=== PATIENT | male | born 1950 | race Caucasian/White ===

== ENCOUNTER 2016-11-29 14:26 | Observation (INO) ==
[2016-11-29 16:15] LABS: Basophils # 0.1 K/mcL (0.0-0.2); Basophils % 0.8 %; Eosinophils # 0.3 K/mcL (0.0-0.6); Eosinophils % 1.8 %; Hematocrit 46.4 % (37.5-50.1); Hemoglobin 14.6 g/dL (12.9-16.9); Lymphocytes # 0.8 K/mcL (0.6-4.6); Lymphocytes % 5.6 %; Mean Corpuscular HGB Conc 31.5 g/dL (31.6-35.5); Mean Corpuscular Hemoglobin 32.9 pg (28.0-33.3); Mean Corpuscular Volume 104.5 fL (83.0-100.0); Mean Platelet Volume 9.9 fL (9.4-12.4); Monocytes # 1.2 K/mcL (0.0-1.3); Monocytes % 8.9 %; Neutrophils # 10.8 K/mcL (1.6-8.9); Nucleated Red Blood Cells 1.4 /100 WBC (0); Platelet Count 222 K/mcL (140-400); Red Blood Count 4.44 M/mcL (4.19-5.50); Segmented Neutrophils % 77.9 %
[2016-11-29 16:29] LABS: Calcium 8.9 mg/dL (8.6-10.8); Potassium 4.1 mEq/L (3.5-4.5)
--- NOTE | 2016-11-29 16:35 | Emergency Department Note ---
Disposition Clinical Impression: CHF exacerbation Qualifiers: Congestive heart failure type: unspecified congestive heart failure type Qualified Code(s): I50.9 - Heart failure, unspecified Disposition: Admitted As Inpatient Condition: Fair Referrals: Lonny Davison MD [Primary Care Provider] - Forms: ED Satisfaction Letter Time of Disposition: 16:40 General Adult HPI - General Chief complaint: ED Shortness of Breath/Dyspnea Stated complaint: SOB Time Seen by Provider: 11/29/16 16:25 Source: patient Limitations: no limitations Nursing Notes Reviewed: Yes Vital Signs Reviewed: Yes - History of Present Illness HPI Narrative: 66-year-old male with a past medical history of congestive heart failure, atrial fibrillation, pacemaker, defibrillator, blood clots, factor V Leiden deficiency, IVC filter, ileostomy, presents to the emergency department with a weeklong history of worsening shortness of breath at nighttime. He states that he has had the increased the number of pillows he uses from 2-3. He states that this feels worse than his normal CHF exacerbation. Pain Scale: 0 - Related Data Home Medications Medication Instructions Recorded Confirmed Calcitriol [Rocaltrol] 0.25 mcg PO DAILY 10/09/14 03/23/16 Cholecalciferol (Vitamin D3) 2,000 unit PO QAM 10/09/14 03/23/16 [Vitamin D3] Dabigatran [Pradaxa] 75 mg PO BID 10/09/14 03/23/16 Pravastatin Sodium 40 mg PO HS 10/09/14 03/23/16 Cyanocobalamin (Vitamin B-12) 500 mcg PO DAILY 07/22/15 03/23/16 [Vitamin B-12] Folic Acid 0.8 mg PO DAILY 01/07/16 03/23/16 Sodium Bicarbonate 650 mg PO HS 01/07/16 03/23/16 Albuterol Sulfate [Proair Hfa] 2 puff IH Q4H PRN 11/29/16 11/29/16 Ascorbic Acid [Vitamin C] 500 mg PO DAILY 11/29/16 11/29/16 Ferrous Sulfate [Iron] 325 mg PO DAILY 11/29/16 11/29/16 Furosemide [Lasix] 20 mg PO DAILY 11/29/16 11/29/16 Levothyroxine [Synthroid] 75 mcg PO 0630 11/29/16 11/29/16 Previous Rx's Medication Instructions Recorded Carvedilol [Coreg] 25 mg PO BID #30 tablet 03/25/15 Digoxin [Lanoxin] 0.125 mg PO QOD #30 tablet 11/20/15 Allergies Allergy/AdvReac Type Severity Reaction Status Date / Time Penicillins [PCN] Allergy Rash Verified 01/07/16 10:54 codeine AdvReac Hallucinati Verified 01/07/16 10:54 ng lorazepam [From Ativan] AdvReac Hallucinati Verified 01/07/16 10:54 ng All systems ED: reviewed and negative except as stated. Review of Systems: As Per HPI Constitutional: Denies: fever, chills Cardiovascular: Reports: orthopnea, paroxysmal nocturnal dyspnea. Denies: chest pain, palpitations Respiratory: Reports: dyspnea. Denies: cough, wheezes Gastrointestinal: Denies: abdominal pain, nausea, vomiting Genitourinary: Denies: urgency, dysuria, frequency Musculoskeletal: Denies: back pain, neck pain Neurological: Denies: headache, weakness Past Medical History - Past Medical History Medical history: Reports: atrial fibrillation, CHF, COPD, DVT, hyperlipidemia, hypertension, pulmonary embolus, renal disease, thyroid disease, other Surgical history: Reports: colostomy, pacemaker/AICD, other Psychiatric history: Reports: no psych history - Social History Smoking Status: Never smoker Smokeless Tobacco Status: No Alcohol use: Reports: none Drug use: Reports: none Physical Exam - General Limitations: no limitations General appearance: alert, in no apparent distress - Head Head exam: atraumatic, normocephalic - Eye Eye exam: Absent: scleral icterus, conjunctival injection - ENT ENT exam: normal exam, normal oropharynx - Neck Neck exam: Present: trachea midline. Absent: tenderness, meningismus - Chest Chest inspection: Present: normal inspection, symmetric chest wall rise - Respiratory Respiratory exam: Present: normal lung sounds bilaterally. Absent: respiratory distress - Cardiovascular Cardiovascular exam: Present: regular rate, normal rhythm, normal heart sounds - Abdominal Exam Abdominal exam: Present: soft, Non-Tender, distention. Absent: guarding, rebound, rigidity - Extremities Exam Extremities exam: Present: normal capillary refill. Absent: tenderness, pedal edema - Back Exam Back exam: Present: normal inspection. Absent: tenderness, paraspinal tenderness - Neurological Exam Neurological exam: Present: alert, oriented X3 - Skin Skin exam: Present: warm, dry, intact, normal color Course Course Narrative: This is a 66-year-old male with a past medical history of CHF, atrial fibrillation who presents with orthopnea, dyspnea over the last week. He was sent by his machine cell tuber for evaluation. This gentleman has an elevated BNP, worsening of his chronic kidney disease with an elevated BUN of 87. At this time, I will give this patient 40 mg of Lasix. I called the hospitalist on this patient admitted. They accepted the admission. I discussed this with the patient and they agreed with the admission. Patient is currently hemodynamically stable at this time and not actively having any chest pain or dyspnea. Chest X-Ray 11/29/16 15:11 IMPRESSION: Cardiomegaly. No failure. D/ / Jamir Chen / Jamir Chen Interpreting Provider: Jamir Chen Vital Signs Temperature 0 F L 11/29/16 14:30 Pulse Rate 89 11/29/16 14:30 Respiratory Rate 11/29/16 14:30 Blood Pressure 116/82 11/29/16 14:30 O2 Sat by Pulse Oximetry 97 11/29/16 14:30 Temperature 97.4 F L 11/29/16 19:16 Pulse Rate 86 11/29/16 19:16 Respiratory Rate 16 11/29/16 19:16 Blood Pressure 120/82 11/29/16 19:16 O2 Sat by Pulse Oximetry 98 11/29/16 19:16 Oxygen Delivery Oxygen Delivery Room Air Vital Signs Temperature 0 F L 11/29/16 14:30 Pulse Rate 89 11/29/16 14:30 Respiratory Rate 11/29/16 14:30 Blood Pressure 116/82 11/29/16 14:30 O2 Sat by Pulse Oximetry 97 11/29/16 14:30 Temperature 0 F L 11/29/16 14:30 Pulse Rate 89 11/29/16 14:30 Respiratory Rate 20 11/29/16 14:30 Blood Pressure 116/82 11/29/16 14:30 O2 Sat by Pulse Oximetry 98 11/29/16 17:08 Oxygen Delivery Oxygen Delivery Room Air Medical Decision Making - Medical Records Medical records reviewed: Yes I reviewed the patient's medical records. - Lab Data Lab results reviewed: Yes I reviewed the patient's lab results. Result diagrams: 11/29/16 15:51 11/29/16 15:51 Lab Results 11/29/16 11/29/16 11/29/16 Range/Units 15:51 15:51 15:51 WBC 13.9 H (4.3-11.1) K/mcL RBC 4.44 (4.19-5.50) M/mcL Hgb 14.6 (12.9-16.9) g/dL Hct 46.4 (37.5-50.1) % MCV 104.5 H (83.0-100.0) fL MCH 32.9 (28.0-33.3) pg MCHC 31.5 L (31.6-35.5) g/dL RDW 19.0 H (11.5-14.5) % Plt Count 222 (140-400) K/mcL MPV 9.9 (9.4-12.4) fL Immature Gran % 5.0 H (0-4) % Seg Neutrophils % 77.9 % Lymphocytes % 5.6 % Monocytes % 8.9 % Eosinophils % 1.8 % Basophils % 0.8 % Neutrophils # 10.8 H (1.6-8.9) K/mcL Lymphocytes # 0.8 (0.6-4.6) K/mcL Monocytes # 1.2 (0.0-1.3) K/mcL Eosinophils # 0.3 (0.0-0.6) K/mcL Basophils # 0.1 (0.0-0.2) K/mcL Nucleated RBCs/100 WBC 1.4 H (0) /100 WBC Sodium 132 L (136-145) mEq/L Potassium 4.1 (3.5-4.5) mEq/L Chloride 100 (98-109) mEq/L Carbon Dioxide 19 (19-29) mEq/L BUN 87 H (8-26) mg/dL Creatinine 2.80 H (0.72-1.25) mg/dL Est GFR ( Amer) 28 L (> 60) Est GFR (Non-Af Amer) 23 L (> 60) BUN/Creatinine Ratio 31 H (6-26) Glucose 130 H (70-99) mg/dL Calculated Osmolality 302 H (280-300) Calcium 8.9 (8.6-10.8) mg/dL Total Bilirubin 1.0 (0.2-1.2) mg/dL Direct Bilirubin 0.6 H (0.0-0.5) mg/dL Indirect Bilirubin 0.4 (0.0-1.2) mg/dL AST 18 (5-34) Units/L ALT 16 (0-55) Units/L Alkaline Phosphatase 67 (38-126) Units/L Troponin I 0.07 H* (0-0.03) ng/mL B-Natriuretic Peptide (0-100) pg/mL Serum Total Protein 7.0 (6.0-8.3) g/dL Albumin 3.4 L (3.5-5.0) g/dL Globulin 3.6 H (2.4-3.5) g/dL Albumin/Globulin Ratio 0.9 L (1.1-2.2) 11/29/16 Range/Units 15:51 WBC (4.3-11.1) K/mcL RBC (4.19-5.50) M/mcL Hgb (12.9-16.9) g/dL Hct (37.5-50.1) % MCV (83.0-100.0) fL MCH (28.0-33.3) pg MCHC (31.6-35.5) g/dL RDW (11.5-14.5) % Plt Count (140-400) K/mcL MPV (9.4-12.4) fL Immature Gran % (0-4) % Seg Neutrophils % % Lymphocytes % % Monocytes % % Eosinophils % % Basophils % % Neutrophils # (1.6-8.9) K/mcL Lymphocytes # (0.6-4.6) K/mcL Monocytes # (0.0-1.3) K/mcL Eosinophils # (0.0-0.6) K/mcL Basophils # (0.0-0.2) K/mcL Nucleated RBCs/100 WBC (0) /100 WBC Sodium (136-145) mEq/L Potassium (3.5-4.5) mEq/L Chloride (98-109) mEq/L Carbon Dioxide (19-29) mEq/L BUN (8-26) mg/dL Creatinine (0.72-1.25) mg/dL Est GFR ( Amer) (> 60) Est GFR (Non-Af Amer) (> 60) BUN/Creatinine Ratio (6-26) Glucose (70-99) mg/dL Calculated Osmolality (280-300) Calcium (8.6-10.8) mg/dL Total Bilirubin (0.2-1.2) mg/dL Direct Bilirubin (0.0-0.5) mg/dL Indirect Bilirubin (0.0-1.2) mg/dL AST (5-34) Units/L ALT (0-55) Units/L Alkaline Phosphatase (38-126) Units/L Troponin I (0-0.03) ng/mL B-Natriuretic Peptide 4722 H (0-100) pg/mL Serum Total Protein (6.0-8.3) g/dL Albumin (3.5-5.0) g/dL Globulin (2.4-3.5) g/dL Albumin/Globulin Ratio (1.1-2.2) - Radiology Data Radiology results reviewed: Yes I reviewed the patient's radiology results. - EKG Data EKG #1 EKG attestation: Yes I reviewed and interpreted this EKG. EKG results narrative: 14:33 Ventricular rate 84 bpm, ID interval 172 ms, QRS duration 147 ms, QT 397 seconds , QTC 438 ms, left axis deviation. Sinus rhythm right bundle branch block. There are significant Q waves in leads 23 and aVF. This EKG is unchanged from the one performed on 11/18/2015. Attestation Statement - Attestation Attestation: I, Erik Valdez DO, examined this patient [id number] and my medical decision-making was reviewed with Dr. Marcus La, Resident Physician. I agree with the documented findings, disposition and treatment plan as described except to the extent set forth below. Please see my progress notes for details. 66-year-old male presents emergency room with increasing orthopnea, increasing fluid overload, increasing shortness of breath with exertion. He denies any chest pain nausea vomiting or diarrhea fevers or chills. Denies any headache or vision change. Patient does have a history of pulmonary congestion and fluid overload secondary to unknown etiology of heart failure. Patient also has a history remotely of ascites but does not know the source to it at this time. Stable ileostomy is in place. Vital signs on presentation show borderline tachycardia otherwise no signs of hypoxia or tachypnea. Patient is thin and frail but does have a distended abdomen with stable ostomy with normal output. Lungs are otherwise clear with no visible or audible crackles on exam. Heart is regular. Abdomen is soft nontender mildly distended with no guarding no rigidity. No peritoneal symptoms. He has pitting edema bilateral lower extremities are +3. Patient is concerning for congestive heart failure, intra-abdominal fluid accumulation, increased work of breathing secondary to fluid accumulation as well as acute on chronic kidney insufficiency. Detailed documentation of medical evaluation, physical exam, medical intervention, medical decision making process and most likely admission will be documented as a physician's note. Patient will require hospitalization for diuresis and stabilization of his respiratory status. First dose of IV Lasix given here in the emergency room.
[2016-11-29] MEDS ORDERED: Furosemide 40 MG/4 ML VIAL IVP ONE (16:39)
[2016-11-29] MEDS ORDERED: Aspirin 325 MG TABLET PO ONE (17:10)
[2016-11-29 17:22] LABS: Albumin 3.4 g/dL (3.5-5.0); Albumin/Globulin Ratio 0.9 (1.1-2.2); Bilirubin,Direct 0.6 mg/dL (0.0-0.5); Bilirubin,Indirect 0.4 mg/dL (0.0-1.2); Globulin 3.6 g/dL (2.4-3.5)
[2016-11-29] MEDS ORDERED: Ondansetron 4 MG/2 ML VIAL IVP PRN (20:41)
[2016-11-29] MEDS ORDERED: Naloxone 0.4 MG/ML INJ IVP PRN (20:41)
--- NOTE | 2016-11-29 21:01 | Internal Med History&Physical ---
Date of Encounter: 11/29/16 Time of Encounter: 20:20 Assessment and Plan (1) CHF exacerbation Current visit: Yes Status: Acute Acute respiratory distress secondary to CHF decompensation Pt reports of decreasing his lasix dose as per his rubbing bed operator will start Lasix 40mg IV qd last 2D echo (10/22/15): LVEF 10-15% f/u repeat echo fluid restriction diet (1.5L/day) O2 supplementation as needed monitor I/Os, daily weights tele monitoring consider cardiology evaluation depending on patient's clinical response to IV diuresis Qualifiers: Congestive heart failure type: unspecified congestive heart failure type Qualified Code(s): I50.9 - Heart failure, unspecified (2) Elevated troponin Current visit: No Status: Acute likely demand ischemia no chest pain reported will continue to monitor (3) COPD (chronic obstructive pulmonary disease) Current visit: No Status: Chronic not in acute exacerbation continue home bronchodilators Qualifiers: COPD type: unspecified COPD Qualified Code(s): J44.9 - Chronic obstructive pulmonary disease, unspecified (4) CKD (chronic kidney disease) Current visit: No Status: Chronic Renal function at baseline continue to monitor consider nephrology evaluation if renal function worsens given acute CHF exacerbation, pt will need IV diuresis pt's primary rubbing bed operator is Dr. Leavitt Qualifiers: Chronic kidney disease stage: stage 4 (severe) Qualified Code(s): N18.4 - Chronic kidney disease, stage 4 (severe) (5) Paroxysmal atrial fibrillation Current visit: No Status: Chronic rate controlled with Digoxin and BB, will continue anticoagulated with Pradaxa (6) CKD (chronic kidney disease) stage 4, GFR 15-29 ml/min Current visit: No Status: Chronic (7) DVT (deep venous thrombosis) Current visit: No Status: Chronic anticoagulated with Pradaxa Qualifiers: DVT location: lower extremity Affected thrombotic vein of extremity: unspecified vein of extremity Chronicity: chronic Laterality: unspecified laterality Qualified Code(s): I82.509 - Chronic embolism and thrombosis of unspecified deep veins of unspecified lower extremity (8) Pulmonary embolism Current visit: No Status: Chronic anticoagulated with Pradaxa Qualifiers: Pulmonary embolism type: other Chronicity: unspecified Acute cor pulmonale presence: without acute cor pulmonale Qualified Code(s): I26.99 - Other pulmonary embolism without acute cor pulmonale (9) Hypothyroidism Current visit: Yes Status: Resolved continue levothyroxine Qualifiers: Hypothyroidism type: unspecified Qualified Code(s): E03.9 - Hypothyroidism , unspecified (10) DVT prophylaxis Current visit: No Status: Acute anticoagulated with Pradaxa Internal Medicine - H&P: HPI Chief complaint: shortness of breath Admitted From: Home Plans for Post Hospital Care: Home History of present illness: Mr. Shultz is a 66 year old male with PMH of CHF, COPD, HTN, CKD, DVT, PE on Pradaxa, hypothyroidism, and s/p ileostomy who presents to the ER for evaluation of shortness of breath. Patient states he has been having difficulty sleeping and laying flat for the last few days due to shortness of breath. Also reports of worsening exertional dyspnea. States his primary rubbing bed operator decreased his lasix to 20mg once a day from 40mg once a day due to his renal function. He denies any chest pain, abd pain, n/v, fever, or chills. Code status: Full code Past Med Surg Social Fam HX - Past Medical History Medical history: atrial fibrillation, CHF, COPD, DVT, hyperlipidemia, hypertension, pulmonary embolus, renal disease, thyroid disease, other Psychiatric history: no psych history - Past Surgical History Surgical History: colostomy, pacemaker/AICD, other - Social History Smoking Status: Never smoker Smokeless Tobacco Status: No Alcohol use: none Drug use: none - Family History Father Adopted: No Family Member Ethnicity: Non- Living Status: Still Living Cause of : MRSA. septic Hx Family Cardiac Disorders: Yes (CHF) Hx Family Respiratory Disorders: Yes Hx Family Cancer: No Hx Family GI Disorders: No Hx Family Endocrine Disorder: No Hx Family Neuromuscular Disorders: No Hx Family Neurologic Disorders: No Hx Family HEENT Disorders: No Hx Family Autoimmune Disorders: No Mother Living Status: Cause of : Ovarian CA Internal Medicine - H&P: Meds Calcitriol [Rocaltrol] 0.25 mcg PO DAILY 10/09/14 [History] Cholecalciferol (Vitamin D3) [Vitamin D3] 2,000 unit PO QAM 10/09/14 [History] Dabigatran [Pradaxa] 75 mg PO BID 10/09/14 [History] Pravastatin Sodium 40 mg PO HS 10/09/14 [History] Carvedilol [Coreg] 25 mg PO BID #30 tablet 03/25/15 [Rx] Cyanocobalamin (Vitamin B-12) [Vitamin B-12] 500 mcg PO DAILY 07/22/15 [History] Digoxin [Lanoxin] 0.125 mg PO QOD #30 tablet 11/20/15 [Rx] Folic Acid 0.8 mg PO DAILY 01/07/16 [History] Sodium Bicarbonate 650 mg PO DAILY 01/07/16 [History] Albuterol Sulfate [Proair Hfa] 2 puff IH Q4H PRN 11/29/16 [History] Ascorbic Acid [Vitamin C] 500 mg PO DAILY 11/29/16 [History] Ferrous Sulfate [Iron] 325 mg PO DAILY 11/29/16 [History] Furosemide [Lasix] 20 mg PO DAILY 11/29/16 [History] Levothyroxine [Synthroid] 75 mcg PO 0630 11/29/16 [History] 3 Allergy/AdvReac Type Severity Reaction Status Date / Time Penicillins [PCN] Allergy Rash Verified 01/07/16 10:54 codeine AdvReac Hallucinati Verified 01/07/16 10:54 ng lorazepam [From Ativan] AdvReac Hallucinati Verified 01/07/16 10:54 ng All Systems PM: A 10-system review of systems was performed and is negative for pertinent findings except as documented above in the HPI. - Constitutional Constitutional: as per HPI - Constitutional Vitals: Temp Pulse Resp BP Pulse Ox 97.4 F L 86 16 120/82 98 11/29/16 19:16 11/29/16 19:16 11/29/16 19:16 11/29/16 19:16 11/29/16 19:16 General appearance: Present: cooperative, A&O X 3, pleasant, no acute distress, answers questions appropriately - Head Head exam: Present: atraumatic, normocephalic - Eye Eye exam: Present: conjuntiva pink, sclera anicteric - Respiratory Respiratory exam: Absent: respiratory distress, wheezes (bibasilar crackles) - Cardiovascular Cardiovascular exam: Present: RRR, +S1, +S2. Absent: diastolic murmur, gallop, rubs, systolic murmur - GI/Abdominal GI/Abdominal exam: Present: normal bowel sounds, soft, no peritoneal signs ( ileostomy intact, midline healed surgical scar). Absent: tenderness - Extremities Exam Extremities exam: Present: pedal edema (trace pitting edema in b/l LE extremities), warm, radial pulses palpable and symmetrical. Absent: calf tenderness - Neurological Exam Neurological exam: Present: alert, oriented X3 - Psychiatric Psychiatric exam: Present: normal affect, normal mood Internal Med - H&P Results - Labs CBC & Chem 7: 11/29/16 15:51 11/29/16 15:51
[2016-11-29] MEDS: *HR* Dabigatran 75 MG CAPSULE PO SCH (21:17)
[2016-11-29] MEDS: *HR* Digoxin 0.125 MG TABLET PO SCH (21:17)
[2016-11-30 03:43] LABS: Bilirubin,Urine Negative (Negative); Blood,Urine Negative (Negative); Clarity,Urine Clear (Clear); Color,Urine Yellow (Yellow); Glucose,Urine (UA) Normal (Normal); Ketones,Urine Negative (Negative); Leukocyte Esterase,Urine Negative (Negative); Nitrite,Urine Negative (Negative); Protein,Urine Negative (Neg-Trace); Specific Gravity,Urine 1.016 (1.010-1.025); Urobilinogen,Urine Normal (Normal)
[2016-11-30 04:49] LABS: INR 2.8; Prothrombin Time 30.4 Seconds (9.4-12.1)
[2016-11-30 04:59] LABS: Calcium 8.5 mg/dL (8.6-10.8); Magnesium 1.8 mg/dL (1.6-2.6); Phosphorous 4.5 mg/dL (2.3-4.7); Potassium 3.7 mEq/L (3.5-4.5)
[2016-11-30 05:05] LABS: Basophils # 0.1 K/mcL (0.0-0.2); Basophils % 0.7 %; Eosinophils # 0.3 K/mcL (0.0-0.6); Eosinophils % 2.6 %; Hematocrit 42.8 % (37.5-50.1); Hemoglobin 13.6 g/dL (12.9-16.9); Immature Granulocytes % 4.9 % (0-4); Lymphocytes # 0.8 K/mcL (0.6-4.6); Lymphocytes % 7.7 %; Mean Corpuscular HGB Conc 31.8 g/dL (31.6-35.5); Mean Corpuscular Hemoglobin 32.8 pg (28.0-33.3); Mean Corpuscular Volume 103.1 fL (83.0-100.0); Mean Platelet Volume 9.8 fL (9.4-12.4); Monocytes # 0.9 K/mcL (0.0-1.3); Monocytes % 8.8 %; Neutrophils # 7.7 K/mcL (1.6-8.9); Nucleated Red Blood Cells 0.9 /100 WBC (0); Platelet Count 193 K/mcL (140-400); Red Blood Count 4.15 M/mcL (4.19-5.50); Red Cell Distribution Width 18.9 % (11.5-14.5); Segmented Neutrophils % 75.3 %
[2016-11-30] MEDS ORDERED: NON-FORMULARY MEDICATION 1 EACH EACH (Cholecalciferol (Vitamin D3) [Vitamin D3] 1,000 UNIT PO SCH (09:00)
[2016-11-30] MEDS: Ascorbic Acid 500 MG TABLET PO SCH (10:01)
[2016-11-30] MEDS: Cyanocobalamin (B-12) 1,000 MCG TABLET PO SCH (10:02)
[2016-11-30] MEDS: Furosemide 40 MG/4 ML VIAL IVP SCH (10:02)
[2016-11-30] MEDS: Cholecalciferol (D-3) 1,000 UNIT TABLET PO SCH (10:02)
[2016-11-30] MEDS: *HR* Dabigatran 75 MG CAPSULE PO SCH ×2 (10:02→20:29)
[2016-11-30] MEDS: Folic Acid 1 MG TABLET PO SCH (10:02)
--- NOTE | 2016-11-30 11:21 | Internal Med Progress Note ---
Date of Encounter: 11/30/16 Time of Encounter: 11:19 - Assessment and plan (1) Systolic CHF, acute on chronic Current Visit: Yes Status: Acute (2) Paroxysmal atrial fibrillation Current Visit: Yes Status: Chronic (3) Pulmonary embolism Current Visit: Yes Status: Chronic Qualifiers: Pulmonary embolism type: other Chronicity: unspecified Acute cor pulmonale presence: without acute cor pulmonale Qualified Code(s): I26.99 - Other pulmonary embolism without acute cor pulmonale (4) CKD (chronic kidney disease) stage 4, GFR 15-29 ml/min Current Visit: Yes Status: Chronic (5) Presence of IVC filter Current Visit: No Status: Chronic (6) Cirrhosis Current Visit: Yes Status: Chronic Qualifiers: Hepatic cirrhosis type: unspecified hepatic cirrhosis Ascites presence: with ascites Qualified Code(s): K74.60 - Unspecified cirrhosis of liver (7) DVT (deep venous thrombosis) Current Visit: Yes Status: Chronic Qualifiers: DVT location: lower extremity Affected thrombotic vein of extremity: unspecified vein of extremity Chronicity: chronic Laterality: unspecified laterality Qualified Code(s): I82.509 - Chronic embolism and thrombosis of unspecified deep veins of unspecified lower extremity - Subjective Interval history: Hx: Mr. Shultz is a 66 year old male with PMH of CHF, COPD, HTN, CKD, DVT, PE on Pradaxa, hypothyroidism, and s/p ileostomy who presents to the ER for evaluation of shortness of breath. Patient states he has been having difficulty sleeping and laying flat for the last few days due to shortness of breath. Also reports of worsening exertional dyspnea. States his primary ward maid decreased his lasix to 20mg once a day from 40mg once a day due to his renal function. Patient was seen today and discuss and PCL beside checking the labs. 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 Known EF is only 10-15%. Recently Lasix was reduced due to worsening renal function. On Lasix 40 daily and will try to diurese him slowly but as a consequence will accept elevated renal function. Monitor her electrolyte CBC and CMP daily. #2 A. fib rate controlled on Pradaxa #3 ileostomy with ileostomy patient water and did need some much higher and probably that created some issue in management of his CHF. Labs ordered: CBC magnesium phosphate and CMP. - Constitutional Vitals: Temp Pulse Resp BP Pulse Ox 97.5 F L 83 20 107/75 97 11/30/16 11:11/30/16 11:11/30/16 11:09 11/30/16 11:11/30/16 11:09 General appearance: Present: cooperative, A&O X 3, pleasant, no acute distress, answers questions appropriately - Head Head exam: Present: atraumatic, normocephalic - Eye Eye exam: Present: PERRL, conjuntiva pink, sclera anicteric Pupils: Present: PERRL - Neck Neck exam general surgery: Present: supple, trachea midline. Absent: lymphadenopathy - Respiratory Respiratory exam: Present: rhonchi. Absent: accessory muscle use, rales, wheezes - Cardiovascular Cardiovascular exam: Present: RRR, +S1, +S2. Absent: diastolic murmur, gallop, rubs, systolic murmur - GI/Abdominal GI/Abdominal exam: Present: normal bowel sounds, soft, no peritoneal signs. Absent: distended, tenderness - Extremities Exam Extremities exam: Present: warm, radial pulses palpable and symmetrical. Absent : calf tenderness, cyanotic, pedal edema - Neurological Exam Neurological exam: Present: CN II-XII intact, oriented X3, no focal deficits. Absent: pronater drift, facial droop, speech deficit - Skin Skin exam: Present: dry, intact Internal Medicine: Result - Labs CBC & Chem 7: 11/30/16 04:25 11/30/16 04:25 Labs: Short CBC 11/30/16 Range/Units 04:25 WBC 10.2 (4.3-11.1) K/mcL Hgb 13.6 (12.9-16.9) g/dL Hct 42.8 (37.5-50.1) % Plt Count 193 (140-400) K/mcL Neutrophils # 7.7 (1.6-8.9) K/mcL BMP 11/30/16 04:25 Sodium 136 Potassium 3.7 Chloride 102 Carbon Dioxide 19 BUN 87 H Creatinine 2.68 H Glucose 141 H Calcium 8.5 L Cardiac Enzymes 11/29/16 11/30/16 Range/Units 22:04 04:25 Troponin I 0.07 H* 0.09 H* (0-0.03) ng/mL Urine 09/26/17 Range/Units 03:34 Urine Color Yellow (Yellow) Urine Clarity Clear (Clear) Urine pH 6.0 (5.0-8.0) pH Units Ur Specific [place] 1.016 (1.010-1.025) Urine Protein Negative (Neg-Trace) mg/dL Urine Glucose (UA) Normal (Normal) mg/dL - ABG Interpretation ABG results: PT/INR, D-dimer PT 30.4 Seconds (9.4-12.1) H 11/30/16 04:25 Consult Discharge Plan - Plan Referrals: Lonny Davison MD [Primary Care Provider] -
--- NOTE | 2016-11-30 19:11 | Electrocardiograph Report ---
[address] [place], [place] [address] Test Date: 2016-11-29 Pat Name: Rich Shultz Department: 104 Room: 2A Gender: M Heel Pricker: : 1950 Requested By: Rufino Phelps Order Number: [id number] Reading MD: Varsha Vazquez Measurements Intervals [place] Rate: 84 P: 59 SD: 172 QRS: -84 QRSD: 147 T: 77 QT: 397 QTc: 438 Interpretive Statements SINUS RHYTHM POSSIBLE LEFT ATRIAL ENLARGEMENT RIGHT BUNDLE BRANCH BLOCK POSSIBLE ANTERIOR MYOCARDIAL INFARCTION, OF INDETERMINATE AGE INFERIOR MYOCARDIAL INFARCTION, OF INDETERMINATE AGE Electronically Signed On 11-30-2016 19:09:18 EDT by Varsha Vazquez
[2016-12-01 06:18] LABS: Basophils % 0.4 %; Eosinophils # 0.3 K/mcL (0.0-0.6); Eosinophils % 2.6 %; Hematocrit 39.6 % (37.5-50.1); Hemoglobin 12.5 g/dL (12.9-16.9); Immature Granulocytes % 3.7 % (0-4); Lymphocytes # 0.7 K/mcL (0.6-4.6); Lymphocytes % 7.2 %; Mean Corpuscular HGB Conc 31.6 g/dL (31.6-35.5); Mean Corpuscular Hemoglobin 32.3 pg (28.0-33.3); Mean Corpuscular Volume 102.3 fL (83.0-100.0); Monocytes # 0.8 K/mcL (0.0-1.3); Monocytes % 8.6 %; Neutrophils # 7.5 K/mcL (1.6-8.9); Nucleated Red Blood Cells 0.3 /100 WBC (0); Platelet Count 183 K/mcL (140-400); Red Blood Count 3.87 M/mcL (4.19-5.50); Red Cell Distribution Width 18.9 % (11.5-14.5); Segmented Neutrophils % 77.5 %
[2016-12-01 06:31] LABS: Albumin 3.1 g/dL (3.5-5.0); Bilirubin,Total 1.2 mg/dL (0.2-1.2); Calcium 8.5 mg/dL (8.6-10.8); Globulin 3.2 g/dL (2.4-3.5); Magnesium 1.8 mg/dL (1.6-2.6); Potassium 2.9 mEq/L (3.5-4.5); Total Protein 6.3 g/dL (6.0-8.3)
[2016-12-01] MEDS: Folic Acid 1 MG TABLET PO SCH (08:10)
[2016-12-01] MEDS: Cholecalciferol (D-3) 1,000 UNIT TABLET PO SCH (08:10)
[2016-12-01] MEDS: Furosemide 40 MG/4 ML VIAL IVP SCH (08:10)
[2016-12-01] MEDS: *HR* Digoxin 0.125 MG TABLET PO SCH (08:10)
[2016-12-01] MEDS: Cyanocobalamin (B-12) 1,000 MCG TABLET PO SCH (08:10)
[2016-12-01] MEDS: *HR* Dabigatran 75 MG CAPSULE PO SCH ×2 (08:10→21:12)
[2016-12-01] MEDS: Ascorbic Acid 500 MG TABLET PO SCH (08:10)
--- NOTE | 2016-12-01 17:22 | Internal Med Progress Note ---
Date of Encounter: 12/01/16 Time of Encounter: 17:20 - Assessment and plan (1) Systolic CHF, acute on chronic Current Visit: Yes Status: Acute (2) Paroxysmal atrial fibrillation Current Visit: Yes Status: Chronic (3) Pulmonary embolism Current Visit: Yes Status: Chronic Qualifiers: Pulmonary embolism type: other Chronicity: unspecified Acute cor pulmonale presence: without acute cor pulmonale Qualified Code(s): I26.99 - Other pulmonary embolism without acute cor pulmonale (4) CKD (chronic kidney disease) stage 4, GFR 15-29 ml/min Current Visit: Yes Status: Chronic (5) Presence of IVC filter Current Visit: No Status: Chronic (6) Cirrhosis Current Visit: Yes Status: Chronic Qualifiers: Hepatic cirrhosis type: unspecified hepatic cirrhosis Ascites presence: with ascites Qualified Code(s): K74.60 - Unspecified cirrhosis of liver (7) DVT (deep venous thrombosis) Current Visit: Yes Status: Chronic Qualifiers: DVT location: lower extremity Affected thrombotic vein of extremity: unspecified vein of extremity Chronicity: chronic Laterality: unspecified laterality Qualified Code(s): I82.509 - Chronic embolism and thrombosis of unspecified deep veins of unspecified lower extremity - Subjective Interval history: Hx: Mr. Shultz is a 66 year old male with PMH of CHF, COPD, HTN, CKD, DVT, PE on Pradaxa, hypothyroidism, and s/p ileostomy who presents to the ER for evaluation of shortness of breath. Patient states he has been having difficulty sleeping and laying flat for the last few days due to shortness of breath. Also reports of worsening exertional dyspnea. States his primary barista decreased his lasix to 20mg once a day from 40mg once a day due to his renal function. Patient was seen today and discuss and PCL beside checking the labs. Asymptomatic now breathing much better ambulatory without oxygen. I do not think I's and O's reflect his true fluid balance. Since his blood pressure has started running low I will change his IV Lasix to 40 mg by mouth daily. Patient to creatinine has gradually come down. He is not too far from his baseline and can be discharged. Unfortunately potassium is running low therefore we will supplemented and weight proceed stabilized. 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 Known EF is only 10-15%. Recently Lasix was reduced due to worsening renal function. On Lasix 40 daily and will try to diurese him slowly but as a consequence will accept elevated renal function. Monitor her electrolyte CBC and CMP daily. #2 A. fib rate controlled on Pradaxa #3 ileostomy with ileostomy patient water and did need some much higher and probably that created some issue in management of his CHF. Labs ordered: CBC magnesium phosphate and CMP. - Constitutional Vitals: Temp Pulse Resp BP Pulse Ox 97.6 F 78 18 90/64 99 12/01/16 16:03 12/01/16 16:03 12/01/16 16:03 12/01/16 16:03 12/01/16 16:03 General appearance: Present: cooperative, A&O X 3, pleasant, no acute distress, answers questions appropriately - Head Head exam: Present: atraumatic, normocephalic - Eye Eye exam: Present: PERRL, conjuntiva pink, sclera anicteric Pupils: Present: PERRL - Neck Neck exam general surgery: Present: supple, trachea midline. Absent: lymphadenopathy - Respiratory Respiratory exam: Present: CTAB. Absent: accessory muscle use, rales, rhonchi, wheezes - Cardiovascular Cardiovascular exam: Present: RRR, +S1, +S2. Absent: diastolic murmur, gallop, rubs, systolic murmur - GI/Abdominal GI/Abdominal exam: Present: normal bowel sounds, soft, no peritoneal signs. Absent: distended, tenderness - Extremities Exam Extremities exam: Present: warm, radial pulses palpable and symmetrical. Absent : calf tenderness, cyanotic, pedal edema - Neurological Exam Neurological exam: Present: CN II-XII intact, oriented X3, no focal deficits. Absent: pronater drift, facial droop, speech deficit - Skin Skin exam: Present: dry, intact Internal Medicine: Result - Labs CBC & Chem 7: 12/01/16 05:26 12/01/16 05:26 Labs: Short CBC 12/01/16 Range/Units 05:26 WBC 9.7 (4.3-11.1) K/mcL Hgb 12.5 L (12.9-16.9) g/dL Hct 39.6 (37.5-50.1) % Plt Count 183 (140-400) K/mcL Neutrophils # 7.5 (1.6-8.9) K/mcL BMP 12/01/16 05:26 Sodium 137 Potassium 2.9 L Chloride 104 Carbon Dioxide 19 BUN 76 H Creatinine 2.33 H Glucose 119 H Calcium 8.5 L Liver Function 12/01/16 Range/Units 05:26 Total Bilirubin 1.2 (0.2-1.2) mg/dL AST 18 (5-34) Units/L ALT 18 (0-55) Units/L Alkaline Phosphatase 67 (38-126) Units/L Albumin 3.1 L (3.5-5.0) g/dL - ABG Interpretation ABG results: PT/INR, D-dimer PT 30.4 Seconds (9.4-12.1) H 11/30/16 04:25 Consult Discharge Plan - Plan Referrals: Lonny Davison MD [Primary Care Provider] - 12/06/16 9:00 am
[2016-12-01] MEDS: Furosemide 40 MG TABLET PO SCH (19:27)
[2016-12-02 04:05] LABS: Basophils % 0.2 %; Eosinophils # 0.3 K/mcL (0.0-0.6); Eosinophils % 3.6 %; Hematocrit 39.3 % (37.5-50.1); Hemoglobin 12.7 g/dL (12.9-16.9); Immature Granulocytes % 3.4 % (0-4); Lymphocytes # 0.7 K/mcL (0.6-4.6); Lymphocytes % 7.5 %; Mean Corpuscular HGB Conc 32.3 g/dL (31.6-35.5); Mean Corpuscular Hemoglobin 33.1 pg (28.0-33.3); Mean Corpuscular Volume 102.3 fL (83.0-100.0); Mean Platelet Volume 9.6 fL (9.4-12.4); Monocytes # 0.7 K/mcL (0.0-1.3); Monocytes % 8.3 %; Neutrophils # 6.8 K/mcL (1.6-8.9); Nucleated Red Blood Cells 0.2 /100 WBC (0); Platelet Count 163 K/mcL (140-400); Red Blood Count 3.84 M/mcL (4.19-5.50); Red Cell Distribution Width 18.6 % (11.5-14.5)
[2016-12-02 04:16] LABS: Albumin 3.3 g/dL (3.5-5.0); Bilirubin,Total 1.2 mg/dL (0.2-1.2); Calcium 8.5 mg/dL (8.6-10.8); Globulin 3.4 g/dL (2.4-3.5); Magnesium 1.7 mg/dL (1.6-2.6); Phosphorous 3.4 mg/dL (2.3-4.7); Potassium 3.1 mEq/L (3.5-4.5); Total Protein 6.7 g/dL (6.0-8.3)
[2016-12-02] MEDS: Cyanocobalamin (B-12) 1,000 MCG TABLET PO SCH (08:36)
[2016-12-02] MEDS: Ascorbic Acid 500 MG TABLET PO SCH (08:36)
[2016-12-02] MEDS: Cholecalciferol (D-3) 1,000 UNIT TABLET PO SCH (08:36)
[2016-12-02] MEDS: *HR* Dabigatran 75 MG CAPSULE PO SCH ×2 (08:36→21:53)
[2016-12-02] MEDS: Folic Acid 1 MG TABLET PO SCH (08:36)
[2016-12-02] MEDS: Furosemide 40 MG TABLET PO SCH (08:36)
--- NOTE | 2016-12-02 16:20 | Internal Med Progress Note ---
Date of Encounter: 12/02/16 Time of Encounter: 16:14 - Assessment and plan (1) Systolic CHF, acute on chronic Current Visit: Yes Status: Acute (2) Paroxysmal atrial fibrillation Current Visit: Yes Status: Chronic (3) Pulmonary embolism Current Visit: Yes Status: Chronic Qualifiers: Pulmonary embolism type: other Chronicity: unspecified Acute cor pulmonale presence: without acute cor pulmonale Qualified Code(s): I26.99 - Other pulmonary embolism without acute cor pulmonale (4) CKD (chronic kidney disease) stage 4, GFR 15-29 ml/min Current Visit: Yes Status: Chronic (5) Presence of IVC filter Current Visit: No Status: Chronic (6) Cirrhosis Current Visit: Yes Status: Chronic Qualifiers: Hepatic cirrhosis type: unspecified hepatic cirrhosis Ascites presence: with ascites Qualified Code(s): K74.60 - Unspecified cirrhosis of liver (7) DVT (deep venous thrombosis) Current Visit: Yes Status: Chronic Qualifiers: DVT location: lower extremity Affected thrombotic vein of extremity: unspecified vein of extremity Chronicity: chronic Laterality: unspecified laterality Qualified Code(s): I82.509 - Chronic embolism and thrombosis of unspecified deep veins of unspecified lower extremity (8) Hypokalemia Current Visit: Yes Status: Acute (9) Hypomagnesemia Current Visit: Yes Status: Acute - Subjective Interval history: Hx: Mr. Shultz is a 66 year old male with PMH of CHF, COPD, HTN, CKD, DVT, PE on Pradaxa, hypothyroidism, and s/p ileostomy who presents to the ER for evaluation of shortness of breath. Patient states he has been having difficulty sleeping and laying flat for the last few days due to shortness of breath. Also reports of worsening exertional dyspnea. States his primary public health epidemiologist decreased his lasix to 20mg once a day from 40mg once a day due to his renal function. Patient was seen today and discuss and PCL beside checking the labs. Asymptomatic now breathing much better ambulatory without oxygen. 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 Known EF is only 10-15%. I think patient has been diuresed very well and he is now without oxygen. Since his potassium is quite low and therefore I will hold on all Lasix at this time. #2 A. fib rate controlled on Pradaxa #3 Ileostomy obviously patient needs quite significant amount of fluid to maintain electrolyte balance with ileostomy therefore with CHF it will be an issue always. #4 hypokalemia continue supplementing potassium. We are giving him 80 mg daily. Recheck in the morning. Once potassium is okay he can leave. His magnesium has a stabilized. Labs ordered: CBC magnesium phosphate and CMP. - Constitutional Vitals: Temp Pulse Resp BP Pulse Ox 98.1 F 83 18 104/68 98 12/02/16 16:01 12/02/16 16:01 12/02/16 16:01 12/02/16 16:01 12/02/16 16:01 General appearance: Present: cooperative, A&O X 3, pleasant, no acute distress, answers questions appropriately Internal Medicine: Result - Labs CBC & Chem 7: 12/02/16 03:54 12/02/16 03:54 Labs: Short CBC 12/02/16 Range/Units 03:54 WBC 8.8 (4.3-11.1) K/mcL Hgb 12.7 L (12.9-16.9) g/dL Hct 39.3 (37.5-50.1) % Plt Count 163 (140-400) K/mcL Neutrophils # 6.8 (1.6-8.9) K/mcL BMP 12/02/16 03:54 Sodium 139 Potassium 3.1 L Chloride 105 Carbon Dioxide 19 BUN 62 H Creatinine 2.09 H Glucose 107 H Calcium 8.5 L Liver Function 12/02/16 Range/Units 03:54 Total Bilirubin 1.2 (0.2-1.2) mg/dL AST 23 (5-34) Units/L ALT 21 (0-55) Units/L Alkaline Phosphatase 76 (38-126) Units/L Albumin 3.3 L (3.5-5.0) g/dL - ABG Interpretation ABG results: PT/INR, D-dimer PT 30.4 Seconds (9.4-12.1) H 11/30/16 04:25 Consult Discharge Plan - Plan Referrals: Lonny Davison MD [Primary Care Provider] - 12/06/16 9:00 am
[2016-12-03 04:20] LABS: Basophils % 0.2 %; Eosinophils # 0.2 K/mcL (0.0-0.6); Eosinophils % 2.9 %; Hematocrit 38.8 % (37.5-50.1); Immature Granulocytes % 2.4 % (0-4); Lymphocytes # 0.8 K/mcL (0.6-4.6); Lymphocytes % 10.1 %; Mean Corpuscular HGB Conc 30.9 g/dL (31.6-35.5); Mean Corpuscular Hemoglobin 32.1 pg (28.0-33.3); Mean Corpuscular Volume 103.7 fL (83.0-100.0); Mean Platelet Volume 9.8 fL (9.4-12.4); Monocytes # 0.8 K/mcL (0.0-1.3); Monocytes % 9.7 %; Neutrophils # 6.1 K/mcL (1.6-8.9); Nucleated Red Blood Cells 0.2 /100 WBC (0); Platelet Count 151 K/mcL (140-400); Red Blood Count 3.74 M/mcL (4.19-5.50); Red Cell Distribution Width 18.6 % (11.5-14.5); Segmented Neutrophils % 74.7 %
[2016-12-03 04:34] LABS: Albumin 3.1 g/dL (3.5-5.0); Albumin/Globulin Ratio 0.9 (1.1-2.2); Calcium 8.6 mg/dL (8.6-10.8); Globulin 3.4 g/dL (2.4-3.5); Magnesium 1.6 mg/dL (1.6-2.6); Phosphorous 2.4 mg/dL (2.3-4.7); Potassium 3.6 mEq/L (3.5-4.5); Total Protein 6.5 g/dL (6.0-8.3)
[2016-12-03] MEDS: *HR* Dabigatran 75 MG CAPSULE PO SCH (09:05)
[2016-12-03] MEDS: Cyanocobalamin (B-12) 1,000 MCG TABLET PO SCH (09:05)
[2016-12-03] MEDS: Ascorbic Acid 500 MG TABLET PO SCH (09:06)
[2016-12-03] MEDS: Cholecalciferol (D-3) 1,000 UNIT TABLET PO SCH (09:06)
[2016-12-03] MEDS: Folic Acid 1 MG TABLET PO SCH (09:06)
[2016-12-03] MEDS: *HR* Digoxin 0.125 MG TABLET PO SCH (09:06)
[2016-12-03 10:53] VITALS: BP 108/68
--- NOTE | 2016-12-03 14:16 | Discharge Summary ---
Date of Encounter: 12/03/16 Time of Encounter: 14:13 - Discharge Diagnosis (1) Systolic CHF, acute on chronic Priority: Primary Status: Acute (2) Paroxysmal atrial fibrillation Priority: Secondary Status: Chronic (3) Pulmonary embolism Priority: Secondary Status: Chronic Qualifiers: Pulmonary embolism type: other Chronicity: unspecified Acute cor pulmonale presence: without acute cor pulmonale Qualified Code(s): I26.99 - Other pulmonary embolism without acute cor pulmonale (4) CKD (chronic kidney disease) stage 4, GFR 15-29 ml/min Priority: Secondary Status: Chronic (5) Presence of IVC filter Priority: Secondary Status: Chronic (6) Cirrhosis Priority: Secondary Status: Chronic Qualifiers: Hepatic cirrhosis type: unspecified hepatic cirrhosis Ascites presence: with ascites Qualified Code(s): K74.60 - Unspecified cirrhosis of liver (7) DVT (deep venous thrombosis) Priority: Secondary Status: Chronic Qualifiers: DVT location: lower extremity Affected thrombotic vein of extremity: unspecified vein of extremity Chronicity: chronic Laterality: unspecified laterality Qualified Code(s): I82.509 - Chronic embolism and thrombosis of unspecified deep veins of unspecified lower extremity (8) Hypokalemia Priority: Secondary Status: Acute (9) Hypomagnesemia Priority: Secondary Status: Acute - Discharge Medications Prescriptions: Furosemide [Lasix] 40 mg PO DAILY #30 tab Magnesium Oxide [Magnesium] 400 mg PO BID #60 capsule Potassium Chloride 20 meq PO BIDWM #60 tab.er.prt Spironolactone [Aldactone] 100 mg PO DAILY #30 tablet Home Medications: Calcitriol [Rocaltrol] 0.25 mcg PO DAILY 10/09/14 [History] Cholecalciferol (Vitamin D3) [Vitamin D3] 2,000 unit PO QAM 10/09/14 [History] Dabigatran [Pradaxa] 75 mg PO BID 10/09/14 [History] Pravastatin Sodium 40 mg PO HS 10/09/14 [History] Carvedilol [Coreg] 25 mg PO BID #30 tablet 03/25/15 [Rx] Cyanocobalamin (Vitamin B-12) [Vitamin B-12] 500 mcg PO DAILY 07/22/15 [History] Digoxin [Lanoxin] 0.125 mg PO QOD #30 tablet 11/20/15 [Rx] Folic Acid 0.8 mg PO DAILY 01/07/16 [History] Sodium Bicarbonate 650 mg PO DAILY 01/07/16 [History] Albuterol Sulfate [Proair Hfa] 2 puff IH Q4H PRN 11/29/16 [History] Ascorbic Acid [Vitamin C] 500 mg PO DAILY 11/29/16 [History] Ferrous Sulfate [Iron] 325 mg PO DAILY 11/29/16 [History] Furosemide [Lasix] 20 mg PO DAILY 11/29/16 [History] Levothyroxine [Synthroid] 75 mcg PO 0630 11/29/16 [History] Furosemide [Lasix] 40 mg PO DAILY #30 tab 12/03/16 [Rx] Magnesium Oxide [Magnesium] 400 mg PO BID #60 capsule 12/03/16 [Rx] Potassium Chloride 20 meq PO BIDWM #60 tab.er.prt 12/03/16 [Rx] Spironolactone [Aldactone] 100 mg PO DAILY #30 tablet 12/03/16 [Rx] Allergies/Adverse Reactions: 3 Allergy/AdvReac Type Severity Reaction Status Date / Time Penicillins [PCN] Allergy Rash Verified 01/07/16 10:54 codeine AdvReac Hallucinati Verified 01/07/16 10:54 ng lorazepam [From Ativan] AdvReac Hallucinati Verified 01/07/16 10:54 ng Date of admission: 11/29/16 18:37 Primary care physician: Lonny Davison MD Discharging clinician: Ananth Schaeffer Anticipated date of discharge: 12/03/16 - Patient Status Disposition: Home, Self-Care Condition: Fair Functional capacity at discharge: independent ambulation Overall status at discharge: patient is progressing back to baseline - Discharge Instructions Follow Up With: Lonny Davison MD [Primary Care Provider] - 12/06/16 9:00 am - Diet and Activity Activity: resume usual activities as tolerated Diet: advance to your usual diet, diabetic diet, low fat, low cholesterol, low salt diet Hospital course: Hx: Mr. Shultz is a 66 year old male with PMH of CHF, COPD, HTN, CKD, DVT, PE on Pradaxa, hypothyroidism, and s/p ileostomy who presents to the ER for evaluation of shortness of breath. Patient states he has been having difficulty sleeping and laying flat for the last few days due to shortness of breath. Also reports of worsening exertional dyspnea. States his primary licensed certified orthotist decreased his lasix to 20mg once a day from 40mg once a day due to his renal function. Patient was seen today and discuss and PCL beside checking the labs. Asymptomatic now breathing much better ambulatory without oxygen. 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 Known EF is only 10-15%. I think patient has been diuresed very well and he is now without oxygen. His potassium has been corrected. We will keep him on by mouth Lasix magnesium and potassium. #2 A. fib, history of DVT PE rate controlled on Pradaxa #3 Ileostomy obviously patient needs quite significant amount of fluid to maintain electrolyte balance with ileostomy therefore with CHF it will be an issue always. #4 hypokalemia continue supplementing potassium. Potassium has improved. He is offered to stay for another day or 2 to see if they remained stable but he really wants to leave and does not want to stay any more. He is informed about possible risk and complication. He has agreed to get his BMP and magnesium checked twice weekly and follow the results with his family doctor. He is advised to return if symptoms develop or worsen. - Time Spent with Patient Total time spent providing and/or coordinating discharge services: Greater than 30 minutes - Constitutional Vitals: Temp Pulse Resp BP Pulse Ox 97.7 F 84 18 108/68 95 12/03/16 10:46 12/03/16 10:46 12/03/16 10:46 12/03/16 10:46 12/03/16 10:46 General appearance: Present: cooperative, A&O X 3, pleasant, no acute distress, answers questions appropriately - Head Head exam: Present: atraumatic, normocephalic - Eye Eye exam: Present: PERRL, conjuntiva pink, sclera anicteric Pupils: Present: PERRL - Neck Neck exam general surgery: Present: supple, trachea midline. Absent: lymphadenopathy - Respiratory Respiratory exam: Present: CTAB. Absent: accessory muscle use, rales, rhonchi, wheezes - Cardiovascular Cardiovascular exam: Present: RRR, +S1, +S2. Absent: diastolic murmur, gallop, rubs, systolic murmur - GI/Abdominal GI/Abdominal exam: Present: normal bowel sounds, soft, no peritoneal signs. Absent: distended, tenderness - Extremities Exam Extremities exam: Present: warm, radial pulses palpable and symmetrical. Absent : calf tenderness, cyanotic, pedal edema - Neurological Exam Neurological exam: Present: CN II-XII intact, oriented X3, no focal deficits. Absent: pronater drift, facial droop, speech deficit - Skin Skin exam: Present: dry, intact
== END 2016-12-03 15:25 | disposition home or self-care (01) ==
LOC: 2ANU 14:26 → EMEROO 14:26 → 2ANU 19:12
PROVIDERS: ADMIT Family Medicine; ATTEND Internal Medicine

== ENCOUNTER 2017-02-25 08:33 | Inpatient (IN) ==
[2017-02-25] MEDS ORDERED: 0.9 % Sodium Chloride 1,000 ML IVC ONE ×2 (09:06→12:21)
--- NOTE | 2017-02-25 09:25 | Emergency Department Note ---
Disposition Clinical Impression: Elevated INR ARF (acute renal failure) Qualifiers: Acute renal failure type: unspecified Qualified Code(s): N17.9 - Acute kidney failure, unspecified Disposition: Admitted As Inpatient Condition: Serious Referrals: NONE,PCP [Primary Care Provider] - Forms: ED Satisfaction Letter General Adult HPI - General Chief complaint: ED Shortness of Breath/Dyspnea Stated complaint: CITLALI Time Seen by Provider: 02/25/17 08:45 Source: patient Mode of arrival: private vehicle Limitations: no limitations Nursing Notes Reviewed: Yes Vital Signs Reviewed: Yes - History of Present Illness Pt Subjective Complaint: Recent 20lb weight loss, fatigue, JETER. Onset (ago): week(s) Location: other (No pain) Radiation: non-radiation Pain Scale: 0 Consistency: intermittent (Fatigue, bilateral lower extremity weakness, dyspnea on exertion - all are intermittent) Improves with: nothing Worsens with: other (Seems to be worse at night) Associated symptoms: Reports: weakness (Bilateral lower extremity weakness at night when getting up to walk to the bathroom - the last two nights). Denies: confusion, chest pain, cough, diaphoresis, malaise, nausea/vomiting Treatments Prior to Arrival: none - Related Data Home Medications Medication Instructions Recorded Confirmed Calcitriol [Rocaltrol] 0.25 mcg PO DAILY 10/09/14 02/25/17 Cholecalciferol (Vitamin D3) 2,000 unit PO QAM 10/09/14 02/25/17 [Vitamin D3] Dabigatran [Pradaxa] 75 mg PO BID 10/09/14 02/25/17 Pravastatin Sodium 40 mg PO HS 10/09/14 02/25/17 Cyanocobalamin (Vitamin B-12) 500 mcg PO DAILY 07/22/15 02/25/17 [Vitamin B-12] Folic Acid 0.8 mg PO DAILY 01/07/16 02/25/17 Sodium Bicarbonate 650 mg PO DAILY 01/07/16 02/25/17 Albuterol Sulfate [Proair Hfa] 2 puff IH Q4H PRN 11/29/16 02/25/17 Ascorbic Acid [Vitamin C] 500 mg PO DAILY 11/29/16 02/25/17 Ferrous Sulfate [Iron] 325 mg PO DAILY 11/29/16 02/25/17 Furosemide [Lasix] 20 mg PO Q48H 11/29/16 02/25/17 Levothyroxine [Synthroid] 75 mcg PO 0630 11/29/16 02/25/17 Furosemide [Lasix] 40 mg PO Q48H 02/25/17 02/25/17 Isosorbide MONOnitrate (24 HR) 30 mg PO DAILY 02/25/17 02/25/17 [Imdur] metOLazone [Zaroxolyn] 2.5 mg PO QWEEK PRN 02/25/17 02/25/17 Previous Rx's Medication Instructions Recorded Carvedilol [Coreg] 25 mg PO BID #30 tablet 03/25/15 Digoxin [Lanoxin] 0.125 mg PO QOD #30 tablet 11/20/15 Magnesium Oxide [Magnesium] 400 mg PO BID #60 capsule 12/03/16 Potassium Chloride 20 meq PO BIDWM #60 tab.er.prt 12/03/16 Allergies Allergy/AdvReac Type Severity Reaction Status Date / Time Penicillins [PCN] Allergy Rash Verified 02/25/17 08:36 codeine AdvReac Hallucinati Verified 02/25/17 08:36 ng lorazepam [From Ativan] AdvReac Hallucinati Verified 02/25/17 08:36 ng All systems ED: reviewed and negative except as stated. Review of Systems: As Per HPI Constitutional: Reports: as per HPI, weakness, weight change ("No appetite and decreased eating for a week" Weight loss ). Denies: fever, chills, night sweats Eyes: Denies: eye pain, eye discharge, vision change ENT ED: Denies: ear pain, throat pain, congestion, dysphagia Cardiovascular: Reports: dyspnea on exertion. Denies: chest pain, palpitations , orthopnea, edema, syncope Respiratory: Reports: dyspnea ("Always"). Denies: cough, wheezes, hemoptysis, stridor, sputum production Gastrointestinal: Denies: abdominal pain, nausea, vomiting, diarrhea, constipation Genitourinary: Denies: urgency, dysuria, frequency, hematuria Musculoskeletal: Denies: joint swelling, arthralgia Integumentary: Denies: rash Neurological: Denies: headache, weakness, numbness, paresthesias, confusion, vertigo Hematological/Lymphatic: Denies: easy bleeding, easy bruising Past Medical History - Past Medical History Attestation: Yes The following information was validated with the patient. Source: patient Medical history: Reports: atrial fibrillation, CHF, COPD, DVT, hyperlipidemia, hypertension, pulmonary embolus, renal disease, thyroid disease, other Surgical history: Reports: colostomy, pacemaker/AICD, other Psychiatric history: Reports: no psych history - Social History Smoking Status: Former smoker Smokeless Tobacco Status: No Alcohol use: Reports: none Drug use: Reports: none Physical Exam - General Limitations: no limitations General appearance: alert, in no apparent distress - Head Head exam: atraumatic, normocephalic, normal inspection - Eye Eye exam: Present: normal appearance, PERRL. Absent: scleral icterus, conjunctival injection, periorbital swelling - ENT ENT exam: mucous membranes dry - Neck Neck exam: Present: normal inspection, full ROM, trachea midline, tenderness. Absent: meningismus - Chest Chest inspection: Present: normal inspection - Respiratory Respiratory exam: Present: normal lung sounds bilaterally. Absent: respiratory distress, wheezes, stridor, accessory muscle use, prolonged expiratory phase - Cardiovascular Cardiovascular exam: Present: regular rate, normal rhythm, normal heart sounds - Abdominal Exam Abdominal exam: Present: soft, Non-Tender, distention (mild), normal bowel sounds, other (iliostomy Right abdomen with moderate amount of watery brown stool ("Normal" per patient)). Absent: tenderness, guarding, rebound, rigidity , mass - Extremities Exam Extremities exam: Present: normal inspection, full ROM, normal capillary refill. Absent: tenderness, pedal edema, joint swelling, calf tenderness - Back Exam Back exam: Present: normal inspection, full ROM. Absent: tenderness - Neurological Exam Neurological exam: Present: alert, oriented X3, CN II-XII intact - Psychiatric Psychiatric exam: Present: normal affect, normal mood - Skin Skin exam: Present: warm, dry, intact, normal color Course Course Narrative: Patient with cardiomyopathy (EF 15%), inflammatory bowel disease - status post bowel resection, and chronic kidney disease presents from home with his for evaluation of fatigue, slightly increased dyspnea with exertion, weight loss , anorexia, no appetite. This has been going on for about a week. He denies fever, chills, nausea, vomiting. He has had no change in stool output in the ileostomy bag. He denies melena or hematochezia. He also denies any recent changes in medications. Despite his comorbidities and current fatigue, he is very pleasant, jovial and well appearing. Labs, EKG, chest x-ray and IV access ordered. - Reevaluation(s) Reevaluation #1: PAtient resting comfortably with no complaints. BP a little lower than arrival, but stable compared with his previous vitals. Time: 11:00 Reevaluation #2: Pt has no complaints. He has been seen by DrMahendra's Hussein Juarez, and Adrienne. Fluids, insulin and D50 ordered as per [employer]'s elo's. Lungs clear, sats normal, pulse and BP normal. Time: 13:00 - Consultations Consultation #1: The case was discussed with Dr. Savage - field associate. He has reviewed the patient's labs, EKG, and has examined the patient. He feels that the patient is brought him depleted. He recommends fluid rehydration and admission to the hospitalist. Case was discussed with Dr. Gutierrez, the hospitalist. He is concerned about the patient's lab results. He recommends that the patient be admitted to the ICU. The processing lead has been paged. Time: 11:00 Consultation #2: Case was discussed with the Intensivst, Adrienne. He will come to the ER to see the patient. Time: 12:00 Consultation #3: Dr. Deleon has examined the patient reviewed the lab results, CXR, EKG, and Dr. Savage's consult note. He agrees that the patient is dry. He recommends that we go ahead with fluid hydration but increase the rate and amount such that the patient receives 1L of NS bolus. He also recommends treating the K+ with Insulin and glucose. He is aware of the patient's Echo results from 11/2016 which showed an EF of 15% and the BNP >3000 from today's labs. Patient's lungs are clear, no murmur, no peripheral edema, no dyspnea at rest, and no failure on cxr. He will see the patient again at 2pm. He also requests that we place a tillman to [facility] I's&O's. This new plan was discussed with Dr. Juarez as well. He is in agreement. Time: 12:17 Vital Signs Temperature 97.5 F L 02/25/17 08:36 Pulse Rate 74 02/25/17 08:36 Respiratory Rate 26 02/25/17 08:36 Blood Pressure 103/68 02/25/17 08:36 O2 Sat by Pulse Oximetry 100 02/25/17 08:36 Temperature 97.5 F L 02/25/17 08:36 Pulse Rate 86 02/25/17 11:51 Respiratory Rate 18 02/25/17 11:51 Blood Pressure 102/72 02/25/17 11:51 O2 Sat by Pulse Oximetry 96 02/25/17 11:51 Oxygen Delivery Oxygen Delivery Room Air Medical Decision Making - Medical Records Medical records reviewed: Yes I reviewed the patient's medical records. - Lab Data Lab results reviewed: Yes I reviewed the patient's lab results. Lab results narrative: Laboratory Last Values WBC 5.3 K/mcL (4.3-11.1) 02/25/17 09:46 RBC 4.18 M/mcL (4.19-5.50) L 02/25/17 09:46 Hgb 13.3 g/dL (12.9-16.9) 02/25/17 09:46 Hct 41.4 % (37.5-50.1) 02/25/17 09:46 MCV 99.0 fL (83.0-100.0) 02/25/17 09:46 MCH 31.8 pg (28.0-33.3) 02/25/17 09:46 MCHC 32.1 g/dL (31.6-35.5) 02/25/17 09:46 RDW 18.4 % (11.5-14.5) H 02/25/17 09:46 Plt Count 159 K/mcL (140-400) 02/25/17 09:46 MPV 10.0 fL (9.4-12.4) 02/25/17 09:46 Immature Gran % 0.9 % (0-4) 02/25/17 09:46 Seg Neutrophils % 69.6 % 02/25/17 09:46 Lymphocytes % 16.7 % 02/25/17 09:46 Monocytes % 9.8 % 02/25/17 09:46 Eosinophils % 2.8 % 02/25/17 09:46 Basophils % 0.2 % 02/25/17 09:46 Neutrophils # 3.7 K/mcL (1.6-8.9) 02/25/17 09:46 Lymphocytes # 0.9 K/mcL (0.6-4.6) 02/25/17 09:46 Monocytes # 0.5 K/mcL (0.0-1.3) 02/25/17 09:46 Eosinophils # 0.2 K/mcL (0.0-0.6) 02/25/17 09:46 Basophils # 0.0 K/mcL (0.0-0.2) 02/25/17 09:46 PT 70.0 Seconds (9.4-12.1) H* 02/25/17 09:46 INR 6.2 H* 02/25/17 09:46 APTT 118.3 Seconds (26.0-36.0) H* 02/25/17 09:46 Heparin Anti-Xa, Unfract 0.11 IU/mL (0.30-0.70) L 02/25/17 09:46 Sodium 135 mEq/L (136-145) L 02/25/17 09:46 Potassium 5.9 mEq/L (3.5-5.1) H 02/25/17 09:46 Chloride 101 mEq/L (98-107) 02/25/17 09:46 Carbon Dioxide 20 mEq/L (23-29) L 02/25/17 09:46 BUN 111 mg/dL (8-23) H 02/25/17 09:46 Creatinine 6.64 mg/dL (0.70-1.30) H 02/25/17 09:46 Est GFR ( Amer) 10 (> 60) L 02/25/17 09:46 Est GFR (Non-Af Amer) 8 (> 60) L 02/25/17 09:46 BUN/Creatinine Ratio 17 (6-26) 02/25/17 09:46 Glucose 100 mg/dL (70-105) 02/25/17 09:46 Calculated Osmolality 315 (280-300) H 02/25/17 09:46 Lactic Acid 1.6 mmol/L (0.5-2.2) 02/25/17 11:42 Calcium 9.3 mg/dL (8.6-10.3) 02/25/17 09:46 Total Bilirubin 1.2 mg/dL (0.3-1.0) H 02/25/17 09:46 Direct Bilirubin 0.7 mg/dL (0.0-0.2) H 02/25/17 09:46 Indirect Bilirubin 0.5 mg/dL (0.0-1.2) 02/25/17 09:46 AST 9 Units/L (13-39) L 02/25/17 09:46 ALT 9 Units/L (7-52) 02/25/17 09:46 Alkaline Phosphatase 70 Units/L (34-104) 02/25/17 09:46 Troponin I 0.06 ng/mL (< 0.04) H* 02/25/17 09:46 B-Natriuretic Peptide 3241 pg/mL (Less than 100) H 02/25/17 09:46 Serum Total Protein 7.1 g/dL (6.4-8.9) 02/25/17 09:46 Albumin 3.7 g/dL (3.5-5.7) 02/25/17 09:46 Globulin 3.4 g/dL (2.4-3.5) 02/25/17 09:46 Albumin/Globulin Ratio 1.1 (1.1-2.2) 02/25/17 09:46 Urine Color Yellow (Yellow) 02/25/17 09:27 Urine Clarity Clear (Clear) 02/25/17 09:27 Urine pH 6.0 pH Units (5.0-8.0) 02/25/17 09:27 Ur Specific [place] 1.025 (1.010-1.025) 02/25/17 09:27 Urine Protein 100 mg/dL (Neg-Trace) H 02/25/17 09:27 Urine Glucose (UA) Normal mg/dL (Normal) 02/25/17 09:27 Urine Ketones Negative mg/dL (Negative) 02/25/17 09:27 Urine Blood Trace-lysed (Negative) H 02/25/17 09:27 Urine Nitrite Negative (Negative) 02/25/17 09:27 Urine Bilirubin Negative (Negative) 02/25/17 09:27 Urine Urobilinogen Normal mg/dL (Normal) 02/25/17 09:27 Ur Leukocyte Esterase Trace (Negative) H 02/25/17 09:27 Urine Microscopic RBC 0-3 per hpf (0-3) 02/25/17 09:27 Urine Microscopic WBC 5-15 per hpf (0-3) H 02/25/17 09:27 Ur Squamous Epith Cells Moderate per lpf (None-Few) H 02/25/17 09:27 Calcium Oxalate Crystal Present 02/25/17 09:27 Urine Bacteria None Seen per hpf (None-Few) 02/25/17 09:27 Hyaline Casts None Seen per lpf (None-Few) 02/25/17 09:27 Urine Yeast Test Not Performed 02/25/17 09:27 Ur Culture Indicated? YES (NO) A 02/25/17 09:27 Result diagrams: 02/25/17 09:46 02/25/17 09:46 Lab Results 02/25/17 02/25/17 02/25/17 Range/Units 09:27 09:46 09:46 WBC 5.3 (4.3-11.1) K/mcL RBC 4.18 L (4.19-5.50) M/mcL Hgb 13.3 (12.9-16.9) g/dL Hct 41.4 (37.5-50.1) % MCV 99.0 (83.0-100.0) fL MCH 31.8 (28.0-33.3) pg MCHC 32.1 (31.6-35.5) g/dL RDW 18.4 H (11.5-14.5) % Plt Count 159 (140-400) K/mcL MPV 10.0 (9.4-12.4) fL Immature Gran % 0.9 (0-4) % Seg Neutrophils % 69.6 % Lymphocytes % 16.7 % Monocytes % 9.8 % Eosinophils % 2.8 % Basophils % 0.2 % Neutrophils # 3.7 (1.6-8.9) K/mcL Lymphocytes # 0.9 (0.6-4.6) K/mcL Monocytes # 0.5 (0.0-1.3) K/mcL Eosinophils # 0.2 (0.0-0.6) K/mcL Basophils # 0.0 (0.0-0.2) K/mcL PT 70.0 H* (9.4-12.1) Seconds INR 6.2 H* APTT 118.3 H* (26.0-36.0) Seconds Heparin Anti-Xa, Unfract 0.11 L (0.30-0.70) IU/mL Sodium (136-145) mEq/L Potassium (3.5-5.1) mEq/L Chloride (98-107) mEq/L Carbon Dioxide (23-29) mEq/L BUN (8-23) mg/dL Creatinine (0.70-1.30) mg/dL Est GFR ( Amer) (> 60) Est GFR (Non-Af Amer) (> 60) BUN/Creatinine Ratio (6-26) Glucose (70-105) mg/dL Calculated Osmolality (280-300) Lactic Acid (0.5-2.2) mmol/L Calcium (8.6-10.3) mg/dL Total Bilirubin (0.3-1.0) mg/dL Direct Bilirubin (0.0-0.2) mg/dL Indirect Bilirubin (0.0-1.2) mg/dL AST (13-39) Units/L ALT (7-52) Units/L Alkaline Phosphatase (34-104) Units/L Troponin I (< 0.04) ng/mL B-Natriuretic Peptide (Less than 100) pg/mL Serum Total Protein (6.4-8.9) g/dL Albumin (3.5-5.7) g/dL Globulin (2.4-3.5) g/dL Albumin/Globulin Ratio (1.1-2.2) Urine Color Yellow (Yellow) Urine Clarity Clear (Clear) Urine pH 6.0 (5.0-8.0) pH Units Ur Specific [place] 1.025 (1.010-1.025) Urine Protein 100 H (Neg-Trace) mg/dL Urine Glucose (UA) Normal (Normal) mg/dL Urine Ketones Negative (Negative) mg/dL Urine Blood Trace-lysed H (Negative) Urine Nitrite Negative (Negative) Urine Bilirubin Negative (Negative) Urine Urobilinogen Normal (Normal) mg/dL Ur Leukocyte Esterase Trace H (Negative) Urine Microscopic RBC 0-3 (0-3) per hpf Urine Microscopic WBC 5-15 H (0-3) per hpf Ur Squamous Epith Cells Moderate H (None-Few) per lpf Calcium Oxalate Crystal Present Urine Bacteria None Seen (None-Few) per hpf Hyaline Casts None Seen (None-Few) per lpf Urine Yeast Test Not Performed Ur Culture Indicated? YES A (NO) 02/25/17 02/25/17 02/25/17 Range/Units 09:46 09:46 09:46 WBC (4.3-11.1) K/mcL RBC (4.19-5.50) M/mcL Hgb (12.9-16.9) g/dL Hct (37.5-50.1) % MCV (83.0-100.0) fL MCH (28.0-33.3) pg MCHC (31.6-35.5) g/dL RDW (11.5-14.5) % Plt Count (140-400) K/mcL MPV (9.4-12.4) fL Immature Gran % (0-4) % Seg Neutrophils % % Lymphocytes % % Monocytes % % Eosinophils % % Basophils % % Neutrophils # (1.6-8.9) K/mcL Lymphocytes # (0.6-4.6) K/mcL Monocytes # (0.0-1.3) K/mcL Eosinophils # (0.0-0.6) K/mcL Basophils # (0.0-0.2) K/mcL PT (9.4-12.1) Seconds INR APTT (26.0-36.0) Seconds Heparin Anti-Xa, Unfract (0.30-0.70) IU/mL Sodium 135 L (136-145) mEq/L Potassium 5.9 H (3.5-5.1) mEq/L Chloride 101 (98-107) mEq/L Carbon Dioxide 20 L (23-29) mEq/L BUN 111 H (8-23) mg/dL Creatinine 6.64 H (0.70-1.30) mg/dL Est GFR ( Amer) 10 L (> 60) Est GFR (Non-Af Amer) 8 L (> 60) BUN/Creatinine Ratio 17 (6-26) Glucose 100 (70-105) mg/dL Calculated Osmolality 315 H (280-300) Lactic Acid 2.7 H (0.5-2.2) mmol/L Calcium 9.3 (8.6-10.3) mg/dL Total Bilirubin 1.2 H (0.3-1.0) mg/dL Direct Bilirubin 0.7 H (0.0-0.2) mg/dL Indirect Bilirubin 0.5 (0.0-1.2) mg/dL AST 9 L (13-39) Units/L ALT 9 (7-52) Units/L Alkaline Phosphatase 70 (34-104) Units/L Troponin I 0.06 H* (< 0.04) ng/mL B-Natriuretic Peptide (Less than 100) pg/mL Serum Total Protein 7.1 (6.4-8.9) g/dL Albumin 3.7 (3.5-5.7) g/dL Globulin 3.4 (2.4-3.5) g/dL Albumin/Globulin Ratio 1.1 (1.1-2.2) Urine Color (Yellow) Urine Clarity (Clear) Urine pH (5.0-8.0) pH Units Ur Specific [place] (1.010-1.025) Urine Protein (Neg-Trace) mg/dL Urine Glucose (UA) (Normal) mg/dL Urine Ketones (Negative) mg/dL Urine Blood (Negative) Urine Nitrite (Negative) Urine Bilirubin (Negative) Urine Urobilinogen (Normal) mg/dL Ur Leukocyte Esterase (Negative) Urine Microscopic RBC (0-3) per hpf Urine Microscopic WBC (0-3) per hpf Ur Squamous Epith Cells (None-Few) per lpf Calcium Oxalate Crystal Urine Bacteria (None-Few) per hpf Hyaline Casts (None-Few) per lpf Urine Yeast Ur Culture Indicated? (NO) 02/25/17 02/25/17 Range/Units 09:46 11:42 WBC (4.3-11.1) K/mcL RBC (4.19-5.50) M/mcL Hgb (12.9-16.9) g/dL Hct (37.5-50.1) % MCV (83.0-100.0) fL MCH (28.0-33.3) pg MCHC (31.6-35.5) g/dL RDW (11.5-14.5) % Plt Count (140-400) K/mcL MPV (9.4-12.4) fL Immature Gran % (0-4) % Seg Neutrophils % % Lymphocytes % % Monocytes % % Eosinophils % % Basophils % % Neutrophils # (1.6-8.9) K/mcL Lymphocytes # (0.6-4.6) K/mcL Monocytes # (0.0-1.3) K/mcL Eosinophils # (0.0-0.6) K/mcL Basophils # (0.0-0.2) K/mcL PT (9.4-12.1) Seconds INR APTT (26.0-36.0) Seconds Heparin Anti-Xa, Unfract (0.30-0.70) IU/mL Sodium (136-145) mEq/L Potassium (3.5-5.1) mEq/L Chloride (98-107) mEq/L Carbon Dioxide (23-29) mEq/L BUN (8-23) mg/dL Creatinine (0.70-1.30) mg/dL Est GFR ( Amer) (> 60) Est GFR (Non-Af Amer) (> 60) BUN/Creatinine Ratio (6-26) Glucose (70-105) mg/dL Calculated Osmolality (280-300) Lactic Acid 1.6 (0.5-2.2) mmol/L Calcium (8.6-10.3) mg/dL Total Bilirubin (0.3-1.0) mg/dL Direct Bilirubin (0.0-0.2) mg/dL Indirect Bilirubin (0.0-1.2) mg/dL AST (13-39) Units/L ALT (7-52) Units/L Alkaline Phosphatase (34-104) Units/L Troponin I (< 0.04) ng/mL B-Natriuretic Peptide 3241 H (Less than 100) pg/mL Serum Total Protein (6.4-8.9) g/dL Albumin (3.5-5.7) g/dL Globulin (2.4-3.5) g/dL Albumin/Globulin Ratio (1.1-2.2) Urine Color (Yellow) Urine Clarity (Clear) Urine pH (5.0-8.0) pH Units Ur Specific [place] (1.010-1.025) Urine Protein (Neg-Trace) mg/dL Urine Glucose (UA) (Normal) mg/dL Urine Ketones (Negative) mg/dL Urine Blood (Negative) Urine Nitrite (Negative) Urine Bilirubin (Negative) Urine Urobilinogen (Normal) mg/dL Ur Leukocyte Esterase (Negative) Urine Microscopic RBC (0-3) per hpf Urine Microscopic WBC (0-3) per hpf Ur Squamous Epith Cells (None-Few) per lpf Calcium Oxalate Crystal Urine Bacteria (None-Few) per hpf Hyaline Casts (None-Few) per lpf Urine Yeast Ur Culture Indicated? (NO) - Radiology Data Radiology results reviewed: Yes I reviewed the patient's radiology results. Chest X-Ray 02/25/17 09:07 IMPRESSION: 1. No active pulmonary disease. 2. Cardiomegaly without overt failure. D/ / Vlad Roe MD / Vlad Roe MD Interpreting Provider: Vlad Roe MD - EKG Data EKG #1 EKG attestation: Yes I reviewed and interpreted this EKG. EKG shows normal: sinus rhythm Rate: normal Rhythm: NSR Williamson/QRS: RBBB Q waves: II, III, aVF When compared to previous EKG there are: no significant changes Interpretation: unchanged when compared to prior tracing (date) (12/2016)
[2017-02-25 09:38] LABS: Bilirubin,Urine Negative (Negative); Blood,Urine Trace-lysed (Negative); Clarity,Urine Clear (Clear); Color,Urine Yellow (Yellow); Glucose,Urine (UA) Normal (Normal); Ketones,Urine Negative (Negative); Leukocyte Esterase,Urine Trace (Negative); Nitrite,Urine Negative (Negative); Protein,Urine 100 mg/dL (Neg-Trace); Specific Gravity,Urine 1.025 (1.010-1.025); Urobilinogen,Urine Normal (Normal)
[2017-02-25 09:39] LABS: Bacteria,Urine None Seen per hpf (None-Few); Hyaline Casts,Urine None Seen per lpf (None-Few); RBC,Urine 0-3 per hpf (0-3); Squamous Epithelial Cell,Urine Moderate per lpf (None-Few)
[2017-02-25 09:46] LABS: Calcium Oxalate Crystals,Urine Present
[2017-02-25 10:00] LABS: Basophils % 0.2 %; Eosinophils # 0.2 K/mcL (0.0-0.6); Eosinophils % 2.8 %; Hematocrit 41.4 % (37.5-50.1); Hemoglobin 13.3 g/dL (12.9-16.9); Immature Granulocytes % 0.9 % (0-4); Lymphocytes # 0.9 K/mcL (0.6-4.6); Lymphocytes % 16.7 %; Mean Corpuscular HGB Conc 32.1 g/dL (31.6-35.5); Mean Corpuscular Hemoglobin 31.8 pg (28.0-33.3); Monocytes # 0.5 K/mcL (0.0-1.3); Monocytes % 9.8 %; Neutrophils # 3.7 K/mcL (1.6-8.9); Platelet Count 159 K/mcL (140-400); Red Blood Count 4.18 M/mcL (4.19-5.50); Red Cell Distribution Width 18.4 % (11.5-14.5); Segmented Neutrophils % 69.6 %
[2017-02-25] MEDS ORDERED: Aspirin 325 MG TABLET PO ONE (10:18)
--- NOTE | 2017-02-25 10:19 | Emergency Department Note ---
Disposition Clinical Impression: ARF (acute renal failure), Elevated INR Disposition: Admitted As Inpatient Condition: Serious General Adult HPI - General Chief complaint: ED Shortness of Breath/Dyspnea Stated complaint: CITLALI Time Seen by Provider: 02/25/17 08:45 Source: patient Limitations: no limitations - History of Present Illness Pain Scale: 0 - Related Data Home Medications Medication Instructions Recorded Confirmed Calcitriol [Rocaltrol] 0.25 mcg PO DAILY 10/09/14 02/25/17 Cholecalciferol (Vitamin D3) 2,000 unit PO QAM 10/09/14 02/25/17 [Vitamin D3] Dabigatran [Pradaxa] 75 mg PO BID 10/09/14 02/25/17 Pravastatin Sodium 40 mg PO HS 10/09/14 02/25/17 Cyanocobalamin (Vitamin B-12) 500 mcg PO DAILY 07/22/15 02/25/17 [Vitamin B-12] Folic Acid 0.8 mg PO DAILY 01/07/16 02/25/17 Sodium Bicarbonate 650 mg PO DAILY 01/07/16 02/25/17 Albuterol Sulfate [Proair Hfa] 2 puff IH Q4H PRN 11/29/16 02/25/17 Ascorbic Acid [Vitamin C] 500 mg PO DAILY 11/29/16 02/25/17 Ferrous Sulfate [Iron] 325 mg PO DAILY 11/29/16 02/25/17 Furosemide [Lasix] 20 mg PO Q48H 11/29/16 02/25/17 Levothyroxine [Synthroid] 75 mcg PO 0630 11/29/16 02/25/17 Furosemide [Lasix] 40 mg PO Q48H 02/25/17 02/25/17 Isosorbide MONOnitrate (24 HR) 30 mg PO DAILY 02/25/17 02/25/17 [Imdur] metOLazone [Zaroxolyn] 2.5 mg PO QWEEK PRN 02/25/17 02/25/17 Previous Rx's Medication Instructions Recorded Carvedilol [Coreg] 25 mg PO BID #30 tablet 03/25/15 Digoxin [Lanoxin] 0.125 mg PO QOD #30 tablet 11/20/15 Magnesium Oxide [Magnesium] 400 mg PO BID #60 capsule 12/03/16 Potassium Chloride 20 meq PO BIDWM #60 tab.er.prt 12/03/16 Allergies Allergy/AdvReac Type Severity Reaction Status Date / Time Penicillins [PCN] Allergy Rash Verified 02/25/17 08:36 codeine AdvReac Hallucinati Verified 02/25/17 08:36 ng lorazepam [From Ativan] AdvReac Hallucinati Verified 02/25/17 08:36 ng Past Medical History - Past Medical History Medical history: Reports: atrial fibrillation, CHF, COPD, DVT, hyperlipidemia, hypertension, pulmonary embolus, renal disease, thyroid disease, other Surgical history: Reports: colostomy, pacemaker/AICD, other Psychiatric history: Reports: no psych history - Social History Smoking Status: Former smoker Smokeless Tobacco Status: No Alcohol use: Reports: none Drug use: Reports: none Physical Exam - General Limitations: no limitations General appearance: alert Course Vital Signs Temperature 97.5 F L 02/25/17 08:36 Pulse Rate 74 02/25/17 08:36 Respiratory Rate 26 02/25/17 08:36 Blood Pressure 103/68 02/25/17 08:36 O2 Sat by Pulse Oximetry 100 02/25/17 08:36 Temperature 95.9 F L 02/25/17 15:18 Pulse Rate 76 02/25/17 15:18 Respiratory Rate 20 02/25/17 15:18 Blood Pressure 94/73 02/25/17 15:18 O2 Sat by Pulse Oximetry 99 02/25/17 15:18 Oxygen Delivery Oxygen Delivery Room Air Medical Decision Making - Lab Data Result diagrams: 02/25/17 09:46 02/25/17 09:46 Lab Results 02/25/17 02/25/17 02/25/17 Range/Units 09:27 09:46 09:46 WBC 5.3 (4.3-11.1) K/mcL RBC 4.18 L (4.19-5.50) M/mcL Hgb 13.3 (12.9-16.9) g/dL Hct 41.4 (37.5-50.1) % MCV 99.0 (83.0-100.0) fL MCH 31.8 (28.0-33.3) pg MCHC 32.1 (31.6-35.5) g/dL RDW 18.4 H (11.5-14.5) % Plt Count 159 (140-400) K/mcL MPV 10.0 (9.4-12.4) fL Immature Gran % 0.9 (0-4) % Seg Neutrophils % 69.6 % Lymphocytes % 16.7 % Monocytes % 9.8 % Eosinophils % 2.8 % Basophils % 0.2 % Neutrophils # 3.7 (1.6-8.9) K/mcL Lymphocytes # 0.9 (0.6-4.6) K/mcL Monocytes # 0.5 (0.0-1.3) K/mcL Eosinophils # 0.2 (0.0-0.6) K/mcL Basophils # 0.0 (0.0-0.2) K/mcL PT 70.0 H* (9.4-12.1) Seconds INR 6.2 H* APTT 118.3 H* (26.0-36.0) Seconds Heparin Anti-Xa, Unfract 0.11 L (0.30-0.70) IU/mL Sodium (136-145) mEq/L Potassium (3.5-5.1) mEq/L Chloride (98-107) mEq/L Carbon Dioxide (23-29) mEq/L BUN (8-23) mg/dL Creatinine (0.70-1.30) mg/dL Est GFR ( Amer) (> 60) Est GFR (Non-Af Amer) (> 60) BUN/Creatinine Ratio (6-26) Glucose (70-105) mg/dL Calculated Osmolality (280-300) Lactic Acid (0.5-2.2) mmol/L Calcium (8.6-10.3) mg/dL Total Bilirubin (0.3-1.0) mg/dL Direct Bilirubin (0.0-0.2) mg/dL Indirect Bilirubin (0.0-1.2) mg/dL AST (13-39) Units/L ALT (7-52) Units/L Alkaline Phosphatase (34-104) Units/L Troponin I (< 0.04) ng/mL B-Natriuretic Peptide (Less than 100) pg/mL Serum Total Protein (6.4-8.9) g/dL Albumin (3.5-5.7) g/dL Globulin (2.4-3.5) g/dL Albumin/Globulin Ratio (1.1-2.2) Urine Color Yellow (Yellow) Urine Clarity Clear (Clear) Urine pH 6.0 (5.0-8.0) pH Units Ur Specific University 1.025 (1.010-1.025) Urine Protein 100 H (Neg-Trace) mg/dL Urine Glucose (UA) Normal (Normal) mg/dL Urine Ketones Negative (Negative) mg/dL Urine Blood Trace-lysed H (Negative) Urine Nitrite Negative (Negative) Urine Bilirubin Negative (Negative) Urine Urobilinogen Normal (Normal) mg/dL Ur Leukocyte Esterase Trace H (Negative) Urine Microscopic RBC 0-3 (0-3) per hpf Urine Microscopic WBC 5-15 H (0-3) per hpf Ur Squamous Epith Cells Moderate H (None-Few) per lpf Calcium Oxalate Crystal Present Urine Bacteria None Seen (None-Few) per hpf Hyaline Casts None Seen (None-Few) per lpf Urine Yeast Test Not Performed Ur Culture Indicated? YES A (NO) 02/25/17 02/25/17 02/25/17 Range/Units 09:46 09:46 09:46 WBC (4.3-11.1) K/mcL RBC (4.19-5.50) M/mcL Hgb (12.9-16.9) g/dL Hct (37.5-50.1) % MCV (83.0-100.0) fL MCH (28.0-33.3) pg MCHC (31.6-35.5) g/dL RDW (11.5-14.5) % Plt Count (140-400) K/mcL MPV (9.4-12.4) fL Immature Gran % (0-4) % Seg Neutrophils % % Lymphocytes % % Monocytes % % Eosinophils % % Basophils % % Neutrophils # (1.6-8.9) K/mcL Lymphocytes # (0.6-4.6) K/mcL Monocytes # (0.0-1.3) K/mcL Eosinophils # (0.0-0.6) K/mcL Basophils # (0.0-0.2) K/mcL PT (9.4-12.1) Seconds INR APTT (26.0-36.0) Seconds Heparin Anti-Xa, Unfract (0.30-0.70) IU/mL Sodium 135 L (136-145) mEq/L Potassium 5.9 H (3.5-5.1) mEq/L Chloride 101 (98-107) mEq/L Carbon Dioxide 20 L (23-29) mEq/L BUN 111 H (8-23) mg/dL Creatinine 6.64 H (0.70-1.30) mg/dL Est GFR ( Amer) 10 L (> 60) Est GFR (Non-Af Amer) 8 L (> 60) BUN/Creatinine Ratio 17 (6-26) Glucose 100 (70-105) mg/dL Calculated Osmolality 315 H (280-300) Lactic Acid 2.7 H (0.5-2.2) mmol/L Calcium 9.3 (8.6-10.3) mg/dL Total Bilirubin 1.2 H (0.3-1.0) mg/dL Direct Bilirubin 0.7 H (0.0-0.2) mg/dL Indirect Bilirubin 0.5 (0.0-1.2) mg/dL AST 9 L (13-39) Units/L ALT 9 (7-52) Units/L Alkaline Phosphatase 70 (34-104) Units/L Troponin I 0.06 H* (< 0.04) ng/mL B-Natriuretic Peptide (Less than 100) pg/mL Serum Total Protein 7.1 (6.4-8.9) g/dL Albumin 3.7 (3.5-5.7) g/dL Globulin 3.4 (2.4-3.5) g/dL Albumin/Globulin Ratio 1.1 (1.1-2.2) Urine Color (Yellow) Urine Clarity (Clear) Urine pH (5.0-8.0) pH Units Ur Specific University (1.010-1.025) Urine Protein (Neg-Trace) mg/dL Urine Glucose (UA) (Normal) mg/dL Urine Ketones (Negative) mg/dL Urine Blood (Negative) Urine Nitrite (Negative) Urine Bilirubin (Negative) Urine Urobilinogen (Normal) mg/dL Ur Leukocyte Esterase (Negative) Urine Microscopic RBC (0-3) per hpf Urine Microscopic WBC (0-3) per hpf Ur Squamous Epith Cells (None-Few) per lpf Calcium Oxalate Crystal Urine Bacteria (None-Few) per hpf Hyaline Casts (None-Few) per lpf Urine Yeast Ur Culture Indicated? (NO) 02/25/17 02/25/17 Range/Units 09:46 11:42 WBC (4.3-11.1) K/mcL RBC (4.19-5.50) M/mcL Hgb (12.9-16.9) g/dL Hct (37.5-50.1) % MCV (83.0-100.0) fL MCH (28.0-33.3) pg MCHC (31.6-35.5) g/dL RDW (11.5-14.5) % Plt Count (140-400) K/mcL MPV (9.4-12.4) fL Immature Gran % (0-4) % Seg Neutrophils % % Lymphocytes % % Monocytes % % Eosinophils % % Basophils % % Neutrophils # (1.6-8.9) K/mcL Lymphocytes # (0.6-4.6) K/mcL Monocytes # (0.0-1.3) K/mcL Eosinophils # (0.0-0.6) K/mcL Basophils # (0.0-0.2) K/mcL PT (9.4-12.1) Seconds INR APTT (26.0-36.0) Seconds Heparin Anti-Xa, Unfract (0.30-0.70) IU/mL Sodium (136-145) mEq/L Potassium (3.5-5.1) mEq/L Chloride (98-107) mEq/L Carbon Dioxide (23-29) mEq/L BUN (8-23) mg/dL Creatinine (0.70-1.30) mg/dL Est GFR ( Amer) (> 60) Est GFR (Non-Af Amer) (> 60) BUN/Creatinine Ratio (6-26) Glucose (70-105) mg/dL Calculated Osmolality (280-300) Lactic Acid 1.6 (0.5-2.2) mmol/L Calcium (8.6-10.3) mg/dL Total Bilirubin (0.3-1.0) mg/dL Direct Bilirubin (0.0-0.2) mg/dL Indirect Bilirubin (0.0-1.2) mg/dL AST (13-39) Units/L ALT (7-52) Units/L Alkaline Phosphatase (34-104) Units/L Troponin I (< 0.04) ng/mL B-Natriuretic Peptide 3241 H (Less than 100) pg/mL Serum Total Protein (6.4-8.9) g/dL Albumin (3.5-5.7) g/dL Globulin (2.4-3.5) g/dL Albumin/Globulin Ratio (1.1-2.2) Urine Color (Yellow) Urine Clarity (Clear) Urine pH (5.0-8.0) pH Units Ur Specific University (1.010-1.025) Urine Protein (Neg-Trace) mg/dL Urine Glucose (UA) (Normal) mg/dL Urine Ketones (Negative) mg/dL Urine Blood (Negative) Urine Nitrite (Negative) Urine Bilirubin (Negative) Urine Urobilinogen (Normal) mg/dL Ur Leukocyte Esterase (Negative) Urine Microscopic RBC (0-3) per hpf Urine Microscopic WBC (0-3) per hpf Ur Squamous Epith Cells (None-Few) per lpf Calcium Oxalate Crystal Urine Bacteria (None-Few) per hpf Hyaline Casts (None-Few) per lpf Urine Yeast Ur Culture Indicated? (NO) Attestation Statement - Attestation Attestation: For this encounter, I have reviewed the BUSINESS RULES DEVELOPER or PA documentation, treatment plan, and medical decision making; and I have had face to face time with this patient. [id number] time provided Patient with leg weakness when he stands up at night. History of advanced congestive heart failure. Appears in no acute distress on exam. Transcribed chest x-ray report reviewed by me. ECG reviewed by me.
[2017-02-25 10:20] LABS: Albumin 3.7 g/dL (3.5-5.7); Albumin/Globulin Ratio 1.1 (1.1-2.2); Bilirubin,Direct 0.7 mg/dL (0.0-0.2); Bilirubin,Indirect 0.5 mg/dL (0.0-1.2); Bilirubin,Total 1.2 mg/dL (0.3-1.0); Calcium 9.3 mg/dL (8.6-10.3); Globulin 3.4 g/dL (2.4-3.5); Potassium 5.9 mEq/L (3.5-5.1); Total Protein 7.1 g/dL (6.4-8.9)
[2017-02-25 10:30] LABS: Activated Partial Thrombo Time 118.3 Seconds (26.0-36.0); INR 6.2
[2017-02-25 10:36] LABS: Heparin anti-factor XA UFH 0.11 IU/mL (0.30-0.70)
--- NOTE | 2017-02-25 11:19 | Nephrology Consult Note ---
Date of Encounter: 02/25/17 Time of Encounter: 11:15 Assessment and Plan (1) Acute kidney injury superimposed on chronic kidney disease Current Visit: No Status: Acute Patient with JENNIFER on Stage 3 CKD. The etiology seems to be volume depletion secondary to decreased oral intake. Will check urinalysis and urine sodium Hold nephrotoxins. Adjust medications for renal function. Agree with cautious hydration secondary to his cardiomyopathy. (2) Cardiomyopathy Current Visit: Yes Status: Acute Severe cardiomyopathy. Gentle hydration. Qualifiers: Qualified Code(s): I42.9 - Cardiomyopathy, unspecified (3) A-fib Current Visit: No Status: Chronic Rate controlled. Qualifiers: Atrial fibrillation type: paroxysmal Qualified Code(s): I48.0 - Paroxysmal atrial fibrillation (4) Cirrhosis Current Visit: No Status: Chronic Per primary team. Qualifiers: Hepatic cirrhosis type: unspecified hepatic cirrhosis Ascites presence: with ascites Qualified Code(s): K74.60 - Unspecified cirrhosis of liver (5) JOSE (iron deficiency anemia) Current Visit: No Status: Acute Continue iron. Qualifiers: Qualified Code(s): D50.9 - Iron deficiency anemia, unspecified (6) Pulmonary embolism Current Visit: No Status: Chronic Per history. On anticoagulation. Qualifiers: Pulmonary embolism type: other Chronicity: unspecified Acute cor pulmonale presence: without acute cor pulmonale Qualified Code(s): I26.99 - Other pulmonary embolism without acute cor pulmonale (7) Warfarin-induced coagulopathy Current Visit: Yes Status: Acute Hold coumadin. Management per primary team. No active bleeding identified. History of Present Illness - Reason for Consult Consult date: 02/25/17 Acute Kidney Injury, Chronic Kidney Disease, hyperkalemia - Chief Complaint JENNIFER on CKD - History of Present Illness Mr. Shultz is a 66 yo man with a history of chronic kidney disease followed by Dr. Hodges of [facility]. He presents with weakness and generalized malaise and decreased oral intake. His is at his bedside. He has had decreased oral intake with concomitant 18 pound weight loss over the last 4-6 weeks. He has had some slight nausea over the last 2-3 weeks with no emesis and no abdominal pain. He has an ostomy with no change in output. He denies chest pain and has stable mild dyspnea. Past Med Surg Social Fam HX - Past Medical History Medical history: atrial fibrillation, CHF, COPD, DVT, hyperlipidemia, hypertension, pulmonary embolus, renal disease, thyroid disease, other Psychiatric history: no psych history - Past Surgical History Surgical History: colostomy, pacemaker/AICD, other - Social History Smoking Status: Former smoker Smokeless Tobacco Status: No Alcohol use: none Drug use: none - Family History Father Adopted: No Family Member Ethnicity: Non- Living Status: Still Living Hx Family Cardiac Disorders: Yes (CHF) Hx Family Respiratory Disorders: Yes Hx Family Cancer: No Hx Family GI Disorders: No Hx Family Endocrine Disorder: No Hx Family Neuromuscular Disorders: No Hx Family Neurologic Disorders: No Hx Family HEENT Disorders: No Hx Family Autoimmune Disorders: No Mother Living Status: Medications and Allergies Calcitriol [Rocaltrol] 0.25 mcg PO DAILY 10/09/14 [History] Cholecalciferol (Vitamin D3) [Vitamin D3] 2,000 unit PO QAM 10/09/14 [History] Dabigatran [Pradaxa] 75 mg PO BID 10/09/14 [History] Pravastatin Sodium 40 mg PO HS 10/09/14 [History] Carvedilol [Coreg] 25 mg PO BID #30 tablet 03/25/15 [Rx] Cyanocobalamin (Vitamin B-12) [Vitamin B-12] 500 mcg PO DAILY 07/22/15 [History] Digoxin [Lanoxin] 0.125 mg PO QOD #30 tablet 11/20/15 [Rx] Folic Acid 0.8 mg PO DAILY 01/07/16 [History] Sodium Bicarbonate 650 mg PO DAILY 01/07/16 [History] Albuterol Sulfate [Proair Hfa] 2 puff IH Q4H PRN 11/29/16 [History] Ascorbic Acid [Vitamin C] 500 mg PO DAILY 11/29/16 [History] Ferrous Sulfate [Iron] 325 mg PO DAILY 11/29/16 [History] Furosemide [Lasix] 20 mg PO Q48H 11/29/16 [History] Levothyroxine [Synthroid] 75 mcg PO 0630 11/29/16 [History] Magnesium Oxide [Magnesium] 400 mg PO BID #60 capsule 12/03/16 [Rx] Potassium Chloride 20 meq PO BIDWM #60 tab.er.prt 12/03/16 [Rx] Furosemide [Lasix] 40 mg PO Q48H 02/25/17 [History] Isosorbide MONOnitrate (24 HR) [Imdur] 30 mg PO DAILY 02/25/17 [History] metOLazone [Zaroxolyn] 2.5 mg PO QWEEK PRN 02/25/17 [History] 3 Allergy/AdvReac Type Severity Reaction Status Date / Time Penicillins [PCN] Allergy Rash Verified 02/25/17 08:36 codeine AdvReac Hallucinati Verified 02/25/17 08:36 ng lorazepam [From Ativan] AdvReac Hallucinati Verified 02/25/17 08:36 ng Review of Systems All Systems: reviewed and no additional remarkable complaints except as stated ( as per his HPI.) Exam - Vital Signs Vital signs: Initial Vital Signs Temp Pulse Resp BP Pulse Ox 97.5 F L 74 26 103/68 100 02/25/17 08:36 02/25/17 08:36 02/25/17 08:36 02/25/17 08:36 02/25/17 08:36 Vital Signs - Last 8 Hours Temp Pulse Resp BP Pulse Ox 02/25/17 09:56 73 20 93/72 99 02/25/17 08:36 97.5 F L 74 26 103/68 100 Intake and Output 02/24/17 02/25/17 02/25/17 23:59 07:59 15:59 Other: Weight 69.4 kg Patient Weight 02/25/17 23:59 Weight 69.4 kg - General Appearance General appearance: well-developed, chronically ill, frail EENT: ATNC Neck: supple Respiratory: clear Cardiology: no edema Gastrointestinal: no tenderness Additional Comments: ileostOstomy bag in the RLQ with liquid stool. stoma is pink and appears healthy. Integumentary: warm and dry Neurologic: alert and oriented x3 Musculoskeletal: no cyanosis Psychiatric: mood/affect appropriate Results - Lab Results 02/25/17 09:46 02/25/17 20:34 Most recent lab results Calcium 9.3 mg/dL (8.6-10.3) 02/25/17 09:46 Consult Discharge Plan - Plan Referrals: Lonny Davison MD [Non-Partnered Physician] - 03/04/17 11:40 am
[2017-02-25] MEDS ORDERED: *HR* Dextrose 25% in Water (Syg) 10 ML SYRINGE IVP ONE (12:23)
[2017-02-25] MEDS ORDERED: Insulin Human Regular 10 UNIT in 0.9 % Sodium Chloride 10 ML IV ONE (12:23)
[2017-02-25] MEDS ORDERED: *HR* Dextrose 50 % in Water (Syg) 50 ML SYRINGE IVP ONE ×2 (12:38→12:54)
[2017-02-25] MEDS ORDERED: Calcium Gluconate 1,000 MG in D5% in Water 100 ML IVPB ONE (16:16)
--- NOTE | 2017-02-25 16:36 | Event Note ---
Date of Encounter: 02/25/17 Time of Encounter: 16:32 Patient care examined with nurse practitioner. Patients with history of non- ischemic dilated cardiomyopathy, chrons disease status post ileostomy presents with symptoms of Malaise,decreasing appetite, and about 20 pound weight loss in the past 5 weeks. He denies any hematemesis melena or hematochezia. No change in the output of his ileostomy bag or abdominal pain. He denies any fevers chills. He continued to take Lasix during this period of decreased fuel intake. He was found to be an acute renal failure and coagulopathic. patient is hypovolemic on exam. He is hypotensive systolic in the 90s but usually runs in that range. Patient has small amount of urine in the fully bag about 20 mL. Patients had received 2 L of normal saline. Will continue hydration with normal saline 5 miles an hour. I expect that the patient will start improving and kidney functions will start responding.
[2017-02-25] MEDS ORDERED: Acetaminophen 325 MG TABLET PO PRN (16:47)
[2017-02-25] MEDS ORDERED: Naloxone 0.4 MG/ML INJ IVP PRN (16:47)
[2017-02-25] MEDS ORDERED: 0.9 % Sodium Chloride 1,000 ML IVC SCH (17:00)
[2017-02-25] MEDS ORDERED: *HR* Digoxin 0.125 MG TABLET PO SCH (17:00)
--- NOTE | 2017-02-25 17:05 | Internal Med History&Physical ---
Date of Encounter: 02/25/17 Time of Encounter: 17:00 Assessment and Plan (1) ARF (acute renal failure) Current visit: Yes Status: Acute Patient has a history of CK D stage III he has had poor oral intake as well as taking diuretics in the past few days. He has had increase in creatinine up to 6.6. We will give IV fluids gently overnight and continue to monitor creatinine and electrolytes Nephrology has been consultative and is following along Monitor intake and output and daily weights Avoid nephrotoxins Renal diet Qualifiers: Acute renal failure type: unspecified Qualified Code(s): N17.9 - Acute kidney failure, unspecified (2) Hyperkalemia Current visit: Yes Status: Acute Patient has potassium of 5.9 -secondary to acute renal failure as well as patient has been taking potassium supplements. No tenting T wave noted on EKG We will give gentle IV hydration overnight patient does have a EF of 15%. And monitor electrolytes Continuous cardiac monitoring He was given sodium bicarbonate bicarbonate and calcium gluconate IV (3) Dehydration Current visit: Yes Status: Acute Patient has been experiencing general malaise taking diuretics poor appetite and nausea.-He is in acute renal failure. We will check a digoxin level which may be contributing to his symptoms. We will give gentle IV fluids overnight Monitor intake and output daily weights Monitor electrolytes Hold diuretics (4) Elevated INR Current visit: Yes Status: Acute 1 patient has AK I and has been taking Pradaxa we will hold for now and give IV fluids overnight and recheck coag's (5) Elevated troponin Current visit: No Status: Acute 1 troponin has been chronically elevated -no chest pain at this time we will continue to trend (6) COPD (chronic obstructive pulmonary disease) Current visit: No Status: Chronic We will call with bronchodilators as needed and oxygen as needed Qualifiers: COPD type: unspecified COPD Qualified Code(s): J44.9 - Chronic obstructive pulmonary disease, unspecified Internal Medicine - H&P: HPI Chief complaint: weakness Admitted From: Emergency Dept Plans for Post Hospital Care: Home History of present illness: Mr. Shultz is a 66 year old male past medical history of nonischemic dilated cardiomyopathy Crohn's disease status post ileostomy COPD hyperlipidemia hypertension previous chronic DVTs CK D3 factor V Leiden thyroid disease atrial fibrillation AICD pacemaker. Patient has been experiencing fatigue and general malaise and decreased appetite and approximate 20 pound weight loss in the past 5 weeks. He has been on diuretics as well as potassium supplements. He is also taking Predaxa for factor V Leiden mutation. He denies any hematemesis melena or hematochezia no change in the amount of output from his ileostomy. She denies any fevers chills abdominal pain chest pain or shortness of breath. He presented to the ER with the above complaints. Lab work was obtained and revealed acute renal failure, hyperkalemia and coagulopathic . He was hypotensive with systolic in the 90s. He was given 2 L of normal saline in the ER and nephrology was consulted. He has been admitted for further workup and evaluation. Chepe patient denies any chest pain at the present he is not. He is hemodynamically stable at this time. I did review his case with Dr. Gutierrez he does agree with plan. Past Med Surg Social Fam HX - Past Medical History Medical history: atrial fibrillation, CHF, COPD, DVT, hyperlipidemia, hypertension, pulmonary embolus, renal disease, thyroid disease, other Psychiatric history: no psych history - Past Surgical History Surgical History: colostomy, pacemaker/AICD, other - Social History Smoking Status: Former smoker Smokeless Tobacco Status: No Alcohol use: none Drug use: none - Family History Father Adopted: No Family Member Ethnicity: Non- Living Status: Still Living Hx Family Cardiac Disorders: Yes (CHF) Hx Family Respiratory Disorders: Yes Hx Family Cancer: No Hx Family GI Disorders: No Hx Family Endocrine Disorder: No Hx Family Neuromuscular Disorders: No Hx Family Neurologic Disorders: No Hx Family HEENT Disorders: No Hx Family Autoimmune Disorders: No Mother Living Status: Internal Medicine - H&P: Meds Calcitriol [Rocaltrol] 0.25 mcg PO DAILY 10/09/14 [History] Cholecalciferol (Vitamin D3) [Vitamin D3] 2,000 unit PO QAM 10/09/14 [History] Dabigatran [Pradaxa] 75 mg PO BID 10/09/14 [History] Pravastatin Sodium 40 mg PO HS 10/09/14 [History] Carvedilol [Coreg] 25 mg PO BID #30 tablet 03/25/15 [Rx] Cyanocobalamin (Vitamin B-12) [Vitamin B-12] 500 mcg PO DAILY 07/22/15 [History] Digoxin [Lanoxin] 0.125 mg PO QOD #30 tablet 11/20/15 [Rx] Folic Acid 0.8 mg PO DAILY 01/07/16 [History] Sodium Bicarbonate 650 mg PO DAILY 01/07/16 [History] Albuterol Sulfate [Proair Hfa] 2 puff IH Q4H PRN 11/29/16 [History] Ascorbic Acid [Vitamin C] 500 mg PO DAILY 11/29/16 [History] Ferrous Sulfate [Iron] 325 mg PO DAILY 11/29/16 [History] Furosemide [Lasix] 20 mg PO Q48H 11/29/16 [History] Levothyroxine [Synthroid] 75 mcg PO 0630 11/29/16 [History] Magnesium Oxide [Magnesium] 400 mg PO BID #60 capsule 12/03/16 [Rx] Potassium Chloride 20 meq PO BIDWM #60 tab.er.prt 12/03/16 [Rx] Furosemide [Lasix] 40 mg PO Q48H 02/25/17 [History] Isosorbide MONOnitrate (24 HR) [Imdur] 30 mg PO DAILY 02/25/17 [History] metOLazone [Zaroxolyn] 2.5 mg PO QWEEK PRN 02/25/17 [History] 3 Allergy/AdvReac Type Severity Reaction Status Date / Time Penicillins [PCN] Allergy Rash Verified 02/25/17 08:36 codeine AdvReac Hallucinati Verified 02/25/17 08:36 ng lorazepam [From Ativan] AdvReac Hallucinati Verified 02/25/17 08:36 ng All Systems PM: A 10-system review of systems was performed and is negative for pertinent findings except as documented above in the HPI. - Constitutional Constitutional: anorexia, fatigue, weakness, no chills, no fever(s), no night sweats - EENT Nose, mouth and throat: no dysphagia, no nasal discharge, no neck pain, no sore throat - Cardiovascular Cardiovascular ROS IM: no chest pain, no diaphoresis, no dyspnea, no lightheadedness, no palpitations, no syncope - Respiratory Respiratory: no cough, no dyspnea, no wheezing, no excessive phlegm production - Gastrointestinal Gastrointestinal: nausea, no abdominal pain, no diarrhea, no hematemesis, no hematochezia, no melena, no vomiting - Musculoskeletal Musculoskeletal ROS IM: no numbness, no tingling - Integumentary Integumentary IM: no rash, no unusual bruising - Neurological Neurological ROS: no confusion, no convulsions, no focal weakness, no numbness, no tingling, no tremor(s) - Hematologic/Lymphatic Hematologic/Lymphatic: no easy bruising - Constitutional Vitals: Temp Pulse Resp BP Pulse Ox 95.9 F L 76 20 94/73 99 02/25/17 15:18 02/25/17 15:18 02/25/17 15:18 02/25/17 15:18 02/25/17 15:18 General appearance: Present: A&O X 3, answers questions appropriately - Head Head exam: Present: atraumatic, normocephalic - Eye Eye exam: Present: PERRL, conjuntiva pink, sclera anicteric Pupils: Present: PERRL - Neck Neck exam general surgery: Present: supple, trachea midline. Absent: lymphadenopathy - Respiratory Respiratory exam: Present: CTAB. Absent: accessory muscle use, rales, rhonchi, wheezes - Cardiovascular Cardiovascular exam: Present: RRR, +S1, +S2. Absent: diastolic murmur, gallop, rubs, systolic murmur - GI/Abdominal GI/Abdominal exam: Present: normal bowel sounds, soft, no peritoneal signs. Absent: distended, tenderness Additional comments: R lower quadrant colostomy intact and draining - Extremities Exam Extremities exam: Present: warm, radial pulses palpable and symmetrical. Absent : calf tenderness, cyanotic, pedal edema - Neurological Exam Neurological exam: Present: CN II-XII intact, oriented X3, no focal deficits. Absent: pronater drift, facial droop, speech deficit - Skin Skin exam: Present: dry, intact Internal Med - H&P Results - Labs CBC & Chem 7: 02/25/17 09:46 02/25/17 09:46 - EKG Data EKG shows normal: sinus rhythm - Diagnostic Studies Other Images Additional comments: Chest X-Ray 02/25/17 09:07 IMPRESSION: 1. No active pulmonary disease. 2. Cardiomegaly without overt failure. D/ / Vlad Roe MD / Vlad Roe MD Interpreting Provider: Vlad Roe MD
[2017-02-25 21:02] LABS: Calcium 10.3 mg/dL (8.6-10.3); Potassium 6.5 mEq/L (3.5-5.1)
[2017-02-26 00:30] LABS: Bilirubin,Urine Negative (Negative); Blood,Urine Large (Negative); Clarity,Urine Clear (Clear); Color,Urine Yellow (Yellow); Glucose,Urine (UA) Normal (Normal); Ketones,Urine Negative (Negative); Leukocyte Esterase,Urine Trace (Negative); Nitrite,Urine Negative (Negative); Protein,Urine 100 mg/dL (Neg-Trace); Specific Gravity,Urine 1.015 (1.010-1.025); Urobilinogen,Urine Normal (Normal)
[2017-02-26 00:36] LABS: Hyaline Casts,Urine None Seen per lpf (None-Few); Squamous Epithelial Cell,Urine Few per lpf (None-Few)
[2017-02-26 00:37] LABS: Bacteria,Urine None Seen per hpf (None-Few); RBC,Urine 30-50 per hpf (0-3)
[2017-02-26 05:13] LABS: Basophils % 0.4 %; Eosinophils # 0.2 K/mcL (0.0-0.6); Hematocrit 37.3 % (37.5-50.1); Hemoglobin 11.9 g/dL (12.9-16.9); Immature Granulocytes % 0.7 % (0-4); Lymphocytes # 0.6 K/mcL (0.6-4.6); Lymphocytes % 10.8 %; Mean Corpuscular HGB Conc 31.9 g/dL (31.6-35.5); Mean Corpuscular Hemoglobin 31.2 pg (28.0-33.3); Mean Corpuscular Volume 97.9 fL (83.0-100.0); Mean Platelet Volume 9.8 fL (9.4-12.4); Monocytes # 0.6 K/mcL (0.0-1.3); Monocytes % 10.4 %; Platelet Count 144 K/mcL (140-400); Red Blood Count 3.81 M/mcL (4.19-5.50); Red Cell Distribution Width 18.3 % (11.5-14.5); Segmented Neutrophils % 73.7 %
[2017-02-26 05:23] LABS: Activated Partial Thrombo Time 104.4 Seconds (26.0-36.0)
[2017-02-26 05:25] LABS: INR 5.5
[2017-02-26 05:29] LABS: Magnesium 1.5 mg/dL (1.6-2.6); Phosphorous 7.4 mg/dL (2.7-4.5); Potassium 5.4 mEq/L (3.5-5.1)
--- NOTE | 2017-02-26 07:39 | Electrocardiograph Report ---
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
[2017-02-26] MEDS: Cyanocobalamin (B-12) 1,000 MCG TABLET PO SCH (08:10)
[2017-02-26] MEDS: Ascorbic Acid 500 MG TABLET PO SCH (08:11)
[2017-02-26] MEDS: Folic Acid 1 MG TABLET PO SCH (08:11)
[2017-02-26] MEDS ORDERED: Magnesium Sulfate 1 GM in D5% in Water 100 ML IVPB ONE (13:22)
[2017-02-26] MEDS: 0.9 % Sodium Chloride 1,000 ML IVC SCH ×2 (14:11→23:56)
--- NOTE | 2017-02-26 14:26 | Nephrology Progress Note ---
Date of Encounter: 02/26/17 Time of Encounter: 14:24 - Assessment and Plan (1) Acute kidney injury superimposed on chronic kidney disease Current Visit: No Status: Acute Patient with JENNIFER likely from volume depletion. Agree with gentle fluid since his creatinine has not significantly improved. Unable to aggressively hydrate secondary to cardiomyopathy. (2) Cardiomyopathy Current Visit: Yes Status: Acute Patient seems to have volume depletion. Gentle fluid replacement. Qualifiers: Qualified Code(s): I42.9 - Cardiomyopathy, unspecified (3) A-fib Current Visit: No Status: Chronic Rate controlled. Per primary team. Qualifiers: Atrial fibrillation type: paroxysmal Qualified Code(s): I48.0 - Paroxysmal atrial fibrillation (4) Cirrhosis Current Visit: No Status: Chronic Monitor. No encephalopathy. Qualifiers: Hepatic cirrhosis type: unspecified hepatic cirrhosis Ascites presence: with ascites Qualified Code(s): K74.60 - Unspecified cirrhosis of liver (5) JOSE (iron deficiency anemia) Current Visit: No Status: Acute Monitor hemoglobin. No sign of bleeding. Qualifiers: Qualified Code(s): D50.9 - Iron deficiency anemia, unspecified (6) Pulmonary embolism Current Visit: No Status: Chronic on anticoagulation. Supertherapeutic INR. Qualifiers: Pulmonary embolism type: other Chronicity: unspecified Acute cor pulmonale presence: without acute cor pulmonale Qualified Code(s): I26.99 - Other pulmonary embolism without acute cor pulmonale (7) Warfarin-induced coagulopathy Current Visit: Yes Status: Acute Per primary team. Improving. Subjective Principal diagnosis: JENNIFER Interval history: Patient is seen. He feels better. His appetite is improved. Objective - Vital Signs Vital signs: Vital Signs Temp Pulse Resp BP Pulse Ox 02/26/17 12:47 99 02/26/17 08:05 98.0 F 95 15 101/76 99 02/26/17 03:10 97.7 F 89 16 108/71 97 02/25/17 23:02 98 F 92 16 100/73 99 02/25/17 20:53 96.4 F L 87 20 105/79 100 02/25/17 15:18 95.9 F L 76 20 94/73 99 02/25/17 15:08 18 97/70 Intake and Output 02/25/17 02/26/17 02/26/17 23:59 07:59 15:59 Intake Total 320 / 320 1410 / 1410 Output Total 350 / 350 280 / 280 Balance -30 / -30 -280 / -280 1410 / 1410 Intake: Oral 320 / 320 1410 / 1410 Output: Urine 350 / 350 280 / 280 Other: Meal Dinner Breakfast Percent of Meal Consumed 55% 100% Weight 71.5 kg Patient Weight 02/26/17 23:59 Weight 71.5 kg - General Appearance General appearance: Present: well-developed, chronically ill, frail EENT: Present: ATNC Neck: Present: supple Cardiology: Present: regular rate Integumentary: Present: warm and dry Neurologic: Present: alert and oriented x3 Psychiatric: Present: mood/affect appropriate - Lab 02/26/17 04:47 02/26/17 04:47 Most recent lab results Calcium 10.0 mg/dL (8.6-10.3) 02/26/17 04:47 Phosphorus 7.4 mg/dL (2.7-4.5) H 02/26/17 04:47 Magnesium 1.5 mg/dL (1.6-2.6) L 02/26/17 04:47 Consult Discharge Plan - Plan Referrals: Lonny Davison MD [Non-Partnered Physician] - 03/04/17 11:40 am
--- NOTE | 2017-02-26 16:19 | Internal Med Progress Note ---
Date of Encounter: 02/26/17 Time of Encounter: 16:17 - Assessment and plan (1) Acute renal failure Current Visit: Yes Status: Acute Assessment and plan: Patient has acute renal failure due to decrease PO intake. He has not been drinking for the past 3 weeks and in fact he has lost 20 pounds. Patient has been hydrated since arrival yesterday however no significant improvement in creatinine. Will continue hydration. Patient has approximately 400 mls of urine output since arrival yesterday about 24 hours ago. Will continue fluid resuscitation. Patient shows no signs of clinical overload. Qualifiers: Qualified Code(s): N17.9 - Acute kidney failure, unspecified (2) Elevated INR Current Visit: Yes Status: Acute Assessment and plan: Patient is on pradaxa because of history of prior venous thromboembolism due to factor 5 Leiden mutation. INR remains elevated in the supratherapeutic range probably due to dehydration and decrease renal clearance. No evidence of bleeding. Continue holding anticoagulants (3) Ischemic cardiomyopathy Current Visit: No Status: Acute Assessment and plan: Non-ischemic cardiomyopathy with ejection fraction 10%. Watch for signs of overload during hydration. Patient does not show any clinical signs of overload (4) Elevated troponin Current Visit: Yes Status: Acute Assessment and plan: Due to demand ischemia. He mentioned that he has no history of occlusive coronary artery disease on prior angiograms - Constitutional Vitals: Temp Pulse Resp BP Pulse Ox 97.4 F L 95 16 103/73 99 02/26/17 11:45 02/26/17 08:05 02/26/17 11:45 02/26/17 11:45 02/26/17 12:47 General appearance: Present: A&O X 3, answers questions appropriately Exam: Gen.: patient is alert oriented times 3 not in distress. Cardiac: normal S1 S2 no additional sounds chest: clear auscultation abdomen: soft nontender nondistended normal bowel sounds Neuro: no focal deficits LE: no swelling Internal Medicine: Result - Labs CBC & Chem 7: 02/26/17 04:47 02/26/17 04:47 Labs: Short CBC 02/26/17 Range/Units 04:47 WBC 5.5 (4.3-11.1) K/mcL Hgb 11.9 L (12.9-16.9) g/dL Hct 37.3 L (37.5-50.1) % Plt Count 144 (140-400) K/mcL Neutrophils # 4.0 (1.6-8.9) K/mcL BMP 02/25/17 02/26/17 20:34 04:47 Sodium 131 L 132 L Potassium 6.5 H* 5.4 H Chloride 97 L 97 L Carbon Dioxide 20 L 21 L BUN 117 H 110 H Creatinine 7.19 H 7.08 H Glucose 109 H 96 Calcium 10.3 10.0 Cardiac Enzymes 02/25/17 02/25/17 02/26/17 Range/Units 17:12 23:05 04:47 Troponin I 0.05 H* 0.05 H* 0.06 H* (< 0.04) ng/mL Urine 02/25/17 Range/Units 23:48 Urine Color Yellow (Yellow) Urine Clarity Clear (Clear) Urine pH 6.0 (5.0-8.0) pH Units Ur Specific [place] 1.015 (1.010-1.025) Urine Protein 100 H (Neg-Trace) mg/dL Urine Glucose (UA) Normal (Normal) mg/dL - ABG Interpretation ABG results: PT/INR, D-dimer PT 62.0 Seconds (9.4-12.1) H* 02/26/17 04:47 Consult Discharge Plan - Plan Referrals: Lonny Davison MD [Non-Partnered Physician] - 03/04/17 11:40 am
[2017-02-26 19:43] LABS: Protein/Creatinine Ratio,Urine 1.31 mg/mg (0.00-0.20); Sodium, Urine 10.5 mEq/L
[2017-02-27 03:02] LABS: Basophils % 0.4 %; Eosinophils # 0.2 K/mcL (0.0-0.6); Eosinophils % 3.2 %; Hematocrit 35.1 % (37.5-50.1); Hemoglobin 11.2 g/dL (12.9-16.9); Immature Granulocytes % 0.4 % (0-4); Lymphocytes # 0.9 K/mcL (0.6-4.6); Lymphocytes % 17.1 %; Mean Corpuscular HGB Conc 31.9 g/dL (31.6-35.5); Mean Corpuscular Hemoglobin 31.5 pg (28.0-33.3); Mean Corpuscular Volume 98.6 fL (83.0-100.0); Mean Platelet Volume 10.2 fL (9.4-12.4); Monocytes # 0.7 K/mcL (0.0-1.3); Monocytes % 12.9 %; Neutrophils # 3.3 K/mcL (1.6-8.9); Platelet Count 135 K/mcL (140-400); Red Blood Count 3.56 M/mcL (4.19-5.50); Red Cell Distribution Width 18.5 % (11.5-14.5)
[2017-02-27 03:18] LABS: Calcium 9.6 mg/dL (8.6-10.3); Magnesium 1.8 mg/dL (1.6-2.6)
[2017-02-27] MEDS: Folic Acid 1 MG TABLET PO SCH (08:50)
[2017-02-27] MEDS: Ascorbic Acid 500 MG TABLET PO SCH (08:50)
[2017-02-27] MEDS: Cyanocobalamin (B-12) 1,000 MCG TABLET PO SCH (08:50)
[2017-02-27] MEDS: 0.9 % Sodium Chloride 1,000 ML IVC SCH ×2 (10:00→23:20)
--- NOTE | 2017-02-27 10:52 | Nephrology Progress Note ---
Date of Encounter: 02/27/17 Time of Encounter: 10:50 - Assessment and Plan (1) Acute kidney injury superimposed on chronic kidney disease Current Visit: No Status: Acute Patient with JENNIFER secondary to non-oliguirc ATN likely from volume depletion. Creatinine improving with gentle fluid. Unable to aggressively hydrate secondary to cardiomyopathy. (2) Cardiomyopathy Current Visit: Yes Status: Acute Patient seems to have volume depletion. Gentle fluid replacement. Qualifiers: Qualified Code(s): I42.9 - Cardiomyopathy, unspecified (3) A-fib Current Visit: No Status: Chronic Rate controlled. Per primary team. Qualifiers: Atrial fibrillation type: paroxysmal Qualified Code(s): I48.0 - Paroxysmal atrial fibrillation (4) Cirrhosis Current Visit: No Status: Chronic Monitor. No encephalopathy. Qualifiers: Hepatic cirrhosis type: unspecified hepatic cirrhosis Ascites presence: with ascites Qualified Code(s): K74.60 - Unspecified cirrhosis of liver (5) JOSE (iron deficiency anemia) Current Visit: No Status: Acute Monitor hemoglobin. No sign of bleeding. Qualifiers: Qualified Code(s): D50.9 - Iron deficiency anemia, unspecified (6) Pulmonary embolism Current Visit: No Status: Chronic on anticoagulation. Supertherapeutic INR. Qualifiers: Pulmonary embolism type: other Chronicity: unspecified Acute cor pulmonale presence: without acute cor pulmonale Qualified Code(s): I26.99 - Other pulmonary embolism without acute cor pulmonale (7) Warfarin-induced coagulopathy Current Visit: Yes Status: Acute Per primary team. Improving. (8) Metabolic acidosis Current Visit: Yes Status: Acute Agree with adding supplemental sodium bicarbonate. (9) Hypomagnesemia Current Visit: No Status: Acute Replace as needed. Subjective Principal diagnosis: JENNIFER Interval history: Patient is seen. He feels better. His appetite is improved. No new complaint. Objective - Vital Signs Vital signs: Vital Signs Temp Pulse Resp BP Pulse Ox 02/27/17 04:00 102 02/27/17 03:37 97.7 F 105 18 105/82 96 02/26/17 23:55 101 02/26/17 23:22 97.5 F L 103 16 108/79 96 02/26/17 20:31 103 02/26/17 19:37 97.5 F L 101 16 104/78 96 02/26/17 16:37 98.0 F 101 14 102/86 97 02/26/17 12:47 99 02/26/17 11:45 97.4 F L 16 103/73 Intake and Output 02/26/17 02/27/17 02/27/17 23:59 07:59 15:59 Intake Total 1480 / 1480 1000 / 1000 Output Total 925 / 925 750 / 750 Balance 555 / 555 -750 / -750 1000 / 1000 Intake: IV Fluids 1000 / 1000 1000 / 1000 0.9 % Sodium Chloride 1,000 ML 1000 / 1000 1000 / 1000 @ 100 mls/hr IVC .Q10H LYLE Rx#: [id number] Oral 480 / 480 Output: Stool 675 / 675 350 / 350 Catheter 250 / 250 400 / 400 Other: Meal Dinner Percent of Meal Consumed 75% Stool Consistency liquid Stool Color Brown Green Weight 71.8 kg Patient Weight 02/27/17 23:59 Weight 71.8 kg - General Appearance General appearance: Present: well-developed, chronically ill, frail EENT: Present: ATNC Neck: Present: supple Additional Comments: tachycardic on telemetry. Integumentary: Present: warm and dry Neurologic: Present: alert and oriented x3 Psychiatric: Present: mood/affect appropriate - Lab 02/27/17 02:44 02/27/17 02:44 Most recent lab results Calcium 9.6 mg/dL (8.6-10.3) 02/27/17 02:44 Phosphorus 7.4 mg/dL (2.7-4.5) H 02/26/17 04:47 Magnesium 1.8 mg/dL (1.6-2.6) 02/27/17 02:44 Urine Creatinine 117 mg/dL 02/26/17 14:26 Urine Sodium 10.5 mEq/L 02/26/17 14:26 Urine Total Protein 153 mg/dL 02/26/17 14:26 Consult Discharge Plan - Plan Referrals: Lonny Davison MD [Non-Partnered Physician] - 03/04/17 11:40 am
--- NOTE | 2017-02-27 14:19 | Internal Med Progress Note ---
Date of Encounter: 02/27/17 Time of Encounter: 14:16 - Assessment and plan (1) Acute renal failure Current Visit: Yes Status: Acute Assessment and plan: Patient has acute renal failure due to decrease PO intake. He has not been drinking for the past 3 weeks and in fact he has lost 20 pounds. Patient has been hydrated since arrival yesterday however no significant improvement in creatinine. Will continue hydration. Patient has approximately 1.6 L of urine output since yesterday about 24 hours ago. Will continue fluid resuscitation. Patient shows no signs of clinical overload. Qualifiers: Qualified Code(s): N17.9 - Acute kidney failure, unspecified (2) Elevated INR Current Visit: Yes Status: Acute Assessment and plan: No signs of active bleeding. Will monitor coagulation profile (3) Ischemic cardiomyopathy Current Visit: No Status: Acute Assessment and plan: Non-ischemic cardiomyopathy with ejection fraction 10%. Watch for signs of overload during hydration. Patient does not show any clinical signs of overload (4) Elevated troponin Current Visit: Yes Status: Acute Assessment and plan: Due to demand ischemia. He mentioned that he has no history of occlusive coronary artery disease on prior angiograms - Subjective Interval history: Patient seen and examined at bedside. Patient had 1.6 L urine output past 24 hours. Denies any shortness of breath. No otherwise complain - Constitutional Vitals: Temp Pulse Resp BP Pulse Ox 97.3 F L 100 18 102/83 96 02/27/17 11:34 02/27/17 11:34 02/27/17 11:34 02/27/17 11:34 02/27/17 11:34 General appearance: Present: A&O X 3, answers questions appropriately Exam: Gen.: patient is alert oriented times 3 not in distress. Cardiac: normal S1 S2 no additional sounds or murmurs. Chest: clear to auscultation Abdomen: soft nontender nondistended normal bowel sounds lower extremity: lax calf muscles no swelling neuro: no focal deficit Internal Medicine: Result - Labs CBC & Chem 7: 02/27/17 02:44 02/27/17 02:44 Labs: Short CBC 02/27/17 Range/Units 02:44 WBC 5.0 (4.3-11.1) K/mcL Hgb 11.2 L (12.9-16.9) g/dL Hct 35.1 L (37.5-50.1) % Plt Count 135 L (140-400) K/mcL Neutrophils # 3.3 (1.6-8.9) K/mcL BMP 02/27/17 02:44 Sodium 133 L Potassium 5.0 Chloride 98 Carbon Dioxide 20 L BUN 104 H Creatinine 6.93 H Glucose 97 Calcium 9.6 - ABG Interpretation ABG results: PT/INR, D-dimer PT 62.0 Seconds (9.4-12.1) H* 02/26/17 04:47 Consult Discharge Plan - Plan Referrals: Lonny Davison MD [Non-Partnered Physician] - 03/04/17 11:40 am
[2017-02-28 03:30] LABS: Basophils % 0.2 %; Eosinophils # 0.2 K/mcL (0.0-0.6); Eosinophils % 4.1 %; Hematocrit 35.6 % (37.5-50.1); Hemoglobin 11.4 g/dL (12.9-16.9); Immature Granulocytes % 0.4 % (0-4); Lymphocytes # 0.7 K/mcL (0.6-4.6); Lymphocytes % 16.2 %; Mean Corpuscular Hemoglobin 31.6 pg (28.0-33.3); Mean Corpuscular Volume 98.6 fL (83.0-100.0); Mean Platelet Volume 10.7 fL (9.4-12.4); Monocytes # 0.6 K/mcL (0.0-1.3); Monocytes % 13.1 %; Nucleated Red Blood Cells 0.4 /100 WBC (0); Platelet Count 133 K/mcL (140-400); Red Blood Count 3.61 M/mcL (4.19-5.50); Red Cell Distribution Width 18.8 % (11.5-14.5)
[2017-02-28 03:39] LABS: INR 3.9; Prothrombin Time 42.8 Seconds (9.4-12.1)
[2017-02-28 03:41] LABS: Activated Partial Thrombo Time 80.7 Seconds (26.0-36.0)
[2017-02-28 03:52] LABS: Calcium 9.4 mg/dL (8.6-10.3); Magnesium 1.7 mg/dL (1.6-2.6); Potassium 4.6 mEq/L (3.5-5.1)
[2017-02-28 07:21] VITALS: BP 109/79
[2017-02-28] MEDS: Cyanocobalamin (B-12) 1,000 MCG TABLET PO SCH (07:32)
[2017-02-28] MEDS: Folic Acid 1 MG TABLET PO SCH (07:32)
[2017-02-28] MEDS: Ascorbic Acid 500 MG TABLET PO SCH (07:32)
[2017-02-28] MEDS ORDERED: 0.9 % Sodium Chloride 1,000 ML IVC SCH (08:15)
--- NOTE | 2017-02-28 09:18 | Nephrology Progress Note ---
Date of Encounter: 02/28/17 Time of Encounter: 09:15 - Assessment and Plan (1) Acute kidney injury superimposed on chronic kidney disease Current Visit: No Status: Acute Patient with JENNIFER secondary to non-oliguirc ATN likely from volume depletion. Creatinine improving with gentle fluid. Unable to aggressively hydrate secondary to cardiomyopathy. If patient is discharged he should have a BMP obtained Tuesday and Tuesday with results to PCP, and [facility] attn:Dr. Hodges and Dr. Savage. He needs to continue oral rehydration with 1-1.5 liters daily. His renal function has improved for the last 2 days. (2) Cardiomyopathy Current Visit: Yes Status: Acute Patient seems to have volume depletion. Gentle fluid replacement. Qualifiers: Qualified Code(s): I42.9 - Cardiomyopathy, unspecified (3) A-fib Current Visit: No Status: Chronic Rate controlled. Per primary team. Qualifiers: Atrial fibrillation type: paroxysmal Qualified Code(s): I48.0 - Paroxysmal atrial fibrillation (4) Cirrhosis Current Visit: No Status: Chronic Monitor. No encephalopathy. Qualifiers: Hepatic cirrhosis type: unspecified hepatic cirrhosis Ascites presence: with ascites Qualified Code(s): K74.60 - Unspecified cirrhosis of liver (5) JOSE (iron deficiency anemia) Current Visit: No Status: Acute Monitor hemoglobin. No sign of bleeding. Qualifiers: Qualified Code(s): D50.9 - Iron deficiency anemia, unspecified (6) Pulmonary embolism Current Visit: No Status: Chronic on anticoagulation. Supertherapeutic INR. Qualifiers: Pulmonary embolism type: other Chronicity: unspecified Acute cor pulmonale presence: without acute cor pulmonale Qualified Code(s): I26.99 - Other pulmonary embolism without acute cor pulmonale (7) Warfarin-induced coagulopathy Current Visit: Yes Status: Acute Per primary team. Improving. (8) Metabolic acidosis Current Visit: Yes Status: Acute Agree with adding supplemental sodium bicarbonate. (9) Hypomagnesemia Current Visit: No Status: Acute Replace as needed. Subjective Principal diagnosis: JENNIFER Interval history: Patient is seen. He feels better. His appetite is improved. No new complaint. He would like to go home. Objective - Vital Signs Vital signs: Vital Signs Temp Pulse Resp BP Pulse Ox 02/28/17 07:35 105 02/28/17 07:15 97.4 F L 103 15 109/79 97 02/28/17 06:00 106 16 104/84 98 02/28/17 04:41 97.4 F L 108 18 106/78 98 02/28/17 03:00 113 02/28/17 00:05 97.8 F 110 20 105/78 99 02/27/17 23:53 115 02/27/17 19:46 98 F 100 18 112/80 100 02/27/17 16:30 97.9 F 99 16 109/83 100 02/27/17 15:26 97.9 F 99 16 109/83 100 02/27/17 11:34 97.3 F L 100 18 102/83 96 Intake and Output 02/27/17 02/28/17 02/28/17 23:59 07:59 15:59 Intake Total 1120 / 1120 1039 / 1039 240 / 240 Output Total 840 / 840 550 / 550 Balance 280 / 280 489 / 489 240 / 240 Intake: IV Fluids 1000 / 1000 579 / 579 0.9 % Sodium Chloride 1,000 ML 1000 / 1000 579 / 579 @ 100 mls/hr IVC .Q10H [facility] Rx#: [id number] Oral 120 / 120 460 / 460 240 / 240 Output: Stool 440 / 440 200 / 200 Catheter 400 / 400 350 / 350 Other: Meal Dinner Breakfast Percent of Meal Consumed 100% 100% Stool Consistency liquid Stool Characteristics Mucoid Stool Color Green Weight 73.1 kg Patient Weight 02/28/17 23:59 Weight 73.1 kg - General Appearance General appearance: Present: well-developed, well-nourished EENT: Present: ATNC Neck: Present: supple Cardiology: Present: no edema, regular rate Integumentary: Present: warm and dry Neurologic: Present: alert and oriented x3 Psychiatric: Present: mood/affect appropriate - Lab 02/28/17 02:37 02/28/17 02:37 Most recent lab results Calcium 9.4 mg/dL (8.6-10.3) 02/28/17 02:37 Phosphorus 7.4 mg/dL (2.7-4.5) H 02/26/17 04:47 Magnesium 1.7 mg/dL (1.6-2.6) 02/28/17 02:37 Urine Creatinine 117 mg/dL 02/26/17 14:26 Urine Sodium 10.5 mEq/L 02/26/17 14:26 Urine Total Protein 153 mg/dL 02/26/17 14:26 Consult Discharge Plan - Plan Referrals: Lonny Davison MD [Non-Partnered Physician] - 03/04/17 11:40 am
--- NOTE | 2017-02-28 09:51 | Discharge Summary ---
Date of Encounter: 02/28/17 Time of Encounter: 09:49 - Discharge Diagnosis (1) Acute renal failure Priority: Primary Status: Acute Qualifiers: Qualified Code(s): N17.9 - Acute kidney failure, unspecified (2) Elevated INR Priority: Primary Status: Acute (3) Ischemic cardiomyopathy Priority: Secondary Status: Acute (4) Elevated troponin Priority: Secondary Status: Acute - Discharge Medications Prescriptions: Carvedilol [Coreg] 12.5 mg PO BID #30 tablet Home Medications: Calcitriol [Rocaltrol] 0.25 mcg PO DAILY 10/09/14 [History] Cholecalciferol (Vitamin D3) [Vitamin D3] 2,000 unit PO QAM 10/09/14 [History] Pravastatin Sodium 40 mg PO HS 10/09/14 [History] Cyanocobalamin (Vitamin B-12) [Vitamin B-12] 500 mcg PO DAILY 07/22/15 [History] Folic Acid 0.8 mg PO DAILY 01/07/16 [History] Sodium Bicarbonate 650 mg PO DAILY 01/07/16 [History] Albuterol Sulfate [Proair Hfa] 2 puff IH Q4H PRN 11/29/16 [History] Ascorbic Acid [Vitamin C] 500 mg PO DAILY 11/29/16 [History] Ferrous Sulfate [Iron] 325 mg PO DAILY 11/29/16 [History] Levothyroxine [Synthroid] 75 mcg PO 0630 11/29/16 [History] Magnesium Oxide [Magnesium] 400 mg PO BID #60 capsule 12/03/16 [Rx] Carvedilol [Coreg] 12.5 mg PO BID #30 tablet 02/28/17 [Rx] Allergies/Adverse Reactions: 3 Allergy/AdvReac Type Severity Reaction Status Date / Time Penicillins [PCN] Allergy Rash Verified 02/25/17 08:36 codeine AdvReac Hallucinati Verified 02/25/17 08:36 ng lorazepam [From Ativan] AdvReac Hallucinati Verified 02/25/17 08:36 ng Procedures/tests Complete & Pending: Procedures Performed prior 72 hours Category Date Time Status EKG [ECG 12 lead ECG] [ECG] Routine Y 02/25/17 21:27 Ordered Date of admission: 02/25/17 13:59 Primary care physician: PCP NONE Consults: 02/25/17 17:20 Consult to Occupational Therapy [CONS] Routine Comment: Evaluate, develop and implement POC Reason for Consult: Debility Consult to Physical Therapy [CONS] Routine Comment: Evaluate, develop and implement POC Reason for Consult: Debility Consult to Final Finisher [CONS] Routine Reason for SW Consult: Discharge planning - Patient Status Disposition: Home, Self-Care Condition: Serious - Discharge Instructions Instructions: Acute Kidney Injury (DC) Follow Up With: Lonny Davison MD [Non-Partnered Physician] - 03/04/17 11:40 am Additional Instructions: Follow-up appointments: If there is not an appointment listed below, please call your physician and schedule a follow-up appointment. If you have congestive heart failure and your symptoms return, make an appointment with your physician. Medication List: Carry an up to date list of medications you are taking at all time. We have given you an updated medication list including any new medications that you have been prescribed. Please provide that list to your primary provider Interval History: Patient is a 66-year-old male with nonischemic dilated cardiomyopathy presented to the hospital with generalized weakness decrease PO intake. Patient has not been eating or drinking well for the past 3 weeks he had lost approximately 20 pounds in the month prior to admission. Patient was found to have acute chronic renal failure it was hydrated in the hospital over the past 3 days and received a total of approximately 67 L of fluid with slight improvement of his kidney functions. Who would make approximately 1 L of urine in 24 hours. Patient has evidence of non-oligarchic renal failure he probably had developed ETN during the period of severe dehydration probably hypotension. Nephrology has been comanaging the patient and K was discharging the patient today. Recommend checking kidney functions daily for the next 2 days and sending results to primary care physician as well as nephrologists. Patient was advised to drink .1 .5 L of fluid daily. Avoid nephrotoxic medications. Discuss the case with assistant store manager sales. Will continue holding Lasix for 3 to 4 days till further improvement in kidney functions. Will discontinue digoxin. I will reduce dose of beta blockers as the patient was relatively hypotensive in hospital. Patient expressed understanding of the above plan. Hospital course: Mr. Shultz is a 66 year old male - Time Spent with Patient Total time spent providing and/or coordinating discharge services: - Constitutional Vitals: Temp Pulse Resp BP Pulse Ox 97.4 F L 105 15 109/79 97 02/28/17 07:15 02/28/17 07:35 02/28/17 07:15 02/28/17 07:15 02/28/17 07:15 General appearance: Present: A&O X 3, answers questions appropriately Exam: Gen.: patient is alert oriented times 3 not in distress. Cardiac: normal S1 S2 no additional sounds chest: clear auscultation abdomen: soft nontender nondistended normal bowel sounds Neuro: no focal deficits LE: trace swelling
--- NOTE | 2017-03-02 19:24 | Electrocardiograph Report ---
[address] [place] [address] Test Date: 2017-02-25 Pat Name: Rich Shultz Department: 110 Room: 2N13 Gender: M Physical Therapy Asst: SHIVANI : 1950 Requested By: Aiden Verma Order Number: [id number] Reading MD: Jose J Donald MD Measurements Intervals [place] Rate: 90 P: 68 MO: 214 QRS: -76 QRSD: 157 T: 83 QT: 389 QTc: 437 Interpretive Statements SINUS RHYTHM WITH FIRST DEGREE AV BLOCK RIGHT BUNDLE BRANCH BLOCK INFERIOR MYOCARDIAL INFARCTION, age undetermined ANTEROSEPTAL MYOCARDIAL INFARCTION, OF INDETERMINATE AGE Electronically Signed On 03-02-2017 19:23:23 EST by Jose J Donald MD
== END 2017-02-28 11:45 | disposition home or self-care (01) | DRG 683 ==
LOC: EMEROO 08:33 → 2NNU 13:59
PROVIDERS: ADMIT Hospitalist; ATTEND Internal Medicine

== ENCOUNTER 2017-03-19 15:40 | Inpatient (IN) ==
[2017-03-19 16:23] LABS: Basophils % 0.6 %; Eosinophils # 0.1 K/mcL (0.0-0.6); Eosinophils % 1.8 %; Hematocrit 40.9 % (37.5-50.1); Hemoglobin 13.3 g/dL (12.9-16.9); Immature Granulocytes % 0.6 % (0-4); Lymphocytes # 1.5 K/mcL (0.6-4.6); Lymphocytes % 22.4 %; Mean Corpuscular HGB Conc 32.5 g/dL (31.6-35.5); Mean Corpuscular Hemoglobin 32.7 pg (28.0-33.3); Mean Corpuscular Volume 100.5 fL (83.0-100.0); Mean Platelet Volume 10.4 fL (9.4-12.4); Monocytes # 0.7 K/mcL (0.0-1.3); Monocytes % 11.3 %; Neutrophils # 4.2 K/mcL (1.6-8.9); Nucleated Red Blood Cells 2.3 /100 WBC (0); Platelet Count 172 K/mcL (140-400); Red Blood Count 4.07 M/mcL (4.19-5.50); Red Cell Distribution Width 21.9 % (11.5-14.5); Segmented Neutrophils % 63.3 %
--- NOTE | 2017-03-19 16:28 | Emergency Department Note ---
Disposition Clinical Impression: Systolic CHF, acute on chronic, Paroxysmal atrial fibrillation, JENNIFER (acute kidney injury) CKD (chronic kidney disease) Qualifiers: Chronic kidney disease stage: stage 5, not on chronic dialysis Qualified Code(s ): N18.5 - Chronic kidney disease, stage 5 Disposition: Admitted As Inpatient Condition: Fair Referrals: Lonny Davison MD [Primary Care Provider] - Forms: ED Satisfaction Letter Time of Disposition: 19:52 SOB HPI - General Chief Complaint: ED Shortness of Breath/Dyspnea Stated Complaint: cough/celso hx CHF and Stg 5 CRF Time Seen by Provider: 03/19/17 15:53 Source: patient Mode of arrival: ambulatory Limitations: no limitations Nursing Notes Reviewed: Yes Vital Signs Reviewed: Yes - History of Present Illness Mr. Shultz is a 66-year-old man with a history of CHF status post AICD, ESRD, on dialysis yet, A. fib, status post ileostomy who presents to the ED with 2 day history of increased dyspnea on exertion. The patient does have a history of CHF with an ejection fraction of 10% and was recently told that he has stage V chronic kidney disease, but has not yet had a chance to see his ironworker machine operator for long-term management of this condition. Over the past 2 days he developed worsening shortness of breath primarily with exertion. He said that generally he is able to walk around his house without concern, however in the past 2 days he has not been able to walk across the room without getting extremely short of breath and needing to rest. There is no associated chest pain. He does admit to orthopnea and PND. He said that he has tried to limit his fluid intake to approximately 2000 mL per day, however he remains very thirsty all the time. He also says that he has had decreased urine output that he is aware of. He does admit to some nausea, and some pruritus however there is no vomiting or diarrhea. No other acute complaints. - Related Data Home Medications Medication Instructions Recorded Confirmed Calcitriol [Rocaltrol] 0.25 mcg PO DAILY 10/09/14 02/25/17 Cholecalciferol (Vitamin D3) 2,000 unit PO QAM 10/09/14 02/25/17 [Vitamin D3] Pravastatin Sodium 40 mg PO HS 10/09/14 02/25/17 Cyanocobalamin (Vitamin B-12) 500 mcg PO DAILY 07/22/15 02/25/17 [Vitamin B-12] Folic Acid 0.8 mg PO DAILY 01/07/16 02/25/17 Sodium Bicarbonate 650 mg PO DAILY 01/07/16 02/25/17 Albuterol Sulfate [Proair Hfa] 2 puff IH Q4H PRN 11/29/16 02/25/17 Ascorbic Acid [Vitamin C] 500 mg PO DAILY 11/29/16 02/25/17 Ferrous Sulfate [Iron] 325 mg PO DAILY 11/29/16 02/25/17 Levothyroxine [Synthroid] 75 mcg PO 0630 11/29/16 02/25/17 Previous Rx's Medication Instructions Recorded Magnesium Oxide [Magnesium] 400 mg PO BID #60 capsule 12/03/16 Carvedilol [Coreg] 12.5 mg PO BID #30 tablet 02/28/17 Allergies Allergy/AdvReac Type Severity Reaction Status Date / Time Penicillins [PCN] Allergy Rash Verified 03/19/17 15:48 codeine AdvReac Hallucinati Verified 03/19/17 15:48 ng lorazepam [From Ativan] AdvReac Hallucinati Verified 03/19/17 15:48 ng Constitutional: Reports: weakness. Denies: fever, chills Eyes: Denies: vision change Cardiovascular: Reports: dyspnea on exertion, orthopnea, edema, paroxysmal nocturnal dyspnea. Denies: chest pain, palpitations, syncope Respiratory: Reports: cough, dyspnea. Denies: wheezes, hemoptysis, sputum production Gastrointestinal: Reports: nausea. Denies: abdominal pain, vomiting Genitourinary: Reports: other (Decreased urine output). Denies: urgency, dysuria, frequency Musculoskeletal: Denies: back pain, neck pain Integumentary: Denies: rash Neurological: Denies: headache Endocrine: Reports: fatigue Past Medical History - Past Medical History Medical history: Reports: atrial fibrillation, CHF, COPD, DVT, hyperlipidemia, hypertension, pulmonary embolus, renal disease, thyroid disease, other Surgical history: Reports: colostomy, pacemaker/AICD, other Psychiatric history: Reports: no psych history - Social History Smoking Status: Former smoker Smokeless Tobacco Status: No Alcohol use: Reports: none Drug use: Reports: none Physical Exam Gen.: Vitals noted. No acute distress. AAOx3 HEENT: oropharynx clear, Normocephalic, atraumatic Neck: Supple. No adenopathy. Cardiac: RRR, no murmur, +S1/S2 faintly Pulmonary: Crackles in lung bases b/l with minimally diminished lung sounds Abdomen: soft, nontender, BS noted, no guarding Extremities: +2 pitting edema in b/l LEs, nontender calf, no cyanosis or clubbing Neuro: A&Ox3, moves all extremities, no focal deficits Psych: Appropriate mood and behavior - General Limitations: no limitations General appearance: alert Course - Reevaluation(s) Reevaluation #1: Spoke with Dr. Savage about patient, he said he would see him in the morning after admission. Spoke with Dr. Watts who says he will not accept the patient before seeing CT Abdomen/Pelvis wo contrast. I put an order in. Time: 17:33 Vital Signs Temperature 0 F L 03/19/17 15:48 Pulse Rate 87 03/19/17 15:48 Respiratory Rate 28 03/19/17 15:48 Blood Pressure 82/59 03/19/17 15:48 O2 Sat by Pulse Oximetry 98 03/19/17 15:48 Temperature 0 F L 03/19/17 15:48 Pulse Rate 95 03/19/17 19:14 Respiratory Rate 16 03/19/17 19:14 Blood Pressure 101/80 03/19/17 19:14 O2 Sat by Pulse Oximetry 99 03/19/17 19:14 Oxygen Delivery Oxygen Delivery Room Air Shortness of Breath/Dyspnea - MDM Narrative Medical decision making narrative: I reviewed the patient's labs and imaging. On presentation, the patient was mildly dyspneic. He did have crackles throughout the bases of his lungs. I did evaluate and EKG early on which was consistent with previous studies. His labs did demonstrate a worsened kidney injury compared to previous, with a creatinine of 9.12 up from high sixes previously. The patient is apparently being treated by Dr. Leavitt and he was supposed to see later this week to discuss options including hemodialysis. In addition of this, the patient does have a troponin that elevated but apparently baseline, and a BNP was greater than 5000. There is some concern regarding the patient's blood pressure which is relatively low, however it appears to be at baseline from previous. The patient does say that his dairy feed mixing operator has advised him that his blood pressure will likely stay around the area of 90/70, which is reasonable considering the patient does have a reported ejection fraction of 10%. I spoke with Dr. Savage who is the on-call ironworker machine operator and he said that emergent dialysis was not necessary, however he will see the patient in the morning to discuss acute dialysis. I spoke with the hospitalist Dr. Watts, who expressed concern about the patient's cardiovascular status and whether or not he was eligible for diuresis at this time. I did speak with Dr. Savage again who advised that the patient is fine to recieve a central line if necessary for pressors and that it would not be a detriment to nephrology, however he said the utility of doing so is for the medicine team to decide. At this time, he would not benefit. I spoke with the night time hospitalist who accepted this patient to an ICU bed. - Medical Records Medical records reviewed: Yes I reviewed the patient's medical records. - Lab Data Lab results reviewed: Yes I reviewed the patient's lab results. Result diagrams: 03/19/17 16:06 03/19/17 16:06 Lab Results 03/19/17 03/19/17 03/19/17 Range/Units 16:06 16:06 16:06 WBC 6.6 (4.3-11.1) K/mcL RBC 4.07 L (4.19-5.50) M/mcL Hgb 13.3 (12.9-16.9) g/dL Hct 40.9 (37.5-50.1) % MCV 100.5 H (83.0-100.0) fL MCH 32.7 (28.0-33.3) pg MCHC 32.5 (31.6-35.5) g/dL RDW 21.9 H (11.5-14.5) % Plt Count 172 (140-400) K/mcL MPV 10.4 (9.4-12.4) fL Immature Gran % 0.6 (0-4) % Seg Neutrophils % 63.3 % Lymphocytes % 22.4 % Monocytes % 11.3 % Eosinophils % 1.8 % Basophils % 0.6 % Neutrophils # 4.2 (1.6-8.9) K/mcL Lymphocytes # 1.5 (0.6-4.6) K/mcL Monocytes # 0.7 (0.0-1.3) K/mcL Eosinophils # 0.1 (0.0-0.6) K/mcL Basophils # 0.0 (0.0-0.2) K/mcL Nucleated RBCs/100 WBC 2.3 H (0) /100 WBC Sodium 130 L (136-145) mEq/L Potassium 4.6 (3.5-5.1) mEq/L Chloride 91 L (98-107) mEq/L Carbon Dioxide 19 L (23-29) mEq/L BUN 119 H (8-23) mg/dL Creatinine 9.12 H (0.70-1.30) mg/dL Est GFR ( Amer) 7 L (> 60) Est GFR (Non-Af Amer) 6 L (> 60) BUN/Creatinine Ratio 13 (6-26) Glucose 101 (70-105) mg/dL Calculated Osmolality 308 H (280-300) Calcium 9.9 (8.6-10.3) mg/dL Total Bilirubin 1.5 H (0.3-1.0) mg/dL Direct Bilirubin 0.6 H (0.0-0.2) mg/dL Indirect Bilirubin 0.9 (0.0-1.2) mg/dL AST 12 L (13-39) Units/L ALT 11 (7-52) Units/L Alkaline Phosphatase 85 (34-104) Units/L Troponin I 0.06 H* (< 0.04) ng/mL B-Natriuretic Peptide (Less than 100) pg/mL Serum Total Protein 7.9 (6.4-8.9) g/dL Albumin 3.9 (3.5-5.7) g/dL Globulin 4.0 H (2.4-3.5) g/dL Albumin/Globulin Ratio 1.0 L (1.1-2.2) 03/19/17 Range/Units 16:06 WBC (4.3-11.1) K/mcL RBC (4.19-5.50) M/mcL Hgb (12.9-16.9) g/dL Hct (37.5-50.1) % MCV (83.0-100.0) fL MCH (28.0-33.3) pg MCHC (31.6-35.5) g/dL RDW (11.5-14.5) % Plt Count (140-400) K/mcL MPV (9.4-12.4) fL Immature Gran % (0-4) % Seg Neutrophils % % Lymphocytes % % Monocytes % % Eosinophils % % Basophils % % Neutrophils # (1.6-8.9) K/mcL Lymphocytes # (0.6-4.6) K/mcL Monocytes # (0.0-1.3) K/mcL Eosinophils # (0.0-0.6) K/mcL Basophils # (0.0-0.2) K/mcL Nucleated RBCs/100 WBC (0) /100 WBC Sodium (136-145) mEq/L Potassium (3.5-5.1) mEq/L Chloride (98-107) mEq/L Carbon Dioxide (23-29) mEq/L BUN (8-23) mg/dL Creatinine (0.70-1.30) mg/dL Est GFR ( Amer) (> 60) Est GFR (Non-Af Amer) (> 60) BUN/Creatinine Ratio (6-26) Glucose (70-105) mg/dL Calculated Osmolality (280-300) Calcium (8.6-10.3) mg/dL Total Bilirubin (0.3-1.0) mg/dL Direct Bilirubin (0.0-0.2) mg/dL Indirect Bilirubin (0.0-1.2) mg/dL AST (13-39) Units/L ALT (7-52) Units/L Alkaline Phosphatase (34-104) Units/L Troponin I (< 0.04) ng/mL B-Natriuretic Peptide > 5000 H (Less than 100) pg/mL Serum Total Protein (6.4-8.9) g/dL Albumin (3.5-5.7) g/dL Globulin (2.4-3.5) g/dL Albumin/Globulin Ratio (1.1-2.2) - Radiology Data Radiology results reviewed: Yes I reviewed the patient's radiology results. - EKG Data EKG attestation: Yes I reviewed and interpreted this EKG. EKG results narrative: EKG demonstrated sinus rhythm with a right bundle branch block and a ventricular rate of 88 when necessary 193 QRS duration 166 QTC 477 with no obvious changes or ischemia compared to previous EKG
[2017-03-19 16:36] LABS: Calcium 9.9 mg/dL (8.6-10.3); Potassium 4.6 mEq/L (3.5-5.1)
--- NOTE | 2017-03-19 17:07 | Emergency Department Note ---
START Narrative - START START: I examined this patient and my medical decision-making was reviewed with the Resident Physician. I agree with the documented findings, disposition and treatment plan as described except to the extent set forth below. 66 year old male with HX of CHF and CRF and recetly has been experincing chest pain with increased shortness of breath and states that her GRF/crn has been worsening and is currently is not on dialysis. on 03/09 his crn was 6.14 and today it is 9.0, troponin is at baseline. He does not apperar fluid overloaded although he has a EF of 10% and his target goal of blood pressure is 90/60s, which he currently is. does not appear toxic, and denies PE/DVTs. We will consult nephrology and admit to medicine for likely need of dialysis
[2017-03-19] MEDS ORDERED: Furosemide 40 MG/4 ML VIAL IVP ONE (17:31)
[2017-03-19 17:43] LABS: Albumin 3.9 g/dL (3.5-5.7); Bilirubin,Direct 0.6 mg/dL (0.0-0.2); Bilirubin,Indirect 0.9 mg/dL (0.0-1.2); Bilirubin,Total 1.5 mg/dL (0.3-1.0); Total Protein 7.9 g/dL (6.4-8.9)
[2017-03-19] MEDS ORDERED: Naloxone 0.4 MG/ML INJ IVP PRN (20:58)
--- NOTE | 2017-03-19 21:06 | Internal Med History&Physical ---
Date of Encounter: 03/19/17 Time of Encounter: 21:03 Assessment and Plan (1) Volume overload Current visit: Yes Status: Acute 2/2 to ESRD and cardiomyopathy consult cards and renal IV lasix 80mg IV hold toprol 100mg QD overnight to avoid lowering BP (he tells me that his baseline BP is in the low side 90-100 sbp) check TTE in the a.m for lVEF and r/o pericardial effusion (bedside TTE in the ED w/o acute findings) Qualifiers: Hypervolemia type: other Qualified Code(s): E87.79 - Other fluid overload (2) Acute kidney injury superimposed on chronic kidney disease Current visit: No Status: Acute progressive CKD with likely ESRD now renal asssisting (3) Anticoagulant long-term use Current visit: Yes Status: Acute hx of AFib, VTE , cardiomyopathy on xarelto hold for now. Anticipate will need vascath placement and HD in the morning pending renal eval (4) Cardiomyopathy Current visit: No Status: Acute Qualifiers: Qualified Code(s): I42.9 - Cardiomyopathy, unspecified (5) Cirrhosis Current visit: No Status: Chronic cardiac cirrhosis Qualifiers: Hepatic cirrhosis type: unspecified hepatic cirrhosis Ascites presence: with ascites Qualified Code(s): K74.60 - Unspecified cirrhosis of liver Internal Medicine - H&P: HPI Chief complaint: SOB History of present illness: Mr. Shultz is a 66 year old male with hx of cardiomyopathy with LVEF 10% reported visits with Dr Donald and stage 4 CKD not on HD and is seeing Dr Leavitt who presents with acute onset volume overload. Reported a few days hx of SOB, worse on exertion. Winded walking across the room in his house. Denies over belly or LE swelling per patient. Hx significant for partial colectomy 2011 with end ileostomy for crohns disease. In regards to cardiomyopathy, he reports hx of LHC that appears clear w/o need for stents. EKG revealed rate 88, RBBB CT/CT abd pelvis wo no iv no oral IMPRESSION: 1. Cirrhotic appearance of the liver. A moderate amount of ascites is present. 2. Postoperative changes of colectomy with a right lower quadrant ileostomy. 3. IVC filter in place. 4. Mild ground-glass nodularity at the lung bases, which could be related to a subtle infectious process versus atelectasis. 5. Cholelithiasis without evidence of cholecystitis. 6. Nonobstructive right-sided renal calculi measuring up to 4 mm, with asymmetric atrophy of the right kidney. XR/XR chest 1V portable IMPRESSION: Pulmonary vascular congestion. Past Med Surg Social Fam HX - Past Medical History Medical history: atrial fibrillation, CHF, COPD, DVT, hyperlipidemia, hypertension, pulmonary embolus, renal disease, thyroid disease, other Psychiatric history: no psych history - Past Surgical History Surgical History: colostomy, pacemaker/AICD, other - Social History Smoking Status: Former smoker Smokeless Tobacco Status: No Alcohol use: none Drug use: none - Family History Father Adopted: No Family Member Ethnicity: Non- Living Status: Still Living Hx Family Cardiac Disorders: Yes (CHF) Hx Family Respiratory Disorders: Yes Hx Family Cancer: No Hx Family GI Disorders: No Hx Family Endocrine Disorder: No Hx Family Neuromuscular Disorders: No Hx Family Neurologic Disorders: No Hx Family HEENT Disorders: No Hx Family Autoimmune Disorders: No Mother Living Status: Internal Medicine - H&P: Meds Calcitriol [Rocaltrol] 0.25 mcg PO DAILY 10/09/14 [History] Cholecalciferol (Vitamin D3) [Vitamin D3] 2,000 unit PO QAM 10/09/14 [History] Pravastatin Sodium 40 mg PO HS 10/09/14 [History] Cyanocobalamin (Vitamin B-12) [Vitamin B-12] 500 mcg PO DAILY 07/22/15 [History] Folic Acid 0.8 mg PO DAILY 01/07/16 [History] Sodium Bicarbonate 650 mg PO DAILY 01/07/16 [History] Albuterol Sulfate [Proair Hfa] 2 puff IH Q4H PRN 11/29/16 [History] Ascorbic Acid [Vitamin C] 500 mg PO DAILY 11/29/16 [History] Ferrous Sulfate [Iron] 325 mg PO DAILY 11/29/16 [History] Levothyroxine [Synthroid] 75 mcg PO 0630 11/29/16 [History] Magnesium Oxide [Magnesium] 400 mg PO BID #60 capsule 12/03/16 [Rx] Carvedilol [Coreg] 12.5 mg PO BID #30 tablet 02/28/17 [Rx] 3 Allergy/AdvReac Type Severity Reaction Status Date / Time Penicillins [PCN] Allergy Rash Verified 03/19/17 15:48 codeine AdvReac Hallucinati Verified 03/19/17 15:48 ng lorazepam [From Ativan] AdvReac Hallucinati Verified 03/19/17 15:48 ng All Systems PM: A 10-system review of systems was performed and is negative for pertinent findings except as documented above in the HPI. Review of systems: ROS 14 point review of systems reviewed as best as possible given presentation. Pertinent positive or negative as per HPI or otherwise reviewed as negative - Constitutional Vitals: Temp Pulse Resp BP Pulse Ox 0 F L 98 16 98/77 98 03/19/17 15:48 03/19/17 20:39 03/19/17 20:39 03/19/17 20:39 03/19/17 20:39 Exam: General - AAO x 3 Psych - Appropriate affect/speech. No agitation Eyes - PINEDA. Eye lids intact. No scleral icterus Heart - Sinus. RRR. S1 and S2 present. No added HS/murmurs appreciated. No elevated JVD appreciated. Lung - Adequate air entry b/l, Crackles. No wheezes appreciated GI - Soft, non-tender. No hepatosplenomegaly/ascites. BS+ - No CVA/suprapubic tenderness or palpable bladder distension Skin - Intact. No rash/petechiae/ecchymosis. Warm extremities MSK - Joints with normal ROM. No joint swellings. + 1 b/l LE edema Internal Med - H&P Results - Labs CBC & Chem 7: 03/19/17 16:06 03/19/17 16:06
[2017-03-20] MEDS ORDERED: Furosemide 40 MG/4 ML VIAL IVP ONE (01:00)
[2017-03-20 05:24] LABS: Basophils % 0.6 %; Eosinophils # 0.1 K/mcL (0.0-0.6); Eosinophils % 1.2 %; Hematocrit 41.4 % (37.5-50.1); Hemoglobin 13.4 g/dL (12.9-16.9); Immature Granulocytes % 0.9 % (0-4); Lymphocytes # 1.1 K/mcL (0.6-4.6); Lymphocytes % 16.1 %; Mean Corpuscular HGB Conc 32.4 g/dL (31.6-35.5); Mean Corpuscular Hemoglobin 32.6 pg (28.0-33.3); Mean Corpuscular Volume 100.7 fL (83.0-100.0); Mean Platelet Volume 11.1 fL (9.4-12.4); Monocytes # 0.6 K/mcL (0.0-1.3); Monocytes % 8.6 %; Neutrophils # 4.8 K/mcL (1.6-8.9); Nucleated Red Blood Cells 1.8 /100 WBC (0); Platelet Count 164 K/mcL (140-400); Red Blood Count 4.11 M/mcL (4.19-5.50); Red Cell Distribution Width 21.7 % (11.5-14.5); Segmented Neutrophils % 72.6 %
[2017-03-20 05:29] LABS: Calcium 9.9 mg/dL (8.6-10.3); Magnesium 1.9 mg/dL (1.6-2.6); Phosphorous 11.9 mg/dL (2.7-4.5)
[2017-03-20] MEDS: *HR* Heparin 5,000 UNIT/ML VIAL SQ SCH ×2 (06:06→18:00)
--- NOTE | 2017-03-20 09:18 | Nephrology Consult Note ---
Date of Encounter: 03/20/17 Time of Encounter: 09:15 Assessment and Plan (1) Acute kidney injury superimposed on chronic kidney disease Current Visit: No Status: Acute Patient with JENNIFER on CKD. Patient did not fully recover from his JENNIFER in February. His renal function has worsened to an eGFR of 6. With his cardiomyopathy and cirrhosis his intravascular state is difficult to assess. His clinical history suggests possible intravascular depletion given his low blood pressure, decreased edema and lack of rales on exam. Will give a trial of fluids and assess for clinical change. If no improvement he will likely need renal replacement therapy. At this time I recommend holding diuretics and other nephrotoxins. (2) Hyperphosphatemia Current Visit: Yes Status: Acute Phosphate binder added. (3) Metabolic acidosis Current Visit: No Status: Acute Will hydrate with IV sodium bicarbonate. (4) Systolic CHF, acute on chronic Current Visit: Yes Status: Acute Await cardiology input. See JENNIFER on CKD. (5) Hyponatremia Current Visit: Yes Status: Acute Mild. Infuse with sodium bicarbonate. Monitor for improvement. (6) Volume overload Current Visit: Yes Status: Acute Patient with less edema than upon discharge from the last visit and no rales on exam. See JENNIFER on CKD. Qualifiers: Hypervolemia type: other Qualified Code(s): E87.79 - Other fluid overload History of Present Illness - Reason for Consult Consult date: 03/20/17 Acute Kidney Injury, Chronic Kidney Disease - Chief Complaint JENNIFER - History of Present Illness Mr. Shultz is a 66 yo man followed by Dr. Hodges for CKD Stage 4. He was recently in the hospital with CHF exacerbation and acute kidney injury and was discharged at the end of February. For the last few days he has had decreased oral intake and was instructed by his PCP to increase his fluid intake to 2liters daily. He denies nausea or a change in taste of food. He is accompanied by his who is at his bedside. He states he feels bad, but finds it difficult to describe. He denies chest pain or pressure. He has mild dyspnea on exertion. He has not gained weight. He denies fever or chills. Past Med Surg Social Fam HX - Past Medical History Medical history: atrial fibrillation, CHF, COPD, DVT, hyperlipidemia, hypertension, pulmonary embolus, renal disease, thyroid disease, other Psychiatric history: no psych history - Past Surgical History Surgical History: colectomy, colostomy, IVC Filter, LE vascular intervention, pacemaker/AICD, vascular surgery, other - Social History Smoking Status: Former smoker Smokeless Tobacco Status: No Alcohol use: none Drug use: none - Family History Father Adopted: No Family Member Ethnicity: Non- Living Status: Still Living Hx Family Cardiac Disorders: Yes (CHF) Hx Family Respiratory Disorders: Yes Hx Family Cancer: No Hx Family GI Disorders: No Hx Family Endocrine Disorder: No Hx Family Neuromuscular Disorders: No Hx Family Neurologic Disorders: No Hx Family HEENT Disorders: No Hx Family Autoimmune Disorders: No Mother Living Status: Medications and Allergies Calcitriol [Rocaltrol] 0.25 mcg PO DAILY 10/09/14 [History] Cholecalciferol (Vitamin D3) [Vitamin D3] 2,000 unit PO QAM 10/09/14 [History] Pravastatin Sodium 40 mg PO HS 10/09/14 [History] Cyanocobalamin (Vitamin B-12) [Vitamin B-12] 500 mcg PO DAILY 07/22/15 [History] Folic Acid 0.8 mg PO DAILY 01/07/16 [History] Sodium Bicarbonate 650 mg PO DAILY 01/07/16 [History] Albuterol Sulfate [Proair Hfa] 2 puff IH Q4H PRN 11/29/16 [History] Ascorbic Acid [Vitamin C] 500 mg PO DAILY 11/29/16 [History] Ferrous Sulfate [Iron] 325 mg PO DAILY 11/29/16 [History] Levothyroxine [Synthroid] 75 mcg PO 0630 11/29/16 [History] Magnesium Oxide [Magnesium] 400 mg PO BID #60 capsule 12/03/16 [Rx] Carvedilol [Coreg] 12.5 mg PO BID #30 tablet 02/28/17 [Rx] 3 Allergy/AdvReac Type Severity Reaction Status Date / Time Penicillins [PCN] Allergy Rash Verified 03/19/17 15:48 codeine AdvReac Hallucinati Verified 03/19/17 15:48 ng lorazepam [From Ativan] AdvReac Hallucinati Verified 03/19/17 15:48 ng Review of Systems All Systems: reviewed and no additional remarkable complaints except as stated ( as per hpi) Exam - Vital Signs Vital signs: Initial Vital Signs Temp Pulse Resp BP Pulse Ox 0 F L 87 28 82/59 98 03/19/17 15:48 03/19/17 15:48 03/19/17 15:48 03/19/17 15:48 03/19/17 15:48 Vital Signs - Last 8 Hours Temp Pulse Resp BP Pulse Ox 03/20/17 07:20 97.4 F L 105 16 93/63 97 03/20/17 03:31 97.6 F 102 16 92/69 98 03/20/17 02:02 97.3 F L 103 16 107/72 97 Intake and Output 03/19/17 03/20/17 03/20/17 23:59 07:59 15:59 Intake Total 235 / 235 Output Total 0 / 0 0 / 0 Balance 235 / 235 0 / 0 Intake: Oral 235 / 235 Output: Urine 0 / 0 0 / 0 Other: Stool Consistency liquid Stool Characteristics Normal for Patient Stool Color Brown Yellow # Bowel Movements 1 Weight 72.8 kg 73 kg Blood Glucose* 115 Patient Weight 03/20/17 23:59 Weight 73 kg - General Appearance General appearance: well-developed, well-nourished, chronically ill EENT: ATNC Neck: supple Respiratory: course breath sounds (but overall clear. No rales appreciated. ) Cardiology: edema (Trace edema bilateral lower extremities. ) Additional Comments: tachycardic. Gastrointestinal: normoactive bowel sounds, obese Additional Comments: soft. Ostomy bag in place Integumentary: warm and dry Neurologic: alert and oriented x3 Musculoskeletal: no cyanosis Psychiatric: agitated, cooperative Results - Lab Results 03/20/17 03:57 03/20/17 03:57 Most recent lab results Calcium 9.9 mg/dL (8.6-10.3) 03/20/17 03:57 Phosphorus 11.9 mg/dL (2.7-4.5) H 03/20/17 03:57 Magnesium 1.9 mg/dL (1.6-2.6) 03/20/17 03:57 Consult Discharge Plan - Plan Referrals: Lonny Davison MD [Primary Care Provider] -
[2017-03-20] MEDS ORDERED: Sodium Bicarbonate 150 MEQ in D5% in Water 1,000 ML IVC SCH (09:45)
[2017-03-20] MEDS ORDERED: WATER IVC SCH (11:07)
[2017-03-20] MEDS ORDERED: D5 IVC SCH (11:07)
[2017-03-20] MEDS ORDERED: SODIUM BICARBONATE IVC SCH (11:07)
[2017-03-20] MEDS: SODIUM BICARBONATE IVC SCH ×2 (11:15→21:25)
[2017-03-20] MEDS: WATER IVC SCH ×2 (11:15→21:25)
[2017-03-20] MEDS: D5 IVC SCH ×2 (11:15→21:25)
[2017-03-20] MEDS ORDERED: WATER IVC STA (11:23)
[2017-03-20] MEDS ORDERED: SODIUM BICARBONATE IVC STA (11:23)
[2017-03-20] MEDS ORDERED: D5 IVC STA (11:23)
--- NOTE | 2017-03-20 12:41 | Cardiology Consult Note ---
<Cynthia Wahsburn - Last Filed: 03/20/17 13:03> Date of Encounter: 03/20/17 Time of Encounter: 11:30 Assessment and Plan (1) JENNIFER (acute kidney injury) Current Visit: Yes Status: Acute Per cardiology: -JENNIFER on CKD. -Creatinine 9.55. -Nephrology consulted and recommended IVF, possible need for dialysis. -Management per primary and nephrology services. (2) CHF (congestive heart failure) Current Visit: No Status: Acute Per cardiology: -Known history of systolic CHF. -BNP >5000, typically carries elevated BNP. -Chest x-ray with pulmonary vascular congestion, no pulmonary edema. -Currently net positive 355ml. -Euvolemic on exam. -Creatinine 9.55. Nephrology is giving fluids and recommends holding any diuretics at this time. -TTE pending. -Will continue to monitor. Qualifiers: Congestive heart failure type: systolic Congestive heart failure chronicity : chronic Qualified Code(s): I50.22 - Chronic systolic (congestive) heart failure (3) Elevated troponin Current Visit: No Status: Acute Per cardiology: -Troponin 0.06, 0.06, 0.05 in the setting of JENNIFER on CKD, Chronic CHF. -Denies chest pain. -ECG with no acute changes. -TTE pending. -Previous TTE 11/2016 with LVEF 15% (known), global hypokinesis. -DO not suspect NSTEMI, suspect demand ischemia related to above. NO cardiac rehab consult warranted. -Further recommendations pending TTE. (4) Cardiomyopathy Current Visit: No Status: Chronic Per cardiology: -Known non-ischemic cardiomyopathy, last known LVEF 15% 11/2016. -NOt on bulmaro inhibitor due to renal function. -CUrrenly off beta alex due to hypotension. -Has ICD. -Euvolemic on exam. -Recommend restarted beta alex when BP will tolerate. Qualifiers: Cardiomyopathy type: unspecified Qualified Code(s): I42.9 - Cardiomyopathy , unspecified (5) Paroxysmal atrial fibrillation Current Visit: Yes Status: Chronic Per cardiology: -Known PAF. -Average HR previous 12 hours 104, sinus tachycardia. -Patient is currently off his beta alex due to hypotension. -CHads 2 vasc score 5 (HTN, CHF, vascular disease, Thromboembolism history). Had been on pradaxa in outpatient setting. Currently being held per primary service due to possible need for HD catheter. -Would recommend restarting anticoagulation when able. 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 -Of note, patient was previous on coumadin. -Management per primary servive. -Consider hematology consult due to history of DVT while therpeutic on coumadin. Now with JENNIFER and creatinine 9.55. Discussion w patient/family: The assessment and plan as outlined above was discussed with the patient and/or family members who expressed understanding and agreement. All questions were answered. Thank you for involving us in the care of your patient. Please call with any questions. Discussed and reviewed with . History of Present Illness Consult date: 03/19/17 Requesting physician: Jn Robles Consult reason: CHF, cardiomyopathy Chief complaint: shortness of breath, decreased urine output History of present illness: Mr. Shultz is a 66 year old male with a relevant past medical history of CKD, non-ischmemic cardiomyopathy, HTN, hyperlipidemia, Factor V, IVC filter, CHF, S/ p ICD, PVD, atrial fibrillation on pradaxa for AC at home. Patient presented to [facility] with complaints of increased shortness of breath and decreased urine output. Patient denies chest pain. Patient states breathing has imrpoved today. Patient denies ICD shocks. Past Med Surg Social Fam HX - Past Medical History Attestation: Yes The following information was validated with the patient. Source: patient, old records reviewed Medical history: atrial fibrillation, CHF, COPD, DVT, hyperlipidemia, hypertension, pulmonary embolus, renal disease, thyroid disease, other Psychiatric history: no psych history - Past Surgical History Surgical History: colectomy, colostomy, IVC Filter, LE vascular intervention, pacemaker/AICD, vascular surgery, other - Social History Smoking Status: Former smoker Smokeless Tobacco Status: No Alcohol use: none Drug use: none - Family History Father Adopted: No Family Member Ethnicity: Non- Living Status: Still Living Hx Family Cardiac Disorders: Yes (CHF) Hx Family Respiratory Disorders: Yes Hx Family Cancer: No Hx Family GI Disorders: No Hx Family Endocrine Disorder: No Hx Family Neuromuscular Disorders: No Hx Family Neurologic Disorders: No Hx Family HEENT Disorders: No Hx Family Autoimmune Disorders: No Mother Living Status: Medications and Allergies Calcitriol [Rocaltrol] 0.25 mcg PO DAILY 10/09/14 [History] Cholecalciferol (Vitamin D3) [Vitamin D3] 2,000 unit PO QAM 10/09/14 [History] Pravastatin Sodium 40 mg PO HS 10/09/14 [History] Cyanocobalamin (Vitamin B-12) [Vitamin B-12] 500 mcg PO DAILY 07/22/15 [History] Folic Acid 0.8 mg PO DAILY 01/07/16 [History] Sodium Bicarbonate 650 mg PO DAILY 01/07/16 [History] Albuterol Sulfate [Proair Hfa] 2 puff IH Q4H PRN 11/29/16 [History] Ascorbic Acid [Vitamin C] 500 mg PO DAILY 11/29/16 [History] Ferrous Sulfate [Iron] 325 mg PO DAILY 11/29/16 [History] Levothyroxine [Synthroid] 75 mcg PO 0630 11/29/16 [History] Furosemide [Lasix] 40 mg PO DAILY 03/21/17 [History] Isosorbide MONOnitrate (24 HR) [Imdur] 30 mg PO DAILY 03/21/17 [History] Metoprolol Succinate 100 mg PO DAILY 03/21/17 [History] Rivaroxaban [Xarelto] 10 mg PO DAILY 03/21/17 [History] 3 Allergy/AdvReac Type Severity Reaction Status Date / Time Penicillins [PCN] Allergy Rash Verified 03/21/17 09:14 codeine AdvReac Hallucinati Verified 03/21/17 09:14 ng lorazepam [From Ativan] AdvReac Hallucinati Verified 03/21/17 09:14 ng All Systems Review: A 10-system review of systems was performed and is negative for pertinent findings except as documented above in the HPI. - Cardiovascular Cardiovascular: as per HPI, dyspnea on exertion - Genitourinary Genitourinary: other (decreased urine output) Physical Examination Impressions Chest X-Ray 03/19/17 16:04 IMPRESSION: Pulmonary vascular congestion. D/ / Jn Prasad MD / Jn Prasad MD Interpreting Provider: Jn Prasad MD Abdomen/Pelvis CT 03/19/17 17:33 IMPRESSION: 1. Cirrhotic appearance of the liver. A moderate amount of ascites is present. 2. Postoperative changes of colectomy with a right lower quadrant ileostomy. 3. IVC filter in place. 4. Mild ground-glass nodularity at the lung bases, which could be related to a subtle infectious process versus atelectasis. 5. Cholelithiasis without evidence of cholecystitis. 6. Nonobstructive right-sided renal calculi measuring up to 4 mm, with asymmetric atrophy of the right kidney. D/ / 03/19/2017 18:55:30 [facility] MD [facility] Inter[facility]ting Provider: Trevor Baker MD General: Conversant, No Apparent Distress HEENT: Atraumatic, Normocephaly, Mucus Membranes Moist Neck: No JVD, Normal carotid pulses Cardiac: Reg Rate and Rhythm, Normal S1 and S2, Other (Systolic murmur noted. ) Lungs: Normal Breath Sounds, No Wheeze, Rales, Rhonchi Neuro: Alert and responsive, No focal deficits noted Abdomen: Soft, Non-Tender Skin: No rashes noted on visualized skin Musculoskeletal: No Chest Wall Tenderness Extremities: No Clubbing, No Cyanosis, No Edema, Normal Pulses Results 03/20/17 03:57 03/20/17 03:57 Lab Results Impressions Chest X-Ray 03/19/17 16:04 IMPRESSION: Pulmonary vascular congestion. D/ / Jn Prasad MD / Jn Prasad MD Interpreting Provider: Jn Prasad MD Abdomen/Pelvis CT 03/19/17 17:33 IMPRESSION: 1. Cirrhotic appearance of the liver. A moderate amount of ascites is present. 2. Postoperative changes of colectomy with a right lower quadrant ileostomy. 3. IVC filter in place. 4. Mild ground-glass nodularity at the lung bases, which could be related to a subtle infectious process versus atelectasis. 5. Cholelithiasis without evidence of cholecystitis. 6. Nonobstructive right-sided renal calculi measuring up to 4 mm, with asymmetric atrophy of the right kidney. D/ / 03/19/2017 18:55:30 Trevor Baker MD / [facility] Interpreting Provider: Trevor Baker MD Active Medications Albuterol/Ipratropium (Duoneb) 3 ml IH [id number] PRN PRN Reason: Shortness Of Breath/Wheezing Stop: 09/18/17 20:59 Calcitriol (Rocaltrol) 0.25 mcg PO DAILY LYLE Stop: 09/19/17 09:01 Last Admin: 03/20/17 08:42 Dose: 0.25 mcg Heparin Sodium (Porcine) (Heparin) 5,000 unit SQ Q12HCO LYLE Stop: 09/19/17 06:01 Last Admin: 03/20/17 06:06 Dose: Not Given Sodium Bicarbonate 150 meq/ (Dextrose) 1,150 mls @ 100 mls/hr IVC .[id number] LYLE Stop: 09/19/17 11:08 Last Admin: 03/20/17 11:15 Dose: 100 mls/hr Sodium Bicarbonate 150 meq/ (Dextrose) 1,150 mls @ 100 mls/hr IVC .[id number] STA Stop: 03/20/17 22:52 Last Admin: 03/20/17 12:10 Dose: Not Given Naloxone HCl (Narcan) 0.4 mg IVP Q2MIN PRN PRN Reason: Opioid Reversal Stop: 09/18/17 20:59 Sevelamer HCl (Renvela) 800 mg PO TIDWM LYLE Stop: 09/19/17 12:01 Last Admin: 03/20/17 12:17 Dose: 800 mg Simvastatin (Zocor) 20 mg PO HS LYLE Stop: 09/18/17 21:01 Last Admin: 03/20/17 00:01 Dose: 20 mg Sodium Bicarbonate (Sodium Bicarbonate) 650 mg PO DAILY LYLE Stop: 09/19/17 09:01 Last Admin: 03/20/17 08:43 Dose: 650 mg Laboratory Tests 11/18/15 11/19/15 11/29/16 01:49 17:31 15:51 Hgb Creatinine Troponin I B-Natriuretic Peptide > 5000 H 2831 H 4722 H 01/05/17 02/25/17 03/09/17 09:19 09:46 12:18 Hgb Creatinine 2.48 H 6.13 H Troponin I B-Natriuretic Peptide 3241 H 03/19/17 03/19/17 03/19/17 16:06 16:06 22:04 Hgb Creatinine Troponin I 0.06 H* 0.06 H* B-Natriuretic Peptide > 5000 H 03/20/17 03/20/17 03/20/17 03:57 03:57 03:57 Hgb 13.4 Creatinine 9.55 H Troponin I 0.05 H* B-Natriuretic Peptide - Imaging and Cardiology Chest Xray: report reviewed Echo: pending, report reviewed - EKG Interpretation EKG results cardiology: personally reviewed (ECG with Sr, HR 88, RBBB noted.), other (Telemetry reviewed with average HR previous 12 hours noted to be 104, sinus tachycardia. PVCs noted.) Consult Discharge Plan - Plan Referrals: Lonny Davison MD [Primary Care Provider] - <Bethany Tong - Last Filed: 03/22/17 13:19> Date of Encounter: 03/22/17 - Attending Attestation I have personally performed a face to face evaluation on this patient. I have reviewed and agree with the care plan. History and Exam by me shows: 66 YOM with known hx of NICM, s/p ICD and EF 15% presents with volume overload likely secondary to worsening renal function and Cr at 9.0 now. Previous evaluations for transplant failed. Likely would benefit from Nephrology consult and HD for fluid removal. Assessment and Plan Discussion w patient/family: The assessment and plan as outlined above was discussed with the patient and/or family members who expressed understanding and agreement. All questions were answered. Thank you for involving us in the care of your patient. Please call with any questions. History of Present Illness History of present illness: Mr. Shultz is a 66 year old male All Systems Review: A 10-system review of systems was performed and is negative for pertinent findings except as documented above in the HPI. Physical Examination Vital Signs, Last 4 Hours Temp Pulse Resp BP Pulse Ox 03/22/17 12:51 97.1 F L 18 110/45 03/22/17 12:16 105 18 101/67 96 03/22/17 11:52 120 20 99/69 97 03/22/17 11:30 139 03/22/17 10:55 93/56 03/22/17 10:40 92/67 03/22/17 10:25 94/62 03/22/17 10:10 97/65 03/22/17 09:55 96/57 03/22/17 09:40 101/74 03/22/17 09:25 78/62 Results 03/22/17 03:35 03/22/17 03:35 Lab Results 03/22/17 03/22/17 03/22/17 03:35 03:35 03:35 WBC 5.5 Hgb 10.2 L D Hct 30.7 L Plt Count 103 L INR 2.0 Sodium 133 L Potassium 3.6 Chloride 87 L Carbon Dioxide 32 H BUN 88 H Creatinine 7.32 H Glucose 115 H Calcium 8.7 Magnesium 1.6
--- NOTE | 2017-03-20 12:56 | Internal Med Progress Note ---
Date of Encounter: 03/20/17 Time of Encounter: 12:55 - Assessment and plan (1) Acute kidney injury superimposed on chronic kidney disease Current Visit: Yes Status: Acute Assessment and plan: baseline serum creatinine has been around 2.5-3 until last month, when he was admitted with JENNIFER, probably did not recover; it is currently worse at 9.5; he was discharged 2-3 weeks ago; now he likely has prerenal component due to dehydration and poor oral intake; Nephrology consult appreciated, gentle IV hydration today and monitor serum creatinine closely; monitor urine output; (2) History of thromboembolism Current Visit: Yes Status: Chronic Assessment and plan: on Xarelto; 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[employer]; (3) Cardiomyopathy Current Visit: Yes Status: Chronic Assessment and plan: Echo from 11/2016 showed significantly reduced EF at 15%, moderate RV dilatation , moderate-severe MR, moderate pulmonary HTN; non-ischemic cardiomyopathy; plan to hold diuretics for now due to JENNIFER and dehydration; continue Telemetry monitoring and beta alex; Cardiology consulted; f/up TTE; Qualifiers: Cardiomyopathy type: unspecified Qualified Code(s): I42.9 - Cardiomyopathy , unspecified (4) Atrial fibrillation Current Visit: Yes Status: Chronic Assessment and plan: continue Telemetry monitoring; rate-controlled; anticoagulation on hold; Qualifiers: Atrial fibrillation type: chronic Qualified Code(s): I48.2 - Chronic atrial fibrillation (5) Metabolic acidosis Current Visit: Yes Status: Acute Assessment and plan: due to worsening renal failure; Nephrology consult appreciated, started bicarbonate drip; (6) Hyperphosphatemia Current Visit: Yes Status: Chronic Assessment and plan: due to secondary hyperparathyroidism due to CKD; started phosphate binders; (7) COPD (chronic obstructive pulmonary disease) Current Visit: Yes Status: Chronic Qualifiers: COPD type: unspecified COPD Qualified Code(s): J44.9 - Chronic obstructive pulmonary disease, unspecified (8) Hypothyroidism Current Visit: Yes Status: Chronic Qualifiers: Hypothyroidism type: unspecified Qualified Code(s): E03.9 - Hypothyroidism , unspecified - Subjective Interval history: Feels better; improved shortness of breath; denies chest pain, abdominal distension, high output from ileostomy, vomiting; has some leg swelling at baseline that is not any worse; - Constitutional Vitals: Temp Pulse Resp BP Pulse Ox 97.4 F L 105 16 93/63 97 01/14/18 07:20 03/20/17 07:20 03/20/17 07:20 03/20/17 07:20 03/20/17 07:20 General appearance: Present: A&O X 3, answers questions appropriately - Respiratory Respiratory exam: Present: CTAB. Absent: accessory muscle use, rales, rhonchi, wheezes - Cardiovascular Cardiovascular exam: Present: RRR, +S1, +S2, systolic murmur. Absent: diastolic murmur, gallop, rubs - GI/Abdominal GI/Abdominal exam: Present: firm, normal bowel sounds, soft (ileostomy in place) , no peritoneal signs. Absent: distended, tenderness - Extremities Exam Extremities exam: Present: full ROM, warm, radial pulses palpable and symmetrical. Absent: calf tenderness, cyanotic, pedal edema - Neurological Exam Neurological exam: Present: CN II-XII intact, oriented X3, no focal deficits. Absent: pronater drift, facial droop, speech deficit Internal Medicine: Result - Labs CBC & Chem 7: 03/20/17 03:57 03/20/17 03:57 Labs: Short CBC 03/20/17 Range/Units 03:57 WBC 6.6 (4.3-11.1) K/mcL Hgb 13.4 (12.9-16.9) g/dL Hct 41.4 (37.5-50.1) % Plt Count 164 (140-400) K/mcL Neutrophils # 4.8 (1.6-8.9) K/mcL BMP 03/20/17 03:57 Sodium 131 L Potassium 5.0 Chloride 89 L Carbon Dioxide 13 L BUN 126 H Creatinine 9.55 H Glucose 56 L Calcium 9.9 Cardiac Enzymes 03/19/17 03/20/17 Range/Units 22:04 03:57 Troponin I 0.06 H* 0.05 H* (< 0.04) ng/mL Consult Discharge Plan - Plan Referrals: Lonny Davison MD [Primary Care Provider] -
[2017-03-20 16:13] LABS: Bilirubin,Urine Negative (Negative); Blood,Urine Negative (Negative); Clarity,Urine Clear (Clear); Color,Urine Yellow (Yellow); Glucose,Urine (UA) Normal (Normal); Ketones,Urine Negative (Negative); Leukocyte Esterase,Urine Moderate (Negative); Nitrite,Urine Negative (Negative); Protein,Urine 30 mg/dL (Neg-Trace); Specific Gravity,Urine 1.023 (1.010-1.025); Urobilinogen,Urine Normal (Normal)
[2017-03-20 16:15] LABS: Hyaline Casts,Urine Few per lpf (None-Few); Squamous Epithelial Cell,Urine Many per lpf (None-Few); WBC,Urine 15-30 per hpf (0-3)
[2017-03-20 16:27] LABS: Bacteria,Urine Few per hpf (None-Few); Creatinine,Urine 202 mg/dL; Protein/Creatinine Ratio,Urine 0.26 mg/mg (0.00-0.20); Sodium, Urine < 10.0 mEq/L
[2017-03-21 05:34] LABS: Basophils % 0.3 %; Eosinophils # 0.1 K/mcL (0.0-0.6); Eosinophils % 1.7 %; Hematocrit 34.9 % (37.5-50.1); Immature Granulocytes % 0.8 % (0-4); Lymphocytes # 0.8 K/mcL (0.6-4.6); Lymphocytes % 13.3 %; Mean Corpuscular HGB Conc 33.8 g/dL (31.6-35.5); Mean Corpuscular Hemoglobin 32.9 pg (28.0-33.3); Mean Corpuscular Volume 97.2 fL (83.0-100.0); Monocytes # 0.6 K/mcL (0.0-1.3); Monocytes % 9.6 %; Neutrophils # 4.5 K/mcL (1.6-8.9); Platelet Count 142 K/mcL (140-400); Red Blood Count 3.59 M/mcL (4.19-5.50); Red Cell Distribution Width 21.3 % (11.5-14.5); Segmented Neutrophils % 74.3 %
[2017-03-21 05:36] LABS: Hemoglobin 11.8 g/dL (12.9-16.9)
[2017-03-21] MEDS: *HR* Heparin 5,000 UNIT/ML VIAL SQ SCH ×2 (05:57→18:15)
[2017-03-21 06:22] LABS: Blood Urea Nitrogen > 130 mg/dL (8-23); Calcium 9.4 mg/dL (8.6-10.3); Carbon Dioxide 22 mEq/L (23-29); Chloride 83 mEq/L (98-107); Glucose 112 mg/dL (70-105); Magnesium 1.7 mg/dL (1.6-2.6); Phosphorous 10.5 mg/dL (2.7-4.5); Potassium 4.2 mEq/L (3.5-5.1); Sodium 130 mEq/L (136-145); eGFR For African Americans 7 (> 60); eGFR For Non-African Americans 5 (> 60)
--- NOTE | 2017-03-21 09:35 | Cardiology Progress Note ---
Date of Encounter: 03/21/17 Time of Encounter: 09:00 Assessment and Plan (1) JENNIFER (acute kidney injury) Current Visit: Yes Status: Acute Per cardiology: -JENNIFER on CKD. -Creatinine 9.72. -Nephrology consulted and recommended IVF, possible need for dialysis. -Management per primary and nephrology services. (2) CHF (congestive heart failure) Current Visit: No Status: Acute Per cardiology: -Known history of systolic CHF. Of note, patient had previously been referred to [facility] for advanced heart failure therapy and was deemed not a candidate for transplant or LVAD. -BNP >5000, typically carries elevated BNP. -Chest x-ray with pulmonary vascular congestion, no pulmonary edema. -Currently net positive 1400ml. -Mild pedal edema noted, states is more short of breath today. -Creatinine 9.72. Nephrology is giving fluids and recommends holding any diuretics at this time. -TTE with LVEF 10%, previous 15%. -Can consider inotropic therapy. Qualifiers: Congestive heart failure type: systolic Congestive heart failure chronicity : chronic Qualified Code(s): I50.22 - Chronic systolic (congestive) heart failure (3) Elevated troponin Current Visit: No Status: Acute Per cardiology: -Troponin 0.06, 0.06, 0.05 in the setting of JENNIFER on CKD, Chronic CHF. -Denies chest pain. -ECG with no acute changes. -TTE with LVEF 10% (previous 15), global hypokinesis. -Previous TTE 11/2016 with LVEF 15% (known), global hypokinesis. -DO not suspect NSTEMI, suspect demand ischemia related to above. NO cardiac rehab consult warranted. (4) Cardiomyopathy Current Visit: Yes Status: Chronic Per cardiology: -Known non-ischemic cardiomyopathy, last known LVEF 15% 11/2016. -Of note, has been seen by [facility] and deemed not a candidate for advanced heart failure therapies. -NOt on bulmaro inhibitor due to renal function. -CUrrenly holding beta alex due to hypotension. -Has ICD. -will continue to monitor. Qualifiers: Cardiomyopathy type: unspecified Qualified Code(s): I42.9 - Cardiomyopathy , unspecified (5) Paroxysmal atrial fibrillation Current Visit: Yes Status: Chronic Per cardiology: -Known PAF. -Average HR previous 12 hours 103, sinus tachycardia. -Patient is currently off his beta alex due to hypotension. -CHads 2 vasc score 5 (HTN, CHF, vascular disease, Thromboembolism history). Had been on pradaxa in outpatient setting. Currently being held per primary service due to possible need for HD catheter. -Would recommend restarting anticoagulation when able, with renal function would need to be on coumadin. 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 -Of note, patient was previous on coumadin. -Management per primary servive. -Consider hematology consult due to history of acute embolic event while therpeutic on coumadin. Now with JENNIFER and creatinine 9.72. Discussion w patient/family: The assessment and plan as outlined above was discussed with the patient who expressed understanding and agreement. All questions were answered. Thank you for involving us in the care of your patient. Please call with any questions. Discussed and reviewed with . Subjective Principal diagnosis: Cardiomyopathy, JENNIFER Interval history: Patient states he feels more short of breath today. Denies chest pain. Denies edema. Objective Vital Signs, Last 4 Hours Temp Pulse Resp BP Pulse Ox 03/21/17 07:09 97.2 F L 109 20 98/67 99 General: Conversant, No Apparent Distress HEENT: Atraumatic, Normocephaly, Mucus Membranes Moist Neck: No JVD, Normal carotid pulses Cardiac: Reg Rate and Rhythm, Normal S1 and S2, No Murmur Lungs: Normal Breath Sounds, No Wheeze, Rales, Rhonchi Neuro: Alert and responsive, No focal deficits noted Abdomen: Soft, Non-Tender Skin: No rashes noted on visualized skin Musculoskeletal: No Chest Wall Tenderness Extremities: No Clubbing, No Cyanosis, Normal Pulses, Other (Mild bilateral pedal edema noted, non-pitting. ) Results 03/21/17 04:55 03/21/17 04:55 Lab Results Impressions Echocardiogram 03/20/17 21:02 Impressions: Findings: ADDENDUM: 03/20/17 [id number] Impressions: LVEF 10%. Indeterminate diastolic function. Moderately dilated left ventricle. Severe global left ventricular systolic dysfunction. Moderately dilated right ventricle. Moderate right ventricular hypokinesis. Moderately dilated left atrium. Moderately dilated right atrium. Moderate mitral regurgitation. Moderate pulmonary hypertension. Left Ventricular Wall Motion: Rest Echo Findings The apex, apical inferior, mid inferior, basal inferior, apical anterior, mid anterior, basal anterior, apical septal, mid inferior septal, basal inferior septal, apical lateral, mid anterior lateral, basal anterior lateral, mid anterior septal, mid inferior lateral, basal anterior septal and basal inferior lateral segal were hypokinetic. Findings: Study Quality * Technically adequate exam. Left Ventricle * LVEF 10%. * Indeterminate diastolic function. * Moderately dilated left ventricle. * Severe global left ventricular systolic dysfunction. Right Ventricle * Moderately dilated right ventricle. * Moderate right ventricular hypokinesis. Left Atrium * Moderately dilated left atrium. Right Atrium * Moderately dilated right atrium. Aortic Valve * Trace aortic regurgitation. Mitral Valve * Moderate mitral regurgitation. Tricuspid Valve * Moderate pulmonary hypertension. Pulmonic Valve * Pulmonic valve not well visualized. Aorta * Normally sized aortic root. Pericardium * The pericardium appears normal. IVC * The IVC is dilated. * IVC plethora is noted Active Medications Albuterol/Ipratropium (Duoneb) 3 ml IH [id number] PRN PRN Reason: Shortness Of Breath/Wheezing Stop: 09/18/17 20:59 Calcitriol (Rocaltrol) 0.25 mcg PO DAILY [facility] Stop: 09/19/17 09:01 Last Admin: 03/21/17 08:41 Dose: 0.25 mcg Carvedilol (Coreg) 12.5 mg PO BID [facility] PRN Reason: Protocol Stop: 09/19/17 21:01 Last Admin: 03/21/17 08:41 Dose: Not Given Cyclobenzaprine HCl (Flexeril) 10 mg PO TID PRN PRN Reason: Spasms Stop: 09/19/17 14:11 Last Admin: 03/20/17 17:57 Dose: 10 mg Heparin Sodium (Porcine) (Heparin) 5,000 unit SQ Q12HCO [facility] Stop: 09/19/17 06:01 Last Admin: 03/21/17 05:57 Dose: Not Given Sodium Bicarbonate 150 meq/ (Dextrose) 1,150 mls @ 100 mls/hr IVC .[id number] [facility] Stop: 09/19/17 11:08 Last Admin: 03/21/17 09:50 Dose: 100 mls/hr Naloxone HCl (Narcan) 0.4 mg IVP Q2MIN PRN PRN Reason: Opioid Reversal Stop: 09/18/17 20:59 Sevelamer HCl (Renvela) 800 mg PO TIDWM [facility] Stop: 09/19/17 12:01 Last Admin: 03/21/17 08:41 Dose: 800 mg Simvastatin (Zocor) 20 mg PO HS [facility] Stop: 09/18/17 21:01 Last Admin: 03/20/17 21:25 Dose: 20 mg Sodium Bicarbonate (Sodium Bicarbonate) 650 mg PO DAILY [facility] Stop: 09/19/17 09:01 Last Admin: 03/21/17 08:41 Dose: 650 mg - Imaging and Cardiology Chest Xray: report reviewed Echo: report reviewed - EKG Interpretation EKG results cardiology: other (Telemetry reviewed with average HR previous 12 hours noted to be 103, sinus tachycardia. BBB. PVCs noted.) Consult Discharge Plan - Plan Referrals: Lonny Davison MD [Primary Care Provider] -
[2017-03-21] MEDS: Sodium Bicarbonate 150 MEQ in D5% in Water 1,000 ML IVC SCH (09:50)
[2017-03-21] MEDS ORDERED: 0.9 % Sodium Chloride 250 ML IVC PRN (10:58)
[2017-03-21] MEDS ORDERED: 0.9 % Sodium Chloride 1,000 ML PRIME SCH (11:00)
[2017-03-21 11:14] LABS: INR 2.8; Prothrombin Time 30.4 Seconds (9.4-12.1)
--- NOTE | 2017-03-21 11:17 | Nephrology Progress Note ---
Date of Encounter: 03/21/17 Time of Encounter: 11:14 - Assessment and Plan (1) Acute kidney injury superimposed on chronic kidney disease Current Visit: Yes Status: Acute Worsening renal function despite overnight hydration. Assessing Intravascular status is difficult given his cardiomyopathy and cirrhosis. Will decrease hydration and initiate HD today. IR consulted for temp HD line. Patient has had some increased renal output. (2) Hyperphosphatemia Current Visit: Yes Status: Chronic Phosphate binders ordered. Renal diet. (3) Metabolic acidosis Current Visit: Yes Status: Acute Should correct with dialysis. (4) Systolic CHF, acute on chronic Current Visit: Yes Status: Acute Intravascular volume status difficult to ascertain. Cardiology following. May need inotrope. (5) Hyponatremia Current Visit: Yes Status: Acute Should improve with dialysis. Subjective Principal diagnosis: Cardiomyopathy, JENNIFER Interval history: Patient seen and evaluated. He feels more dyspneic this am. No major improvement overnight. Objective - Vital Signs Vital signs: Vital Signs Temp Pulse Resp BP Pulse Ox 03/21/17 07:09 97.2 F L 109 20 98/67 99 03/21/17 04:31 97.4 F L 108 17 112/67 96 03/20/17 22:57 97.4 F L 106 16 94/66 95 03/20/17 21:00 97.7 F 113 16 91/58 99 03/20/17 15:54 97.2 F L 102 16 98/70 97 Intake and Output 03/20/17 03/21/17 03/21/17 23:59 07:59 15:59 Intake Total 1350 / 1350 260 / 260 Output Total 0 / 0 500 / 500 0 / 0 Balance 1350 / 1350 -500 / -500 260 / 260 Intake: IV Fluids 1150 / 1150 Sodium Bicarbonate 150 MEQ In 1150 / 1150 Dextrose 5% 1,150 ML @ 100 mls/ hr IVC .[id number] [facility] Rx#: [id number] Oral 200 / 200 260 / 260 Output: Urine 0 / 0 500 / 500 0 / 0 Other: Meal Breakfast Percent of Meal Consumed 100% Blood Glucose* 182 - General Appearance General appearance: Present: well-developed, well-nourished, chronically ill, frail EENT: Present: ATNC Neck: Present: supple Respiratory: Present: course breath sounds Cardiology: Present: edema (slight increase in lower extremity edema overnight. ), regular rate Gastrointestinal: Present: normoactive bowel sounds, no tenderness, obese Integumentary: Present: warm and dry Neurologic: Present: alert and oriented x3 Musculoskeletal: Present: no cyanosis Psychiatric: Present: mood/affect appropriate - Lab 03/21/17 04:55 03/21/17 04:55 Most recent lab results Calcium 9.4 mg/dL (8.6-10.3) 03/21/17 04:55 Phosphorus 10.5 mg/dL (2.7-4.5) H 03/21/17 04:55 Magnesium 1.7 mg/dL (1.6-2.6) 03/21/17 04:55 Urine Creatinine 202 mg/dL 03/20/17 15:57 Urine Sodium < 10.0 mEq/L 03/20/17 15:57 Urine Total Protein 53 mg/dL 03/20/17 15:57 Consult Discharge Plan - Plan Referrals: Lonny Davison MD [Primary Care Provider] -
--- NOTE | 2017-03-21 11:58 | IR Procedure Note ---
Date of procedure: 03/21/17 Consent Obtained: Written consent Timeout: Correct patient and procedure verified, Correct site verified, Time out performed, Skin prep completed Indications: renal failure Procedure Performed: temp HD Was there an dietetic assistant present: No Site/Technique: rt IJ to RA Results/Findings: adequate placement Estimated blood loss (cc): 0 Complications: None; Tolerated procedure well Post Procedure Treatment Plan: CXR then use Specimen: none
[2017-03-21 12:50] LABS: Hepatitis B Surface Antigen Nonreactive (Nonreactive)
[2017-03-21 13:02] LABS: Hepatitis B Surface Antibody 77.75 mIU/mL
--- NOTE | 2017-03-21 13:30 | Internal Med Progress Note ---
Date of Encounter: 03/21/17 Time of Encounter: 13:28 - Assessment and plan (1) Acute kidney injury superimposed on chronic kidney disease Current Visit: Yes Status: Acute Assessment and plan: baseline serum creatinine has been around 2.5-3 until last month, when he was admitted with JENNIFER, probably did not recover; nephrology has been consulted and patient received IV hydration with no significant improvement in serum creatinine and with worsening BUN to greater than 130. Urine output has been inaccurately charted but he likely is oliguric. Renal replacement therapy is being planned. Patient received temporary hemodialysis catheter today, to receive first hemodialysis session. 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 Current echocardiogram shows significantly reduced ejection fraction around 10%, moderate biventricular and biatrial dilation, severe global left ventricular systolic dysfunction, moderate mitral regurgitation and moderate pulmonary hypertension. Cardiology consult appreciated. Patient has been referred to advanced heart failure clinic at [facility], however deemed not a candidate for cardiac transplantation or LVAD support. Beta alex and diuretics are currently on hold due to hypotension and worsening renal failure. Continue supportive care, telemetry monitoring. Mild troponin leak due to volume overload road and underlying renal failure. Patient understands his grave prognosis. Wishes to be DNR comfort care arrest/ DNI. He will think about having his ICD removed. Qualifiers: Cardiomyopathy type: unspecified Qualified Code(s): I42.9 - Cardiomyopathy , unspecified (4) Atrial fibrillation Current Visit: Yes Status: Chronic Assessment and plan: continue Telemetry monitoring; rate-controlled; anticoagulation with Coumadin. Qualifiers: Atrial fibrillation type: chronic Qualified Code(s): I48.2 - Chronic atrial fibrillation (5) Metabolic acidosis Current Visit: Yes Status: Acute Assessment and plan: due to worsening renal failure; Nephrology consult appreciated, started bicarbonate drip along with oral sodium bicarbonate supplements; (6) Hyperphosphatemia Current Visit: Yes Status: Chronic Assessment and plan: Continue phosphate binders; (7) COPD (chronic obstructive pulmonary disease) Current Visit: Yes Status: Chronic Qualifiers: COPD type: unspecified COPD Qualified Code(s): J44.9 - Chronic obstructive pulmonary disease, unspecified (8) Hypothyroidism Current Visit: Yes Status: Chronic Assessment and plan: continue Levothyroxine; Qualifiers: Hypothyroidism type: unspecified Qualified Code(s): E03.9 - Hypothyroidism , unspecified - Subjective Interval history: Feels better today; no chest pain, shortness of breath, palpitations; received temporary HD catheter today; continues to have oliguria, leg swelling; Seen by Cardiology, decided to be DNR-CCA/DNI, due to poor prognosis; - Constitutional Vitals: Temp Pulse Resp BP Pulse Ox 98.9 F 99 16 114/70 98 03/21/17 11:58 03/21/17 11:58 03/21/17 11:58 03/21/17 11:58 03/21/17 11:58 General appearance: Present: A&O X 3, answers questions appropriately - Respiratory Respiratory exam: Present: CTAB. Absent: accessory muscle use, rales, rhonchi, wheezes - Cardiovascular Cardiovascular exam: Present: RRR, +S1, +S2, tachycardia. Absent: diastolic murmur, gallop, rubs, systolic murmur - GI/Abdominal GI/Abdominal exam: Present: distended, normal bowel sounds, soft (ileostomy in place), no peritoneal signs. Absent: tenderness - Extremities Exam Extremities exam: Present: full ROM, pedal edema, warm, radial pulses palpable and symmetrical. Absent: calf tenderness, cyanotic - Neurological Exam Neurological exam: Present: CN II-XII intact, oriented X3, no focal deficits. Absent: pronater drift, facial droop, speech deficit Internal Medicine: Result - Labs CBC & Chem 7: 03/21/17 04:55 03/21/17 04:55 Labs: Short CBC 03/21/17 Range/Units 04:55 WBC 6.0 (4.3-11.1) K/mcL Hgb 11.8 L D (12.9-16.9) g/dL Hct 34.9 L (37.5-50.1) % Plt Count 142 (140-400) K/mcL Neutrophils # 4.5 (1.6-8.9) K/mcL BMP 03/21/17 04:55 Sodium 130 L Potassium 4.2 Chloride 83 L Carbon Dioxide 22 L BUN > 130 H Creatinine 9.72 H Glucose 112 H Calcium 9.4 Urine 03/20/17 Range/Units 15:57 Urine Color Yellow (Yellow) Urine Clarity Clear (Clear) Urine pH 6.0 (5.0-8.0) pH Units Ur Specific [place] 1.023 (1.010-1.025) Urine Protein 30 H (Neg-Trace) mg/dL Urine Glucose (UA) Normal (Normal) mg/dL - ABG Interpretation ABG results: PT/INR, D-dimer PT 30.4 Seconds (9.4-12.1) H 03/21/17 10:49 - Impressions Impressions Echocardiogram 03/20/17 21:02 Impressions: Findings: ADDENDUM: 03/20/17 1603 Impressions: LVEF 10%. Indeterminate diastolic function. Moderately dilated left ventricle. Severe global left ventricular systolic dysfunction. Moderately dilated right ventricle. Moderate right ventricular hypokinesis. Moderately dilated left atrium. Moderately dilated right atrium. Moderate mitral regurgitation. Moderate pulmonary hypertension. Left Ventricular Wall Motion: Rest Echo Findings The apex, apical inferior, mid inferior, basal inferior, apical anterior, mid anterior, basal anterior, apical septal, mid inferior septal, basal inferior septal, apical lateral, mid anterior lateral, basal anterior lateral, mid anterior septal, mid inferior lateral, basal anterior septal and basal inferior lateral segal were hypokinetic. Findings: Study Quality * Technically adequate exam. Left Ventricle * LVEF 10%. * Indeterminate diastolic function. * Moderately dilated left ventricle. * Severe global left ventricular systolic dysfunction. Right Ventricle * Moderately dilated right ventricle. * Moderate right ventricular hypokinesis. Left Atrium * Moderately dilated left atrium. Right Atrium * Moderately dilated right atrium. Aortic Valve * Trace aortic regurgitation. Mitral Valve * Moderate mitral regurgitation. Tricuspid Valve * Moderate pulmonary hypertension. Pulmonic Valve * Pulmonic valve not well visualized. Aorta * Normally sized aortic root. Pericardium * The pericardium appears normal. IVC * The IVC is dilated. * IVC plethora is noted Guidance Ultrasound 03/21/17 00:00 IMPRESSION: Successful ultrasound guided non-tunneled temporary hemodialysis catheter placement. D/ / 03/21/2017 12:25:44 Wanda Maria MD / Keri Metz Interpreting Provider: Wanda Maria MD Insertion Non-Tunneled Catheter 03/21/17 00:00 IMPRESSION: Successful ultrasound guided non-tunneled temporary hemodialysis catheter placement. D/ / 03/21/2017 12:25:44 Wanda Marai MD / Keri Metz Interpreting Provider: Wanda Maria MD Chest X-Ray 03/21/17 11:53 IMPRESSION: Interval placement of right IJ catheter with the tip at the cavoatrial junction. Otherwise, stable chest. D/ / Violetta Monroe MD / Violetta Monroe MD Interpreting Provider: Violetta Monroe MD Consult Discharge Plan - Plan Referrals: Lonny Davison MD [Primary Care Provider] -
--- NOTE | 2017-03-21 14:12 | Electrocardiograph Report ---
[place] [id number] Test Date: 2017-03-19 Pat Name: Rich Shultz Department: 102 Room: 2A Gender: M Delivery Rn: Micah : 1950 Requested By: Tsering Phelps Order Number: [id number] Reading MD: Kassidy Nichole Measurements Intervals [place] Rate: 88 P: 73 NM: 193 QRS: -76 QRSD: 166 T: 83 QT: 432 QTc: 477 Interpretive Statements SINUS RHYTHM POSSIBLE LEFT ATRIAL ENLARGEMENT [-0.1mV P WAVE IN V1/V2] RIGHT BUNDLE BRANCH BLOCK [120+ ms QRS DURATION, UPRIGHT V1, 40+ ms S IN I/aVL/V4/V5/V6] LEFT ANTERIOR FASCICULAR BLOCK INFERIOR MYOCARDIAL INFARCTION [40+ ms Q WAVE AND/OR ST/T ABNORMALITY IN II/aVF], OF INDETERMINATE AGE Electronically Signed On 03-21-2017 14:10:39 EST by Kassidy Nichole
[2017-03-21] MEDS ORDERED: Warfarin perPT PO PRN (18:00)
[2017-03-21] MEDS ORDERED: *HR* Warfarin 2 MG TABLET PO ONE (18:00)
[2017-03-21] MEDS ORDERED: 0.9 % Sodium Chloride 1,000 ML ONE (18:11)
[2017-03-22] MEDS: Sodium Bicarbonate 150 MEQ in D5% in Water 1,000 ML IVC SCH (00:18)
[2017-03-22] MEDS: Acetaminophen 325 MG TABLET PO PRN ×2 (00:19→20:01)
[2017-03-22 04:08] LABS: Basophils % 0.2 %; Eosinophils # 0.1 K/mcL (0.0-0.6); Eosinophils % 1.1 %; Hematocrit 30.7 % (37.5-50.1); Hemoglobin 10.2 g/dL (12.9-16.9); Immature Granulocytes % 0.5 % (0-4); Lymphocytes # 0.5 K/mcL (0.6-4.6); Lymphocytes % 9.5 %; Mean Corpuscular HGB Conc 33.2 g/dL (31.6-35.5); Mean Corpuscular Hemoglobin 33.4 pg (28.0-33.3); Mean Corpuscular Volume 100.7 fL (83.0-100.0); Mean Platelet Volume 10.8 fL (9.4-12.4); Monocytes # 0.6 K/mcL (0.0-1.3); Monocytes % 10.4 %; Neutrophils # 4.3 K/mcL (1.6-8.9); Nucleated Red Blood Cells 1.3 /100 WBC (0); Platelet Count 103 K/mcL (140-400); Red Blood Count 3.05 M/mcL (4.19-5.50); Red Cell Distribution Width 21.9 % (11.5-14.5); Segmented Neutrophils % 78.3 %
[2017-03-22 04:21] LABS: Calcium 8.7 mg/dL (8.6-10.3); Magnesium 1.6 mg/dL (1.6-2.6); Phosphorous 6.6 mg/dL (2.7-4.5); Potassium 3.6 mEq/L (3.5-5.1)
[2017-03-22] MEDS: *HR* Heparin 5,000 UNIT/ML VIAL SQ SCH (05:23)
[2017-03-22] MEDS ORDERED: 0.9 % Sodium Chloride 250 ML IVC PRN (08:09)
[2017-03-22] MEDS ORDERED: *HR* Heparin 10,000 UNIT/10 ML VIAL IV PRN (08:09)
[2017-03-22] MEDS ORDERED: 0.9 % Sodium Chloride 2,000 ML ONE (10:54)
[2017-03-22] MEDS ORDERED: *HR* Metoprolol 5 MG/5 ML VIAL IVP ONE ×2 (11:19→17:01)
[2017-03-22] MEDS ORDERED: 0.9 % Sodium Chloride 250 ML IVC ONE (12:43)
--- NOTE | 2017-03-22 13:09 | Internal Med Progress Note ---
Date of Encounter: 03/22/17 Time of Encounter: 13:04 - Assessment and plan (1) Acute kidney injury superimposed on chronic kidney disease Current Visit: Yes Status: Acute Assessment and plan: baseline serum creatinine has been around 2.5-3 until last month, when he was admitted with JENNIFER, probably did not recover; nephrology has been consulted and patient did not respond appropriately to IV hydration. Decision has been made to begin hemodialysis. Patient received temporary hemodialysis catheter, underwent second dialysis session today. Continue IV bicarbonate drip per nephrology. oral bicarbonate, Calcitriol and phosphorus binders per nephrology; (2) History of thromboembolism Current Visit: Yes Status: Chronic Assessment and plan: on Xarelto as an outpatient; plan to initiate Coumadin, which patient initially refused due to difficulty in maintaining therapeutic INR. However, currently agreeable after explaining that Coumadin is a safer option now that he is on hemodialysis. Continue to monitor INR closely, which is elevated due to underlying cirrhosis. (3) Cardiomyopathy Current Visit: Yes Status: Chronic Assessment and plan: Known history of nonischemic cardiomyopathy. Current echocardiogram shows significantly reduced ejection fraction around 10%, moderate biventricular and biatrial dilation, severe global left ventricular systolic dysfunction, moderate mitral regurgitation and moderate pulmonary hypertension. Cardiology consult appreciated. Patient has been referred to advanced heart failure clinic at [facility], however deemed not a candidate for cardiac transplantation or LVAD support. Beta alex and diuretics have been on hold due to hypotension. Discussed with cardiology, patient continues to be tachycardic with ultrafiltration and volume removal; will give a small bolus of normal saline along with by mouth metoprolol and PRN IV Metoprolol if BP tolerates. Continue supportive care, telemetry monitoring. Patient understands his grave prognosis. Wishes to be DNR comfort care arrest/ DNI. He will think about having his ICD removed. Qualifiers: Cardiomyopathy type: unspecified Qualified Code(s): I42.9 - Cardiomyopathy , unspecified (4) Atrial fibrillation Current Visit: Yes Status: Chronic Assessment and plan: continue Telemetry monitoring; tachycardic; plan as above; anticoagulation with Coumadin. Qualifiers: Atrial fibrillation type: chronic Qualified Code(s): I48.2 - Chronic atrial fibrillation (5) Metabolic acidosis Current Visit: Yes Status: Acute Assessment and plan: due to worsening renal failure; Nephrology on board, on bicarbonate drip along with oral sodium bicarbonate supplements; (6) Hyperphosphatemia Current Visit: Yes Status: Chronic (7) COPD (chronic obstructive pulmonary disease) Current Visit: Yes Status: Chronic Qualifiers: COPD type: unspecified COPD Qualified Code(s): J44.9 - Chronic obstructive pulmonary disease, unspecified (8) Hypothyroidism Current Visit: Yes Status: Chronic Qualifiers: Hypothyroidism type: unspecified Qualified Code(s): E03.9 - Hypothyroidism , unspecified - Subjective Interval history: Had palpitations and chest discomfort while in HD, noted to have a.fib with RVR , responded somewhat to 5mg IV Lopressor; Currently back from HD, denies ongoing chest pain, shortness of breath, palpitations, headache, nausea, vomiting; discussed about anticoagulation, agreeable to try Coumadin for now; - Constitutional Vitals: Temp Pulse Resp BP Pulse Ox 97.1 F L 105 18 110/45 96 03/22/17 12:51 03/22/17 12:16 03/22/17 12:51 03/22/17 12:51 03/22/17 12:16 General appearance: Present: A&O X 3, answers questions appropriately - Respiratory Respiratory exam: Present: CTAB. Absent: accessory muscle use, rales, rhonchi, wheezes - Cardiovascular Cardiovascular exam: Present: irregular rhythm, +S1, +S2, tachycardia. Absent: diastolic murmur, gallop, rubs, systolic murmur - GI/Abdominal GI/Abdominal exam: Present: distended, normal bowel sounds, soft (ileostomy in place), no peritoneal signs. Absent: tenderness - Extremities Exam Extremities exam: Present: full ROM, pedal edema, warm, radial pulses palpable and symmetrical. Absent: calf tenderness, cyanotic Internal Medicine: Result - Labs CBC & Chem 7: 03/22/17 03:35 03/22/17 03:35 Labs: Short CBC 03/22/17 Range/Units 03:35 WBC 5.5 (4.3-11.1) K/mcL Hgb 10.2 L D (12.9-16.9) g/dL Hct 30.7 L (37.5-50.1) % Plt Count 103 L (140-400) K/mcL Neutrophils # 4.3 (1.6-8.9) K/mcL BMP 03/22/17 03:35 Sodium 133 L Potassium 3.6 Chloride 87 L Carbon Dioxide 32 H BUN 88 H Creatinine 7.32 H Glucose 115 H Calcium 8.7 - ABG Interpretation ABG results: PT/INR, D-dimer PT 22.0 Seconds (9.4-12.1) H 03/22/17 03:35 - Impressions Impressions Guidance Ultrasound 03/21/17 00:00 IMPRESSION: Successful ultrasound guided non-tunneled temporary hemodialysis catheter placement. D/ / 03/21/2017 12:25:44 Wanda Maria MD / Keri Metz Interpreting Provider: Wanda Maria MD Insertion Non-Tunneled Catheter 03/21/17 00:00 IMPRESSION: Successful ultrasound guided non-tunneled temporary hemodialysis catheter placement. D/ / 03/21/2017 12:25:44 Wanda Maria MD / Keri Metz Interpreting Provider: Wanda Maria MD Consult Discharge Plan - Plan Referrals: Lonny Davison MD [Primary Care Provider] - 03/29/17 10:00 am (Please follow up as schedule...)
--- NOTE | 2017-03-22 13:25 | Cardiology Progress Note ---
Date of Encounter: 03/22/17 Time of Encounter: 12:30 Assessment and Plan (1) JENNIFER (acute kidney injury) Current Visit: Yes Status: Acute Per cardiology: -JENNIFER on CKD. -Nephrology consulted and has started HD. -Management per primary and nephrology services. (2) CHF (congestive heart failure) Current Visit: No Status: Acute Per cardiology: -Known history of systolic CHF. Of note, patient had previously been referred to [facility] for advanced heart failure therapy and was deemed not a candidate for transplant or LVAD. -Currently net positive 2800ml. -Mild pedal edema noted. States is about baseline. -States breathing improved today. -Now on hemodialysis. -TTE with LVEF 10%, previous 15%. -Patient with poor prognosis due to advanced heart failure and not a candidate for advanced heart failure therapies. -Of note, patient's code status is now DNR-CCA/DNI. -Cardiology will sign off and will follow in outpatient setting. Qualifiers: Congestive heart failure type: systolic Congestive heart failure chronicity : chronic Qualified Code(s): I50.22 - Chronic systolic (congestive) heart failure (3) Elevated troponin Current Visit: No Status: Acute Per cardiology: -Troponin 0.06, 0.06, 0.05 in the setting of JENNIFER on CKD, Chronic CHF. -Denies chest pain. -ECG with no acute changes. -TTE with LVEF 10% (previous 15), global hypokinesis. -Previous TTE 11/2016 with LVEF 15% (known), global hypokinesis. -DO not suspect NSTEMI, suspect demand ischemia related to above. NO cardiac rehab consult warranted. (4) Cardiomyopathy Current Visit: Yes Status: Chronic Per cardiology: -Known non-ischemic cardiomyopathy, last known LVEF 15% 11/2016. -Of note, has been seen by [facility] and deemed not a candidate for advanced heart failure therapies. -NOt on bulmaro inhibitor due to renal function. -CUrrenly holding beta alex due to hypotension.Of note, patient is tachycardic with average HR previous 12 hours 114, sinus tachycardia. -Has ICD. -will stop coreg, will start toprol for tachycardia. Qualifiers: Cardiomyopathy type: unspecified Qualified Code(s): I42.9 - Cardiomyopathy , unspecified (5) Paroxysmal atrial fibrillation Current Visit: Yes Status: Chronic Per cardiology: -Known PAF. -Average HR previous 12 hours 103, sinus tachycardia. -Patient is currently off his beta alex due to hypotension. -CHads 2 vasc score 5 (HTN, CHF, vascular disease, Thromboembolism history). Had been on pradaxa in outpatient setting. Currently being held per primary service due to possible need for HD catheter. Now on coumadin. 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 -Of note, patient was previous on coumadin. -Management per primary servive. Discussion w patient/family: The assessment and plan as outlined above was discussed with the patient who expressed understanding and agreement. All questions were answered. Thank you for involving us in the care of your patient. Please call with any questions. Discussed and reviewed with . Subjective Principal diagnosis: Cardiomyopathy, JENNIFER Interval history: Patient states he feels better today. States shortness of breath has imrpoved. Deneis chest pain. Objective Vital Signs, Last 4 Hours Temp Pulse Resp BP Pulse Ox 03/22/17 12:51 97.1 F L 18 110/45 03/22/17 12:16 105 18 101/67 96 03/22/17 11:52 120 20 99/69 97 03/22/17 11:30 139 03/22/17 10:55 93/56 03/22/17 10:40 92/67 03/22/17 10:25 94/62 03/22/17 10:10 97/65 03/22/17 09:55 96/57 03/22/17 09:40 101/74 03/22/17 09:25 78/62 General: Conversant, No Apparent Distress HEENT: Atraumatic, Normocephaly, Mucus Membranes Moist Neck: No JVD, Normal carotid pulses Cardiac: Reg Rate and Rhythm, Normal S1 and S2, No Murmur Lungs: Normal Breath Sounds, No Wheeze, Rales, Rhonchi Neuro: Alert and responsive, No focal deficits noted Abdomen: Soft, Non-Tender Skin: No rashes noted on visualized skin Musculoskeletal: No Chest Wall Tenderness Extremities: No Clubbing, No Cyanosis, Normal Pulses, Other (Mild bilateral pedal edema noted, non-pitting. ) Results 03/22/17 03:35 03/22/17 03:35 Lab Results Impressions Abdomen/Pelvis CT 03/19/17 17:33 IMPRESSION: 1. Cirrhotic appearance of the liver. A moderate amount of ascites is present. 2. Postoperative changes of colectomy with a right lower quadrant ileostomy. 3. IVC filter in place. 4. Mild ground-glass nodularity at the lung bases, which could be related to a subtle infectious process versus atelectasis. 5. Cholelithiasis without evidence of cholecystitis. 6. Nonobstructive right-sided renal calculi measuring up to 4 mm, with asymmetric atrophy of the right kidney. D/ / 03/19/2017 18:55:30 Trevor Baker MD / [facility] Interpreting Provider: Trevor Baker MD Active Medications Acetaminophen (Tylenol) 650 mg PO Q6HR PRN PRN Reason: Mild Pain Stop: 09/20/17 23:51 Last Admin: 03/22/17 00:19 Dose: 650 mg Albuterol/Ipratropium (Duoneb) 3 ml IH [id number] PRN PRN Reason: Shortness Of Breath/Wheezing Stop: 09/18/17 20:59 Calcitriol (Rocaltrol) 0.25 mcg PO DAILY LYLE Stop: 09/19/17 09:01 Last Admin: 03/22/17 08:02 Dose: 0.25 mcg Carvedilol (Coreg) 12.5 mg PO BIDWM LYLE PRN Reason: Protocol Stop: 09/20/17 17:01 Last Admin: 03/22/17 07:53 Dose: Not Given Cyclobenzaprine HCl (Flexeril) 10 mg PO TID PRN PRN Reason: Spasms Stop: 09/19/17 14:11 Last Admin: 03/20/17 17:57 Dose: 10 mg Diphenhydramine HCl (Benadryl) 25 mg PO Q6HR PRN PRN Reason: Itching Stop: 09/21/17 03:41 Last Admin: 03/22/17 05:08 Dose: 25 mg Heparin Sodium (Porcine) (Heparin) 0 unit IV ONCE PRN PRN Reason: Hemodialysis Catheter Packing Sodium Bicarbonate 150 meq/ (Dextrose) 1,150 mls @ 100 mls/hr IVC .[id number] LYLE Stop: 09/19/17 11:08 Last Admin: 03/22/17 00:18 Dose: 100 mls/hr Sodium Chloride (0.9 % Sodium Chloride) 1,000 mls @ 0 mls/hr PRIME .Q0M LYLE PRN Reason: As Directed Stop: 09/20/17 11:01 Sodium Chloride (0.9 % Sodium Chloride) 250 mls @ 937.5 mls/hr IVC .Q16M PRN PRN Reason: Hypotension Stop: 09/21/17 08:10 Loperamide HCl (Imodium) 2 mg PO Q4HR PRN PRN Reason: Diarrhea Stop: 09/21/17 03:41 Naloxone HCl (Narcan) 0.4 mg IVP Q2MIN PRN PRN Reason: Opioid Reversal Stop: 09/18/17 20:59 Sevelamer HCl (Renvela) 800 mg PO TIDWM LYLE Stop: 09/19/17 12:01 Last Admin: 03/22/17 13:23 Dose: 800 mg Simvastatin (Zocor) 20 mg PO HS [facility] Stop: 09/18/17 21:01 Last Admin: 03/21/17 20:02 Dose: 20 mg Sodium Bicarbonate (Sodium Bicarbonate) 650 mg PO DAILY [facility] Stop: 09/19/17 09:01 Last Admin: 03/22/17 08:02 Dose: 650 mg Warfarin Sodium (Coumadin Perpt) 1 each PO DAILY@1800 PRN PRN Reason: SEE COMMENTS Stop: 09/20/17 18:01 Warfarin Sodium (Coumadin) 2 mg PO ONCE ONE Stop: 03/22/17 18:01 Laboratory Tests 03/22/17 03/22/17 03:35 03:35 Hgb 10.2 L D Plt Count 103 L Creatinine 7.32 H - Imaging and Cardiology Chest Xray: report reviewed Echo: report reviewed - EKG Interpretation EKG results cardiology: other (Telemetry reviewed with average HR previous 12 hours noted to be 114, ST.) Consult Discharge Plan - Plan Referrals: Lonny Davison MD [Primary Care Provider] -
--- NOTE | 2017-03-22 14:29 | Nephrology Progress Note ---
Date of Encounter: 03/22/17 Time of Encounter: 14:25 - Assessment and Plan (1) Acute kidney injury superimposed on chronic kidney disease Current Visit: Yes Status: Acute Patient started on HD for progressive worsening of his renal function. He has tolerated this well and seems to have improved. With his worsening cardiomyopathy and preexisting CKD I'm not optimistic about renal recovery. Patient seen on dialysis today. . Need accurate Is and Os. (2) Hyperphosphatemia Current Visit: Yes Status: Chronic Phosphate binders ordered. Renal diet. (3) Metabolic acidosis Current Visit: Yes Status: Acute Resolved with dialysis. (4) Systolic CHF, acute on chronic Current Visit: Yes Status: Acute Intravascular volume status difficult to ascertain. Cardiology following. Will discontinue MIV and monitor. (5) Hyponatremia Current Visit: Yes Status: Acute Improving. Subjective Principal diagnosis: Cardiomyopathy, JENNIFER Interval history: Patient seen and evaluated. He tolerated his first session of dialysis without any major problems. He feels well today. Objective - Vital Signs Vital signs: Vital Signs Temp Pulse Resp BP Pulse Ox 03/22/17 12:51 97.1 F L 18 110/45 03/22/17 12:16 105 18 101/67 96 03/22/17 11:52 120 20 99/69 97 03/22/17 11:30 139 03/22/17 10:55 93/56 03/22/17 10:40 92/67 03/22/17 10:25 94/62 03/22/17 10:10 97/65 03/22/17 09:55 96/57 03/22/17 09:40 101/74 03/22/17 09:25 78/62 03/22/17 09:00 97.5 F L 22 91/68 03/22/17 07:36 97.5 F L 92 21 96/68 97 03/22/17 05:53 98 F 104 16 90/61 97 03/22/17 00:58 97.6 F 76 16 88/64 96 03/21/17 23:27 97.5 F L 110 16 96/54 96 03/21/17 17:50 97.0 F L 18 99/62 03/21/17 17:40 96/72 03/21/17 17:25 99/67 03/21/17 17:10 99/63 03/21/17 16:55 95/69 03/21/17 16:40 97/54 03/21/17 16:25 100/49 03/21/17 16:10 99/67 03/21/17 15:55 95/68 03/21/17 15:40 96.8 F L 18 101/72 Intake and Output 03/21/17 03/22/17 03/22/17 23:59 07:59 15:59 Intake Total 0 / 0 600 / 600 360 / 360 Output Total 600 / 600 0 / 0 Balance -600 / -600 600 / 600 360 / 360 Intake: IV Fluids 0 / 0 600 / 600 Sodium Bicarbonate 150 MEQ In 0 / 0 600 / 600 Dextrose 5% 1,000 ML @ 100 mls/ hr IVC .[id number] LYLE Rx#: [id number] Oral 0 / 0 360 / 360 Output: Urine 0 / 0 0 / 0 Total Dialysis (HD) Output 600 / 600 0 / 0 Other: Meal Lunch Percent of Meal Consumed 100% Stool Size Moderate Stool Consistency liquid Stool Characteristics Normal for Patient Weight 73 kg 73 kg Hemodialysis Net Fluid Removed 0 0 (mL) Patient Weight 03/22/17 23:59 Weight 73 kg - General Appearance General appearance: Present: well-developed EENT: Present: ATNC Neck: Present: supple Cardiology: Present: edema Additional Comments: tachycardic Dialysis Vascular Access: Venous Catheter Integumentary: Present: warm and dry Neurologic: Present: alert and oriented x3 Psychiatric: Present: mood/affect appropriate - Lab 03/22/17 03:35 03/22/17 03:35 Most recent lab results Calcium 8.7 mg/dL (8.6-10.3) 03/22/17 03:35 Phosphorus 6.6 mg/dL (2.7-4.5) H 03/22/17 03:35 Magnesium 1.6 mg/dL (1.6-2.6) 03/22/17 03:35 Urine Creatinine 202 mg/dL 03/20/17 15:57 Urine Sodium < 10.0 mEq/L 03/20/17 15:57 Urine Total Protein 53 mg/dL 03/20/17 15:57 Consult Discharge Plan - Plan Referrals: Lonny Davison MD [Primary Care Provider] -
[2017-03-22] MEDS: Metoprolol XL (24 HR) Succ 50 MG TAB.ER.24H PO SCH (15:46)
[2017-03-22] MEDS ORDERED: Lidocaine Jelly 6ml 1 APPL/6 ML JEL.PF.APP TP ONE (16:03)
[2017-03-22] MEDS: *HR* Metoprolol 5 MG/5 ML VIAL IVP PRN (17:40)
[2017-03-22] MEDS ORDERED: *HR* Warfarin 2 MG TABLET PO ONE (18:00)
--- NOTE | 2017-03-22 19:53 | Urology - Consult Note ---
Date of Encounter: 03/22/17 Time of Encounter: 19:50 - Assessment and Plan (1) Urinary retention Current Visit: Yes Status: Acute Assessment and plan: Patient was prepped and draped in normal sterile fashion. I then inserted a 16- Albanian coude catheter with some resistance around the prostate but with clear minimal urine returned at the end of the procedure. Okay for patient to have catheter removed per primary team. I believe the patient is just having decreasing urine output and the bladder scan could be picking up peritoneal ascites. Urology CN:HPI Consult date: 03/22/17 Reason for consult Urology: Difficult [place] Requesting physician: Sharron Martell History of present illness: Rich is a 66-year-old male admitted to the hospital secondary to ESRD patient has received 2 doses of dialysis. He has had some difficulty with decreasing urine output and concern for urinary retention. Patient with PVR of 400 mL's with bladder scan. Patient is of a history of similar bladder scan with minimal urine found on catheter placement. Patient states his overall urine output has decreased over the past couple of months. Past Med Surg Social Fam HX - Past Medical History Medical history: atrial fibrillation, CHF, COPD, DVT, hyperlipidemia, hypertension, pulmonary embolus, renal disease, thyroid disease, other Psychiatric history: no psych history - Past Surgical History Surgical History: colectomy, colostomy, IVC Filter, LE vascular intervention, pacemaker/AICD, vascular surgery, other - Social History Smoking Status: Former smoker Smokeless Tobacco Status: No Alcohol use: none Drug use: none - Family History Father Adopted: No Family Member Ethnicity: Non- Living Status: Still Living Hx Family Cardiac Disorders: Yes (CHF) Hx Family Respiratory Disorders: Yes Hx Family Cancer: No Hx Family GI Disorders: No Hx Family Endocrine Disorder: No Hx Family Neuromuscular Disorders: No Hx Family Neurologic Disorders: No Hx Family HEENT Disorders: No Hx Family Autoimmune Disorders: No Mother Living Status: Medications and Allergies Calcitriol [Rocaltrol] 0.25 mcg PO DAILY 10/09/14 [History] Cholecalciferol (Vitamin D3) [Vitamin D3] 2,000 unit PO QAM 10/09/14 [History] Pravastatin Sodium 40 mg PO HS 10/09/14 [History] Cyanocobalamin (Vitamin B-12) [Vitamin B-12] 500 mcg PO DAILY 07/22/15 [History] Folic Acid 0.8 mg PO DAILY 01/07/16 [History] Sodium Bicarbonate 650 mg PO DAILY 01/07/16 [History] Albuterol Sulfate [Proair Hfa] 2 puff IH Q4H PRN 11/29/16 [History] Ascorbic Acid [Vitamin C] 500 mg PO DAILY 11/29/16 [History] Ferrous Sulfate [Iron] 325 mg PO DAILY 11/29/16 [History] Levothyroxine [Synthroid] 75 mcg PO 0630 11/29/16 [History] Furosemide [Lasix] 40 mg PO DAILY 03/21/17 [History] Isosorbide MONOnitrate (24 HR) [Imdur] 30 mg PO DAILY 03/21/17 [History] Metoprolol Succinate 100 mg PO DAILY 03/21/17 [History] Rivaroxaban [Xarelto] 10 mg PO DAILY 03/21/17 [History] 3 Allergy/AdvReac Type Severity Reaction Status Date / Time Penicillins [PCN] Allergy Rash Verified 03/21/17 09:14 codeine AdvReac Hallucinati Verified 03/21/17 09:14 ng lorazepam [From Ativan] AdvReac Hallucinati Verified 03/21/17 09:14 ng Review of Systems - Constitutional no chills, no fever(s) - EENT Nose, mouth and throat: no dizziness, no sore throat - Cardiovascular no chest pain, no diaphoresis - Respiratory no cough - Gastrointestinal no abdominal pain - Genitourinary as per HPI - Musculoskeletal no back pain - Integumentary no erythema - Neurological no confusion - Psychiatric no anxiety Exam Initial Vital Signs Temp Pulse Resp BP Pulse Ox 0 F L 87 28 82/59 98 03/19/17 15:48 03/19/17 15:48 03/19/17 15:48 03/19/17 15:48 03/19/17 15:48 - General physical appearance Present: well developed, well nourished, no distress - Eyes Absent: icteric - Neck Present: no masses, no lymphadenopathy - Respiratory Present: normal respiratory effort - Cardiovascular Cardiovascular exam IM: RRR - Abdomen Abdomen: Present: soft. Absent: suprapubic tenderness - Genitourinary normal penis with no external lesions - Integumentary Present: no rash - Neurologic Present: normal coordination - Musculoskeletal Present: normal gait Urology Results - Labs 03/22/17 03:35 03/22/17 03:35 Abnormal lab results RBC 3.05 M/mcL (4.19-5.50) L 03/22/17 03:35 Hgb 10.2 g/dL (12.9-16.9) L D 03/22/17 03:35 Hct 30.7 % (37.5-50.1) L 03/22/17 03:35 MCV 100.7 fL (83.0-100.0) H 03/22/17 03:35 MCH 33.4 pg (28.0-33.3) H 03/22/17 03:35 RDW 21.9 % (11.5-14.5) H 03/22/17 03:35 Plt Count 103 K/mcL (140-400) L 03/22/17 03:35 Lymphocytes # 0.5 K/mcL (0.6-4.6) L 03/22/17 03:35 Nucleated RBCs/100 WBC 1.3 /100 WBC (0) H 03/22/17 03:35 PT 22.0 Seconds (9.4-12.1) H 03/22/17 03:35 Sodium 133 mEq/L (136-145) L 03/22/17 03:35 Chloride 87 mEq/L (98-107) L 03/22/17 03:35 Carbon Dioxide 32 mEq/L (23-29) H 03/22/17 03:35 BUN 88 mg/dL (8-23) H 03/22/17 03:35 Creatinine 7.32 mg/dL (0.70-1.30) H 03/22/17 03:35 Est GFR ( Amer) 9 (> 60) L 03/22/17 03:35 Est GFR (Non-Af Amer) 8 (> 60) L 03/22/17 03:35 Glucose 115 mg/dL (70-105) H 03/22/17 03:35 POC Glucose 182 (58-89) H 03/20/17 16:57 Calculated Osmolality 304 (280-300) H 03/22/17 03:35 Phosphorus 6.6 mg/dL (2.7-4.5) H 03/22/17 03:35 Total Bilirubin 1.5 mg/dL (0.3-1.0) H 03/19/17 16:06 Direct Bilirubin 0.6 mg/dL (0.0-0.2) H 03/19/17 16:06 AST 12 Units/L (13-39) L 03/19/17 16:06 Troponin I 0.05 ng/mL (< 0.04) H* 03/20/17 03:57 B-Natriuretic Peptide > 5000 pg/mL (Less than 100) H 03/19/17 16:06 Globulin 4.0 g/dL (2.4-3.5) H 03/19/17 16:06 Albumin/Globulin Ratio 1.0 (1.1-2.2) L 03/19/17 16:06 Urine Protein 30 mg/dL (Neg-Trace) H 03/20/17 15:57 Ur Leukocyte Esterase Moderate (Negative) H 03/20/17 15:57 Urine Microscopic RBC 3-5 per hpf (0-3) H 03/20/17 15:57 Urine Microscopic WBC 15-30 per hpf (0-3) H 03/20/17 15:57 Ur Squamous Epith Cells Many per lpf (None-Few) H 03/20/17 15:57 Protein/Creatinin Ratio 0.26 mg/mg (0.00-0.20) H 03/20/17 15:57 Diabetes panel 03/22/17 Range/Units 03:35 Sodium 133 L (136-145) mEq/L Potassium 3.6 (3.5-5.1) mEq/L Chloride 87 L (98-107) mEq/L Carbon Dioxide 32 H (23-29) mEq/L BUN 88 H (8-23) mg/dL Creatinine 7.32 H (0.70-1.30) mg/dL Glucose 115 H (70-105) mg/dL Calcium 8.7 (8.6-10.3) mg/dL Calcium panel 03/22/17 Range/Units 03:35 Calcium 8.7 (8.6-10.3) mg/dL Phosphorus 6.6 H (2.7-4.5) mg/dL Pituitary panel 03/22/17 Range/Units 03:35 Sodium 133 L (136-145) mEq/L Potassium 3.6 (3.5-5.1) mEq/L Chloride 87 L (98-107) mEq/L Carbon Dioxide 32 H (23-29) mEq/L BUN 88 H (8-23) mg/dL Creatinine 7.32 H (0.70-1.30) mg/dL Glucose 115 H (70-105) mg/dL Calcium 8.7 (8.6-10.3) mg/dL Adrenal panel 03/22/17 Range/Units 03:35 Sodium 133 L (136-145) mEq/L Potassium 3.6 (3.5-5.1) mEq/L Chloride 87 L (98-107) mEq/L Carbon Dioxide 32 H (23-29) mEq/L BUN 88 H (8-23) mg/dL Creatinine 7.32 H (0.70-1.30) mg/dL Glucose 115 H (70-105) mg/dL Calcium 8.7 (8.6-10.3) mg/dL All other labs normal. Consult Discharge Plan - Plan Referrals: Lonny Davison MD [Primary Care Provider] - 03/29/17 10:00 am (Please follow up as schedule...)
[2017-03-23 05:06] LABS: Calcium 8.4 mg/dL (8.6-10.3); Potassium 3.5 mEq/L (3.5-5.1)
[2017-03-23 05:18] LABS: INR 1.7; Prothrombin Time 18.1 Seconds (9.4-12.1)
[2017-03-23] MEDS ORDERED: Metoprolol XL (24 HR) Succ 50 MG TAB.ER.24H PO SCH (09:00)
--- NOTE | 2017-03-23 10:47 | Internal Med Progress Note ---
<Nina Oswald - Last Filed: 03/23/17 14:16> Date of Encounter: 03/23/17 Time of Encounter: 10:44 - Assessment and plan (1) Acute kidney injury superimposed on chronic kidney disease Current Visit: Yes Status: Acute Assessment and plan: JENNIFER with CKD. 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 Plan: Continue Coumadin Monitor INR (3) Cardiomyopathy Current Visit: Yes Status: Chronic Assessment and plan: Known history of nonischemic cardiomyopathy. Patient has been referred to advanced heart failure clinic at [facility], however deemed not a candidate for cardiac transplantation or LVAD support. Patient understands his grave prognosis, changed code status to DNR comfort care arrest/DNI. He will think about having his ICD removed. Echo 03/20/2017 showed LVEF 10%, moderate biventricular and biatrial dilation, severe global left ventricular systolic dysfunction, moderate mitral regurgitation and moderate pulmonary hypertension. Echo 11/2016 showed LVEF 15% Plan: Cardiology consulted and will follow up with the patient out patient. continue Metoprolol per cardiology: stop coreg due to hypotension Continue supportive care telemetry monitoring Qualifiers: Cardiomyopathy type: unspecified Qualified Code(s): I42.9 - Cardiomyopathy , unspecified (4) Atrial fibrillation Current Visit: Yes Status: Chronic Assessment and plan: History of a A.fib controlled with metoprolol and anticoagulation with xarelto tachycardic HR 103 Plan: metoprolol 50qd anticoagulation with Coumadin continue Telemetry monitoring Qualifiers: Atrial fibrillation type: chronic Qualified Code(s): I48.2 - Chronic atrial fibrillation (5) Metabolic acidosis Current Visit: Yes Status: Acute Assessment and plan: Resolved with dialysis due to worsening renal failure (6) Hyperphosphatemia Current Visit: Yes Status: Chronic Assessment and plan: Continue phosphate binders per nephrology (7) COPD (chronic obstructive pulmonary disease) Current Visit: Yes Status: Chronic Assessment and plan: History COPD. Controlled oxygen saturation 95% room air continue duoneb PRN Qualifiers: COPD type: unspecified COPD Qualified Code(s): J44.9 - Chronic obstructive pulmonary disease, unspecified (8) Hypothyroidism Current Visit: Yes Status: Chronic Assessment and plan: History of hypothyroidism continue home Levothyroxine Qualifiers: Hypothyroidism type: unspecified Qualified Code(s): E03.9 - Hypothyroidism , unspecified - Subjective Interval history: He has no complaints at this time. Reports that nephrology has already seated and the plan is for him to have a permanent dialysis catheter placed on Tuesday. The night fever, chills, shortness of breath, chest pain. He reports decreased urination - Constitutional Vitals: Temp Pulse Resp BP Pulse Ox 98.0 F 103 18 100/65 97 03/23/17 06:44 03/23/17 06:44 03/23/17 06:44 03/23/17 06:44 03/23/17 06:44 General appearance: Present: A&O X 3, answers questions appropriately Exam: Gen.: Vitals noted. No acute distress. AAOx3 HEENT: oropharynx clear, Normocephalic, atraumatic Neck: Supple. No adenopathy. Cardiac: RRR, no murmur, +S1/S2 Pulmonary: CTA bilaterally, no wheezes, rales or rhonchi, equal chest expansion Abdomen: soft, nontender, Bowel sounds noted, no guarding noted Extremities: left leg minimal edema, nontender calf, no cyanosis or clubbing Neuro: A&Ox3 Psych: Appropriate mood and behavior Internal Medicine: Result - Labs CBC & Chem 7: 03/22/17 03:35 03/23/17 04:24 Labs: BMP 03/23/17 04:24 Sodium 133 L Potassium 3.5 Chloride 89 L Carbon Dioxide 32 H BUN 55 H Creatinine 5.87 H Glucose 154 H Calcium 8.4 L - ABG Interpretation ABG results: PT/INR, D-dimer PT 18.1 Seconds (9.4-12.1) H 03/23/17 04:24 Consult Discharge Plan - Plan Referrals: Lonny Davison MD [Primary Care Provider] - 03/29/17 10:00 am (Please follow up as schedule...) <Aiden Verma - Last Filed: 03/23/17 17:38> Date of Encounter: 03/23/17 - Constitutional Vitals: Temp Pulse Resp BP Pulse Ox 97.5 F L 113 17 96/68 100 03/23/17 17:02 03/23/17 17:02 03/23/17 17:02 03/23/17 17:02 03/23/17 17:02 Internal Medicine: Result - Labs CBC & Chem 7: 03/22/17 03:35 03/23/17 04:24 Labs: BMP 03/23/17 04:24 Sodium 133 L Potassium 3.5 Chloride 89 L Carbon Dioxide 32 H BUN 55 H Creatinine 5.87 H Glucose 154 H Calcium 8.4 L - ABG Interpretation ABG results: PT/INR, D-dimer PT 18.1 Seconds (9.4-12.1) H 03/23/17 04:24 - Attending Attestation I conducted a face to face diagnostic evaluation of this patient and my medical decision-making was reviewed with the Resident Physician, Dr Nina Oswald. I agree with the documented findings, disposition and treatment plan as described except to the extent set forth below: He denies chest pain and shortness of breath at rest. He has minimal exercise tolerance. On exam he is in no acute distress speaking full sentences. Abdomen is obese soft nontender nondistended. There is an ileostomy bag present. Plan: Tunneled hemodialysis catheter placement on Tuesday. Aiden Verma MD
[2017-03-23] MEDS: Sodium Bicarbonate 150 MEQ in D5% in Water 1,000 ML IVC SCH ×2 (12:29)
[2017-03-23] MEDS: Metoprolol XL (24 HR) Succ 50 MG TAB.ER.24H PO SCH (12:30)
--- NOTE | 2017-03-23 16:18 | Nephrology Progress Note ---
Date of Encounter: 03/23/17 Time of Encounter: 16:15 - Assessment and Plan (1) Acute kidney injury superimposed on chronic kidney disease Current Visit: Yes Status: Acute Patient started on HD for progressive worsening of his renal function. He has tolerated this well and seems to have improved. With his worsening cardiomyopathy and preexisting CKD I'm not optimistic about renal recovery. Patient had initial increase in UOP with fluid, but this decreased on subsequent days and even after placement of tillman he has severe oliguria. After discussion with him today will proceed to consulting IR to place a tunneled catheter. He wishes to do dialysis in [place], [place] and would like to transition to home hemodialysis. Will declare him ESRD as I do not anticipate recovery of his kidney function given his comorbidities and lack of improvement since his last renal insult. (2) Hyperphosphatemia Current Visit: Yes Status: Chronic Phosphate binders ordered. Renal diet. (3) Metabolic acidosis Current Visit: Yes Status: Acute Resolved with dialysis. (4) Systolic CHF, acute on chronic Current Visit: Yes Status: Acute Intravascular volume status difficult to ascertain , but I think he is euvolemic. (5) Hyponatremia Current Visit: Yes Status: Acute Improving. Subjective Principal diagnosis: Cardiomyopathy, JENNIFER Interval history: Patient seen and evaluated. He tolerated his first two sessions of dialysis without any major problems. He feels well today. Objective - Vital Signs Vital signs: Vital Signs Temp Pulse Resp BP Pulse Ox 03/23/17 11:46 97.4 F L 108 17 107/70 95 03/23/17 06:44 98.0 F 103 18 100/65 97 03/23/17 06:05 97.6 F 104 22 103/76 100 03/23/17 01:10 98.4 F 104 20 117/75 97 03/22/17 22:15 98.3 F 110 20 87/51 95 03/22/17 16:20 97.5 F L 129 20 100/67 98 Intake and Output 03/23/17 03/23/17 03/23/17 07:59 15:59 23:59 Intake Total 240 / 240 Output Total 50 / 50 Balance 190 / 190 Intake: Oral 240 / 240 Output: Catheter 50 / 50 Other: Meal Lunch Percent of Meal Consumed 100% Weight 78.381 kg Patient Weight 03/23/17 23:59 Weight 78.381 kg - General Appearance General appearance: Present: well-developed, chronically ill, frail EENT: Present: ATNC Neck: Present: supple Respiratory: Present: course breath sounds Cardiology: Present: edema Additional Comments: tachycardic Gastrointestinal: Present: no tenderness Integumentary: Present: warm and dry Neurologic: Present: alert and oriented x3 Psychiatric: Present: mood/affect appropriate - Lab 03/22/17 03:35 03/23/17 04:24 Most recent lab results Calcium 8.4 mg/dL (8.6-10.3) L 03/23/17 04:24 Phosphorus 6.6 mg/dL (2.7-4.5) H 03/22/17 03:35 Magnesium 1.6 mg/dL (1.6-2.6) 03/22/17 03:35 Urine Creatinine 202 mg/dL 03/20/17 15:57 Urine Sodium < 10.0 mEq/L 03/20/17 15:57 Urine Total Protein 53 mg/dL 03/20/17 15:57 Consult Discharge Plan - Plan Referrals: Lonny Davison MD [Primary Care Provider] - 03/29/17 10:00 am (Please follow up as schedule...)
[2017-03-23] MEDS ORDERED: *HR* Warfarin 4 MG TABLET PO ONE (18:00)
[2017-03-24] MEDS: Sodium Bicarbonate 150 MEQ in D5% in Water 1,000 ML IVC SCH ×2 (00:42→13:03)
[2017-03-24 06:32] LABS: Hematocrit 31.7 % (37.5-50.1); Immature Platelets 5.5 % (1.1-6.1); Mean Corpuscular HGB Conc 31.5 g/dL (31.6-35.5); Mean Corpuscular Volume 104.6 fL (83.0-100.0); Mean Platelet Volume 10.9 fL (9.4-12.4); Nucleated Red Blood Cells 0.5 /100 WBC (0); Red Blood Count 3.03 M/mcL (4.19-5.50); Red Cell Distribution Width 22.6 % (11.5-14.5)
[2017-03-24 06:51] LABS: INR 1.7; Prothrombin Time 18.2 Seconds (9.4-12.1)
--- NOTE | 2017-03-24 07:39 | Nephrology Progress Note ---
Date of Encounter: 03/24/17 Time of Encounter: 07:39 - Assessment and Plan (1) ESRD (end stage renal disease) on dialysis Current Visit: Yes Status: Acute ESRD, unlikely recovery of his kidney function given his comorbidities and lack of improvement since his last renal insult. IR to place a tunneled catheter. Patient wishes to do dialysis in [place], [place] and would like to transition to home hemodialysis. (2) Acute kidney injury superimposed on chronic kidney disease Current Visit: Yes Status: Acute Patient on HD for progressive worsening of his renal function. He has tolerated this well. Patient had initial increase in UOP with fluid, but this decreased on subsequent days to severe oliguria. With his worsening cardiomyopathy and preexisting CKD, I'm not optimistic about renal recovery. Will declare him ESRD as I do not anticipate recovery of his kidney function given his comorbidities and lack of improvement since his last renal insult. (3) Hyperphosphatemia Current Visit: Yes Status: Chronic Continue Phosphate binders Renal diet. (4) Hyponatremia Current Visit: Yes Status: Acute Improving Continue to monitor (5) Metabolic acidosis Current Visit: Yes Status: Acute Resolved with dialysis (6) Systolic CHF, acute on chronic Current Visit: Yes Status: Acute Intravascular volume status difficult to ascertain, patient appears euvolemic. Subjective Principal diagnosis: Cardiomyopathy, JENNIFER Interval history: Patient seen and examined during dialysis. Patient denies any new complaints and reports he is scheduled to get a tunnelled dialyses catheter insertion tomorrow. Objective - Vital Signs Vital signs: Vital Signs Temp Pulse Resp BP Pulse Ox 03/24/17 04:23 98.0 F 103 16 84/48 97 03/23/17 23:34 98.4 F 100 16 89/63 97 03/23/17 19:18 97.7 F 109 16 85/57 97 03/23/17 17:02 97.5 F L 113 17 96/68 100 03/23/17 11:46 97.4 F L 108 17 107/70 95 Intake and Output 03/23/17 03/23/17 03/24/17 15:59 23:59 07:59 Intake Total 240 / 240 1150 / 1150 Output Total 50 / 50 Balance 190 / 190 1150 / 1150 Intake: IV Fluids 1150 / 1150 Sodium Bicarbonate 150 MEQ In 1150 / 1150 Dextrose 5% 1,000 ML @ 100 mls/ hr IVC .[id number] [facility] Rx#: [id number] Oral 240 / 240 Output: Catheter 50 / 50 Other: Meal Lunch Percent of Meal Consumed 100% Weight 79.6 kg Patient Weight 03/24/17 23:59 Weight 79.6 kg - General Appearance General appearance: Present: well-developed, appears started age, chronically ill EENT: Present: ATNC, mucous membranes moist Neck: Present: no JVD, supple Respiratory: Present: course breath sounds Cardiology: Present: no murmurs, regular rate, regular rhythm Dialysis Vascular Access: Venous Catheter Gastrointestinal: Present: normoactive bowel sounds, no tenderness, no guarding , no organomegaly Integumentary: Present: no rash, warm and dry Additional Comments: temporary HD catheter right upper chest Neurologic: Present: no focal deficit, alert and oriented x3 Musculoskeletal: Present: no deformities, no erythema Psychiatric: Present: mood/affect appropriate, cooperative - Lab 03/24/17 05:55 03/24/17 05:55 Most recent lab results Calcium 8.4 mg/dL (8.6-10.3) L 03/23/17 04:24 Phosphorus 6.6 mg/dL (2.7-4.5) H 03/22/17 03:35 Magnesium 1.6 mg/dL (1.6-2.6) 03/22/17 03:35 Urine Creatinine 202 mg/dL 03/20/17 15:57 Urine Sodium < 10.0 mEq/L 03/20/17 15:57 Urine Total Protein 53 mg/dL 03/20/17 15:57 Consult Discharge Plan - Plan Referrals: Lonny Davison MD [Primary Care Provider] - 03/29/17 10:00 am (Please follow up as schedule...)
--- NOTE | 2017-03-24 07:53 | Internal Med Progress Note ---
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 Plan: Continue Coumadin because safer with permacath placement Monitor INR (3) Cardiomyopathy Current Visit: Yes Status: Chronic Assessment and plan: Known history of nonischemic cardiomyopathy. Patient has been referred to advanced heart failure clinic at [facility], however deemed not a candidate for cardiac transplantation or LVAD support. Patient understands his grave prognosis, changed code status to DNR comfort care arrest/DNI. He will think about having his ICD removed. Echo 03/20/2017 showed LVEF 10%, moderate biventricular and biatrial dilation, severe global left ventricular systolic dysfunction, moderate mitral regurgitation and moderate pulmonary hypertension. Echo 11/2016 showed LVEF 15% Plan: Cardiology consulted and will follow up with the patient out patient. continue Metoprolol per cardiology: stop coreg due to hypotension Continue supportive care telemetry monitoring Qualifiers: Cardiomyopathy type: unspecified Qualified Code(s): I42.9 - Cardiomyopathy , unspecified (4) Goals of care, counseling/discussion Current Visit: Yes Status: Acute Assessment and plan: Patient change code status to DNR-CCA-DNI Patient has been referred to advanced heart failure clinic at [facility], however deemed not a candidate for cardiac transplantation or LVAD support. Patient understands his grave prognosis, changed code status to DNR comfort care arrest/DNI. He will think about having his ICD removed. Echo 03/20/2017 showed LVEF 10% now and was 11/2016 showed LVEF 15% Consulted palliative care, appreciate recommendations please discuss with patient about possibility of hospice care (5) Atrial fibrillation Current Visit: Yes Status: Chronic Assessment and plan: History of a A.fib controlled with metoprolol and anticoagulation with xarelto tachycardic HR 96 Plan: metoprolol 50qd anticoagulation with Coumadin with pharmacy to dose continue Telemetry monitoring Qualifiers: Atrial fibrillation type: chronic Qualified Code(s): I48.2 - Chronic atrial fibrillation (6) Metabolic acidosis Current Visit: Yes Status: Acute Assessment and plan: Resolved with dialysis due to worsening renal failure (7) Hyperphosphatemia Current Visit: Yes Status: Chronic Assessment and plan: Continue phosphate binders per nephrology (8) COPD (chronic obstructive pulmonary disease) Current Visit: Yes Status: Chronic Assessment and plan: History COPD. Controlled on room air continue duoneb PRN Qualifiers: COPD type: unspecified COPD Qualified Code(s): J44.9 - Chronic obstructive pulmonary disease, unspecified (9) Hypothyroidism Current Visit: Yes Status: Chronic Assessment and plan: History of hypothyroidism continue home Levothyroxine Qualifiers: Hypothyroidism type: unspecified Qualified Code(s): E03.9 - Hypothyroidism , unspecified - Subjective Interval history: He has no complaints at this time. He denies fever, chills, shortness of breath , chest pain, nausea, vomiting. - Constitutional Vitals: Temp Pulse Resp BP Pulse Ox 98.0 F 96 17 108/65 96 03/24/17 04:23 03/24/17 07:40 03/24/17 07:40 03/24/17 07:40 03/24/17 07:40 General appearance: Present: A&O X 3, answers questions appropriately Exam: Gen.: Vitals noted. No acute distress. AAOx3 HEENT: oropharynx clear, Normocephalic, atraumatic Neck: Supple. No adenopathy. Cardiac: RRR, no murmur, +S1/S2 Pulmonary: CTA bilaterally, no wheezes, rales or rhonchi, equal chest expansion Abdomen: soft, nontender, Bowel sounds noted, no guarding, ileostomy bag Extremities: +BLE non pitting edema, nontender calf, no cyanosis or clubbing Neuro: A&Ox3, moves all extremities Psych: Appropriate mood and behavior Internal Medicine: Result - Labs CBC & Chem 7: 03/24/17 05:55 03/24/17 05:55 - ABG Interpretation ABG results: PT/INR, D-dimer PT 18.2 Seconds (9.4-12.1) H 03/24/17 05:55 Consult Discharge Plan - Plan Referrals: Lonny Davison MD [Primary Care Provider] - 03/29/17 10:00 am (Please follow up as schedule...) <Aiden Verma - Last Filed: 03/24/17 18:41> Date of Encounter: 03/24/17 - Constitutional Vitals: Temp Pulse Resp BP Pulse Ox 98.4 F 120 16 110/53 100 03/24/17 16:50 03/24/17 16:50 03/24/17 16:50 03/24/17 16:50 03/24/17 16:50 Internal Medicine: Result - Labs CBC & Chem 7: 03/24/17 05:55 03/24/17 05:55 Labs: Short CBC 03/24/17 Range/Units 05:55 WBC 5.5 (4.3-11.1) K/mcL Hgb 10.0 L (12.9-16.9) g/dL Hct 31.7 L (37.5-50.1) % Plt Count 87 L (140-400) K/mcL Neutrophils # 4.3 (1.6-8.9) K/mcL BMP 03/24/17 05:55 Sodium 134 L Potassium 3.5 Chloride 85 L Carbon Dioxide 37 H BUN 60 H Creatinine 6.47 H Glucose 172 H Calcium 8.4 L - ABG Interpretation ABG results: PT/INR, D-dimer PT 18.2 Seconds (9.4-12.1) H 03/24/17 05:55 - Attending Attestation I conducted a face to face diagnostic evaluation of this patient and my medical decision-making was reviewed with the Resident Physician. I agree with the documented findings, disposition and treatment plan as described except to the extent set forth below: On examination he is in no acute distress. Lungs are clear to auscultation bilaterally. Heart is regular. He complains of dyspnea. His oxygen saturation is in the mid 90s. Increased oxygen by nasal cannula to 2.5 L/m for comfort. Aiden Verma MD
[2017-03-24 07:59] LABS: Calcium 8.4 mg/dL (8.6-10.3); Potassium 3.5 mEq/L (3.5-5.1)
[2017-03-24 08:17] LABS: Platelet Count 87 K/mcL (140-400)
[2017-03-24 08:19] LABS: Basophils # 0.1 K/mcL (0.0-0.2); Eosinophils # 0.1 K/mcL (0.0-0.6); Lymphocytes # 0.7 K/mcL (0.6-4.6); Monocytes # 0.3 K/mcL (0.0-1.3); Neutrophils # 4.3 K/mcL (1.6-8.9)
[2017-03-24 08:20] LABS: Anisocytosis 2+ (Not Present); Macrocytosis Present (Not Present); Platelet Estimate Decreased (Normal); Poikilocytosis 1+ (Not Present); Polychromasia 1+ (Not Present)
[2017-03-24] MEDS ORDERED: 0.9 % Sodium Chloride 250 ML IVC PRN (08:21)
[2017-03-24] MEDS ORDERED: *HR* Heparin 10,000 UNIT/10 ML VIAL IV PRN (08:21)
[2017-03-24] MEDS ORDERED: 0.9 % Sodium Chloride 1,000 ML PRIME SCH (08:30)
--- NOTE | 2017-03-24 10:46 | Nephrology Progress Note ---
Date of Encounter: 03/24/17 Time of Encounter: 10:44 - Assessment and Plan (1) ESRD (end stage renal disease) on dialysis Current Visit: Yes Status: Acute HD day #3 today Plan for HD tomorrow Make patient NPO (ordered) tonight in hope of having permacath placed tomorrow INR 1.7; IR requires INR <1.5 If patient's INR is low enough for permacath to be place, patient requests procedure to be done as early in the day as possible due to he has a colostomy which "dries him out" and when he is made NPO for very long he is quite uncomfortable INR first thing in the morning-ordered; lab to call manager linux if INR greater than 1.5 in the am Avoid nephrotoxins if possible. Patient going to [facility] for HD; waiting on chair time If patient gets permacath tomorrow and chair time he can be discharged from a nephrology standpoint. (2) Hyperphosphatemia Current Visit: Yes Status: Chronic Phos level 6.6, much better-was 11.9 Continue Renvela Continue renal diet (3) Systolic CHF, acute on chronic Current Visit: Yes Status: Acute per cardiology/primary team Subjective Principal diagnosis: Cardiomyopathy, JENNIFER Interval history: Patient seen and examined while in dialysis. States he is feeling better. Objective - Vital Signs Vital signs: Vital Signs Temp Pulse Resp BP Pulse Ox 03/24/17 07:40 96 17 108/65 96 03/24/17 04:23 98.0 F 103 16 84/48 97 03/23/17 23:34 98.4 F 100 16 89/63 97 03/23/17 19:18 97.7 F 109 16 85/57 97 03/23/17 17:02 97.5 F L 113 17 96/68 100 03/23/17 11:46 97.4 F L 108 17 107/70 95 Intake and Output 03/23/17 03/24/17 03/24/17 23:59 07:59 15:59 Intake Total 1150 / 1150 Balance 1150 / 1150 Intake: IV Fluids 1150 / 1150 Sodium Bicarbonate 150 MEQ In 1150 / 1150 Dextrose 5% 1,000 ML @ 100 mls/ hr IVC .[id number] [facility] Rx#: [id number] Other: Weight 79.6 kg Patient Weight 03/24/17 23:59 Weight 79.6 kg - General Appearance General appearance: Present: well-developed, well-nourished EENT: Present: ATNC, mucous membranes moist, hearing intact, vision intact Neck: Present: supple Respiratory: Present: clear Cardiology: Present: no edema, normal S1, normal S2 Dialysis Vascular Access: Venous Catheter Gastrointestinal: Present: no tenderness, no guarding Integumentary: Present: warm and dry Neurologic: Present: alert and oriented x3 Psychiatric: Present: mood/affect appropriate, cooperative - Lab 03/24/17 05:55 03/24/17 05:55 Most recent lab results Calcium 8.4 mg/dL (8.6-10.3) L 03/24/17 05:55 Phosphorus 6.6 mg/dL (2.7-4.5) H 03/22/17 03:35 Magnesium 1.6 mg/dL (1.6-2.6) 03/22/17 03:35 Urine Creatinine 202 mg/dL 03/20/17 15:57 Urine Sodium < 10.0 mEq/L 03/20/17 15:57 Urine Total Protein 53 mg/dL 03/20/17 15:57 Consult Discharge Plan - Plan Referrals: Lonny Davison MD [Primary Care Provider] - 03/29/17 10:00 am (Please follow up as schedule...)
[2017-03-24] MEDS ORDERED: 0.9 % Sodium Chloride 1,000 ML ONE (16:10)
[2017-03-24] MEDS: Acetaminophen 325 MG TABLET PO PRN (16:34)
--- NOTE | 2017-03-24 16:40 | Palliative - Consult Note ---
Date of Encounter: 03/24/17 Time of Encounter: 16:40 - Assessment and Plan (1) Generalized pain Current Visit: Yes Status: Acute Assessment and plan: C/o headache and back pain, states Acetaminophen has been helpful. Continue and monitor (2) Dyspnea Current Visit: Yes Status: Acute Assessment and plan: States improved since dialysis began, but still becomes very dyspneic with activity. HD cath to be placed tomorrow. O2 at 2L has been helpful this afternoon. MOnitor Qualifiers: Dyspnea type: unspecified Qualified Code(s): R06.00 - Dyspnea, unspecified (3) Goals of care, counseling/discussion Current Visit: Yes Status: Acute Assessment and plan: Spoke with pt/ re: ongoing goals of care. He is well informed and can articulate his medical conditions. He has spoke with social media developer earlier - discussed hospice - and he does not feel he is ready for hospice at this time. Discussed that if he decides to pursue, that some hospice agencies would not admit if he were to continue on dialysis, while others may admit with another end stage diagnosis, such as his cardiomyopathy/CHF. He verbalized understanding. Discussed AICD - he desires to leave this on for now - we did discuss the process of deactivation, when/if he would want this and how this is accomplished. Discussed code status, which is already DNR/DNI - and he desires to remain at this level. State form completed and copies given to as well as place in medical record. He is hoping to be discharged later this weekend once permacath in place. Will f/u in am and see if he has further questions. Declines need for homecare. (4) CHF exacerbation Current Visit: No Status: Acute Qualifiers: Congestive heart failure type: unspecified congestive heart failure type Qualified Code(s): I50.9 - Heart failure, unspecified (5) Cardiomyopathy Current Visit: Yes Status: Chronic Qualifiers: Cardiomyopathy type: unspecified Qualified Code(s): I42.9 - Cardiomyopathy , unspecified (6) ESRD (end stage renal disease) on dialysis Current Visit: Yes Status: Acute (7) Cirrhosis Current Visit: No Status: Chronic Qualifiers: Hepatic cirrhosis type: unspecified hepatic cirrhosis Ascites presence: with ascites Qualified Code(s): K74.60 - Unspecified cirrhosis of liver Palliative-CN HPI - Data of Consult Consult date: 03/24/17 Requesting Physician: Aiden Verma MD Primary Care Provider: Lonny Davison MD - Consult Narrative History of present illness: Mr. Shultz is a 66 year old male with hx of cardiomyopathy with LVEF 10%, who presented with 2-3 day history of increasing shortness of breath. He was admitted and treated aggressively for CHF/ JENNIFER on CKD. Hx significant for partial colectomy 2011 with end ileostomy for crohns disease. Other medical history includes: HTN, hyperlipidemia, Factor V, IVC filter, CHF, S/p ICD/pacer , PVD, atrial fibrillation on pradaxa for AC at home. He has been switched to Warfarin during this admission. Nephrology following closely - he sees Dr. Hodges as outpatient. Hemodialysis was began this admission, and states has had 3 times this week. Patient has been seen by advanced heart failure clinic at [facility], and is not a candidate for transplant or LVAD. Cardiology has followed here as well. Palliative was consulted to assist with goals of care discussion - he is currently on schedule to receive permanent HD cath tomorrow, however, does have questions regarding his AICD and hospice care. . CC: Aiden Verma MD Past Med Surg Social Fam HX - Past Medical History Medical history: atrial fibrillation, CHF, COPD, DVT, hyperlipidemia, hypertension, pulmonary embolus, renal disease, thyroid disease, other Psychiatric history: no psych history - Past Surgical History Surgical History: colectomy, colostomy, IVC Filter, LE vascular intervention, pacemaker/AICD, vascular surgery, other - Social History Smoking Status: Former smoker Smokeless Tobacco Status: No Alcohol use: none Drug use: none - Family History Father Adopted: No Family Member Ethnicity: Non- Living Status: Still Living Hx Family Cardiac Disorders: Yes (CHF) Hx Family Respiratory Disorders: Yes Hx Family Cancer: No Hx Family GI Disorders: No Hx Family Endocrine Disorder: No Hx Family Neuromuscular Disorders: No Hx Family Neurologic Disorders: No Hx Family HEENT Disorders: No Hx Family Autoimmune Disorders: No Mother Living Status: Medications and Allergies Calcitriol [Rocaltrol] 0.25 mcg PO DAILY 10/09/14 [History] Cholecalciferol (Vitamin D3) [Vitamin D3] 2,000 unit PO QAM 10/09/14 [History] Pravastatin Sodium 40 mg PO HS 10/09/14 [History] Cyanocobalamin (Vitamin B-12) [Vitamin B-12] 500 mcg PO DAILY 07/22/15 [History] Folic Acid 0.8 mg PO DAILY 01/07/16 [History] Sodium Bicarbonate 650 mg PO DAILY 01/07/16 [History] Albuterol Sulfate [Proair Hfa] 2 puff IH Q4H PRN 11/29/16 [History] Ascorbic Acid [Vitamin C] 500 mg PO DAILY 11/29/16 [History] Ferrous Sulfate [Iron] 325 mg PO DAILY 11/29/16 [History] Levothyroxine [Synthroid] 75 mcg PO 0630 11/29/16 [History] Furosemide [Lasix] 40 mg PO DAILY 03/21/17 [History] Isosorbide MONOnitrate (24 HR) [Imdur] 30 mg PO DAILY 03/21/17 [History] Metoprolol Succinate 100 mg PO DAILY 03/21/17 [History] Rivaroxaban [Xarelto] 10 mg PO DAILY 03/21/17 [History] 3 Allergy/AdvReac Type Severity Reaction Status Date / Time Penicillins [PCN] Allergy Rash Verified 03/21/17 09:14 codeine AdvReac Hallucinati Verified 03/21/17 09:14 ng lorazepam [From Ativan] AdvReac Hallucinati Verified 03/21/17 09:14 ng All systems: reviewed and no additional remarkable complaints except as stated ( Shortness of breath with exertion, generalized weakness) Palliative Care-Exam - Constitutional Vitals: Temp Pulse Resp BP Pulse Ox 97.4 F L 96 18 107/76 96 03/24/17 12:45 03/24/17 07:40 03/24/17 09:15 03/24/17 12:45 03/24/17 07:40 General appearance: Present: mild distress - Head Head Exam: Present: normal inspection, normocephalic - Eye Eye exam: Present: normal appearance, PERRL - Respiratory Respiratory exam: Present: CTAB - Cardiovascular Cardiovascular exam: Present: +S1, +S2 - GI/Abdominal Exam GI/Abdominal exam: Present: normal bowel sounds, soft - Extremities Exam Additional comments: 1+ edema bilateral lower extremities - Neurological Exam Neurological exam: Present: alert, oriented X3, strengths equal and symetr throughout - Psychiatric Psychiatric exam: Present: normal affect, normal mood - Skin Skin exam: Present: dry, warm Internal Medicine - CN: Reslt - Labs CBC & Chem 7: 03/24/17 05:55 03/24/17 05:55 Labs: Short CBC 03/24/17 Range/Units 05:55 WBC 5.5 (4.3-11.1) K/mcL Hgb 10.0 L (12.9-16.9) g/dL Hct 31.7 L (37.5-50.1) % Plt Count 87 L (140-400) K/mcL Neutrophils # 4.3 (1.6-8.9) K/mcL BMP 03/24/17 05:55 Sodium 134 L Potassium 3.5 Chloride 85 L Carbon Dioxide 37 H BUN 60 H Creatinine 6.47 H Glucose 172 H Calcium 8.4 L - ABG Interpretation ABG results: PT/INR, D-dimer PT 18.2 Seconds (9.4-12.1) H 03/24/17 05:55 Consult Discharge Plan - Plan Referrals: Lonny Davison MD [Primary Care Provider] - 03/29/17 10:00 am (Please follow up as schedule...) Palliative Quality Palliative Quality: Screen for Code Status: Yes, Screen for Goals of Care: Yes, Screen for Pain: Yes, If Pain Regimen Started, Initiate Bowel Regimen: NA, Screen for Nausea/Vomitting: Yes Code Status: 03/19/17 20:58 Resuscitation Status: Active [RES] Routine Comment: Resuscitation Status: Full Code 03/21/17 13:27 Resuscitation Status: Active [RES] Routine Comment: Resuscitation Status: [id number]
[2017-03-24] MEDS ORDERED: Melatonin 3 MG TABLET PO ONE (17:27)
[2017-03-25] MEDS: Sodium Bicarbonate 150 MEQ in D5% in Water 1,000 ML IVC SCH (00:08)
[2017-03-25] MEDS: *HR* Metoprolol 5 MG/5 ML VIAL IVP PRN (03:57)
[2017-03-25 04:16] LABS: Hematocrit 32.9 % (37.5-50.1); Hemoglobin 10.3 g/dL (12.9-16.9); Immature Platelets 6.6 % (1.1-6.1); Mean Corpuscular HGB Conc 31.3 g/dL (31.6-35.5); Mean Corpuscular Hemoglobin 33.1 pg (28.0-33.3); Mean Corpuscular Volume 105.8 fL (83.0-100.0); Mean Platelet Volume 10.6 fL (9.4-12.4); Red Blood Count 3.11 M/mcL (4.19-5.50); Red Cell Distribution Width 22.6 % (11.5-14.5)
[2017-03-25 04:27] LABS: INR 1.7; Prothrombin Time 18.1 Seconds (9.4-12.1)
[2017-03-25 04:47] LABS: Calcium 8.6 mg/dL (8.6-10.3); Magnesium 1.5 mg/dL (1.6-2.6); Phosphorous 4.1 mg/dL (2.7-4.5); Potassium 3.8 mEq/L (3.5-5.1)
[2017-03-25] MEDS: Acetaminophen 325 MG TABLET PO PRN (05:51)
[2017-03-25] MEDS ORDERED: *HR* Heparin 10,000 UNIT/10 ML VIAL IV PRN (08:11)
[2017-03-25] MEDS ORDERED: 0.9 % Sodium Chloride 250 ML IVC PRN (08:11)
--- NOTE | 2017-03-25 11:02 | Internal Med Progress Note ---
<Nina Oswald - Last Filed: 03/25/17 14:43> Date of Encounter: 03/25/17 Time of Encounter: 11:00 - Assessment and plan (1) Acute kidney injury superimposed on chronic kidney disease Current Visit: Yes Status: Acute Assessment and plan: INR was 1.7 today and goal is 1.5 so permacath placement by IR is rescheduled for Tuesday. Also the patient has been hypotensive so Midodrine was started per nephrology. JENNIFER with CKD. Distribution Agent is Creatinine improving now 4.47 was 6.47 yesterday baseline serum creatinine 2.5- 3 temporary hemodialysis catheter placed HD total 3 rounds thus far HD for MWF but not today due to hypotension Plan: permanent dialysis catheter placement Tuesday Midodrine was started per nephrology NPO on Tuesday nephrology following, recommendations are appreciated monitor Cr, elecrolytes avoid nephrotoxins (2) Hypotension Current Visit: Yes Status: Acute Assessment and plan: Most likely due to intra-dialytic hypotension this morning BP 79/58 and now 94/67 Midodrine was started per nephrology Qualifiers: Qualified Code(s): I95.3 - Hypotension of hemodialysis (3) History of thromboembolism Current Visit: Yes Status: Chronic Assessment and plan: History of thromboembolism taking Xarelto. INR 1.7. goal is 1.5 for permacath procedure Plan: Continue Coumadin because safer with permacath placement Monitor INR (4) Cardiomyopathy Current Visit: Yes Status: Chronic Assessment and plan: Known history of nonischemic cardiomyopathy. Patient has been referred to advanced heart failure clinic at [facility], however deemed not a candidate for cardiac transplantation or LVAD support. Patient understands his grave prognosis, changed code status to DNR comfort care arrest/DNI. He will think about having his ICD removed. Echo 03/20/2017 showed LVEF 10%, moderate biventricular and biatrial dilation, severe global left ventricular systolic dysfunction, moderate mitral regurgitation and moderate pulmonary hypertension. Echo 11/2016 showed LVEF 15% Plan: Cardiology consulted and will follow up with the patient out patient. continue Metoprolol per cardiology: stop coreg due to hypotension Continue supportive care telemetry monitoring Qualifiers: Cardiomyopathy type: unspecified Qualified Code(s): I42.9 - Cardiomyopathy , unspecified (5) Goals of care, counseling/discussion Current Visit: Yes Status: Acute Assessment and plan: Patient change code status to DNR-CCA-DNI Patient has been referred to advanced heart failure clinic at [facility], however deemed not a candidate for cardiac transplantation or LVAD support. Patient understands his grave prognosis, changed code status to DNR comfort care arrest/DNI. He will think about having his ICD removed. Echo 03/20/2017 showed LVEF 10% now and was 11/2016 showed LVEF 15% Consulted palliative care, appreciate recommendations palliative discussed with patient and he declined hospice at this time (6) Atrial fibrillation Current Visit: Yes Status: Chronic Assessment and plan: History of a A.fib controlled with metoprolol and anticoagulation with xarelto tachycardic HR 111 Plan: metoprolol 50qd anticoagulation with Coumadin with pharmacy to dose continue Telemetry monitoring Qualifiers: Atrial fibrillation type: chronic Qualified Code(s): I48.2 - Chronic atrial fibrillation (7) Metabolic acidosis Current Visit: Yes Status: Acute Assessment and plan: Resolved with dialysis due to worsening renal failure (8) Hyperphosphatemia Current Visit: Yes Status: Chronic Assessment and plan: Improved Continue phosphate binders per nephrology (9) COPD (chronic obstructive pulmonary disease) Current Visit: Yes Status: Chronic Assessment and plan: History COPD. Controlled on 2L at 96% continue duoneb PRN Qualifiers: COPD type: unspecified COPD Qualified Code(s): J44.9 - Chronic obstructive pulmonary disease, unspecified (10) Hypothyroidism Current Visit: Yes Status: Chronic Assessment and plan: History of hypothyroidism continue home Levothyroxine Qualifiers: Hypothyroidism type: unspecified Qualified Code(s): E03.9 - Hypothyroidism , unspecified - Subjective Interval history: He reported that he is been informed by nephrology that he will have the permacath placed hopefully on Tuesday because his INR is still too high for IR to place it. And also his blood pressure has been very low so nephrology will be adding Midodrine to help increases the pressure. He has no complaints at this time. He denies fever, chills, shortness of breath, chest pain, nausea, vomiting. - Constitutional Vitals: Temp Pulse Resp BP Pulse Ox 98.1 F 112 18 79/58 96 03/25/17 08:09 03/25/17 08:09 03/25/17 08:09 03/25/17 08:09 03/25/17 08:09 General appearance: Present: A&O X 3, answers questions appropriately Exam: Gen.: Vitals noted. No acute distress. AAOx3 HEENT: oropharynx clear, Normocephalic, atraumatic Cardiac: RRR, no murmur, +S1/S2 Pulmonary: CTA bilaterally, no wheezes, rales or rhonchi, equal chest expansion Abdomen: soft, nontender, Bowel sounds noted, no guarding MSK: ROM intact, no joint swelling noted Extremities: + non pitting BLE edema, nontender calf, no cyanosis or clubbing Neuro: A&Ox3, moves all extremities, no focal deficits Psych: Appropriate mood and behavior Internal Medicine: Result - Labs CBC & Chem 7: 03/25/17 04:08 03/25/17 04:08 Labs: Short CBC 03/25/17 Range/Units 04:08 WBC 6.1 (4.3-11.1) K/mcL Hgb 10.3 L (12.9-16.9) g/dL Hct 32.9 L (37.5-50.1) % Plt Count 83 L (140-400) K/mcL BMP 03/25/17 04:08 Sodium 133 L Potassium 3.8 Chloride 89 L Carbon Dioxide 37 H BUN 34 H Creatinine 4.47 H Glucose 130 H Calcium 8.6 - ABG Interpretation ABG results: PT/INR, D-dimer PT 18.1 Seconds (9.4-12.1) H 03/25/17 04:08 Consult Discharge Plan - Plan Referrals: Lonny Davison MD [Primary Care Provider] - 03/29/17 10:00 am (Please follow up as schedule...) <Aiden Verma - Last Filed: 03/25/17 17:59> Date of Encounter: 03/25/17 - Constitutional Vitals: Temp Pulse Resp BP Pulse Ox 97.4 F L 116 16 90/59 99 03/25/17 17:25 03/25/17 17:25 03/25/17 17:25 03/25/17 17:25 03/25/17 17:25 Internal Medicine: Result - Labs CBC & Chem 7: 03/25/17 04:08 03/25/17 04:08 Labs: Short CBC 03/25/17 Range/Units 04:08 WBC 6.1 (4.3-11.1) K/mcL Hgb 10.3 L (12.9-16.9) g/dL Hct 32.9 L (37.5-50.1) % Plt Count 83 L (140-400) K/mcL BMP 03/25/17 04:08 Sodium 133 L Potassium 3.8 Chloride 89 L Carbon Dioxide 37 H BUN 34 H Creatinine 4.47 H Glucose 130 H Calcium 8.6 - ABG Interpretation ABG results: PT/INR, D-dimer PT 18.1 Seconds (9.4-12.1) H 03/25/17 04:08 - Attending Attestation I conducted a face to face diagnostic evaluation of this patient and my medical decision-making was reviewed with the Resident Physician. I agree with the documented findings, disposition and treatment plan as described except to the extent set forth below: Patient reports no shortness of breath at rest. He says that he was severely dyspneic last night. On exam heart is regular, lungs are clear. There is lower extremity edema. There is distended abdomen with ileostomy present. Plan: Appreciate nephrology recommendations. I discussed the plan with nephrology and discussed the plan with [facility] care service. We will plan to start midodrine for blood pressure support and continued hemodialysis. Plan for permacath placement on Tuesday for outpatient hemodialysis. Aiden Verma MD
--- NOTE | 2017-03-25 11:08 | Nephrology Progress Note ---
Date of Encounter: 03/25/17 Time of Encounter: 09:00 - Assessment and Plan (1) Intra-dialytic hypotension Current Visit: Yes Status: Acute Will hold off on HD today. R/B/I and SE profile discussed about Midodrine to help raise BPs. Will reassess for HD on Tuesday. NPO on Tuesday and then reattempt Permacath placement on Tuesday: hold warfarin. Long discussion with him and his regarding the risks vs benefits of chronic dialysis in his situation (both CMP and cirrhosis of the liver) will be more challenging. (2) ESRD (end stage renal disease) on dialysis Current Visit: Yes Status: Acute New to dialysis. Has temporary HD catheter in place. Will reassess for HD tomorrow if BPs would allow. (3) Goals of care, counseling/discussion Current Visit: Yes Status: Acute See above documentation regarding goals of care with regard to chronic dialysis. I spent >50% of the 20-25 min encounter counseling him about the Pros/ Cons of chronic dialysis. Ultimately he said that he wants to push forward with arranging for chronic dialysis. (4) Volume overload Current Visit: Yes Status: Acute Edema noted. Will reassess for HD vs UF tomorrow. Qualifiers: Hypervolemia type: other Qualified Code(s): E87.79 - Other fluid overload (5) Atrial fibrillation Current Visit: Yes Status: Chronic As per primary. Sometimes the hemodynamics of AF may impact HD and UF. Qualifiers: Atrial fibrillation type: chronic Qualified Code(s): I48.2 - Chronic atrial fibrillation (6) Cirrhosis Current Visit: No Status: Chronic As per primary. This is also likely contributing to his asymptomatic hypotension. Qualifiers: Hepatic cirrhosis type: unspecified hepatic cirrhosis Ascites presence: with ascites Qualified Code(s): K74.60 - Unspecified cirrhosis of liver Subjective Principal diagnosis: Cardiomyopathy, JENNIFER Interval history: Pt was s/e in his 2A room. His was present. He denied having symptoms of dizzines, N/V/D, lightheadedness or visual changes. He said that despite his lower BPs noted today, he was able to walk around feeling fine. We had a long conversation about chronic dialysis including the Pros/Cons, risks of lowering the BP and the real chance that his low BPs would likely limit the effectiveness of dialysis (especially fluid removal). He and his voiced that he wants to continue trying for dialysis and he voiced wanting the Permacath when able. Objective - Vital Signs Vital signs: Vital Signs Temp Pulse Resp BP Pulse Ox 03/25/17 08:09 98.1 F 112 18 79/58 96 03/25/17 04:53 97.3 F L 104 20 90/46 95 03/25/17 04:30 107 24 89/64 99 03/25/17 03:48 97.5 F L 121 16 115/80 96 03/24/17 23:15 97.6 F 113 20 85/54 95 03/24/17 16:50 98.4 F 120 16 110/53 100 03/24/17 12:45 97.4 F L 107/76 03/24/17 12:15 99/21 03/24/17 12:00 104/74 03/24/17 11:45 103/58 03/24/17 11:30 121/73 03/24/17 11:15 101/46 Intake and Output 03/24/17 03/25/17 03/25/17 23:59 07:59 15:59 Intake Total 1150 / 1150 1002 / 1002 Balance 1150 / 1150 1002 / 1002 Intake: IV Fluids 1150 / 1150 1002 / 1002 Sodium Bicarbonate 150 MEQ In 1150 / 1150 1002 / 1002 Dextrose 5% 1,000 ML @ 100 mls/ hr IVC .[id number] [facility] Rx#: [id number] Other: Blood Glucose* 127 - General Appearance General appearance: Present: well-developed, appears started age, cachectic EENT: Present: ATNC, PERRL, mucous membranes moist Neck: Present: supple Respiratory: Present: clear Cardiology: Present: edema, irregular rhythm, normal S1, normal S2 Dialysis Vascular Access: Venous Catheter (RIJ temporary HD catheter without surrounding erythema of the exit site.) Gastrointestinal: Present: normoactive bowel sounds, no tenderness Integumentary: Present: no rash, warm and dry, ecchymotic Neurologic: Present: no focal deficit, no asterixis, alert and oriented x3 Musculoskeletal: Present: no deformities, no erythema, no cyanosis Psychiatric: Present: mood/affect appropriate, cooperative - Lab 03/25/17 04:08 03/25/17 04:08 Most recent lab results Calcium 8.6 mg/dL (8.6-10.3) 03/25/17 04:08 Phosphorus 4.1 mg/dL (2.7-4.5) 03/25/17 04:08 Magnesium 1.5 mg/dL (1.6-2.6) L 03/25/17 04:08 Urine Creatinine 202 mg/dL 03/20/17 15:57 Urine Sodium < 10.0 mEq/L 03/20/17 15:57 Urine Total Protein 53 mg/dL 03/20/17 15:57 Consult Discharge Plan - Plan Referrals: Lonny Davison MD [Primary Care Provider] - 03/29/17 10:00 am (Please follow up as schedule...)
--- NOTE | 2017-03-25 13:16 | Event Note ---
Date of Encounter: 03/25/17 Time of Encounter: 13:15 Patient with hypotension this am, INR 1.7. Reviewed and discussed with Dr. Verma and Dr. Whaley. Patient permacath cancelled for today - no dialysis today. Nephrology beginning Midodrine for hypotension and will be re-assessed. Patient still desires to pursue dialysis. Will continue to follow clinical coarse. Code status remains DNR/DNI.
[2017-03-25] MEDS ORDERED: traZODone 50 MG TABLET PO PRN (21:53)
[2017-03-26 03:48] LABS: Basophils % 0.3 %; Eosinophils % 2.2 %; Immature Granulocytes % 0.5 % (0-4); Mean Platelet Volume 11.1 fL (9.4-12.4)
[2017-03-26 03:50] LABS: Eosinophils # 0.1 K/mcL (0.0-0.6); Hematocrit 33.7 % (37.5-50.1); Hemoglobin 10.6 g/dL (12.9-16.9); Immature Platelets 7.2 % (1.1-6.1); Lymphocytes # 0.9 K/mcL (0.6-4.6); Lymphocytes % 14.4 %; Mean Corpuscular HGB Conc 31.5 g/dL (31.6-35.5); Mean Corpuscular Hemoglobin 33.1 pg (28.0-33.3); Mean Corpuscular Volume 105.3 fL (83.0-100.0); Monocytes # 0.6 K/mcL (0.0-1.3); Monocytes % 10.1 %; Neutrophils # 4.5 K/mcL (1.6-8.9); Nucleated Red Blood Cells 0.5 /100 WBC (0); Red Cell Distribution Width 22.5 % (11.5-14.5); Segmented Neutrophils % 72.5 %
[2017-03-26 04:01] LABS: INR 1.7; Platelet Count 87 K/mcL (140-400); Prothrombin Time 18.9 Seconds (9.4-12.1)
[2017-03-26 04:13] LABS: Calcium 9.2 mg/dL (8.6-10.3); Potassium 4.1 mEq/L (3.5-5.1)
[2017-03-26 04:15] LABS: Macrocytosis Present (Not Present); Microcytosis Present (Not Present); Polychromasia 1+ (Not Present)
[2017-03-26 04:16] LABS: Anisocytosis 2+ (Not Present); Large Platelets Present (Not Present); Platelet Estimate Decreased (Normal)
--- NOTE | 2017-03-26 08:15 | Internal Med Progress Note ---
Addendum entered and electronically signed by Nina Oswald DO 03/26/17 12:21: Phytonadione (vit K) 1.25mg one time dose so to have INR 1.5 so that he may get perma cath on Tuesday. I spoke with nurse and she confirmed that coumadin has been held and the patient has not been receiving doses. Addendum entered and electronically signed by Nina Oswald DO 03/26/17 08:21: Gen.: Vitals noted. No acute distress. AAOx3 HEENT: oropharynx clear, Normocephalic, atraumatic Cardiac: RRR, no murmur, +S1/S2 Pulmonary: CTA bilaterally, no wheezes, rales or rhonchi, equal chest expansion Abdomen: soft, nontender, Bowel sounds noted, no guarding MSK: ROM intact, no joint swelling noted Extremities: + BLE non pitting edema, nontender calf, no cyanosis or clubbing Neuro: A&Ox3, moves all extremities, no focal deficits Psych: Appropriate mood and behavior Original Note: <Nina Oswald - Last Filed: 03/26/17 08:12> Date of Encounter: 03/26/17 Time of Encounter: 08:12 - Assessment and plan (1) Acute kidney injury superimposed on chronic kidney disease Current Visit: Yes Status: Acute Assessment and plan: INR was 1.7 today and goal is 1.5 so permacath placement by IR is rescheduled for Tuesday. Also the patient has been hypotensive so Midodrine was started per nephrology. JENNIFER with CKD. Telecommunicator is Creatinine 5.29 baseline serum creatinine 2.5- 3 temporary hemodialysis catheter placed HD total 3 rounds thus far HD for MWF Plan: permanent dialysis catheter placement Tuesday Midodrine was started per nephrology due to hypotension NPO on Tuesday nephrology following, recommendations are appreciated monitor Cr, elecrolytes avoid nephrotoxins (2) Hypotension Current Visit: Yes Status: Acute Assessment and plan: Most likely due to intra-dialytic hypotension this morning BP 97/58 Midodrine was started per nephrology Qualifiers: Qualified Code(s): I95.3 - Hypotension of hemodialysis (3) History of thromboembolism Current Visit: Yes Status: Chronic Assessment and plan: History of thromboembolism taking Xarelto. INR 1.7. goal is 1.5 for permacath procedure Plan: holding coumadin Monitor INR (4) Cardiomyopathy Current Visit: Yes Status: Chronic Assessment and plan: Known history of nonischemic cardiomyopathy. Patient has been referred to advanced heart failure clinic at [facility], however deemed not a candidate for cardiac transplantation or LVAD support. Patient understands his grave prognosis, changed code status to DNR comfort care arrest/DNI. He will think about having his ICD removed. Echo 03/20/2017 showed LVEF 10%, moderate biventricular and biatrial dilation, severe global left ventricular systolic dysfunction, moderate mitral regurgitation and moderate pulmonary hypertension. Echo 11/2016 showed LVEF 15% Plan: Cardiology consulted and will follow up with the patient out patient. continue Metoprolol per cardiology: stop coreg due to hypotension Continue supportive care telemetry monitoring Qualifiers: Cardiomyopathy type: unspecified Qualified Code(s): I42.9 - Cardiomyopathy , unspecified (5) Goals of care, counseling/discussion Current Visit: Yes Status: Acute Assessment and plan: Patient change code status to DNR-CCA-DNI Patient has been referred to advanced heart failure clinic at [facility], however deemed not a candidate for cardiac transplantation or LVAD support. Patient understands his grave prognosis, changed code status to DNR comfort care arrest/DNI. He will think about having his ICD removed. Echo 03/20/2017 showed LVEF 10% now and was 11/2016 showed LVEF 15% Consulted palliative care, appreciate recommendations palliative discussed with patient and he declined hospice at this time (6) Atrial fibrillation Current Visit: Yes Status: Chronic Assessment and plan: History of a A.fib controlled with metoprolol and anticoagulation with xarelto tachycardic HR 117 Plan: metoprolol 50qd anticoagulation with Coumadin with pharmacy to dose continue Telemetry monitoring Qualifiers: Atrial fibrillation type: chronic Qualified Code(s): I48.2 - Chronic atrial fibrillation (7) Metabolic acidosis Current Visit: Yes Status: Acute Assessment and plan: Resolved with dialysis due to worsening renal failure (8) Hyperphosphatemia Current Visit: Yes Status: Chronic Assessment and plan: Improved Continue phosphate binders per nephrology (9) COPD (chronic obstructive pulmonary disease) Current Visit: Yes Status: Chronic Assessment and plan: History COPD. Controlled room air 96% continue duoneb PRN Qualifiers: COPD type: unspecified COPD Qualified Code(s): J44.9 - Chronic obstructive pulmonary disease, unspecified (10) Hypothyroidism Current Visit: Yes Status: Chronic Assessment and plan: History of hypothyroidism continue home Levothyroxine Qualifiers: Hypothyroidism type: unspecified Qualified Code(s): E03.9 - Hypothyroidism , unspecified (11) DVT prophylaxis Current Visit: No Status: Acute Assessment and plan: EPCD ambulate - Subjective Interval history: His is at the bedside and teary eyed. He has no complaints at this time. He denies fever, chills, shortness of breath, chest pain, nausea, vomiting. - Constitutional Vitals: Temp Pulse Resp BP Pulse Ox 98.0 F 117 17 97/58 96 03/26/17 08:05 03/26/17 08:05 03/26/17 08:05 03/26/17 08:05 03/26/17 08:05 General appearance: Present: A&O X 3, answers questions appropriately Internal Medicine: Result - Labs CBC & Chem 7: 03/26/17 03:35 03/26/17 03:35 Labs: Short CBC 03/26/17 Range/Units 03:35 WBC 6.2 (4.3-11.1) K/mcL Hgb 10.6 L (12.9-16.9) g/dL Hct 33.7 L (37.5-50.1) % Plt Count 87 L (140-400) K/mcL Neutrophils # 4.5 (1.6-8.9) K/mcL BMP 03/26/17 03:35 Sodium 133 L Potassium 4.1 Chloride 87 L Carbon Dioxide 35 H BUN 40 H Creatinine 5.29 H Glucose 99 Calcium 9.2 - ABG Interpretation ABG results: PT/INR, D-dimer PT 18.9 Seconds (9.4-12.1) H 03/26/17 03:35 Consult Discharge Plan - Plan Referrals: Lonny Davison MD [Primary Care Provider] - 03/29/17 10:00 am (Please follow up as schedule...) <Aiden Verma - Last Filed: 03/26/17 16:50> Date of Encounter: 03/26/17 - Constitutional Vitals: Temp Pulse Resp BP Pulse Ox 99.1 F 119 19 116/71 95 03/26/17 14:00 03/26/17 12:33 03/26/17 14:00 03/26/17 16:30 03/26/17 12:33 Internal Medicine: Result - Labs CBC & Chem 7: 03/26/17 03:35 03/26/17 03:35 Labs: Short CBC 03/26/17 Range/Units 03:35 WBC 6.2 (4.3-11.1) K/mcL Hgb 10.6 L (12.9-16.9) g/dL Hct 33.7 L (37.5-50.1) % Plt Count 87 L (140-400) K/mcL Neutrophils # 4.5 (1.6-8.9) K/mcL BMP 03/26/17 03:35 Sodium 133 L Potassium 4.1 Chloride 87 L Carbon Dioxide 35 H BUN 40 H Creatinine 5.29 H Glucose 99 Calcium 9.2 - ABG Interpretation ABG results: PT/INR, D-dimer PT 18.9 Seconds (9.4-12.1) H 03/26/17 03:35 - Attending Attestation I conducted a face to face diagnostic evaluation of this patient and my medical decision-making was reviewed with the Resident Physician. I agree with the documented findings, disposition and treatment plan as described except to the extent set forth below: Patient reports shortness of breath mostly at night with lying down. Denies any associated chest pain. On exam heart is irregular, lungs sounds are clear, abdomen is distended with dullness to percussion and flanks and ileostomy bag present. There is some median postsurgical scar. Plan: Continue with midodrine. Continue with dialysis, patient having hemodialysis while I am examining him. Tolerating well. Blood pressure is marginal between high 80s to low 100s systolic. Plan for permacath placement and paracentesis on Tuesday. Aiden Verma MD
[2017-03-26] MEDS ORDERED: *HR* Phytonadione 5 MG TABLET PO ONE (09:16)
--- NOTE | 2017-03-26 10:01 | Nephrology Progress Note ---
Date of Encounter: 03/26/17 Time of Encounter: 09:15 - Assessment and Plan (1) Intra-dialytic hypotension Current Visit: Yes Status: Acute BPs slightly improved today and the pt remains asymptomatic since adding routinely scheduled Midodrine 2.5mg po tid. Worse dyspnea today and would recommend HD for iHD of clearance and fluid removal as tolerated. Continue to hold coumadin such that he may (ideally) be a candidate for a Permacath on Tuesday (to be NPO on Tuesday night), and will plan for HD on Tuesday as well. I see that Warfarin was still active and he may have received a dose last night, so I went ahead and discontinued it to help ensure that it's given tonight (INR was at 1.7). Still awaiting dialysis chair time arrangement. The pt has followed with Dr. Leavitt in the clinic in the past. (2) ESRD (end stage renal disease) on dialysis Current Visit: Yes Status: Acute New to dialysis. Has temporary HD catheter in place. Will reassess for HD tomorrow if BPs would allow. (3) Goals of care, counseling/discussion Current Visit: Yes Status: Acute See above documentation regarding goals of care with regard to chronic dialysis. I spent >50% of the 20-25 min encounter counseling him about the Pros/ Cons of chronic dialysis. Ultimately he said that he wants to push forward with arranging for chronic dialysis. (4) Volume overload Current Visit: Yes Status: Acute Edema noted. Will reassess for HD vs UF tomorrow. Qualifiers: Qualified Code(s): E87.79 - Other fluid overload (5) Atrial fibrillation Current Visit: Yes Status: Chronic As per primary. Sometimes the hemodynamics of AF may impact HD and UF. Qualifiers: Qualified Code(s): I48.2 - Chronic atrial fibrillation (6) Cirrhosis Current Visit: No Status: Chronic As per primary. This is also likely contributing to his asymptomatic hypotension. Qualifiers: Qualified Code(s): K74.60 - Unspecified cirrhosis of liver Subjective Principal diagnosis: Cardiomyopathy, JENNIFER Interval history: Pt was s/e in the ICU where he transferred overnight from a tachyarrhythmia and hypotension. He reported feeling tire and more short of breath. He did not affirm chest pain. His was at the bedside. He voiced that he may be interested in palliative care after all. Objective - Vital Signs Vital signs: Vital Signs Temp Pulse Resp BP Pulse Ox 03/26/17 08:05 98.0 F 117 17 97/58 96 03/26/17 03:01 98.0 F 76 17 109/66 97 03/25/17 22:35 98.2 F 119 15 105/66 95 03/25/17 17:25 97.4 F L 116 16 90/59 99 03/25/17 11:39 97.4 F L 111 18 94/67 96 Intake and Output 03/25/17 03/26/17 03/26/17 23:59 07:59 15:59 Intake Total 480 / 480 Output Total 0 / 0 Balance 480 / 480 Intake: Oral 480 / 480 Output: Urine 0 / 0 Other: Meal Breakfast Percent of Meal Consumed 90% # Voids 1 1 - General Appearance Exam: General appearance: Present: well-developed, appears started age, cachectic EENT: Present: ATNC, PERRL, mucous membranes moist Neck: Present: supple Respiratory: Present: clear Cardiology: Present: edema, irregular rhythm, normal S1, normal S2 Dialysis Vascular Access: Venous Catheter (RIJ temporary HD catheter without surrounding erythema of the exit site.) Gastrointestinal: Present: normoactive bowel sounds, no tenderness Integumentary: Present: no rash, warm and dry, ecchymotic Neurologic: Present: no focal deficit, no asterixis, alert and oriented x3 Musculoskeletal: Present: no deformities, no erythema, no cyanosis Psychiatric: Present: mood/affect appropriate, cooperative - Lab 03/29/17 03:20 03/29/17 03:20 Most recent lab results Calcium 9.2 mg/dL (8.6-10.3) 03/26/17 03:35 Phosphorus 4.1 mg/dL (2.7-4.5) 03/25/17 04:08 Magnesium 1.5 mg/dL (1.6-2.6) L 03/25/17 04:08 Urine Creatinine 202 mg/dL 03/20/17 15:57 Urine Sodium < 10.0 mEq/L 03/20/17 15:57 Urine Total Protein 53 mg/dL 03/20/17 15:57 Consult Discharge Plan - Plan Referrals: Lonny Davison MD [Primary Care Provider] - 03/29/17 10:00 am (Please follow up as schedule...)
[2017-03-26] MEDS ORDERED: Albumin 25% 12.5gm/50mL 12.5 GM/50 ML IV.SOLN IVPB PRN (10:02)
[2017-03-26] MEDS ORDERED: 0.9 % Sodium Chloride 250 ML IVC PRN (10:02)
[2017-03-26] MEDS ORDERED: 0.9 % Sodium Chloride 2,000 ML ONE (13:00)
[2017-03-26] MEDS: Acetaminophen 325 MG TABLET PO PRN (17:44)
[2017-03-27] MEDS: Ipratropium/Albuterol Neb 3 ML IH PRN (00:10)
[2017-03-27] MEDS ORDERED: Amiodarone Premix 360 MG/200 ML BAG IVC ONE (04:08)
[2017-03-27 04:52] LABS: INR 1.8; Prothrombin Time 19.5 Seconds (9.4-12.1)
[2017-03-27 05:01] LABS: Calcium 8.9 mg/dL (8.6-10.3); Magnesium 1.8 mg/dL (1.6-2.6); Potassium 3.9 mEq/L (3.5-5.1)
--- NOTE | 2017-03-27 05:32 | Event Note ---
<Jn Robles - Last Filed: 03/27/17 05:22> Date of Encounter: 03/27/17 Time of Encounter: 04:50 Patient was experiencing some shortness of breath while lying earlier in the night. I saw the patient who had diffuse wheezes in his lungs b/l, and gave him a breathing treatment which improved symptoms. Later, I recieved notification from the floor nurse that the patient was experiencing V-Tach. I immediately presented to the patient's room who was sitting on the edge of his bed, and he was acutely dyspneic. I got a stat EKG and BMP/Mag which did not indicate any acute ischemia. I did give the patient a dose of magnesium. The patient did not complain of any chest pain, and the SOB did resolve spontaneously. I initiated the transfer of the patient to the ICU for amiodarone drip. Patient and family agreed to this plan, all questions were answered. The patient was moved without incident, and remains on the monitor. <Haroldo Blum - Last Filed: 03/27/17 06:31> Date of Encounter: 03/27/17 I discussed patient case and then evaluated patient with Dr. Robles. I agree with his plan.
--- NOTE | 2017-03-27 09:16 | Internal Med Progress Note ---
<Nina Oswald - Last Filed: 03/27/17 14:28> Date of Encounter: 03/27/17 Time of Encounter: 08:50 - Assessment and plan (1) Acute kidney injury superimposed on chronic kidney disease Current Visit: Yes Status: Acute Assessment and plan: INR increased 1.8 today and goal is 1.5 so permacath placement by IR is rescheduled for Tuesday. 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 Director Of Donor Relations is Creatinine 4.48 baseline serum creatinine 2.5- 3 temporary hemodialysis catheter placed HD total 4 rounds thus far. HD for MWF He may have dialysis today or tomorrow Phytonadione given yesterday Plan: permanent dialysis catheter placement Tuesday continue Midodrine per nephrology for hypotension NPO on Tuesday nephrology following, recommendations are appreciated monitor Cr, elecrolytes avoid nephrotoxins fluid restriction 2L per day renal diet (2) Cardiomyopathy Current Visit: Yes Status: Chronic Assessment and plan: Last night he had a round of V-tach and was started on amioderone. He is now is sinus tach. HR 118 Known history of nonischemic cardiomyopathy. Patient has been referred to advanced heart failure clinic at [facility], however deemed not a candidate for cardiac transplantation or LVAD support. Patient understands his grave prognosis, changed code status to DNR CCA /DNI. He will think about having his ICD removed. Echo 03/20/2017 showed LVEF 10%, moderate biventricular and biatrial dilation, severe global left ventricular systolic dysfunction, moderate mitral regurgitation and moderate pulmonary hypertension. Echo 11/2016 showed LVEF 15% Plan: Cardio consulted again for recommendations and will come see patient: they added Toprol XL to 12.5mg PO BID continue Metoprolol 5mg IV PRN per cardiology: stop coreg due to hypotension Continue supportive care telemetry monitoring Cardiology consulted and will follow up with the patient out patient. Qualifiers: Cardiomyopathy type: unspecified Qualified Code(s): I42.9 - Cardiomyopathy , unspecified (3) History of thromboembolism Current Visit: Yes Status: Chronic Assessment and plan: Patient is complaining of increased shortness of breathe. tachycardia 118, 100% saturation on 2L oxygen, tachypnea. Concern for PE since INR is subtherapeutic. History of thromboembolism taking Xarelto. INR 1.8 goal is 1.5 for permacath procedure He has an IVC filter in place Plan: SAT VQ and lower extremity doppler U/S ordered holding coumadin Monitor INR (4) Hypotension Current Visit: Yes Status: Acute Assessment and plan: Most likely due to intra-dialytic hypotension BP 105/83 Midodrine was started per nephrology Qualifiers: Qualified Code(s): I95.3 - Hypotension of hemodialysis (5) Goals of care, counseling/discussion Current Visit: Yes Status: Acute Assessment and plan: The patient reports that he would like to speak will palliative again about hospice Patient change code status to DNR-CCA-DNI Patient has been referred to advanced heart failure clinic at [facility], however deemed not a candidate for cardiac transplantation or LVAD support. Patient understands his grave prognosis, changed code status to DNR comfort care arrest/DNI. He will think about having his ICD removed. Echo 03/20/2017 showed LVEF 10% now and was 11/2016 showed LVEF 15% Consulted palliative care, appreciate recommendations palliative discussed with patient and he declined hospice at this time (6) Cirrhosis Current Visit: No Status: Chronic Assessment and plan: CT ab/pelvis showed cirrhotic liver. moderate amount of ascites. Patient reports this is the first time he has heard he has liver cirrhosis Qualifiers: Hepatic cirrhosis type: unspecified hepatic cirrhosis Ascites presence: with ascites Qualified Code(s): K74.60 - Unspecified cirrhosis of liver (7) Atrial fibrillation Current Visit: Yes Status: Chronic Assessment and plan: History of a A.fib controlled with metoprolol and anticoagulation with xarelto tachycardic HR 118 Plan: metoprolol 5mg IV PRN holding Coumadin due to need for perma cath placement Tuesday continue Telemetry monitoring Qualifiers: Atrial fibrillation type: chronic Qualified Code(s): I48.2 - Chronic atrial fibrillation (8) Metabolic acidosis Current Visit: Yes Status: Acute Assessment and plan: Resolved with dialysis due to worsening renal failure (9) Hyperphosphatemia Current Visit: Yes Status: Chronic Assessment and plan: Improved Continue phosphate binders per nephrology (10) COPD (chronic obstructive pulmonary disease) Current Visit: Yes Status: Chronic Assessment and plan: History COPD. Controlled 100% oxygen on 2L continue duoneb PRN Qualifiers: COPD type: unspecified COPD Qualified Code(s): J44.9 - Chronic obstructive pulmonary disease, unspecified (11) Hypothyroidism Current Visit: Yes Status: Chronic Assessment and plan: History of hypothyroidism continue home Levothyroxine Qualifiers: Hypothyroidism type: unspecified Qualified Code(s): E03.9 - Hypothyroidism , unspecified (12) DVT prophylaxis Current Visit: No Status: Acute Assessment and plan: EPCD ambulate - Subjective Interval history: He complains of increased shortness of breathe and insomnia. He denies fever, chills, chest pain, nausea, vomiting. - Constitutional Vitals: Temp Pulse Resp BP Pulse Ox 98.3 F 127 16 105/83 100 03/27/17 04:16 03/27/17 08:00 03/27/17 07:00 03/27/17 07:00 03/27/17 07:00 General appearance: Present: A&O X 3, answers questions appropriately Exam: Gen.: Vitals noted. No acute distress. AAOx3 HEENT: oropharynx clear, Normocephalic, atraumatic Neck: Supple. No adenopathy. Cardiac: tachycardic, no murmur, +S1/S2 Pulmonary: CTA bilaterally, no wheezes, rales or rhonchi, equal chest expansion Abdomen: soft, nontender, Bowel sounds noted, no guarding, right-sided ileostomy Extremities: positive BLE +1 hitting edema, nontender calf, no cyanosis or clubbing Neuro: A&Ox3, moves all extremities, no focal deficits Psych: Appropriate mood and behavior Internal Medicine: Result - Labs CBC & Chem 7: 03/26/17 03:35 03/27/17 04:36 Labs: BMP 03/27/17 04:36 Sodium 136 Potassium 3.9 Chloride 92 L Carbon Dioxide 31 H BUN 30 H Creatinine 4.48 H Glucose 123 H Calcium 8.9 - ABG Interpretation ABG results: PT/INR, D-dimer PT 19.5 Seconds (9.4-12.1) H 03/27/17 04:36 Consult Discharge Plan - Plan Referrals: Lonny Davison MD [Primary Care Provider] - 03/29/17 10:00 am (Please follow up as schedule...) <Aiden Verma - Last Filed: 03/28/17 23:09> Date of Encounter: 03/27/17 - Constitutional Vitals: Temp Pulse Resp BP Pulse Ox 97.5 F L 105 20 96/69 94 03/28/17 20:55 03/28/17 23:00 03/28/17 22:00 03/28/17 22:00 03/28/17 22:00 Internal Medicine: Result - Labs CBC & Chem 7: 03/28/17 03:45 03/28/17 03:45 Labs: Short CBC 03/28/17 Range/Units 03:45 WBC 7.1 (4.3-11.1) K/mcL Hgb 11.3 L (12.9-16.9) g/dL Hct 36.6 L (37.5-50.1) % Plt Count 118 L (140-400) K/mcL Neutrophils # 4.9 (1.6-8.9) K/mcL BMP 03/28/17 03:45 Sodium 132 L Potassium 5.6 H D Chloride 89 L Carbon Dioxide 23 BUN 43 H Creatinine 5.54 H Glucose 64 L Calcium 9.7 - ABG Interpretation ABG results: PT/INR, D-dimer PT 27.0 Seconds (9.4-12.1) H 03/28/17 03:45 - Attending Attestation I conducted a face to face diagnostic evaluation of this patient and my medical decision-making was reviewed with the Resident Physician. I agree with the documented findings, disposition and treatment plan as described except to the extent set forth below: Continue with hemodialysis per nephrology. Plan for paracentesis tomorrow. We will give an additional dose of vitamin K. Aiden Verma MD
[2017-03-27] MEDS ORDERED: Furosemide 40 MG/4 ML VIAL ONE (10:27)
[2017-03-27] MEDS ORDERED: Melatonin 3 MG TABLET PO PRN (10:35)
[2017-03-27] MEDS ORDERED: Furosemide 80 MG in 0.9 % Sodium Chloride 50 ML IVPB ONE (10:39)
--- NOTE | 2017-03-27 10:44 | Nephrology Progress Note ---
Date of Encounter: 03/27/17 Time of Encounter: 10:15 - Assessment and Plan (1) Intra-dialytic hypotension Current Visit: Yes Status: Acute Tachyarrhythmia overnight now in ICU on Amio gtt. Agree with cardio consult. Dyspneic today and will rec Lasix 80mg IV x1 and should have I/Os and BPs and HR monitored to help titrate the next dose of diuretics. Had HD yesterday with net of 1kg UF. Pt is asking for more sleeping aides, but will defer to primary. Discussed with Hospitalist resident and considering the risks for VTE, consider VQ scan plus LE dopplers first, but if CTA chest is necessary, then it would be okay (not ideal in terms of protecting his residual renal function). Next HD is tentatively set for Tuesday and hoping that he diureses with lasix today. I counseled him that he remains very ill and his chcf even short term prognosis is relatively poor. He said that he was interested in talking more with Palliative Care. His and the SUPERVISORY EXAMINER was present. (2) ESRD (end stage renal disease) on dialysis Current Visit: Yes Status: Acute New to dialysis. Has temporary HD catheter in place. (3) Goals of care, counseling/discussion Current Visit: Yes Status: Acute (4) Volume overload Current Visit: Yes Status: Acute Edema noted so will reattempt HD with fluid removal today. Qualifiers: Qualified Code(s): E87.79 - Other fluid overload (5) Atrial fibrillation Current Visit: Yes Status: Chronic As per primary. Sometimes the hemodynamics of AF may impact HD and UF. Qualifiers: Qualified Code(s): I48.2 - Chronic atrial fibrillation (6) Cirrhosis Current Visit: No Status: Chronic As per primary. This is also likely contributing to his asymptomatic hypotension. Qualifiers: Qualified Code(s): K74.60 - Unspecified cirrhosis of liver Subjective Principal diagnosis: Cardiomyopathy, JENNIFER Interval history: Pt was s/e and he reported ongoing fatigue, shortness of breath and swelling. Discussed with the ICU team including RN and resident team. Objective - Vital Signs Vital signs: Vital Signs Temp Pulse Resp BP Pulse Ox 03/27/17 09:00 116 48 107/83 94 03/27/17 08:20 96.8 F L 03/27/17 08:00 127 03/27/17 07:00 125 16 105/83 100 03/27/17 06:30 118 24 96/72 100 03/27/17 05:00 112 24 99/60 100 03/27/17 04:50 120 22 112/80 97 03/27/17 04:16 98.3 F 127 18 104/69 99 03/27/17 01:40 98.4 F 126 15 109/65 96 03/27/17 00:10 23 87 03/26/17 22:03 97.4 F L 112 19 149/88 97 03/26/17 17:20 97.4 F L 21 105/69 03/26/17 17:00 123/69 03/26/17 16:45 115/58 03/26/17 16:30 116/71 03/26/17 16:15 104/69 03/26/17 16:00 113/57 03/26/17 15:45 102/74 03/26/17 15:30 105/71 03/26/17 15:15 111/71 03/26/17 15:00 106/78 03/26/17 14:45 104/76 03/26/17 14:30 99/76 03/26/17 14:15 105/72 03/26/17 14:00 99.1 F 19 104/72 03/26/17 12:33 97.3 F L 119 17 112/76 95 Intake and Output 03/26/17 03/27/17 03/27/17 23:59 07:59 15:59 Output Total 1600 / 1600 Balance -1600 / -1600 Output: Urine 0 / 0 Total Dialysis (HD) Output 1600 / 1600 Other: # Voids 0 Weight 84.9 kg Blood Glucose* 111 Hemodialysis Net Fluid Removed 1000 (mL) Patient Weight 03/27/17 23:59 Weight 84.9 kg - General Appearance Exam: General appearance: Present: well-developed, appears started age, cachectic EENT: Present: ATNC, PERRL, mucous membranes moist Neck: Present: supple Respiratory: Present: clear Cardiology: Present: edema, irregular rhythm, normal S1, normal S2, +2+ pitting edema bilaterally Dialysis Vascular Access: Venous Catheter (RIJ temporary HD catheter without surrounding erythema of the exit site.) Gastrointestinal: Present: normoactive bowel sounds, no tenderness Integumentary: Present: no rash, warm and dry, ecchymotic Neurologic: Present: no focal deficit, no asterixis, alert and oriented x3 Musculoskeletal: Present: no deformities, no erythema, no cyanosis Psychiatric: Present: mood/affect appropriate, cooperative - Lab 03/29/17 03:20 03/29/17 03:20 Most recent lab results Calcium 8.9 mg/dL (8.6-10.3) 03/27/17 04:36 Phosphorus 4.1 mg/dL (2.7-4.5) 03/25/17 04:08 Magnesium 1.8 mg/dL (1.6-2.6) 03/27/17 04:36 Urine Creatinine 202 mg/dL 03/20/17 15:57 Urine Sodium < 10.0 mEq/L 03/20/17 15:57 Urine Total Protein 53 mg/dL 03/20/17 15:57 Consult Discharge Plan - Plan Referrals: Lonny Davison MD [Primary Care Provider] - 03/29/17 10:00 am (Please follow up as schedule...)
[2017-03-27] MEDS ORDERED: Furosemide 40 MG/4 ML VIAL IVP ONE (10:53)
--- NOTE | 2017-03-27 12:38 | Event Note ---
Addendum entered and electronically signed by Hardeep Cardoza CNP 03/27/17 14:15 : Patient now seen at bedside and A. fib with RVR in the 110s to 120s. Patient denies any ICD shocks. He reports contemplating going home to hospice care and the activating ICD. We'll reevaluate tomorrow. All questions answered. Original Note: <Hardeep Cardoza - Last Filed: 03/27/17 13:14> Date of Encounter: 03/27/17 Time of Encounter: 12:30 - Cardiology Event Note Known history of systolic CHF. Of note, patient had previously been referred to [facility] for advanced heart failure therapy and was deemed not a candidate for transplant or LVAD. On hemodialysis. TTE with LVEF 10%, previous 15%. Patient with poor prognosis due to advanced heart failure and not a candidate for advanced heart failure therapies. Code status: DNR-CCA/DNI. Palliative care following for eval for Hospice. Cardiology asked to reevaluate patient due to concerns of possible VT. Tele and strips reviewed with Dr. Nichole, appears to be afib RVR with aberrancy. Patient currently off floor at VQ scan to evaluate for possible PE-- INR is 1.8 and is on Coumadin. No family at bedside. Discussed with nursing staff, reportedly transferred from floor with concerns of VT last night and started on IV amiodarone, which has now been discontinued. Heart rate the past 24 hours 117-- afib with L BBB. Per review of records Toprol-XL 50 mg by mouth daily has been held since 03/23/17. RN denies patient reporting ICD shocks. Received Mag rider. Discussed and reviewed with Dr. Nichole, will decrease Toprol XL to 12.5mg PO BID- - hold if SBP less than 90mm Hg. S/p amio IV-- now off. Will start amio 200mg PO BID. If patient desires to proceed with Hospice, will need ICD deactivated. Will follow. Laboratory Tests 03/27/17 04:36 Potassium 3.9 Magnesium 1.8 <Kassidy Nichole - Last Filed: 03/27/17 17:07> Date of Encounter: 03/27/17 - Cardiology Event Note Spoke with Hardeep Cardoza CNP about this case. We were asked for re-evaluation of a previously placed consult. Reviewed rhythm strips - appears to be Afib with aberrancy. Patient was never hemodynamically unstable. He has a bundle branch block at baseline as well. Defibrillator did not discharge. Recommend repleting electrolytes. Given borderline overall BP, not unreasonable to add amiodarone. Will follow with official consult tomorrow.
[2017-03-27] MEDS: Metoprolol XL (24 HR) Succ 25 MG TAB.ER.24H PO SCH ×2 (16:30→20:08)
[2017-03-27] MEDS: *HR* Amiodarone 200 MG TABLET PO SCH ×2 (16:30→20:08)
[2017-03-27] MEDS ORDERED: *HR* Phytonadione 5 MG TABLET PO ONE (17:24)
[2017-03-27] MEDS ORDERED: *HR* Morphine 2 MG/ML SYRINGE IVP PRN (17:27)
[2017-03-27] MEDS ORDERED: Temazepam 15 MG CAPSULE PO ONE (17:57)
[2017-03-27] MEDS ORDERED: Temazepam 15 MG CAPSULE PO PRN (21:00)
[2017-03-28 04:17] LABS: Basophils % 0.6 %; Eosinophils # 0.1 K/mcL (0.0-0.6); Eosinophils % 1.7 %; Hematocrit 36.6 % (37.5-50.1); Hemoglobin 11.3 g/dL (12.9-16.9); Immature Granulocytes % 0.7 % (0-4); Immature Platelets 10.7 % (1.1-6.1); Lymphocytes # 1.1 K/mcL (0.6-4.6); Lymphocytes % 14.9 %; Mean Corpuscular HGB Conc 30.9 g/dL (31.6-35.5); Mean Corpuscular Hemoglobin 33.3 pg (28.0-33.3); Mean Platelet Volume 11.4 fL (9.4-12.4); Monocytes # 0.9 K/mcL (0.0-1.3); Monocytes % 12.6 %; Neutrophils # 4.9 K/mcL (1.6-8.9); Nucleated Red Blood Cells 0.3 /100 WBC (0); Platelet Count 118 K/mcL (140-400); Red Blood Count 3.39 M/mcL (4.19-5.50); Red Cell Distribution Width 22.6 % (11.5-14.5); Segmented Neutrophils % 69.5 %
[2017-03-28 04:26] LABS: INR 2.5
[2017-03-28 05:19] LABS: Calcium 9.7 mg/dL (8.6-10.3); Potassium 5.6 mEq/L (3.5-5.1)
[2017-03-28] MEDS ORDERED: *HR* Dextrose 50 % in Water (Syg) 50 ML SYRINGE IVP ONE (06:45)
[2017-03-28] MEDS ORDERED: Albumin 25% 12.5gm/50mL 12.5 GM/50 ML IV.SOLN IVPB PRN (06:49)
[2017-03-28] MEDS ORDERED: 0.9 % Sodium Chloride 250 ML IVC PRN (06:49)
[2017-03-28] MEDS ORDERED: Dextrose Gel 15 GM/37.5 ML TUBE PO PRN ×2 (07:43)
[2017-03-28] MEDS ORDERED: *HR* Dextrose 50 % in Water (Syg) 50 ML SYRINGE IVP PRN (07:43)
[2017-03-28] MEDS ORDERED: D5% in Water 1,000 ML IVC PRN (07:43)
--- NOTE | 2017-03-28 08:31 | Nephrology Progress Note ---
Date of Encounter: 03/28/17 Time of Encounter: 08:29 - Assessment and Plan (1) Intra-dialytic hypotension Current Visit: Yes Status: Acute Patient remians in ICU, now off Amiodarone drip. BP remains stable this AM on oral Amiodarone and Midodrine. Patient has ongoing fluid overload s/p Lasix 80mg IV x1 Continue I/Os and BPs and HR monitoring (2) Volume overload Current Visit: Yes Status: Acute 3+ edema noted. Resume HD today INR is too elevated for permacath placement/paracentesis Qualifiers: Hypervolemia type: other Qualified Code(s): E87.79 - Other fluid overload (3) ESRD (end stage renal disease) on dialysis Current Visit: Yes Status: Acute New to dialysis. Has temporary HD catheter in place. BP remains stable this AM on oral Amiodarone and Midodrine. Resume HD today if BPs allow. Tunneled HD catheter placement was postponed today due to INR 2.5 Still awaiting dialysis chair time arrangement. The pt has followed with Dr. Leavitt in the clinic in the past. (4) Acute kidney injury superimposed on chronic kidney disease Current Visit: Yes Status: Acute Increasing creatinine No urine output overnight Resume HD today if BP allows (5) Cirrhosis Current Visit: No Status: Chronic As per primary team. This is also likely contributing to his asymptomatic hypotension. INR is too elevated for paracentesis Qualifiers: Hepatic cirrhosis type: unspecified hepatic cirrhosis Ascites presence: with ascites Qualified Code(s): K74.60 - Unspecified cirrhosis of liver (6) Atrial fibrillation Current Visit: Yes Status: Chronic As per primary team. Sometimes the hemodynamics of AF may impact HD and UF. 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 Held Coumadin such that he may (ideally) be a candidate for a Permacath once INR allows (patient must be NPO after midnight). Management per primary team Qualifiers: DVT location: lower extremity Affected thrombotic vein of extremity: unspecified vein of extremity Chronicity: chronic Laterality: unspecified laterality Qualified Code(s): I82.509 - Chronic embolism and thrombosis of unspecified deep veins of unspecified lower extremity (11) Goals of care, counseling/discussion Current Visit: Yes Status: Acute After long discussion with patient counseling him about the Pros/Cons of chronic dialysis, he said that he wants to push forward with arranging for chronic dialysis. Palliative care is onboard to help re-emphasize goals of care with regard to chronic dialysis and prognosis. Subjective Principal diagnosis: Cardiomyopathy, JENNIFER Interval history: Patient seen and examined after eating breakfast. His tunneled HD catheter placement was postponed today due to INR 2.5 and lower extremity U/S revealed chronic DVTs in bilateral lower common femoral veins. His BP remains stable this AM on oral Amiodarone and Midodrine. He reports no urine output overnight. Patient would like to continue HD as scheduled today but would also like to speak with palliative care team again this AM. Objective - Vital Signs Vital signs: Vital Signs Temp Pulse Resp BP Pulse Ox 03/28/17 04:51 97.6 F 03/28/17 04:00 102 20 92/71 98 03/28/17 02:22 112 03/28/17 02:00 104 12 80/63 98 03/28/17 00:00 96.7 F L 94 30 90/69 94 03/27/17 22:22 112 03/27/17 22:00 113 37 103/84 96 03/27/17 20:19 98.8 F 03/27/17 19:33 12 111/88 99 03/27/17 19:00 112 20 111/88 99 03/27/17 17:00 120 40 102/75 100 03/27/17 15:25 115 03/27/17 15:00 115 42 101/81 94 03/27/17 13:00 112 36 92/65 99 03/27/17 12:00 116 03/27/17 11:00 97.5 F L 112 35 109/62 100 03/27/17 09:00 116 48 107/83 94 Intake and Output 03/27/17 03/28/17 03/28/17 23:59 07:59 15:59 Intake Total 0 / 0 0 / 0 Output Total 50 / 50 Balance -50 / -50 0 / 0 Intake: Oral 0 / 0 0 / 0 Output: Stool 50 / 50 Other: Stool Color Brown Yellow Weight 85.7 kg Patient Weight 03/28/17 23:59 Weight 85.7 kg - General Appearance General appearance: Present: well-developed, well-nourished EENT: Present: ATNC, PERRL, mucous membranes moist Neck: Present: no JVD, supple Respiratory: Present: clear Cardiology: Present: no murmurs, edema (4+ pedal edema), regular rate, regular rhythm Gastrointestinal: Present: normoactive bowel sounds, no tenderness, no guarding , distended Integumentary: Present: no rash, warm and dry Neurologic: Present: no focal deficit, alert and oriented x3 Musculoskeletal: Present: no deformities, no erythema Psychiatric: Present: mood/affect appropriate, cooperative - Lab 03/28/17 03:45 03/28/17 03:45 Most recent lab results Calcium 9.7 mg/dL (8.6-10.3) 03/28/17 03:45 Phosphorus 4.1 mg/dL (2.7-4.5) 03/25/17 04:08 Magnesium 1.8 mg/dL (1.6-2.6) 03/27/17 04:36 Urine Creatinine 202 mg/dL 03/20/17 15:57 Urine Sodium < 10.0 mEq/L 03/20/17 15:57 Urine Total Protein 53 mg/dL 03/20/17 15:57 - Allied health notes Allied health notes reviewed: nursing Consult Discharge Plan - Plan Referrals: Lonny Davison MD [Primary Care Provider] - 03/29/17 10:00 am (Please follow up as schedule...)
[2017-03-28] MEDS: *HR* Amiodarone 200 MG TABLET PO SCH ×2 (09:26→20:45)
[2017-03-28] MEDS: Metoprolol XL (24 HR) Succ 25 MG TAB.ER.24H PO SCH ×2 (09:26→20:45)
--- NOTE | 2017-03-28 10:38 | Cardiology Progress Note ---
Date of Encounter: 03/28/17 Time of Encounter: 10:00 Assessment and Plan (1) Cardiomyopathy Current Visit: Yes Status: Chronic Per Cardiology: Known history of systolic CHF. Of note, patient had previously been referred to [facility] for advanced heart failure therapy and was deemed not a candidate for transplant or LVAD. On hemodialysis. TTE with LVEF 10%, previous 15%. Patient with poor prognosis due to advanced heart failure and not a candidate for advanced heart failure therapies. Qualifiers: Cardiomyopathy type: unspecified Qualified Code(s): I42.9 - Cardiomyopathy , unspecified (2) Goals of care, counseling/discussion Current Visit: Yes Status: Acute Per Cardiology: Code status: DNR-CCA/DNI. Palliative care following for eval for Hospice. Patient has Conrad scientific device, does not desire to proceed with deactivation at this point. Cardiology will sign off, re-consult as needed, if he decides to proceed with ICD activation can be completed prior to discharge. (3) Atrial fibrillation Current Visit: Yes Status: Chronic Per Cardiology: Known hx of afib. Cardiology asked to reevaluate patient due to concerns of possible VT. Tele and strips reviewed with Dr. Nichole yesterday-- noted to be afib RVR with aberrancy, has hx LBBB. Patient with no ICD shocks. Had not been receiving BB d/t hypotension. Now on Toprol-XL 12.5 mg by mouth twice a day-- current systolic blood pressure in the 90s, suspect with end-stage heart failure will run low blood pressures. On amiodarone 200 mg by mouth twice a day. Average heart rate past 12 hours 102, currently sinus rhythm in the 90s. Recommend continue amiodarone for 7 days and then decrease to 200 mg by mouth daily. Cardiology will sign off again, reconsult as needed, all questions answered. Qualifiers: Atrial fibrillation type: chronic Qualified Code(s): I48.2 - Chronic atrial fibrillation (4) Anticoagulant long-term use Current Visit: Yes Status: Chronic Per Cardiology: VQ scan low probability PE-- patient is on Coumadin, however currently appears on hold. INR 2.5. Resume when/if able. Discussion w patient/family: The assessment and plan as outlined above was discussed with the patient who expressed understanding and agreement. All questions were answered. Thank you for involving us in the care of your patient. Please call with any questions. Subjective Principal diagnosis: Cardiomyopathy, JENNIFER Interval history: Patient denies any new concerns or complaints today. Actually reports shortness of breath has improved. He denies any chest pain or palpitations. Continues to deny any ICD shocks. Objective Vital Signs, Last 4 Hours Temp Pulse Resp BP Pulse Ox 03/28/17 09:10 95 20 93/72 96 03/28/17 07:30 97.4 F L General: Conversant Cardiac: Other (Irregular irregular) Lungs: Other (Breast sounds throughout ) Neuro: Alert and responsive, No focal deficits noted Extremities: Other (+2 -3 pitting edema bilateral LE) Results 03/28/17 03:45 03/28/17 03:45 Lab Results Laboratory Tests 03/28/17 03/28/17 03:45 03:45 INR 2.5 Potassium 5.6 H D Impressions Pulmonary Perfusion Imaging 03/27/17 10:24 IMPRESSION: Low Probability for Pulmonary Embolus. D/ / Trung Jay MD / Trung Jay MD Interpreting Provider: Trung Jay MD Chest X-Ray 03/27/17 10:44 IMPRESSION: No active cardiopulmonary disease D/ / Jordan Burden MD / Jordan Burden MD Interpreting Provider: Jordan Burden MD Intake & Output 03/25/17 03/26/17 03/27/17 03/28/17 23:59 23:59 23:59 23:59 Intake Total 2151 1180 / 1180 0 / 0 240 / 240 Output Total 0 / 0 1600 / 1600 50 / 50 Balance 2151 -420 / -420 -50 / -50 240 / 240 Weight 84.9 kg 85.7 kg Active Medications Acetaminophen (Tylenol) 650 mg PO Q6HR PRN PRN Reason: Mild Pain Stop: 09/20/17 23:51 Last Admin: 03/26/17 17:44 Dose: 650 mg Albuterol/Ipratropium (Duoneb) 3 ml IH Q6MVDEV PRN PRN Reason: Shortness Of Breath/Wheezing Stop: 09/18/17 20:59 Last Admin: 03/27/17 00:10 Dose: 3 ml Amiodarone HCl (Cordarone) 200 mg PO BID LYLE Stop: 09/26/17 13:16 Last Admin: 03/28/17 09:26 Dose: 200 mg Calcitriol (Rocaltrol) 0.25 mcg PO DAILY LYLE Stop: 09/19/17 09:01 Last Admin: 03/28/17 09:26 Dose: 0.25 mcg Cyclobenzaprine HCl (Flexeril) 10 mg PO TID PRN PRN Reason: Spasms Stop: 09/19/17 14:11 Last Admin: 03/26/17 17:45 Dose: 10 mg Dextrose/Water (Dextrose 50% (Syg)) 25 ml IVP AD PRN PRN Reason: Hypoglycemia Stop: 09/27/17 07:44 Diphenhydramine HCl (Benadryl) 25 mg PO Q6HR PRN PRN Reason: Itching Stop: 09/21/17 03:41 Last Admin: 03/22/17 05:08 Dose: 25 mg Glucagon (Glucagen) 1 mg IM ONCE PRN PRN Reason: Hypoglycemia Stop: 09/27/17 07:44 Glucose (Gluctose) 15 gm PO ONCE PRN PRN Reason: Hypoglycemia Stop: 09/27/17 07:44 Glucose (Gluctose) 30 gm PO ONCE PRN PRN Reason: Hypoglycemia Stop: 09/27/17 07:44 Heparin Sodium (Porcine) (Heparin) 0 unit IV ONCE PRN PRN Reason: Hemodialysis Catheter Packing Albumin Human (Flexbumin) 12.5 gm in 50 mls @ 60 mls/hr IVPB ONCE PRN PRN Reason: Hypotension Stop: 09/25/17 10:03 Last Admin: 03/26/17 14:11 Dose: 60 mls/hr Sodium Chloride (0.9 % Sodium Chloride) 250 mls @ 937.5 mls/hr IVC .Q16M PRN PRN Reason: Hypotension Stop: 09/27/17 06:50 Albumin Human (Flexbumin) 12.5 gm in 50 mls @ 60 mls/hr IVPB ONCE PRN PRN Reason: Hypotension Stop: 09/27/17 06:50 Dextrose (Dextrose 5%) 1,000 mls @ 100 mls/hr IVC .Q10H PRN PRN Reason: HYPOGLYCEMIA Stop: 09/27/17 07:44 Levothyroxine Sodium (Synthroid) 75 mcg PO 0630 LYLE Stop: 09/23/17 06:31 Last Admin: 03/28/17 06:31 Dose: 75 mcg Loperamide HCl (Imodium) 2 mg PO Q4HR PRN PRN Reason: Diarrhea Stop: 09/21/17 03:41 Melatonin (Melatonin) 3 mg PO HS PRN PRN Reason: Insomnia Stop: 09/26/17 10:36 Last Admin: 03/27/17 11:33 Dose: 3 mg Metoprolol Succinate (Toprol Xl) 12.5 mg PO BID LYLE Stop: 09/26/17 13:16 Last Admin: 03/28/17 09:26 Dose: 12.5 mg Midodrine (Proamatine) 2.5 mg PO 0800,1200,1700 LYLE Stop: 09/24/17 12:01 Last Admin: 03/28/17 09:26 Dose: 2.5 mg Morphine Sulfate (Morphine Sulfate) 2 mg IVP Q4HR PRN PRN Reason: Pain Stop: 09/26/17 20:01 Last Admin: 03/28/17 00:11 Dose: 2 mg Naloxone HCl (Narcan) 0.4 mg IVP Q2MIN PRN PRN Reason: Opioid Reversal Stop: 09/18/17 20:59 Sevelamer HCl (Renvela) 800 mg PO TIDWM LYLE Stop: 09/19/17 12:01 Last Admin: 03/28/17 09:26 Dose: 800 mg Simvastatin (Zocor) 20 mg PO HS LYLE Stop: 09/18/17 21:01 Last Admin: 03/27/17 20:08 Dose: 20 mg Temazepam (Restoril) 15 mg PO HS PRN; Protocol PRN Reason: Insomnia Stop: 09/26/17 21:01 Trazodone HCl (Trazodone) 50 mg PO HS PRN PRN Reason: Insomnia Stop: 09/24/17 21:54 Last Admin: 03/26/17 23:33 Dose: 50 mg - EKG Interpretation EKG results cardiology: other (Telemetry reviewed with average heart rate 102, currently sinus rhythm in the 90s, no VT noted) Consult Discharge Plan - Plan Referrals: Lonny Davison MD [Primary Care Provider] - 03/29/17 10:00 am (Please follow up as schedule...)
--- NOTE | 2017-03-28 10:53 | Internal Med Progress Note ---
<Nina Oswald - Last Filed: 03/28/17 12:59> Date of Encounter: 03/28/17 Time of Encounter: 09:00 - Assessment and plan (1) Acute kidney injury superimposed on chronic kidney disease Current Visit: Yes Status: Acute Assessment and plan: INR increased 2.5 today and goal is 1.5 so permacath placement by IR has been postponed. 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 He is now is sinus tach. HR 118 Known history of nonischemic cardiomyopathy. Patient has been referred to advanced heart failure clinic at [facility], however deemed not a candidate for cardiac transplantation or LVAD support. Patient understands his grave prognosis, changed code status to DNR CCA /DNI. He will think about having his ICD removed. Echo 03/20/2017 showed LVEF 10%, moderate biventricular and biatrial dilation, severe global left ventricular systolic dysfunction, moderate mitral regurgitation and moderate pulmonary hypertension. Echo 11/2016 showed LVEF 15% Plan: Cardio consulted again for recommendations: they added amioderone and continued Toprol XL to 12.5mg PO BID continue Metoprolol 5mg IV PRN per cardiology: stop coreg due to hypotension Continue supportive care telemetry monitoring Cardiology consulted and will follow up with the patient out patient. Qualifiers: Cardiomyopathy type: unspecified Qualified Code(s): I42.9 - Cardiomyopathy , unspecified (3) History of thromboembolism Current Visit: Yes Status: Chronic Assessment and plan: Patient is complaining of increased shortness of breathe. tachycardia 118, 100% saturation on 2L oxygen, tachypnea. Concern for PE since INR is subtherapeutic. History of thromboembolism taking Xarelto. INR 2.5 goal is 1.5 for permacath procedure He has an IVC filter in place VQ showed low probability for PE lower extremity doppler U/S- demonstrated chronic DVT Plan: holding coumadin Monitor INR (4) Hypotension Current Visit: Yes Status: Acute Assessment and plan: Most likely due to intra-dialytic hypotension BP 92/71 stable Midodrine was started per nephrology Qualifiers: Qualified Code(s): I95.3 - Hypotension of hemodialysis (5) Goals of care, counseling/discussion Current Visit: Yes Status: Acute Assessment and plan: The patient reports that he would like to speak will palliative again about hospice Patient change code status to DNR-CCA-DNI Patient has been referred to advanced heart failure clinic at [facility], however deemed not a candidate for cardiac transplantation or LVAD support. Patient understands his grave prognosis, changed code status to DNR comfort care arrest/DNI. He will think about having his ICD removed. Echo 03/20/2017 showed LVEF 10% now and was 11/2016 showed LVEF 15% Consulted palliative care, appreciate recommendations (6) Cirrhosis Current Visit: No Status: Chronic Assessment and plan: CT ab/pelvis showed cirrhotic liver. moderate amount of ascites. Patient reports this is the first time he has heard he has liver cirrhosis Qualifiers: Hepatic cirrhosis type: unspecified hepatic cirrhosis Ascites presence: with ascites Qualified Code(s): K74.60 - Unspecified cirrhosis of liver (7) Atrial fibrillation Current Visit: Yes Status: Chronic Assessment and plan: History of a A.fib controlled with metoprolol and anticoagulation with xarelto tachycardic HR 102 Plan: cardiology started amioderone and continued metoprolol metoprolol 5mg IV PRN holding Coumadin due to need for perma cath placement Tuesday continue Telemetry monitoring Qualifiers: Atrial fibrillation type: chronic Qualified Code(s): I48.2 - Chronic atrial fibrillation (8) Metabolic acidosis Current Visit: Yes Status: Acute Assessment and plan: Resolved with dialysis due to worsening renal failure (9) Hyperphosphatemia Current Visit: Yes Status: Chronic Assessment and plan: Improved Continue phosphate binders per nephrology (10) COPD (chronic obstructive pulmonary disease) Current Visit: Yes Status: Chronic Assessment and plan: History COPD. Controlled 96% oxygen on room air continue duoneb PRN Qualifiers: COPD type: unspecified COPD Qualified Code(s): J44.9 - Chronic obstructive pulmonary disease, unspecified (11) Hypothyroidism Current Visit: Yes Status: Chronic Assessment and plan: History of hypothyroidism continue home Levothyroxine Qualifiers: Hypothyroidism type: unspecified Qualified Code(s): E03.9 - Hypothyroidism , unspecified (12) DVT prophylaxis Current Visit: No Status: Acute Assessment and plan: EPCD ambulate - Subjective Interval history: He reports that he feels better today than he did yesterday. He denies fever, chills, chest pain, nausea, vomiting. He reports that he was told he will have hemodialysis today. - Constitutional Vitals: Temp Pulse Resp BP Pulse Ox 97.4 F L 95 20 93/72 96 03/28/17 07:30 03/28/17 09:10 03/28/17 09:10 03/28/17 09:10 03/28/17 09:10 General appearance: Present: A&O X 3, answers questions appropriately Exam: Gen.: Vitals noted. No acute distress. AAOx3 HEENT: oropharynx clear, Normocephalic, atraumatic Neck: Supple. No adenopathy. Cardiac: RRR, no murmur, +S1/S2 Pulmonary: CTA bilaterally, no wheezes, or rhonchi, equal chest expansion Abdomen: soft, nontender, Bowel sounds noted, no guarding, distended Extremities: +2 pitting BLE edema, nontender calf, no cyanosis or clubbing Neuro: A&Ox3, moves all extremities, no focal deficits Psych: Appropriate mood and behavior Internal Medicine: Result - Labs CBC & Chem 7: 03/28/17 03:45 03/28/17 03:45 Labs: Short CBC 03/28/17 Range/Units 03:45 WBC 7.1 (4.3-11.1) K/mcL Hgb 11.3 L (12.9-16.9) g/dL Hct 36.6 L (37.5-50.1) % Plt Count 118 L (140-400) K/mcL Neutrophils # 4.9 (1.6-8.9) K/mcL BMP 03/28/17 03:45 Sodium 132 L Potassium 5.6 H D Chloride 89 L Carbon Dioxide 23 BUN 43 H Creatinine 5.54 H Glucose 64 L Calcium 9.7 - ABG Interpretation ABG results: PT/INR, D-dimer PT 27.0 Seconds (9.4-12.1) H 03/28/17 03:45 - Impressions Impressions Pulmonary Perfusion Imaging 03/27/17 10:24 IMPRESSION: Low Probability for Pulmonary Embolus. D/ / Trung aJy MD / Trung Jay MD Interpreting Provider: Trung Jay MD Chest X-Ray 03/27/17 10:44 IMPRESSION: No active cardiopulmonary disease D/ / Jordan Burden MD / Jordan Burden MD Interpreting Provider: Jordan Burden MD Consult Discharge Plan - Plan Referrals: Lonny Davison MD [Primary Care Provider] - 03/29/17 10:00 am (Please follow up as schedule...) <Aiden Verma - Last Filed: 03/28/17 22:41> Date of Encounter: 03/28/17 - Constitutional Vitals: Temp Pulse Resp BP Pulse Ox 97.5 F L 98 20 96/69 94 03/28/17 20:55 03/28/17 22:00 03/28/17 22:00 03/28/17 22:00 03/28/17 22:00 Internal Medicine: Result - Labs CBC & Chem 7: 03/28/17 03:45 03/28/17 03:45 Labs: Short CBC 03/28/17 Range/Units 03:45 WBC 7.1 (4.3-11.1) K/mcL Hgb 11.3 L (12.9-16.9) g/dL Hct 36.6 L (37.5-50.1) % Plt Count 118 L (140-400) K/mcL Neutrophils # 4.9 (1.6-8.9) K/mcL BMP 03/28/17 03:45 Sodium 132 L Potassium 5.6 H D Chloride 89 L Carbon Dioxide 23 BUN 43 H Creatinine 5.54 H Glucose 64 L Calcium 9.7 - ABG Interpretation ABG results: PT/INR, D-dimer PT 27.0 Seconds (9.4-12.1) H 03/28/17 03:45 - Attending Attestation I conducted a face to face diagnostic evaluation of this patient and my medical decision-making was reviewed with the Resident Physician. I agree with the documented findings, disposition and treatment plan as described except to the extent set forth below: Patient evaluated with undergoing dialysis. He is in no acute distress. Heart is tachycardic, lungs sounds are diminished. Abdomen is distended with fluid wave and dullness to percussion in the flanks. There is an ileostomy bag present. Plan: Continue with hemodialysis per nephrology. Currently he requires pressor support for hemodialysis due to hypotension. INR trending up in spite of administration of vitamin K likely secondary to advanced liver disease. Consider FFP prior to permacath placement if he is to be a candidate for outpatient hemodialysis. Given his hypotension and requirement for pressors he may not be a candidate for outpatient hemodialysis. Aiden Verma MD
--- NOTE | 2017-03-28 13:07 | Palliative Progress Note ---
Date of Encounter: 03/28/17 Time of Encounter: 11:20 - Assessment and plan (1) Generalized pain Current Visit: Yes Status: Acute Assessment and plan: Has required pain medication only once last 24 hours. Monitor. (2) Dyspnea Current Visit: Yes Status: Acute Assessment and plan: Improved slightly. Still short of breath with much conversation. 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 Patient states that yesterday he was considering "stopping everything and doing hospice' , however, states today he feels much better and is reconsidering this. Patient is struggling with goals of care - he strongly wants to go home, however , states he is not ready to "not do anything". He understands that overall prognosis is poor, and that his life is very limited with his multiple medical conditions. He knows that without dialysis, his life may be limited to a few weeks - he states he feels he could have some quality of life with dialysis. Discussed that with his renal status, cardiomyopathy, and cirrhosis, it will be difficult to keep him out of the hospital. He verbalizes understanding. We did discuss that he may be able to enroll in hospice with cardiomyopathy or cirrhosis diagnosis and continue dialysis, but that this is not ideal, and likely only [facility] would be agreeable to enroll. Patient and would like to speak with [facility] to discuss eligibility. Patient does not want AICD deactivated at this time. Will continue to follow. (4) CHF exacerbation Current Visit: No Status: Acute Qualifiers: Qualified Code(s): I50.9 - Heart failure, unspecified (5) Cardiomyopathy Current Visit: Yes Status: Chronic Qualifiers: Qualified Code(s): I42.9 - Cardiomyopathy, unspecified (6) ESRD (end stage renal disease) on dialysis Current Visit: Yes Status: Acute Assessment and plan: INR too high for permacath at this time. (7) Cirrhosis Current Visit: No Status: Chronic Qualifiers: Qualified Code(s): K74.60 - Unspecified cirrhosis of liver - Time Spent With Patient Total time spent is greater than 50% in coordination of care (as documented) at patient's floor/unit and/or counseling patient: Greater than 35 minutes - Subjective Interval history: Patient awake and alert - on way but not here as of yet. INR still too elevated for permacath placement/paracentesis. Patient states has very bad day yesterday, but feeling much better and in good spirits today. States "yesterday was ready to throw in the towel".. Weekend events and documentation reviewed. Denies pain, still short of breath with much conversation. Good appetite. Blood pressure improved after Midodrine started Tuesday. - Constitutional Vitals: Abnormal lab results RBC 3.39 M/mcL (4.19-5.50) L 03/28/17 03:45 Hgb 11.3 g/dL (12.9-16.9) L 03/28/17 03:45 Hct 36.6 % (37.5-50.1) L 03/28/17 03:45 MCV 108.0 fL (83.0-100.0) H 03/28/17 03:45 MCHC 30.9 g/dL (31.6-35.5) L 03/28/17 03:45 RDW 22.6 % (11.5-14.5) H 03/28/17 03:45 Plt Count 118 K/mcL (140-400) L 03/28/17 03:45 Nucleated RBCs/100 WBC 0.3 /100 WBC (0) H 03/28/17 03:45 Platelet Estimate Decreased (Normal) L 03/26/17 03:35 Large Platelets Present (Not Present) A 03/26/17 03:35 Immature Plt Fraction 10.7 % (1.1-6.1) H 03/28/17 03:45 Polychromasia 1+ (Not Present) A 03/26/17 03:35 Poikilocytosis 1+ (Not Present) A 03/24/17 05:55 Anisocytosis 2+ (Not Present) A 03/26/17 03:35 Microcytosis Present (Not Present) A 03/26/17 03:35 Macrocytosis Present (Not Present) A 03/26/17 03:35 PT 27.0 Seconds (9.4-12.1) H 03/28/17 03:45 Sodium 132 mEq/L (136-145) L 03/28/17 03:45 Potassium 5.6 mEq/L (3.5-5.1) H D 03/28/17 03:45 Chloride 89 mEq/L (98-107) L 03/28/17 03:45 BUN 43 mg/dL (8-23) H 03/28/17 03:45 Creatinine 5.54 mg/dL (0.70-1.30) H 03/28/17 03:45 Est GFR ( Amer) 13 (> 60) L 03/28/17 03:45 Est GFR (Non-Af Amer) 10 (> 60) L 03/28/17 03:45 Glucose 64 mg/dL (70-105) L 03/28/17 03:45 Total Bilirubin 1.5 mg/dL (0.3-1.0) H 03/19/17 16:06 Direct Bilirubin 0.6 mg/dL (0.0-0.2) H 03/19/17 16:06 AST 12 Units/L (13-39) L 03/19/17 16:06 Troponin I 0.05 ng/mL (< 0.04) H* 03/20/17 03:57 B-Natriuretic Peptide > 5000 pg/mL (Less than 100) H 03/19/17 16:06 Globulin 4.0 g/dL (2.4-3.5) H 03/19/17 16:06 Albumin/Globulin Ratio 1.0 (1.1-2.2) L 03/19/17 16:06 Urine Protein 30 mg/dL (Neg-Trace) H 03/20/17 15:57 Ur Leukocyte Esterase Moderate (Negative) H 03/20/17 15:57 Urine Microscopic RBC 3-5 per hpf (0-3) H 03/20/17 15:57 Urine Microscopic WBC 15-30 per hpf (0-3) H 03/20/17 15:57 Ur Squamous Epith Cells Many per lpf (None-Few) H 03/20/17 15:57 Protein/Creatinin Ratio 0.26 mg/mg (0.00-0.20) H 03/20/17 15:57 General appearance: Present: no acute distress - Respiratory Additional comments: Rales bilaterally lower lobes. - Cardiovascular Cardiovascular exam: Present: irregular rhythm - GI/Abdominal GI/Abdominal exam: Present: distended, soft Additional comments: Ileostomy intact - Extremities Exam Additional comments: 2-3 + edema lower extremities - Neurological Exam Neurological exam: Present: alert, oriented X3, strengths equal and symetr throughout - Skin Skin exam: Present: dry, warm Palliative Quality Palliative Quality: Screen for Code Status: Yes, Screen for Goals of Care: Yes, Screen for Pain: Yes, If Pain Regimen Started, Initiate Bowel Regimen: NA, Screen for Nausea/Vomitting: Yes Code Status: 03/19/17 20:58 Resuscitation Status: Active [RES] Routine Comment: Resuscitation Status: Full Code 03/21/17 13:27 Resuscitation Status: Active [RES] Routine Comment: Resuscitation Status: [id number] - Labs CBC & Chem 7: 03/28/17 03:45 03/28/17 03:45 Labs: Laboratory Results - last 24 hr 03/28/17 03/28/17 03/28/17 03:45 03:45 03:45 WBC 7.1 RBC 3.39 L Hgb 11.3 L Hct 36.6 L MCV 108.0 H MCH 33.3 MCHC 30.9 L RDW 22.6 H Plt Count 118 L MPV 11.4 Immature Gran % 0.7 Seg Neutrophils % 69.5 Lymphocytes % 14.9 Monocytes % 12.6 Eosinophils % 1.7 Basophils % 0.6 Neutrophils # 4.9 Lymphocytes # 1.1 Monocytes # 0.9 Eosinophils # 0.1 Basophils # 0.0 Nucleated RBCs/100 WBC 0.3 H Immature Plt Fraction 10.7 H PT 27.0 H INR 2.5 Sodium 132 L Potassium 5.6 H D Chloride 89 L Carbon Dioxide 23 BUN 43 H Creatinine 5.54 H Est GFR ( Amer) 13 L Est GFR (Non-Af Amer) 10 L BUN/Creatinine Ratio 8 Glucose 64 L POC Glucose Calculated Osmolality 283 Calcium 9.7 03/28/17 07:37 WBC RBC Hgb Hct MCV MCH MCHC RDW Plt Count MPV Immature Gran % Seg Neutrophils % Lymphocytes % Monocytes % Eosinophils % Basophils % Neutrophils # Lymphocytes # Monocytes # Eosinophils # Basophils # Nucleated RBCs/100 WBC Immature Plt Fraction PT INR Sodium Potassium Chloride Carbon Dioxide BUN Creatinine Est GFR ( Amer) Est GFR (Non-Af Amer) BUN/Creatinine Ratio Glucose POC Glucose 81 Calculated Osmolality Calcium - Impressions Impressions Pulmonary Perfusion Imaging 03/27/17 10:24 IMPRESSION: Low Probability for Pulmonary Embolus. D/ / Trung Jay MD / Trung Jay MD Interpreting Provider: Trung Jay MD Chest X-Ray 03/27/17 10:44 IMPRESSION: No active cardiopulmonary disease D/ / Jordan Burden MD / Jordan Burden MD Interpreting Provider: Jordan Burden MD - ABG Interpretation ABG results: PT/INR, D-dimer PT 27.0 Seconds (9.4-12.1) H 03/28/17 03:45 Consult Discharge Plan - Plan Referrals: Lonny Davison MD [Primary Care Provider] - 03/29/17 10:00 am (Please follow up as schedule...)
[2017-03-28] MEDS: Norepinephrine 4 MG in D5% in Water 250 ML IVC SCH (15:35)
[2017-03-28] MEDS ORDERED: 0.9 % Sodium Chloride 2,000 ML ONE (18:06)
[2017-03-29 03:29] LABS: Basophils % 0.4 %; Eosinophils # 0.1 K/mcL (0.0-0.6); Eosinophils % 1.9 %; Hemoglobin 11.2 g/dL (12.9-16.9); Immature Platelets 10.4 % (1.1-6.1); Lymphocytes # 0.6 K/mcL (0.6-4.6); Lymphocytes % 8.4 %; Mean Corpuscular HGB Conc 31.1 g/dL (31.6-35.5); Mean Corpuscular Hemoglobin 32.9 pg (28.0-33.3); Mean Corpuscular Volume 105.9 fL (83.0-100.0); Mean Platelet Volume 11.8 fL (9.4-12.4); Monocytes # 0.8 K/mcL (0.0-1.3); Neutrophils # 5.6 K/mcL (1.6-8.9); Nucleated Red Blood Cells 0.3 /100 WBC (0); Platelet Count 134 K/mcL (140-400); Red Cell Distribution Width 22.4 % (11.5-14.5); Segmented Neutrophils % 77.3 %
[2017-03-29 03:40] LABS: INR 1.9; Prothrombin Time 20.2 Seconds (9.4-12.1)
[2017-03-29 04:13] LABS: Calcium 9.5 mg/dL (8.6-10.3); Potassium 4.5 mEq/L (3.5-5.1)
--- NOTE | 2017-03-29 07:06 | Nephrology Progress Note ---
Date of Encounter: 03/29/17 Time of Encounter: 07:05 - Assessment and Plan (1) Intra-dialytic hypotension Current Visit: Yes Status: Acute Patient remians in ICU. Discontinue Levophed BP remains stable this AM on oral Amiodarone and Midodrine. Continue I/Os and BPs and HR monitoring Anticipate UF today (2) Volume overload Current Visit: Yes Status: Acute 2+ edema noted. INR is too elevated for permacath placement/paracentesis Anticipate UF today Qualifiers: Hypervolemia type: other Qualified Code(s): E87.79 - Other fluid overload (3) ESRD (end stage renal disease) on dialysis Current Visit: Yes Status: Acute New to dialysis. Has temporary HD catheter in place. BP remains stable this AM on oral Amiodarone and Midodrine. Tunneled HD catheter placement postponed due to INR 1.9 Repeat Vitamin K administration today He may (ideally) be a candidate for a Permacath once INR allows (patient must be NPO after midnight). Still awaiting dialysis chair time arrangement. The pt has followed with Dr. Leavitt in the clinic in the past. Anticipate UF today if BPs allow. (4) Acute kidney injury superimposed on chronic kidney disease Current Visit: Yes Status: Acute Elevated serum creatinine No urine output overnight Continue to monitor (5) Cirrhosis Current Visit: No Status: Chronic As per primary team. This is also likely contributing to his asymptomatic hypotension. INR is too elevated for paracentesis Qualifiers: Hepatic cirrhosis type: unspecified hepatic cirrhosis Ascites presence: with ascites Qualified Code(s): K74.60 - Unspecified cirrhosis of liver (6) Atrial fibrillation Current Visit: Yes Status: Chronic As per primary team. Sometimes the hemodynamics of AF may impact HD and UF. 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 Management per primary team Qualifiers: DVT location: lower extremity Affected thrombotic vein of extremity: unspecified vein of extremity Chronicity: chronic Laterality: unspecified laterality Qualified Code(s): I82.509 - Chronic embolism and thrombosis of unspecified deep veins of unspecified lower extremity (11) Goals of care, counseling/discussion Current Visit: Yes Status: Acute After long discussion with patient counseling him about the Pros/Cons of chronic dialysis, he said that he wants to push forward with arranging for chronic dialysis. Palliative care is onboard to help re-emphasize goals of care with regard to chronic dialysis and prognosis. Subjective Principal diagnosis: Cardiomyopathy, JENNIFER Interval history: Patient seen and examined. His tunneled HD catheter placement remains postponed due to INR 1.9 today. His BP remains stable this AM on oral Amiodarone and Midodrine. Levophed was stopped last PM. He reports very small amount of urine output overnight. Patient is scheduled to have UF today. Objective - Vital Signs Vital signs: Vital Signs Temp Pulse Resp BP Pulse Ox 03/29/17 06:00 100 30 88/68 91 03/29/17 04:00 99 26 86/69 100 03/29/17 03:00 105 03/29/17 02:00 102 32 99/76 93 03/29/17 00:00 100 24 99/70 97 03/28/17 23:00 105 03/28/17 22:00 98 20 96/69 94 03/28/17 20:55 97.5 F L 03/28/17 19:00 102 03/28/17 18:45 98.4 F 18 100/72 03/28/17 18:40 91/72 03/28/17 18:25 98/70 03/28/17 18:10 99/79 03/28/17 18:06 97 22 83/73 95 03/28/17 17:55 97/68 03/28/17 17:40 104/72 03/28/17 17:25 96/69 03/28/17 17:10 94/76 03/28/17 16:55 103/73 03/28/17 16:40 101/74 03/28/17 16:25 95/78 03/28/17 16:10 102/75 03/28/17 15:55 102/74 03/28/17 15:40 97.5 F L 22 94/69 03/28/17 15:20 98 20 87/66 100 03/28/17 13:39 92 20 97 03/28/17 12:00 97.4 F L 03/28/17 11:53 92 24 93/77 98 03/28/17 09:10 95 20 93/72 96 03/28/17 07:30 97.4 F L Intake and Output 03/28/17 03/28/17 03/29/17 15:59 23:59 07:59 Intake Total 840 / 840 0 / 0 200 / 200 Output Total 2600 / 2600 500 / 500 Balance 840 / 840 -2600 / -2600 -300 / -300 Intake: Oral 240 / 240 0 / 0 200 / 200 Intake, Rinseback and Flushes 600 / 600 Output: Urine 0 / 0 0 / 0 Stool 500 / 500 Total Dialysis (HD) Output 2600 / 2600 Other: Meal Breakfast Percent of Meal Consumed 95% Stool Consistency liquid Stool Characteristics Normal for Patient Stool Color Brown Green # Bowel Movements 4 Hemodialysis Net Fluid Removed 215 2000 (mL) - General Appearance General appearance: Present: well-developed, well-nourished, appears started age EENT: Present: ATNC, PERRL, mucous membranes moist Neck: Present: no JVD, supple Respiratory: Present: clear Cardiology: Present: no murmurs, edema (2+ pedal edema), regular rate, regular rhythm Dialysis Vascular Access: Venous Catheter Gastrointestinal: Present: normoactive bowel sounds, no tenderness, no guarding Additional Comments: LLQ ostomy intact Integumentary: Present: no rash, warm and dry Neurologic: Present: no focal deficit, alert and oriented x3 Musculoskeletal: Present: no deformities, no erythema Psychiatric: Present: mood/affect appropriate, cooperative - Lab 03/29/17 03:20 03/29/17 03:20 Most recent lab results Calcium 9.5 mg/dL (8.6-10.3) 03/29/17 03:20 Phosphorus 4.1 mg/dL (2.7-4.5) 03/25/17 04:08 Magnesium 1.8 mg/dL (1.6-2.6) 03/27/17 04:36 Urine Creatinine 202 mg/dL 03/20/17 15:57 Urine Sodium < 10.0 mEq/L 03/20/17 15:57 Urine Total Protein 53 mg/dL 03/20/17 15:57 Consult Discharge Plan - Plan Referrals: Lonny Davison MD [Primary Care Provider] - 03/29/17 10:00 am (Please follow up as schedule...)
[2017-03-29] MEDS ORDERED: 0.9 % Sodium Chloride 250 ML IVC PRN (07:50)
[2017-03-29] MEDS: *HR* Amiodarone 200 MG TABLET PO SCH ×2 (08:33→21:31)
[2017-03-29] MEDS: Metoprolol XL (24 HR) Succ 25 MG TAB.ER.24H PO SCH ×2 (08:33→21:31)
--- NOTE | 2017-03-29 10:53 | Event Note ---
Date of Encounter: 03/29/17 Time of Encounter: 10:40 Patient awake and alert - feeling well. INR still too high for permacath. D/W Dr. Whaley - pt will be speaking with [facility] today - they may be able to enroll with cirrhosis/cardiomyopathy diagnosis, and still permit him to pursue dialysis. He is likely not to tolerate as outpatient, and [facility] may be agreeable to get his support system in place for smooth transition and hopefully prevent further hospitalizations.
--- NOTE | 2017-03-29 11:03 | Event Note ---
Date of Encounter: 03/29/17
[2017-03-29] MEDS ORDERED: 0.9 % Sodium Chloride 2,000 ML ONE (11:42)
--- NOTE | 2017-03-29 13:07 | Internal Med Progress Note ---
Date of Encounter: 03/29/17 Time of Encounter: 13:06 - Assessment and plan (1) Acute kidney injury superimposed on chronic kidney disease Current Visit: Yes Status: Acute Assessment and plan: INR increased 1.9 today and goal is 1.5 so permacath placement by IR has been postponed. 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 tach Continue amiodarone per cardiology The patient does not want his AICD to be deactivated yet, is considering hospice (3) History of thromboembolism Current Visit: Yes Status: Chronic Assessment and plan: Patient is complaining of increased shortness of breathe. History of thromboembolism taking Xarelto at home. He has an IVC filter in place VQ showed low probability for PE lower extremity doppler U/S- demonstrated chronic DVT holding coumadin Monitor INR (4) Cardiomyopathy Current Visit: Yes Status: Chronic Assessment and plan: had a round of V-tach and was started on amioderone. Known history of nonischemic cardiomyopathy. Patient has been referred to advanced heart failure clinic at [facility], however deemed not a candidate for cardiac transplantation or LVAD support. Patient understands his grave prognosis, changed code status to DNR CCA /DNI. He will think about having his ICD removed. Echo 03/20/2017 showed LVEF 10%, moderate biventricular and biatrial dilation, severe global left ventricular systolic dysfunction, moderate mitral regurgitation and moderate pulmonary hypertension. Echo 11/2016 showed LVEF 15% Cardio consulted again for recommendations: they added amioderone and continued Toprol XL to 12.5mg PO BID May administer Metoprolol 5mg IV PRN per cardiology: stopped coreg due to hypotension Qualifiers: Cardiomyopathy type: unspecified Qualified Code(s): I42.9 - Cardiomyopathy , unspecified (5) Atrial fibrillation Current Visit: Yes Status: Chronic Assessment and plan: History of a A.fib controlled with metoprolol and anticoagulation with xarelto Continue amioderone and metoprolol metoprolol 5mg IV PRN holding Coumadin due to need for perma cath placement Qualifiers: Atrial fibrillation type: chronic Qualified Code(s): I48.2 - Chronic atrial fibrillation (6) Intra-dialytic hypotension Current Visit: Yes Status: Acute (7) Cirrhosis Current Visit: No Status: Chronic Assessment and plan: CT ab/pelvis showed cirrhotic liver. moderate amount of ascites. Patient reports this is the first time he has heard he has liver cirrhosis Qualifiers: Hepatic cirrhosis type: unspecified hepatic cirrhosis Ascites presence: with ascites Qualified Code(s): K74.60 - Unspecified cirrhosis of liver (8) Systolic CHF, acute on chronic Current Visit: Yes Status: Acute (9) Presence of IVC filter Current Visit: No Status: Chronic - Subjective Interval history: Feeling less short of breath, denies any chest pain, no abdominal pain, no fevers or chills, no diarrhea, makes very little amounts of urine - Constitutional Vitals: Temp Pulse Resp BP Pulse Ox 97.4 F L 91 20 85/66 99 03/29/17 12:00 03/29/17 12:00 03/29/17 12:00 03/29/17 12:00 03/29/17 10:00 General appearance: Present: A&O X 3, answers questions appropriately - Head Head exam: Present: atraumatic, normocephalic - Eye Eye exam: Present: PERRL, conjuntiva pink, sclera anicteric Pupils: Present: PERRL Additional comments: Right IJ temporary dialysis catheter - Neck Neck exam general surgery: Present: supple, trachea midline. Absent: lymphadenopathy - Respiratory Respiratory exam: Present: CTAB. Absent: accessory muscle use, rales, rhonchi, wheezes - Cardiovascular Cardiovascular exam: Present: RRR, +S1, +S2. Absent: diastolic murmur, gallop, rubs, systolic murmur - GI/Abdominal GI/Abdominal exam: Present: normal bowel sounds, soft, no peritoneal signs. Absent: distended, tenderness - Extremities Exam Extremities exam: Present: pedal edema (+2 pitting edema both lower extremities) , warm, radial pulses palpable and symmetrical. Absent: calf tenderness, cyanotic - Neurological Exam Neurological exam: Present: CN II-XII intact, oriented X3, no focal deficits. Absent: pronater drift, facial droop, speech deficit - Skin Skin exam: Present: dry, intact Internal Medicine: Result - Labs CBC & Chem 7: 03/29/17 03:20 03/29/17 03:20 Labs: Short CBC 03/29/17 Range/Units 03:20 WBC 7.3 (4.3-11.1) K/mcL Hgb 11.2 L (12.9-16.9) g/dL Hct 36.0 L (37.5-50.1) % Plt Count 134 L (140-400) K/mcL Neutrophils # 5.6 (1.6-8.9) K/mcL BMP 03/29/17 03:20 Sodium 134 L Potassium 4.5 Chloride 94 L Carbon Dioxide 28 BUN 32 H Creatinine 4.30 H Glucose 145 H Calcium 9.5 - ABG Interpretation ABG results: PT/INR, D-dimer PT 20.2 Seconds (9.4-12.1) H 03/29/17 03:20 Consult Discharge Plan - Plan Referrals: Lonny Davison MD [Primary Care Provider] - 03/29/17 10:00 am (Please follow up as schedule...)
[2017-03-29] MEDS ORDERED: *HR* Phytonadione 5 MG TABLET PO ONE (21:00)
[2017-03-30] MEDS ORDERED: 0.9 % Sodium Chloride 250 ML ONE (02:31)
[2017-03-30] MEDS: Norepinephrine 4 MG in D5% in Water 250 ML IVC SCH (04:24)
[2017-03-30] MEDS ORDERED: 0.9 % Sodium Chloride 250 ML IVC PRN (06:44)
[2017-03-30 06:45] LABS: INR 1.5; Prothrombin Time 15.9 Seconds (9.4-12.1)
--- NOTE | 2017-03-30 06:58 | Nephrology Progress Note ---
Date of Encounter: 03/30/17 Time of Encounter: 06:58 - Assessment and Plan (1) Intra-dialytic hypotension Current Visit: Yes Status: Acute BP remains stable this AM on oral Amiodarone and Midodrine. Continue I/Os and BPs and HR monitoring Most likely this pt's chronic hypotension will greatly impact and minimize the effectiveness of outpatient/chronic dialysis. I suspect that outpatient HD may not be sustainable very long. Agree with hospice arrangement now and short term dialysis per the patient's request Continue HD today (2) Volume overload Current Visit: Yes Status: Acute 1+ edema noted. INR 1.5, anticipate permacath placement/paracentesis today Continue HD today Qualifiers: Hypervolemia type: other Qualified Code(s): E87.79 - Other fluid overload (3) ESRD (end stage renal disease) on dialysis Current Visit: Yes Status: Acute New to dialysis. Has temporary HD catheter in place. BP remains stable this AM on oral Amiodarone and Midodrine. Patient reports social work has arranged a chair time of 6:00 a.m. to start Tuesday03/28/2017 at [facility]. The pt has followed with Dr. Leavitt in the clinic in the past. Continue HD today (4) Acute kidney injury superimposed on chronic kidney disease Current Visit: Yes Status: Acute Elevated serum creatinine No urine output overnight Continue to monitor (5) Cirrhosis Current Visit: No Status: Chronic As per primary team. This is also likely contributing to his asymptomatic hypotension. INR 1.5, anticipate paracentesis today Qualifiers: Hepatic cirrhosis type: unspecified hepatic cirrhosis Ascites presence: with ascites Qualified Code(s): K74.60 - Unspecified cirrhosis of liver (6) Atrial fibrillation Current Visit: Yes Status: Chronic As per primary team. Sometimes the hemodynamics of AF may impact HD and UF. 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 Management per primary team Qualifiers: DVT location: lower extremity Affected thrombotic vein of extremity: unspecified vein of extremity Chronicity: chronic Laterality: unspecified laterality Qualified Code(s): I82.509 - Chronic embolism and thrombosis of unspecified deep veins of unspecified lower extremity (11) Goals of care, counseling/discussion Current Visit: Yes Status: Acute After long discussion with patient counseling him about the Pros/Cons of chronic dialysis, patient wants to push forward with arranging for short term dialysis. Palliative care is onboard Subjective Principal diagnosis: Cardiomyopathy, JENNIFER Interval history: Patient seen and examined today during HD. INR is 1.9 today. Patient is NPO awaiting tunneled HD catheter placement today. His BP remains stable this AM on oral Amiodarone and Midodrine. Patient reports social work has arranged a chair time of 6:00 a.m. to start Tuesday03/28/2017 at [facility]. Objective - Vital Signs Vital signs: Vital Signs Temp Pulse Resp BP Pulse Ox 03/30/17 04:52 97.4 F L 98 22 101/65 99 03/30/17 04:35 97.5 F L 101 20 95/59 97 03/30/17 04:22 97.5 F L 108 20 94/64 97 03/30/17 02:47 97.8 F 106 26 111/62 03/30/17 02:39 98.0 F 111 24 94/59 95 03/30/17 00:03 98.0 F 104 16 95/70 92 03/29/17 19:48 97.8 F 97 16 86/57 92 03/29/17 16:15 97.4 F L 11 92/64 03/29/17 16:10 89/68 03/29/17 16:00 104 20 92/64 100 03/29/17 15:55 95/69 03/29/17 15:40 92/66 03/29/17 15:25 91/62 03/29/17 15:10 87/68 03/29/17 15:00 86 20 86/58 100 03/29/17 14:55 92/61 03/29/17 14:40 91/61 03/29/17 14:25 86/66 03/29/17 14:10 85/64 03/29/17 13:55 91/64 03/29/17 13:40 97/62 03/29/17 13:25 96/77 03/29/17 13:10 97.4 F L 20 90/68 03/29/17 12:00 97.4 F L 91 20 85/66 03/29/17 10:00 98 28 85/63 99 03/29/17 08:24 97.5 F L 03/29/17 08:00 100 Intake and Output 03/29/17 03/29/17 03/30/17 15:59 23:59 07:59 Intake Total 600 / 600 0 / 0 530 / 530 Output Total 550 / 550 2600 / 2600 Balance 50 / 50 -2600 / -2600 530 / 530 Intake: Oral 0 / 0 0 / 0 0 / 0 Blood Product 530 / 530 Plasma Unit [id number] 250 / 250 Plasma Unit [id number] 280 / 280 Intake, Rinseback and Flushes 600 / 600 Output: Urine 0 / 0 Stool 550 / 550 Total Dialysis (HD) Output 2600 / 2600 Other: Stool Color Yellow Hemodialysis Net Fluid Removed [id number] (mL) - General Appearance General appearance: Present: well-developed, well-nourished EENT: Present: ATNC, PERRL, mucous membranes dry Neck: Present: JVD, supple Additional Comments: decreased bibasilar breath sounds Cardiology: Present: no murmurs, edema (1+ pedal edema), regular rate, regular rhythm Dialysis Vascular Access: Venous Catheter Gastrointestinal: Present: normoactive bowel sounds, no tenderness, no guarding , distended Additional Comments: LLQ ostomy intact Integumentary: Present: no rash, warm and dry Neurologic: Present: no focal deficit, alert and oriented x3 Psychiatric: Present: mood/affect appropriate, cooperative - Lab 03/29/17 03:20 03/30/17 06:20 Most recent lab results Calcium 9.5 mg/dL (8.6-10.3) 03/29/17 03:20 Phosphorus 4.1 mg/dL (2.7-4.5) 03/25/17 04:08 Magnesium 1.8 mg/dL (1.6-2.6) 03/27/17 04:36 Urine Creatinine 202 mg/dL 03/20/17 15:57 Urine Sodium < 10.0 mEq/L 03/20/17 15:57 Urine Total Protein 53 mg/dL 03/20/17 15:57 Consult Discharge Plan - Plan Referrals: Lonny Davison MD [Primary Care Provider] - 03/29/17 10:00 am (Please follow up as schedule...)
[2017-03-30 07:05] LABS: Calcium 9.3 mg/dL (8.6-10.3)
--- NOTE | 2017-03-30 07:53 | Electrocardiograph Report ---
[address] [place] [address] Test Date: 2017-03-27 Pat Name: Rich Shultz Department: 112 Room: 2A26 Gender: M School Aide: : 1950 Requested By: Jn Robles Order Number: [id number] Reading MD: Jose J Donald MD Measurements Intervals [place] Rate: 118 P: -66 [place]: 80 QRS: -72 QRSD: 134 T: 90 QT: 399 QTc: 469 Interpretive Statements LIKELY SINUS TACHYCARDIA WITH PVC RIGHT BUNDLE BRANCH BLOCK INFERIOR MYOCARDIAL INFARCTION, OF INDETERMINATE AGE ANTEROSEPTAL MYOCARDIAL INFARCTION, OF INDETERMINATE AGE Electronically Signed On 03-30-2017 6:10:31 EST by Jose J Donald MD
[2017-03-30] MEDS ORDERED: NON-FORMULARY MEDICATION 1 EACH EACH (Metoprolol Succinate [Metoprolol Succinate] 100 MG) PO SCH (09:00)
[2017-03-30] MEDS ORDERED: Isosorbide MONOnitrate (24 HR) 30 MG TAB.ER.24H PO SCH (09:00)
[2017-03-30] MEDS ORDERED: *HR* Heparin 10,000 UNIT/10 ML VIAL IV PRN (09:28)
[2017-03-30] MEDS ORDERED: 0.9 % Sodium Chloride 2,000 ML ONE (09:30)
[2017-03-30] MEDS ORDERED: *HR* OxyCODONE Immed Rel 5 MG TABLET PO PRN (10:59)
[2017-03-30] MEDS ORDERED: traZODone 50 MG TABLET PO PRN (10:59)
[2017-03-30] MEDS ORDERED: Heparin 1,000 UNITS/500 mL 500 ML ONE (11:05)
[2017-03-30] MEDS: *HR* Amiodarone 200 MG TABLET PO SCH ×2 (11:22→22:19)
[2017-03-30] MEDS: Metoprolol XL (24 HR) Succ 25 MG TAB.ER.24H PO SCH ×2 (11:22→22:16)
[2017-03-30] MEDS ORDERED: *HR* FentaNYL (PF) 100 MCG/2 ML VIAL IVP ONE (13:17)
[2017-03-30] MEDS ORDERED: Clindamycin 600 MG/50 ML 600 MG/50 ML IV.SOLN IVPB ONE (13:19)
[2017-03-30] MEDS ORDERED: 0.9 % Sodium Chloride 500 ML ONE (13:34)
[2017-03-30] MEDS ORDERED: *HR* Heparin 5,000 UNIT/ML VIAL ONE (14:09)
--- NOTE | 2017-03-30 14:16 | IR Procedure Note ---
Date of procedure: 03/30/17 Consent Obtained: Written consent Timeout: Correct patient and procedure verified, Time out performed, Skin prep completed Local anesthetic: Lidocaine 1% Indications: CRF and ascites Procedure Performed: Permacath and paracentesis Was there an information services assistant present: No Results/Findings: RIJ 14F 28cm Osman-SPlit TDC Estimated blood loss (cc): 0 Complications: None; Tolerated procedure well Specimen: None
--- NOTE | 2017-03-30 17:06 | Internal Med Progress Note ---
Date of Encounter: 03/30/17 Time of Encounter: 17:06 - Assessment and plan (1) ESRD (end stage renal disease) on dialysis Current Visit: Yes Status: Chronic Assessment and plan: patient has progressed to ESRD, now requiring HD; Nephrology on board; patient has outpatient HD chair set up; received PermCath today after bringing INR down to 1.5; plan for HD tomorrow via new catheter; continue phosphate binders, Midodrine; (2) History of thromboembolism Current Visit: Yes Status: Chronic Assessment and plan: plan to resume Coumadin; (3) Cardiomyopathy Current Visit: Yes Status: Chronic Assessment and plan: Known history of nonischemic cardiomyopathy. Current echocardiogram shows significantly reduced ejection fraction around 10%, moderate biventricular and biatrial dilation, severe global left ventricular systolic dysfunction, moderate mitral regurgitation and moderate pulmonary hypertension. Cardiology has been on board, now signed off; Patient has been referred to advanced heart failure clinic at [facility], however deemed not a candidate for cardiac transplantation or LVAD support. Continue beta alex, supportive care, telemetry monitoring. Qualifiers: Cardiomyopathy type: unspecified Qualified Code(s): I42.9 - Cardiomyopathy , unspecified (4) Atrial fibrillation Current Visit: Yes Status: Chronic Assessment and plan: continues to have intermittent tachycardia and hypotension, specially related to HD sessions; continue Amiodarone, beta alex and anticoagulation has been changed to Coumadin due to HD; Qualifiers: Atrial fibrillation type: chronic Qualified Code(s): I48.2 - Chronic atrial fibrillation (5) Metabolic acidosis Current Visit: Yes Status: Chronic (6) Hyperphosphatemia Current Visit: Yes Status: Chronic Assessment and plan: continue phosphate binders; (7) COPD (chronic obstructive pulmonary disease) Current Visit: Yes Status: Chronic Qualifiers: COPD type: unspecified COPD Qualified Code(s): J44.9 - Chronic obstructive pulmonary disease, unspecified (8) Hypothyroidism Current Visit: Yes Status: Chronic Assessment and plan: continue Levothyroxine; Qualifiers: Hypothyroidism type: unspecified Qualified Code(s): E03.9 - Hypothyroidism , unspecified - Subjective Interval history: Reports feeling better; continues to have fatigue and weakness, leg swelling; had PermCath placement today; wants to be discharged home; no chest pain, dyspnea; - Constitutional Vitals: Temp Pulse Resp BP Pulse Ox 97.5 F L 98 14 94/56 96 03/30/17 16:21 03/30/17 16:21 03/30/17 16:21 03/30/17 16:21 03/30/17 16:21 General appearance: Present: A&O X 3, answers questions appropriately - Respiratory Respiratory exam: Present: CTAB. Absent: accessory muscle use, rales, rhonchi, wheezes - Cardiovascular Cardiovascular exam: Present: RRR, +S1, +S2, tachycardia. Absent: diastolic murmur, gallop, rubs, systolic murmur - GI/Abdominal GI/Abdominal exam: Present: normal bowel sounds, soft (ileostomy in place), no peritoneal signs. Absent: distended, tenderness - Extremities Exam Extremities exam: Present: full ROM ( ), pedal edema, warm, radial pulses palpable and symmetrical. Absent: calf tenderness, cyanotic - Neurological Exam Neurological exam: Present: CN II-XII intact, oriented X3, no focal deficits. Absent: pronater drift, facial droop, speech deficit Internal Medicine: Result - Labs CBC & Chem 7: 03/29/17 03:20 03/31/17 03:49 Labs: BMP 03/30/17 06:20 Sodium 134 L Potassium 4.0 Chloride 95 L Carbon Dioxide 28 BUN 40 H Creatinine 5.45 H Glucose 101 Calcium 9.3 - ABG Interpretation ABG results: PT/INR, D-dimer PT 15.9 Seconds (9.4-12.1) H 03/30/17 06:20 - Impressions Impressions Guidance Needle Placement Ultrasound 03/30/17 00:00 IMPRESSION: 1. Right internal jugular vein tunneled dialysis catheter placement as discussed above. D/ / Vlad Roe MD / Vlad Roe MD Interpreting Provider: Vlad Roe MD Insertion Tunneled Catheter 03/30/17 00:00 IMPRESSION: 1. Right internal jugular vein tunneled dialysis catheter placement as discussed above. D/ / Vlad Roe MD / Vlad Roe MD Interpreting Provider: Vlad Roe MD Paracentesis Ultrasound 03/30/17 00:00 IMPRESSION: 1. Successful ultrasound guided paracentesis. D/ / Vlad Roe MD / Vlad Roe MD Interpreting Provider: Vlad Roe MD Chest X-Ray 03/30/17 14:30 IMPRESSION: 1. Right tunneled dialysis catheter is seen with its tip at the cavoatrial junction. 2. Cardiomegaly without overt failure. D/ / Vlad Roe MD / Vlad Roe MD Interpreting Provider: Vlad Roe MD Consult Discharge Plan - Plan Instructions: Metoprolol (By mouth), Warfarin (By mouth), Amiodarone (By mouth) , Oxycodone, Rapid Release (By mouth), Midodrine (By mouth), Sevelamer (By mouth ) Additional Instructions: F/up with HD 3times/week- MWF Referrals: Lonny Davison MD [Primary Care Provider] - 04/07/17 9:40 am (Please follow up as schedule...) Prescriptions: OxyCODONE Immed Rel [Roxicodone 5 MG] 5 mg PO Q6HR PRN #30 tablet PRN Reason: Pain Amiodarone [Cordarone] 200 mg PO BID #60 tablet Metoprolol XL (24 HR) Succ [Toprol Xl] 12.5 mg PO BID #15 tab.er.24h Midodrine [ProAmatine] 2.5 mg PO 0800,1200,1700 #45 tablet Sevelamer [Renvela] 800 mg PO TIDWM #90 tablet Warfarin [Coumadin] 2 mg PO 3XW #20 tablet Warfarin [Coumadin] 4 mg PO 3XW #20 tablet
[2017-03-31] MEDS: Ipratropium/Albuterol Neb 3 ML IH PRN (00:18)
[2017-03-31 05:39] LABS: Potassium 4.2 mEq/L (3.5-5.1)
--- NOTE | 2017-03-31 07:06 | Nephrology Progress Note ---
Date of Encounter: 03/31/17 Time of Encounter: 07:06 - Assessment and Plan (1) Intra-dialytic hypotension Current Visit: Yes Status: Acute BP remains stable this AM on oral Amiodarone and Midodrine. Continue I/Os and BPs and HR monitoring Most likely this pt's chronic hypotension will greatly impact and minimize the effectiveness of outpatient/chronic dialysis. I suspect that outpatient HD may not be sustainable very long. Agree with hospice arrangement now and short term dialysis per the patient's request Continue UF today (2) Volume overload Current Visit: Yes Status: Acute Decreased edema noted Continue UF today Qualifiers: Hypervolemia type: other Qualified Code(s): E87.79 - Other fluid overload (3) ESRD (end stage renal disease) on dialysis Current Visit: Yes Status: Acute New to dialysis. Has temporary HD catheter in place. BP remains stable this AM on oral Amiodarone and Midodrine. Patient reports social work has arranged a MWF dialysis chair time of 6:00 a.m. to start Tuesday03/31/2017 at [facility]. The pt has followed with Dr. Leavitt in the clinic in the past. Continue UF today Anticipating discharge to home once [place] hospice has been arranged. (4) Cirrhosis Current Visit: No Status: Chronic As per primary team. This is also likely contributing to his asymptomatic hypotension. Patient underwent paracentesis yielding 4250cc ascites fluid yesterday. Patient is anticipating discharge to home once [place] hospice has been arranged. Qualifiers: Hepatic cirrhosis type: unspecified hepatic cirrhosis Ascites presence: with ascites Qualified Code(s): K74.60 - Unspecified cirrhosis of liver (5) Atrial fibrillation Current Visit: Yes Status: Chronic As per primary team. Sometimes the hemodynamics of AF may impact HD and UF. Qualifiers: Atrial fibrillation type: chronic Qualified Code(s): I48.2 - Chronic atrial fibrillation (6) Systolic CHF, acute on chronic Current Visit: Yes Status: Acute Management per primary team and cardiology (7) Hyperphosphatemia Current Visit: Yes Status: Chronic Resolved Continue to monitor as an outpatient (8) Hyponatremia Current Visit: Yes Status: Acute Hypervolemic hyponatremia secondary to fluid overload, cirrhosis, heart failure Continue to monitor (9) DVT (deep venous thrombosis) Current Visit: No Status: Chronic V/Q scan reveals low probability for PE Lower extremity U/S revealed chronic DVTs in bilateral lower common femoral veins. Management per primary team Qualifiers: DVT location: lower extremity Affected thrombotic vein of extremity: unspecified vein of extremity Chronicity: chronic Laterality: unspecified laterality Qualified Code(s): I82.509 - Chronic embolism and thrombosis of unspecified deep veins of unspecified lower extremity (10) Goals of care, counseling/discussion Current Visit: Yes Status: Acute After long discussion with patient counseling him about the Pros/Cons of chronic dialysis, patient wants to push forward with arranging for short term dialysis. Palliative care is onboard Patient is anticipating discharge to home once [place] hospice has been arranged. Subjective Principal diagnosis: Cardiomyopathy, JENNIFER Interval history: Patient seen and examined today during UF. Patient received tunneled HD catheter and underwent paracentesis yielding 4250cc ascites fluid yesterday. His BP remains stable this AM on oral Amiodarone and Midodrine. Patient reported SOB today and would like arrangement for home BiPap. Patient is anticipating discharge to home once [place] hospice has been arranged. His hemodialysis has already been arranged at [facility] every MWF. Objective - Vital Signs Vital signs: Vital Signs Temp Pulse Resp BP Pulse Ox 03/31/17 04:53 97.5 F L 110 28 92/51 100 03/31/17 01:15 21 99 03/31/17 00:32 97.3 F L 107 20 97/59 100 03/31/17 00:18 24 99 03/30/17 22:05 97.9 F 110 24 94/58 100 03/30/17 16:21 97.5 F L 98 14 94/56 96 03/30/17 14:12 98 16 94/63 100 03/30/17 14:10 95 16 88/63 100 03/30/17 14:03 106 16 90/65 100 03/30/17 13:58 98 16 96/63 100 03/30/17 13:51 101 16 95/64 99 03/30/17 11:20 98.4 F 92 18 92/58 100 03/30/17 10:50 97.4 F L 18 93/65 03/30/17 10:25 113/90 03/30/17 10:10 92/66 03/30/17 09:55 88/58 03/30/17 09:40 98/75 01/24/18 09:25 98/67 03/30/17 09:10 89/57 03/30/17 08:55 84/60 03/30/17 08:40 88/60 03/30/17 08:25 117/65 03/30/17 08:10 108/62 03/30/17 07:55 86/58 03/30/17 07:40 85/60 03/30/17 07:25 97.1 F L 18 82/56 Intake and Output 03/30/17 03/30/17 03/31/17 15:59 23:59 07:59 Intake Total 30 / 30 60 / 60 400 / 400 Output Total 2600 / 2600 0 / 0 Balance -2570 / -2570 60 / 60 400 / 400 Intake: Oral 60 / 60 400 / 400 Output: Urine 0 / 0 0 / 0 Total Dialysis (HD) Output 2600 / 2600 Other: Blood Glucose* 95 Hemodialysis Net Fluid Removed 2000 (mL) - General Appearance General appearance: Present: well-developed, well-nourished, appears started age EENT: Present: ATNC, PERRL, mucous membranes moist Neck: Present: no JVD, supple Respiratory: Present: clear Cardiology: Present: no murmurs, no edema, regular rate, regular rhythm Dialysis Vascular Access: Venous Catheter Gastrointestinal: Present: normoactive bowel sounds, no tenderness, no guarding , no organomegaly Additional Comments: LLQ ostomy intact Integumentary: Present: no rash, warm and dry Additional Comments: Right upper chest dressing C/D/I Neurologic: Present: no focal deficit, alert and oriented x3 Musculoskeletal: Present: no deformities, no erythema Psychiatric: Present: mood/affect appropriate, cooperative - Lab 03/29/17 03:20 03/31/17 03:49 Most recent lab results Calcium 9.0 mg/dL (8.6-10.3) 03/31/17 03:49 Phosphorus 4.1 mg/dL (2.7-4.5) 03/25/17 04:08 Magnesium 1.8 mg/dL (1.6-2.6) 03/27/17 04:36 Urine Creatinine 202 mg/dL 03/20/17 15:57 Urine Sodium < 10.0 mEq/L 03/20/17 15:57 Urine Total Protein 53 mg/dL 03/20/17 15:57 Consult Discharge Plan - Plan Referrals: Lonny Davison MD [Primary Care Provider] - 04/07/17 9:40 am (Please follow up as schedule...) Prescriptions: OxyCODONE Immed Rel [Roxicodone 5 MG] 5 mg PO Q6HR PRN #30 tablet PRN Reason: Pain
[2017-03-31] MEDS ORDERED: 0.9 % Sodium Chloride 250 ML IVC PRN (07:23)
[2017-03-31] MEDS ORDERED: *HR* Heparin 10,000 UNIT/10 ML VIAL IV PRN (07:23)
[2017-03-31 10:13] LABS: INR 1.5; Prothrombin Time 16.6 Seconds (9.4-12.1)
[2017-03-31] MEDS: *HR* Amiodarone 200 MG TABLET PO SCH (10:48)
[2017-03-31] MEDS: Metoprolol XL (24 HR) Succ 25 MG TAB.ER.24H PO SCH (10:48)
[2017-03-31 11:15] VITALS: BP 90/54
--- NOTE | 2017-03-31 12:39 | Physician Discharge Referral ---
<Marcelina Chavez - Last Filed: 03/31/17 12:41> Home Health/Hosp Referral Info Transfer to: Hospice Provider in Charge Post Discharge: PCP - Diagnosis (1) CHF exacerbation Status: Acute (2) Cardiomyopathy Status: Chronic (3) ESRD (end stage renal disease) on dialysis Status: Acute (4) Cirrhosis Status: Chronic - Respiratory Orders Oxygen / L per min (2-3 LPM PRN), Other (Bipap at hs and PRN - rate 10, 14/7, O2 32%) Smoking Cessation: Smoking cessation has been advised. For more information, call the [place] Tobacco Quit Line at 2-590-YHZI-NOW. - Diet/Nutrition Diet/Nutrition Orders: Renal - Activity Activity Orders: Up ad jessie - Services Needed Following services are medically necessary services: Nursing, Home Health Aide - Transfer Medications Prescriptions: OxyCODONE Immed Rel [Roxicodone 5 MG] 5 mg PO Q6HR PRN #30 tablet PRN Reason: Pain Amiodarone [Cordarone] 200 mg PO BID #60 tablet Metoprolol XL (24 HR) Succ [Toprol Xl] 12.5 mg PO BID #15 tab.er.24h Midodrine [ProAmatine] 2.5 mg PO 0800,1200,1700 #45 tablet Sevelamer [Renvela] 800 mg PO TIDWM #90 tablet Warfarin [Coumadin] 2 mg PO 3XW #20 tablet Warfarin [Coumadin] 4 mg PO 3XW #20 tablet Home Medications: Calcitriol [Rocaltrol] 0.25 mcg PO DAILY 10/09/14 [History] Cholecalciferol (Vitamin D3) [Vitamin D3] 2,000 unit PO QAM 10/09/14 [History] Pravastatin Sodium 40 mg PO HS 10/09/14 [History] Cyanocobalamin (Vitamin B-12) [Vitamin B-12] 500 mcg PO DAILY 07/22/15 [History] Folic Acid 0.8 mg PO DAILY 01/07/16 [History] Albuterol Sulfate [Proair Hfa] 2 puff IH Q4H PRN 11/29/16 [History] Ascorbic Acid [Vitamin C] 500 mg PO DAILY 11/29/16 [History] Ferrous Sulfate [Iron] 325 mg PO DAILY 11/29/16 [History] Levothyroxine [Synthroid] 75 mcg PO 30 11/29/16 [History] Amiodarone [Cordarone] 200 mg PO BID #60 tablet 03/31/17 [Rx] Metoprolol XL (24 HR) Succ [Toprol Xl] 12.5 mg PO BID #15 tab.er.24h 03/31/17 [ Rx] Midodrine [ProAmatine] 2.5 mg PO 0800,1200,1700 #45 tablet 03/31/17 [Rx] OxyCODONE Immed Rel [Roxicodone 5 MG] 5 mg PO Q6HR PRN #30 tablet 03/31/17 [Rx] Sevelamer [Renvela] 800 mg PO TIDWM #90 tablet 03/31/17 [Rx] Warfarin [Coumadin] 2 mg PO 3XW #20 tablet 03/31/17 [Rx] Warfarin [Coumadin] 4 mg PO 3XW #20 tablet 03/31/17 [Rx] Allergies/Adverse Reactions: 3 Allergy/AdvReac Type Severity Reaction Status Date / Time Penicillins [PCN] Allergy Rash Verified 03/21/17 09:14 codeine AdvReac Hallucinati Verified 03/21/17 09:14 ng lorazepam [From Ativan] AdvReac Hallucinati Verified 03/21/17 09:14 ng Zolpidem [From Ambien] AdvReac Hallucinati Verified 03/26/17 00:03 ng Certification: Further, I certify that my clinical findings support that this patient is homebound (i.e. absences from home require considerable and taxing effort and are for medical reasons or congregation services or infrequently or short duration when for other reasons) because: Homebound Reason: Patient requires assistance of a person or device to safely leave home Attestation: My signature below is to certify that this patient is under my care and that I, or nurse practitioner, or a physician's public health training assistant working with me, has a face-to -face encounter with this patient. <Sharron Martell - Last Filed: 03/31/17 14:24> - Diagnosis (1) ESRD (end stage renal disease) on dialysis Priority: Primary Status: Chronic (2) History of thromboembolism Priority: Secondary Status: Chronic (3) Cardiomyopathy Priority: Secondary Status: Chronic (4) Atrial fibrillation Priority: Secondary Status: Chronic (5) Metabolic acidosis Priority: Primary Status: Chronic (6) Hyperphosphatemia Priority: Primary Status: Chronic (7) COPD (chronic obstructive pulmonary disease) Priority: Secondary Status: Chronic (8) Hypothyroidism Priority: Secondary Status: Chronic - Respiratory Orders Smoking Cessation: Smoking cessation has been advised. For more information, call the [place] Tobacco Quit Line at 3-108-UUWX-NOW. Certification: Further, I certify that my clinical findings support that this patient is homebound (i.e. absences from home require considerable and taxing effort and are for medical reasons or congregation services or infrequently or short duration when for other reasons) because: Homebound Reason: Leaving home requires considerable and taxing effort due to condition, Severity of cardiac or pulmonary status limits activity tolerance Attestation: My signature below is to certify that this patient is under my care and that I, or nurse practitioner, or a physician's public health training assistant working with me, has a face-to -face encounter with this patient.
--- NOTE | 2017-03-31 12:51 | Event Note ---
Date of Encounter: 03/31/17 Time of Encounter: 12:45 Spoke with Jayda from [facility] - they are aware pt will be discharging today and will be coming to hospital to have admission papers signed. Patient now requesting bipap on discharge - D/W hospice and settings faxed to [facility]. D/W Dr. Martell.
[2017-03-31] MEDS ORDERED: 0.9 % Sodium Chloride 1,000 ML ONE (14:29)
--- NOTE | 2017-03-31 14:30 | Discharge Summary ---
Date of Encounter: 03/31/17 Time of Encounter: 14:29 - Discharge Diagnosis (1) ESRD (end stage renal disease) on dialysis Priority: Primary Status: Chronic (2) History of thromboembolism Priority: Secondary Status: Chronic (3) Cardiomyopathy Priority: Secondary Status: Chronic Qualifiers: Cardiomyopathy type: unspecified Qualified Code(s): I42.9 - Cardiomyopathy , unspecified (4) Atrial fibrillation Priority: Secondary Status: Chronic Qualifiers: Atrial fibrillation type: chronic Qualified Code(s): I48.2 - Chronic atrial fibrillation (5) Metabolic acidosis Priority: Primary Status: Chronic (6) Hyperphosphatemia Priority: Primary Status: Chronic (7) COPD (chronic obstructive pulmonary disease) Priority: Secondary Status: Chronic Qualifiers: COPD type: unspecified COPD Qualified Code(s): J44.9 - Chronic obstructive pulmonary disease, unspecified (8) Hypothyroidism Priority: Secondary Status: Chronic Qualifiers: Hypothyroidism type: unspecified Qualified Code(s): E03.9 - Hypothyroidism , unspecified - Discharge Medications Prescriptions: OxyCODONE Immed Rel [Roxicodone 5 MG] 5 mg PO Q6HR PRN #30 tablet PRN Reason: Pain Amiodarone [Cordarone] 200 mg PO BID #60 tablet Metoprolol XL (24 HR) Succ [Toprol Xl] 12.5 mg PO BID #15 tab.er.24h Midodrine [ProAmatine] 2.5 mg PO 0800,1200,1700 #45 tablet Sevelamer [Renvela] 800 mg PO TIDWM #90 tablet Warfarin [Coumadin] 2 mg PO 3XW #20 tablet Warfarin [Coumadin] 4 mg PO 3XW #20 tablet Home Medications: Calcitriol [Rocaltrol] 0.25 mcg PO DAILY 10/09/14 [History] Cholecalciferol (Vitamin D3) [Vitamin D3] 2,000 unit PO QAM 10/09/14 [History] Pravastatin Sodium 40 mg PO HS 10/09/14 [History] Cyanocobalamin (Vitamin B-12) [Vitamin B-12] 500 mcg PO DAILY 07/22/15 [History] Folic Acid 0.8 mg PO DAILY 01/07/16 [History] Albuterol Sulfate [Proair Hfa] 2 puff IH Q4H PRN 11/29/16 [History] Ascorbic Acid [Vitamin C] 500 mg PO DAILY 11/29/16 [History] Ferrous Sulfate [Iron] 325 mg PO DAILY 11/29/16 [History] Levothyroxine [Synthroid] 75 mcg PO 0630 11/29/16 [History] Amiodarone [Cordarone] 200 mg PO BID #60 tablet 03/31/17 [Rx] Metoprolol XL (24 HR) Succ [Toprol Xl] 12.5 mg PO BID #15 tab.er.24h 03/31/17 [ Rx] Midodrine [ProAmatine] 2.5 mg PO 0800,1200,1700 #45 tablet 03/31/17 [Rx] OxyCODONE Immed Rel [Roxicodone 5 MG] 5 mg PO Q6HR PRN #30 tablet 03/31/17 [Rx] Sevelamer [Renvela] 800 mg PO TIDWM #90 tablet 03/31/17 [Rx] Warfarin [Coumadin] 2 mg PO 3XW #20 tablet 03/31/17 [Rx] Warfarin [Coumadin] 4 mg PO 3XW #20 tablet 03/31/17 [Rx] Allergies/Adverse Reactions: 3 Allergy/AdvReac Type Severity Reaction Status Date / Time Penicillins [PCN] Allergy Rash Verified 03/21/17 09:14 codeine AdvReac Hallucinati Verified 03/21/17 09:14 ng lorazepam [From Ativan] AdvReac Hallucinati Verified 03/21/17 09:14 ng Zolpidem [From Ambien] AdvReac Hallucinati Verified 03/26/17 00:03 ng Procedures/tests Complete & Pending: Procedures Performed prior 72 hours Category Date Time Status IR cvc insrt tunnel wo prt/taper printed circuit layout [IR] Routine IR 03/30/17 Completed IR paracentesis ultrasound [IR] Routine IR 03/30/17 Completed IR us guide needle place [IR] Routine IR 03/30/17 Completed Date of admission: 03/19/17 20:37 Primary care physician: Lonny Davison MD Consults: 03/19/17 22:23 Consult to Nutrition [CONS] Routine Comment: Consulting Provider: NUTRITION Reason for Dietary Consult: MST Score 03/21/17 10:34 Consult to Interventional Radiology [CONS] Routine Consulting Provider: Radiology Interventional Cols Reason for Consult: need temp HD line for dialysis. Call Completed: No 03/21/17 11:00 Consult to Dialysis [CONS] ONCE 03/22/17 08:15 Consult to Dialysis [CONS] ONCE 03/22/17 17:58 Consult to Urology [CONS] Stat Consulting Provider: Urology Manuela Reason for Consult: retention, unsuccessful in attempting straight cath and coudae cath Call Completed: Yes 03/23/17 10:09 Consult to Interventional Radiology [CONS] Routine Consulting Provider: Radiology Interventional Cols Reason for Consult: change temp HD catheter to a tunneled catheter. Call Completed: No 03/23/17 10:11 Consult to Structural Engineer [CONS] Routine Reason for SW Consult: Patient new start dialysis wants hd chair in [place] 03/24/17 08:30 Consult to Dialysis [CONS] ONCE 03/24/17 12:52 Consult to Palliative Care [CONS] Stat Comment: Consulting Provider: Palliative Care Manuela Reason for Consult: Please talk to patient about hospice care. He has severely reduced EF and not qualified for transplant. He is new ESRD Call Completed: No 03/25/17 08:15 Consult to Dialysis [CONS] ONCE 03/26/17 10:15 Consult to Dialysis [CONS] ONCE 03/27/17 11:02 Consult to Cardiology [CONS] Routine Comment: Consulting Provider: Cardiology Manuela Reason for Consult: V-tach last night. HR 118 now sinus tach Call Completed: Yes 03/28/17 07:00 Consult to Dialysis [CONS] ONCE 03/29/17 08:00 Consult to Dialysis [CONS] ONCE 03/30/17 06:45 Consult to Dialysis [CONS] ONCE 03/31/17 07:30 Consult to Dialysis [CONS] ONCE Discharging clinician: Sharron Martell Anticipated date of discharge: 03/31/17 - Patient Status Disposition: Hospice - Home Condition: Fair Functional capacity at discharge: independent ambulation Overall status at discharge: patient is progressing back to baseline - Discharge Instructions Instructions: Metoprolol (By mouth), Warfarin (By mouth), Amiodarone (By mouth) , Oxycodone, Rapid Release (By mouth), Midodrine (By mouth), Sevelamer (By mouth ) Follow Up With: Lonny Davison MD [Primary Care Provider] - 04/07/17 9:40 am (Please follow up as schedule...) Additional Instructions: F/up with HD 3times/week- MWF - Diet and Activity Activity: resume usual activities as tolerated Diet: advance to your usual diet (renal), low salt diet Hospital course: Mr. Shultz is a 66 year old male with significant end stage cardiomyopathy, was admitted with worsening shortness of breath. He was noted to have worsening CKD with volume overload. nephrology has been consulted and patient did not respond appropriately to IV hydration with bicarbonate drip. Decision has been made to begin hemodialysis. Patient received temporary hemodialysis catheter, and underwent HD regularly. Calcitriol and phosphorus binders per nephrology; he received PermCath after reversing INR, which was elevated due to underlying cardiac cirrhosis. Cardiology was consulted and offered no further recommendations for this unfortunate patient with severe cardiomyopathy. echocardiogram shows significantly reduced ejection fraction around 10%, moderate biventricular and biatrial dilation, severe global left ventricular systolic dysfunction, moderate mitral regurgitation and moderate pulmonary hypertension. Patient has been referred to advanced heart failure clinic at [facility], however deemed not a candidate for cardiac transplantation or LVAD support. Beta alex and diuretics have initially been on hold due to hypotension. However patient developed significant tachycardia after HD initiation, specially during UF. He was eventually restarted on low dose beta alex and Amiodarone. Patient was on Xarelto for anticoagulation due to VTE and a.fib, which is being changed to Coumadin since HD initiation. Patient also had ICU stay due to hypotension, and his grave prognosis has been explained to him ad his at bedside, who understand, however not ready to discontinue HD yet as he needed to take care of certain things at home. Hospice team has been on board and patient is being discharged with home Hospice to be followed closely by Hospice care, and provide transport to HD. He is being discharged on all the meds that he is currently receiving. - Time Spent with Patient Total time spent providing and/or coordinating discharge services: Greater than 30 minutes (50 min) - Constitutional Vitals: Temp Pulse Resp BP Pulse Ox 97.3 F L 105 20 90/54 97 03/31/17 11:16 03/31/17 11:16 03/31/17 11:16 03/31/17 11:16 03/31/17 11:16 General appearance: Present: A&O X 3, answers questions appropriately - Cardiovascular Cardiovascular exam: Present: RRR, +S1, +S2, tachycardia. Absent: diastolic murmur, gallop, rubs, systolic murmur
== END 2017-03-31 16:15 | disposition hospice, home (50) | DRG 683 ==
LOC: EMEROO 15:40 → ICNU 20:37 → SUATTDRO 20:37 → ICNU 22:03 → 2ANU 03-20 01:55 → ICNU 03-27 04:59 → 2ANU 03-29 17:29
PROVIDERS: ADMIT Internal Medicine Hematology & Oncology; ATTEND Internal Medicine
PROC: IRPERMA (2017-03-30 12:00)

== ENCOUNTER 2017-05-17 06:14 | Inpatient (IN) ==
--- NOTE | 2017-05-17 14:44 | Internal Med History&Physical ---
Date of Encounter: 05/17/17 Time of Encounter: 14:36 Assessment and Plan (1) Acute encephalopathy Current visit: Yes Status: Acute Likely from severe sepsis CT head without contrast at [facility] showed diffuse cortical and cerebellar atrophy versus subdural hygromas without intracranial abnormalities. Will repeat CT head stat here to evaluate if this is due to bilateral hygromas vs atrophy. MRI if possible but may not be possible with patient mental status and presence of pacer/defibrillator. Treatment of severe sepsis with antibiotics - ROcephin and Doxycycline. Avoid Levaquin and azithromycin due to prolonged QTc Hold patient's Benadryl and Atarax Hold pain medication until mental status resolves. (2) Severe sepsis Current visit: Yes Status: Acute Will need to avoid QT prolonging antibiotics his QTc was 500. Continue Rocephin add Doxycycline for atypicals (3) CHF (congestive heart failure) Current visit: No Status: Acute not in acute exacerbation. Continue amiodarone Patient does need slight IV fluid hydration due to hypotension, this will be given 500 ml over two hours and rechecked. Qualifiers: Qualified Code(s): I50.22 - Chronic systolic (congestive) heart failure (4) Ischemic cardiomyopathy Current visit: No Status: Acute (5) Atrial fibrillation Current visit: No Status: Chronic Continue amiodarone, coumadin Qualifiers: Atrial fibrillation type: chronic Qualified Code(s): I48.2 - Chronic atrial fibrillation (6) Presence of IVC filter Current visit: No Status: Chronic (7) COPD (chronic obstructive pulmonary disease) Current visit: No Status: Chronic Not in acute exacerbation. Will give Duo Nebs prn Qualifiers: COPD type: unspecified COPD Qualified Code(s): J44.9 - Chronic obstructive pulmonary disease, unspecified (8) DVT prophylaxis Current visit: No Status: Acute On coumadin with therapeutic INR Internal Medicine - H&P: HPI History of present illness: Mr. Shultz is a 66 year old male with history of systolic heart failure (EF 10%) , ESRD, COPD, factor V Leiden dz, Crohns disease s/p ileostomy, DVT presented to [facility] for altered mental status. is historian. She states he has been "out of it" for past 2 days and worsening mostly since yesterday. He has been having shakiness and decreased appetite. He had dialysis yesterday but usually does have some weakness after dialysis but this time is worse. She notes he has been short of breath with some worsening edema. At [facility] ED patient had low BP reported to be SBP 70s which improved to SBP 90s after 1 L IV fluid. He had BMP that showed Cr. 5.75 otherwise unremarkable. WBC was normal. INR was therapeutic at 2.05. EKG showed sinus tachycardia of HR 101 with QTc elevated at 500. A CT head without contrast showed diffuse atrophy vs bilateral subdural hygromas. He received IV Ativan over there to get CT of head done. He was sent here to be treated for sepsis secondary to pneumonia. Patient is DNR CCA, DNI Past Med Surg Social Fam HX - Past Medical History Medical history: atrial fibrillation, CHF, COPD, DVT, hyperlipidemia, hypertension, pulmonary embolus, renal disease, thyroid disease, other Psychiatric history: no psych history - Past Surgical History Surgical History: colectomy, colostomy, IVC Filter, LE vascular intervention, pacemaker/AICD, vascular surgery, other - Social History Smoking Status: Former smoker Smokeless Tobacco Status: No Alcohol use: none Drug use: none - Family History Father Adopted: No Family Member Ethnicity: Non- Living Status: Still Living Hx Family Cardiac Disorders: Yes (CHF) Hx Family Respiratory Disorders: Yes Hx Family Cancer: No Hx Family GI Disorders: No Hx Family Endocrine Disorder: No Hx Family Neuromuscular Disorders: No Hx Family Neurologic Disorders: No Hx Family HEENT Disorders: No Hx Family Autoimmune Disorders: No Mother Living Status: Internal Medicine - H&P: Meds Pravastatin Sodium 40 mg PO HS 10/09/14 [History] Levothyroxine [Synthroid] 75 mcg PO 0630 11/29/16 [History] Midodrine [ProAmatine] 2.5 mg PO 0800,1200,1700 #45 tablet 03/31/17 [Rx] OxyCODONE Immed Rel [Roxicodone 5 MG] 5 mg PO Q6HR PRN #30 tablet 03/31/17 [Rx] Sevelamer [Renvela] 800 mg PO TIDWM #90 tablet 03/31/17 [Rx] Amiodarone [Cordarone] 200 mg PO DAILY 05/17/17 [History] Calcium Acetate [Phos-LO] 1,334 mg PO TIDWM 05/17/17 [History] DiphenhydraMINE [Benadryl] 25 mg PO Q6HR PRN 05/17/17 [History] HYDROcodone/Acet 5/325 mg [[place] 5-325 mg] 1 tab PO Q4H PRN 05/17/17 [History] MORPHINE SUL Oral CONC [Roxanol Oral Conc] 5 mg PO Q4H PRN 05/17/17 [History] Mirtazapine [Remeron] 15 mg PO HS 05/17/17 [History] Sodium Bicarbonate 650 mg PO BID 05/17/17 [History] Warfarin [Coumadin] 0.5 mg PO Q48H 05/17/17 [History] Warfarin [Coumadin] 1 mg PO Q48H 05/17/17 [History] hydrOXYzine pamoate [HydrOXYzine Pamoate] 25 mg PO Q4H PRN 05/17/17 [History] 3 Allergy/AdvReac Type Severity Reaction Status Date / Time Penicillins [PCN] Allergy Rash Verified 03/21/17 09:14 codeine AdvReac Hallucinati Verified 03/21/17 09:14 ng lorazepam [From Ativan] AdvReac Hallucinati Verified 03/21/17 09:14 ng Zolpidem [From Ambien] AdvReac Hallucinati Verified 03/26/17 00:03 ng ROS unobtainable: due to mental status All Systems PM: A 10-system review of systems was performed and is negative for pertinent findings except as documented above in the HPI. - Constitutional Vitals: Temp Pulse Resp BP Pulse Ox 97.0 F L 79 22 88/66 97 05/17/17 13:45 05/17/17 13:45 05/17/17 13:45 05/17/17 13:45 05/17/17 13:45 General appearance: Present: A&O X 0 Exam: lethargic, no acute distress CVS: Tachycardic, no mrg Lungs; CTAB Abd: nt/nd, ileostomy in place, clean Ext: 2+ bipedal pitting edema Skin: right port clean, no cellulitis or drainage.
[2017-05-17] MEDS ORDERED: *HR* Warfarin 1 MG TABLET PO SCH ×2 (15:00)
[2017-05-17] MEDS ORDERED: *HR* Amiodarone 200 MG TABLET PO SCH (15:00)
[2017-05-17] MEDS ORDERED: 0.9 % Sodium Chloride 1,000 ML IVC SCH (15:15)
[2017-05-17] MEDS ORDERED: Cefepime HCl 1,000 MG in Water for inj. (sterile) 20 ML 10 ML IVP SCH (16:00)
[2017-05-17] MEDS ORDERED: 0.9 % Sodium Chloride 500 ML IVC SCH (17:00)
[2017-05-17] MEDS ORDERED: Calcium Acetate 667 MG CAPSULE PO SCH (17:00)
--- NOTE | 2017-05-17 17:49 | Discharge Summary ---
Orders not resulted at time of discharge: Pending orders 05/17/17 15:10 Culture,Sputum with Gram Stain [RM] Routine Culture,Urine [RM] Routine 05/17/17 15:12 Activated Partial Thrombo Time [COAG] Stat Basic Metabolic Panel Stat Complete Blood Count [HEME] Stat Culture,Blood [BC] Stat Hepatic Panel Stat Lactic Acid Stat Prothrombin Time INR [COAG] Stat 05/17/17 15:30 Arterial Blood Gas Stat 05/17/17 15:31 Drug Screen, Serum [Drug Screen 9 Reflex Conf Qnt] Stat 05/17/17 15:32 Acetaminophen Stat Salicylate Stat Date of Encounter: 05/17/17 Time of Encounter: 17:47 - Discharge Diagnosis (1) Subarachnoid hemorrhage Priority: Primary Status: Acute (2) Acute encephalopathy Priority: Secondary Status: Acute (3) Severe sepsis Priority: Secondary Status: Acute (4) CHF (congestive heart failure) Priority: Secondary Status: Acute Qualifiers: Qualified Code(s): I50.22 - Chronic systolic (congestive) heart failure (5) Ischemic cardiomyopathy Priority: Secondary Status: Acute (6) Atrial fibrillation Priority: Secondary Status: Chronic Qualifiers: Atrial fibrillation type: chronic Qualified Code(s): I48.2 - Chronic atrial fibrillation (7) Presence of IVC filter Priority: Secondary Status: Chronic (8) COPD (chronic obstructive pulmonary disease) Priority: Secondary Status: Chronic Qualifiers: COPD type: unspecified COPD Qualified Code(s): J44.9 - Chronic obstructive pulmonary disease, unspecified (9) DVT prophylaxis Priority: Secondary Status: Acute Hospital course: Mr. Shultz is a 66 year old male with history of systolic heart failure (EF 10%) , ESRD, COPD, factor V Leiden dz, Crohns disease s/p ileostomy, DVT presented to [facility] for altered mental status. is historian. She states he has been "out of it" for past 2 days and worsening mostly since yesterday. He has been having shakiness and decreased appetite. He had dialysis yesterday but usually does have some weakness after dialysis but this time is worse. She notes he has been short of breath with some worsening edema. At [facility] ED patient had low BP reported to be SBP 70s which improved to SBP 90s after 1 L IV fluid. He had BMP that showed Cr. 5.75 otherwise unremarkable. WBC was normal. INR was therapeutic at 2.05. EKG showed sinus tachycardia of HR 101 with QTc elevated at 500. A CT head without contrast showed diffuse atrophy vs bilateral subdural hygromas. He received IV Ativan over there to get CT of head done. He was sent here to be treated for sepsis secondary to pneumonia. Patient was started on IV antibiotics, given slow IV fluid hydration. An MRI was attempted but patient does have contraindications due to pacer/defib and IV filter. A repeat CT of head was done showing acute subarachnoid hemorrhage. Patient will be transferred to [place] for further monitoring and management. at bedside understands current plan and is in agreement. - Time Spent with Patient Total time spent providing and/or coordinating discharge services: - Discharge Medications Home Medications: Pravastatin Sodium 40 mg PO HS 10/09/14 [History] Levothyroxine [Synthroid] 75 mcg PO 0630 11/29/16 [History] Midodrine [ProAmatine] 2.5 mg PO 0800,1200,1700 #45 tablet 03/31/17 [Rx] Sevelamer [Renvela] 800 mg PO TIDWM #90 tablet 03/31/17 [Rx] Amiodarone [Cordarone] 200 mg PO DAILY 05/17/17 [History] Calcium Acetate [Phos-LO] 1,334 mg PO TIDWM 05/17/17 [History] Mirtazapine [Remeron] 15 mg PO HS 05/17/17 [History] Sodium Bicarbonate 650 mg PO BID 05/17/17 [History] Allergies/Adverse Reactions: 3 Allergy/AdvReac Type Severity Reaction Status Date / Time Penicillins [PCN] Allergy Rash Verified 03/21/17 09:14 codeine AdvReac Hallucinati Verified 03/21/17 09:14 ng lorazepam [From Ativan] AdvReac Hallucinati Verified 03/21/17 09:14 ng Zolpidem [From Ambien] AdvReac Hallucinati Verified 03/26/17 00:03 ng Date of admission: 05/17/17 12:24 Primary care physician: Lonny Davison MD Consults: 05/17/17 15:08 Consult to Nephrology [CONS] Routine Consulting Provider: [facility]/JAGRUTI/FERNANDA/JARED Reason for Consult: On dialysis, known to group Call Completed: No 05/17/17 16:03 Consult to Neurology [CONS] Routine Consulting Provider: [facility] Reason for Consult: Altered mental status Call Completed: Yes Discharging clinician: Padmini Solorzano - Constitutional Vitals: Temp Pulse Resp BP Pulse Ox 97.0 F L 79 22 88/66 97 05/17/17 13:45 05/17/17 13:45 05/17/17 13:45 05/17/17 13:45 05/17/17 13:45 General appearance: Present: A&O X 0 Exam: lethargic, no acute distress CVS: Tachycardic, no mrg Lungs; CTAB Abd: nt/nd, ileostomy in place, clean Ext: 2+ bipedal pitting edema Skin: right port clean, no cellulitis or drainage. - Patient Status Disposition: Transfer Other Condition: Undetermined Functional capacity at discharge: bed bound Overall status at discharge: patient is not back to baseline - Discharge Instructions Follow Up With: Lonny Davison MD [Primary Care Provider] - - Diet and Activity Activity: other (bed rest) Diet: other (NPO)
[2017-05-17] MEDS ORDERED: Doxycycline 100 MG in 0.9 % Sodium Chloride Mini Bag 100 ML IVPB SCH (18:00)
[2017-05-17 18:59] LABS: INR 2.4; Prothrombin Time 26.2 Seconds (9.4-12.1)
[2017-05-17 19:02] LABS: Activated Partial Thrombo Time 32.6 Seconds (26.0-36.0)
[2017-05-17 19:18] LABS: Acetaminophen < 1.0 mcg/mL (10-30); Albumin 3.5 g/dL (3.5-5.7); Bilirubin,Direct 0.7 mg/dL (0.0-0.2); Bilirubin,Indirect 0.7 mg/dL (0.0-1.2); Bilirubin,Total 1.4 mg/dL (0.3-1.0); Calcium 10.2 mg/dL (8.6-10.3); Globulin 3.4 g/dL (2.4-3.5); Potassium 5.2 mEq/L (3.5-5.1); Salicylate < 5.0 mg/dL (15.0-30.0); Total Protein 6.9 g/dL (6.4-8.9)
[2017-05-17 19:35] VITALS: BP 97/81
[2017-05-17 20:03] LABS: Basophils % 0.4 %; Eosinophils % 0.3 %; Hematocrit 39.8 % (37.5-50.1); Hemoglobin 12.1 g/dL (12.9-16.9); Immature Granulocytes % 1.2 % (0-4); Lymphocytes # 0.5 K/mcL (0.6-4.6); Lymphocytes % 7.2 %; Mean Corpuscular HGB Conc 30.4 g/dL (31.6-35.5); Mean Corpuscular Hemoglobin 34.5 pg (28.0-33.3); Mean Platelet Volume 10.2 fL (9.4-12.4); Monocytes # 0.7 K/mcL (0.0-1.3); Monocytes % 9.8 %; Neutrophils # 5.9 K/mcL (1.6-8.9); Nucleated Red Blood Cells 0.8 /100 WBC (0); Platelet Count 134 K/mcL (140-400); Red Blood Count 3.51 M/mcL (4.19-5.50); Red Cell Distribution Width 22.1 % (11.5-14.5); Segmented Neutrophils % 81.1 %
[2017-05-17 20:05] LABS: Mean Corpuscular Volume 113.4 fL (83.0-100.0)
[2017-05-17 20:33] LABS: Anisocytosis 2+ (Not Present); Macrocytosis Present (Not Present); Platelet Estimate Slight Decrease (Normal)
[2017-05-17] MEDS ORDERED: Mirtazapine 15 MG TABLET PO SCH (21:00)
[2017-05-21 18:54] LABS: Amphetamines NEGATIVE ng/mL (Cutoff 30); Barbiturates NEGATIVE ng/mL (Cutoff 75); Benzodiazepines NEGATIVE ng/mL (Cutoff 75); Cocaine NEGATIVE ng/mL (Cutoff 30); Methadone NEGATIVE ng/mL (Cutoff 40); Methamphetamines NEGATIVE ng/mL (Cutoff 30); Phencyclidine NEGATIVE ng/mL (Cutoff 15)
[2017-05-22 14:47] LABS: Opiates POSITIVE ng/mL (Cutoff 30)
[2017-05-25 22:05] LABS: Hydrocodone Confirmation <2 ng/mL
[2017-05-26 08:18] LABS: 6_Acetylmorphine Confirmation <2 ng/mL; Oxymorphone Confirmation <2 ng/mL
== END 2017-05-17 20:40 | disposition other institution (70) | DRG 871 ==
LOC: 2ANU → 2SOUTHHOLD 13:05
PROVIDERS: ADMIT Pediatrics; ATTEND Family Medicine